=== PATIENT | female | born 1945 | race Caucasian/White ===

== ENCOUNTER → 2017-02-12 12:24 | Outpatient (CLI) | payer MEDICARE, SELFPAY ==
--- NOTE | 2017-02-12 12:49 | EKG12_ITS ---
Test Reason : AFIB Blood Pressure : / mmHG Vent. Rate : 062 BPM Atrial Rate : 107 BPM P-R Int : 000 ms QRS Dur : 088 ms QT Int : 392 ms P-R-T Axes : 000 082 046 degrees QTc Int : 397 ms Atrial fibrillation Abnormal ECG When compared with ECG of 29-JAN-2017 03:56, Vent. rate has decreased BY 76 BPM T wave inversion no longer evident in Anterolateral leads Confirmed by ELSA BAIRES, SARINA ([id number]), material expeditor TULIO DE LEON ([id number]) on 02/15/2017 2:37:32 PM Referred By: LILIBETH Confirmed By:SARINA HUNTER MD
[2017-02-12 14:00] LABS: Anion Gap 4 (5-15); BUN 13 mg/dL (7-18); BUN/Creat Ratio 12.1 RATIO (10-20); Calcium,Total 9.3 mg/dL (8.5-10.1); Chloride 107 mmol/L (98-107); Creatinine, Serum 1.07 mg/dL (0.55-1.02); EST Glomerular Filtration Rate 53 mL/min (>60); Est Glom Filt Rate - Afr Amer 65 mL/min (>60); Glucose 118 mg/dL (70-110); Potassium 4.4 mmol/L (3.5-5.1); Sodium Level 141 mmol/L (136-145)
== END ==
PROVIDERS: Family Provider Internal Medicine; PCP Internal Medicine; Visit Provider Internal Medicine Cardiovascular Disease
DX: I48.1 Persistent atrial fibrillation (principal); I47.1 Supraventricular tachycardia; Z79.01 Long term (current) use of 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s
CPT/HCPCS: 36415; 80048; 93005

== ENCOUNTER → 2017-08-08 14:48 | Outpatient (CLI) | payer MEDICARE, SELFPAY ==
--- NOTE | 2017-08-08 14:52 | ECHOD_ITS ---
Reason For Study: AFIB-FLUTTER Procedure This was a 2D Doppler, Color Flow transthoracic echocardiogram. Exam performed in department. Left Ventricle Normal size and thickness. The estimated ejection fraction is 60 %. Unable to assess diastolic dysfunction due to arrhythmia. No regional wall motion abnormalities noted. Right Ventricle Normal size and thickness. Normal systolic function. Atria The left atrium is severely enlarged. The right atrium is severely enlarged. Normal atrial septum. Mitral Valve Mild diffuse mitral valve thickening. Trivial mitral valve insufficiency. An annuloplasty ring is noted in the mitral position. Tricuspid Valve Normal tricuspid valve. Trivial tricuspid valve insufficiency. Right ventricular systolic pressure estimated to be 36 mmHg. Aortic Valve Normal aortic valve. Trisinus/trileaflet aortic valve. Pulmonic Valve The pulmonic valve is not well visualized. Great Vessels Normal aortic root. Normal arch. Normal inferior vena cava. Inferior vena cava collapse with sniff. Pericardium/Pleural No pericardial effusion. MMode/2D Measurements & Calculations LVIDd: 4.3 cm IVSd: 0.99 cm LVOT diam: 2.0 cm LVIDs: 2.7 cm LVPWd: 0.95 cm LVOT area: 3.2 cm2 RVDd: 3.1 cm FS: 36.8 % Ao root diam: 2.8 cm LAV(MOD-bp): 84.7 ml LVAd ap4: 26.6 cm2 LAV(MOD-bp) Indexed: 52.3 ml/m2 EDV(MOD-sp4): 82.8 ml LAV(MOD-sp2): 106.2 ml EDV(sp4-el): 83.8 ml LAV(MOD-sp4): 63.6 ml LVAs ap4: 16.0 cm2 ESV(MOD-sp4): 36.2 ml ESV(sp4-el): 37.3 ml EF(MOD-sp4): 56.2 % EF(sp4-el): 55.6 % SV(MOD-sp4): 46.5 ml SV(sp4-el): 46.6 ml LA A4 area: 21.1 cm2 RA A4 area: 22.0 cm2 Doppler Measurements & Calculations MV E max starr: 123.0 cm/sec MV P1/2t max starr: 131.6 cm/sec Ao V2 max: 119.7 cm/sec MV P1/2t: 84.9 msec Ao max P.7 mmHg MV dec slope: 454.0 cm/sec2 ABDI(V,D): 1.9 cm2 MVA(P1/2t): 2.6 cm2 LV V1 max: 71.4 cm/sec PA V2 max: 68.4 cm/sec TR max starr: 225.0 cm/sec LV V1 max P.0 mmHg TR max P.2 mmHg Interpretation Summary The estimated ejection fraction is 60 %. Unable to assess diastolic dysfunction due to arrhythmia. The left atrium is severely enlarged. The right atrium is severely enlarged. An annuloplasty ring is noted in the mitral position and appears to be functioning normally. Trivial mitral valve insufficiency. Right ventricular systolic pressure estimated to be 36 mmHg. Compared to echo report dated 11/29/2016, no appreciable changes noted. Pt appears to be in atrial fibrillation. Ordering Physician: Ronald Lauren Referring Physician: TORREY MAURO Performed By: Vanessa Ma RDCS
== END ==
PROVIDERS: Family Provider Internal Medicine; PCP Internal Medicine; Visit Provider Internal Medicine Cardiovascular Disease
DX: I47.1 Supraventricular tachycardia (principal)
CPT/HCPCS: 93306

== ENCOUNTER 2018-02-08 14:31 | Emergency (ER) | payer MEDICARE, SELFPAY ==
[2018-02-08 14:31] VITALS: BP 132/60; PULSE 74; RESP 16; TEMP 36.3; O2SAT 97; BMI 21.4
[2018-02-08 15:20] VITALS: O2SAT 96
[2018-02-08] MEDS: Ipratropium/Albuterol Sulfate 3 ML AMPUL.NEB INHALATION (15:40)
[2018-02-08 15:41] VITALS: PULSE 60; RESP 18
--- NOTE | 2018-02-08 15:50 | RAD_ITS ---
STUDY: X-RAY CHEST REASON FOR EXAM: Female, 72 years old. Cough TECHNIQUE: Frontal and lateral views of the chest were obtained. COMPARISON: March 12, 2017 FINDINGS: The lungs are hyperinflated. There are increased interstitial markings throughout the lungs. There are no focal airspace opacities. There is no demonstrated pleural abnormality. The cardiac silhouette is normal in size. The mediastinum and hilar regions are unremarkable. Normal visualized pulmonary arteries. Normal visualized aortic arch and descending thoracic aorta. There are diffuse degenerative changes of the visualized spine. There are degenerative changes in both shoulders. There are old rib fractures on the left. There is no demonstrated abnormality of the visualized upper abdomen. RAD/Chest PA and Lateral IMPRESSION: There is no evidence of focal consolidation or pleural effusion. 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 Electronically Signed: Heike Milian MD at 16:35 EST Tel Direct: [phone], Service support ,
--- NOTE | 2018-02-08 15:56 | ED.VISSUMM ---
- ER Visit Summary Date of Service: 02/08/18 Chief Complaint: [Shortness of breath cough] History of Present Illness: The patient is a 72 F [presents to the emergency department with complaint of a cough and shortness of breath started about a week ago. Patient states that at times she is coughing up some yellow sputum. She has had subjective fever at home. She complains of some mild discomfort with cough and her central chest area. Denies any hemoptysis. Seen in urgent care and was prescribed an antibiotic however she was advised to go to the emergency department to be evaluated because apparently they thought she had fluid on her lungs. Patient also complaining of some discomfort in her right ear and to the anterior aspect of her neck which she feels might be a little bit swollen.] Physical Examination: [HEENT-PERRLA, EOMI. Cranial nerves II through XII grossly intact. TMs clear. Mucous membranes moist. No adenopathy. Cardiovascular-regular rate and rhythm without murmur or ectopy Lungs-rhonchi bilaterally with expiratory wheezes. No accessory muscle use or retractions. Patient has some mild tenderness to palpation over the anterior chest wall. Abdomen-normoactive bowel sounds, soft, nontender, no rebound or rigidity, no peritoneal signs. Extremities-intact ?4, normal range of motion, normal pulses, atraumatic] Test Results: [Chest x-ray obtained showed some COPD changes with some mild fibrosis otherwise nothing acute.] Emergency Department Course and Treatment: [Patient was given a DuoNeb aerosol and she felt improved. 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 Patient to follow-up with her primary care physician within next 3-5 days.] Disposition: [Discharged home in stable condition. Patient advised to return if increasing shortness of breath or condition should worsen anyway.] Impression: [Asthmatic bronchitis] This note was generated with [employer] ([employer]) dictation software. It may contain incorrect words, spelling, and punctuation that were not noted in review of the chart prior to signing ED Disposition - Plan for ED Patient: Chief Complaint: Shortness of Breath Referrals: Reginald Rojo MD [Primary Care Provider] -
--- NOTE | 2018-02-08 15:59 | ED.DCSUM_ITS ---
- ER Visit Summary Date of Service: 02/08/18 Chief Complaint: [Shortness of breath cough] History of Present Illness: The patient is a 72 F [presents to the emergency department with complaint of a cough and shortness of breath started about a week ago. Patient states that at times she is coughing up some yellow sputum. She has had subjective fever at home. She complains of some mild discomfort with cough and her central chest area. Denies any hemoptysis. Seen in urgent care and was prescribed an antibiotic however she was advised to go to the emergency department to be evaluated because apparently they thought she had fluid on her lungs. Patient also complaining of some discomfort in her right ear and to the anterior aspect of her neck which she feels might be a little bit swollen.] Physical Examination: [HEENT-PERRLA, EOMI. Cranial nerves II through XII grossly intact. TMs clear. Mucous membranes moist. No adenopathy. Cardiovascular-regular rate and rhythm without murmur or ectopy Lungs-rhonchi bilaterally with expiratory wheezes. No accessory muscle use or retractions. Patient has some mild tenderness to palpation over the anterior chest wall. Abdomen-normoactive bowel sounds, soft, nontender, no rebound or rigidity, no peritoneal signs. Extremities-intact ?4, normal range of motion, normal pulses, atraumatic] Test Results: [Chest x-ray obtained showed some COPD changes with some mild fibrosis otherwise nothing acute.] Emergency Department Course and Treatment: [Patient was given a DuoNeb aerosol and she felt improved. 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 Patient to follow-up with her primary care physician within next 3-5 days.] Disposition: [Discharged home in stable condition. Patient advised to return if increasing shortness of breath or condition should worsen anyway.] Impression: [Asthmatic bronchitis] This note was generated with [employer] dictation software. It may contain incorrect words, spelling, and punctuation that were not noted in review of the chart prior to signing ED Disposition - Plan for ED Patient: Chief Complaint: Shortness of Breath Referrals: Reginald Rojo MD [Primary Care Provider] -
--- NOTE | 2018-02-08 17:03 | ED.DEP ---
ED Disposition - Plan for ED Patient: Chief Complaint: Shortness of Breath Instructions: ED Bronchitis Asthmatic Referrals: Reginald Rojo MD [Primary Care Provider] - 3-5 Days
--- OUTSIDE RECORDS SUMMARY | 2018-04-05 16:10 | XMS RPT_ITS ---
:1945 Author Organization OHIP Support Name Relationship Address Phone LENNIE LIRIANOE Unavailable [address] [facility] + [place] [address] DOROTHY, RAISSA Unavailable Unavailable + [place] [address] R Unavailable Unavailable Unavailable BUCHWALTER, ADELA Unavailable . + [place] [address] DOROTHY, RAISSA Unavailable . + [place] [address] R Unavailable Unavailable Unavailable BUCHWALTER, ADELA Unavailable Unavailable + DOROTHY, RAISSA Unavailable Unavailable + [place] [address] R Unavailable Unavailable Unavailable BUCHWALTER, ADELA Unavailable Unavailable + DOROTHY, RAISSA Unavailable Unavailable + [place] [address] R Unavailable Unavailable Unavailable BUCHWALTER, ADELA Unavailable NA + [place], [place] DOROTHY, RAISSA Unavailable NA + [place], [place] R Unavailable Unavailable Unavailable BUCHWALTER, ADELA Unavailable NA + [place], [place] DOROTHY, RAISSA Unavailable NA + [place], [place] R Unavailable Unavailable Unavailable BUCHWALTER, ADELA Unavailable NA + [place], [place] DOROTHY, RAISSA Unavailable NA + [place], [place] R Unavailable Unavailable Unavailable BUCHWALTER, ADELA Unavailable NA + [place], [place] DOROTHY, RAISSA Unavailable NA + [place], [place] R Unavailable Unavailable Unavailable BUCHWALTER, ADELA Unavailable NA + [place], [place] DOROTHY, RAISSA Unavailable NA + [place], [place] R Unavailable Unavailable Unavailable R Unavailable Unavailable Unavailable R Unavailable Unavailable Unavailable R Unavailable Unavailable Unavailable R Unavailable Unavailable Unavailable BUCHWALTERLENNIEE Unavailable NA + [place], [place] DOROTHY, RAISSA Unavailable NA + [place], [place] R Unavailable Unavailable Unavailable R Unavailable Unavailable Unavailable BUCHWALTER ADELA Unavailable NA + [place], [place] DOROTHY, RAISSA Unavailable NA + [place], [place] R Unavailable Unavailable Unavailable Care Team Providers Name Role Phone Darrel, Reginald Primary Care Unavailable Yan Vera Attending Unavailable Rojo, Reginald Primary Care Unavailable Yan Vera Attending Unavailable Rojo, Reginald Primary Care Unavailable Rober Schwartz Admitting Unavailable Lamberto De La Garza Attending Unavailable Reji Matta Consulting Unavailable AshelfLavern cisneros Attending Unavailable Reji Matta Attending Unavailable Lamberto De La Garza Attending Unavailable PaxtonReji delaney Attending Unavailable Lamberto De La Garza Attending Unavailable Mansi Boyle Attending Unavailable Rojo, Reginald Referring Unavailable Rojo, Reginald Primary Care Unavailable Reji Matta Attending Unavailable Rober Schwartz Referring Unavailable Naomie Baker Attending Unavailable Ronald Lauren Attending Unavailable Darrel, Reginald Referring Unavailable Rojo, Reginald Primary Care Unavailable Ronald Lauren Attending Unavailable Ronald Lauren Referring Unavailable Rojo, Reginald Primary Care Unavailable Ronald Lauren Attending Unavailable Mansi Boyle Attending Unavailable Rojo, Reginald Referring Unavailable Rojo, Reginald Primary Care Unavailable Cristopher Doherty Attending Unavailable DARREL, REGINALD Aguilar Attending Unavailable DARREL, VALARIE Referring Unavailable THORLEYDI DE LUNA (DAIRY EQUIPMENT REPAIRER) Attending Unavailable ROJO, VALARIE Referring Unavailable ROJO, VALARIE Referring Unavailable ROJO, REGINALD Aguilar Attending Unavailable DARREL, VALARIE Referring Unavailable THORPE, LEYDI (DAIRY EQUIPMENT REPAIRER) Attending Unavailable THORCALIXTO, LEYDI (DAIRY EQUIPMENT REPAIRER) Referring Unavailable ROJO, VALARIE Attending Unavailable ROJO, VALARIE Referring Unavailable SCHWEIKERT, SANDEE Gil Attending Unavailable REGINALD ROJO Referring Unavailable NIDARICHIE ([facility]) Attending Unavailable NIDA, RICHIE ([facility]) Referring Unavailable SCHWEIKERT, SANDEE A Admitting Unavailable SCHWEIKERT, SANDEE Gil Attending Unavailable NIDA, RICHIE ([facility]) Referring Unavailable SCHWEIKERT, SANDEE A Admitting Unavailable SCHWEIKERT, SANDEE Gil Attending Unavailable SCHWEIKERT, SANDEE A Referring Unavailable SCHWEIKERT, SANDEE A Referring Unavailable SCHWEIKERT, SANDEE A Referring Unavailable NIDA, RICHIE ([facility]) Attending Unavailable SCHWEIKERT, SANDEE Gil Attending Unavailable SCHWEIKERT, SANDEE A Referring Unavailable SCHWEIKERT, SANDEE Gil Attending Unavailable Darrel BAIRES, Reginald Primary Care Unavailable Darrel BAIRES, Reginald Referring Unavailable MICHELLE MONTALVO Attending Unavailable MICHELLE MONTALVO Referring Unavailable Darrel BAIRES, Reginald Primary Care Unavailable SCHWEIKERT, SANDEE Gil Admitting Unavailable SCHWEIKERT, SANDEE Gil Attending Unavailable Darrel BAIRES, Reginald Primary Care Unavailable MICHELLE MONTALVO Referring Unavailable Darrel BAIRES, Reginald Primary Care Unavailable SCHWEIKERT, SANDEE Gil Admitting Unavailable SCHWEIKERT, SANDEE Gil Attending Unavailable Darrel BAIRES, Reginald Primary Care Unavailable MICHELLE MONTALVO Attending Unavailable [facility] Referring Unavailable Darrel BAIRES, Reginald Primary Care Unavailable SCHWEIKERT, SNADEE Gil Referring Unavailable Darrel BAIRES, Reginald Primary Care Unavailable SCHWEIKERT, SANDEE Gil Referring Unavailable Darrel BAIRES, Reginald Primary Care Unavailable SCHWEIKERT, SANDEE Gil Referring Unavailable Darrel BAIRES, Reginald Primary Care Unavailable PROBLEMS PROBLEMS DATE TYPE CONDITION / CODE ATTENDING STATUS SOURCE 12/06/2017 Active Shortness of breath / NA Active [facility] R06.02(ICD-10) Clinic Other [place] Repository 10/02/2017 Active Other specified SCHWEIKERT, Active [facility] postprocedural states SANDEE A Clinic Other / Z98.890(ICD-10) [place] Repository 10/02/2017 Active Other mcc SCHWEIKERT, Active [facility] (current) drug SANDEE A Clinic Other therapy / [place] Z79.899(ICD-10) Repository 10/02/2017 Active Persistent atrial SCHWEIKERT, Active [facility] fibrillation / SANDEE A Clinic Other I48.1(ICD-10) [place] Repository 10/02/2017 Active halfway (current) SCHWEIKERT, Active [facility] use of 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s SANDEE A Clinic Other / Z79.01(ICD-10) [place] Repository 10/02/2017 Admitting Unknown / SCHWARLEN, Active [place] [facility] diagnosis UNK(Unknown) [facility] Repository 08/10/2017 Active Unknown / RICHIE ALVA Active [facility] UNK(Unknown) (DRILL SETUP OPERATOR) Clinic Other [place] Repository 08/08/2017 Unknown I47.1 - Cheng Laurenel Active [facility] tachycardia / Hospital I47.1(ICD-10) Repository 07/12/2016 Active Rheumatic heart SCHWEIKERT, Active [facility] disease, unspecified SANDEE A Clinic Other / I09.9(ICD-10) [place] Repository 12/21/2015 Active Rheumatic mitral SCHWEIKERT, Active [place] insufficiency / SANDEE A Clinic Other I05.1(ICD-10) [place] Repository 04/16/2017 Active Encounter for NA Active [facility] screening for Clinic Main osteoporosis / [place] Z13.820(ICD-10) Repository 07/06/2017 Unknown I48.0 - Paroxysmal Boyle, Active [place] atrial fibrillation / [facility] I48.0(ICD-10) Hospital Repository 07/06/2017 Unknown I48.91 - Unspecified Boyle, Active [place] atrial fibrillation / [facility] I48.91(ICD-10) Hospital Repository 07/25/2017 Unknown R00.2 - Palpitations Chuy, Bonifacioi Active [place] / R00.2(ICD-10) [facility] Repository PROCEDURES PROCEDURES No Procedure Records FoundRESULTS RESULTS EMERGENCY DEPARTMENT Observed: 02/08/2018 Status: F Source: [place] SUMMARY 9:14 PM [facility] REPOSITORY [facility] Medical Records Department [address] [place] [id number] Emergency Department Summary 02/08/18 1556 MR#: [id number] Acct: [id number] Name: BELLA GAN V Rep #: [id number] : 1945 72 From: Cristopher Doherty DO PCP: Reginald Rojo MD Status: DEP ER - ER Visit Summary Date of Service: 02/08/18 Chief Complaint: [Shortness of breath cough] History of Present Illness: The patient is a 72 F [presents to the emergency department with complaint of a cough and shortness of breath started about a week ago. Patient states that at times she is coughing up some yellow sputum. She has had subjective fever at home. She complains of some mild discomfort with cough and her central chest area. Denies any hemoptysis. Seen in urgent care and was prescribed an antibiotic however she was advised to go to the emergency department to be evaluated because apparently they thought she had fluid on her lungs. Patient also complaining of some discomfort in her right ear and to the anterior aspect of her neck which she feels might be a little bit swollen.] Physical Examination: [HEENT-PERRLA, EOMI. Cranial nerves II through XII grossly intact. TMs clear. Mucous membranes moist. No adenopathy. Cardiovascular-regular rate and rhythm without murmur or ectopy Lungs-rhonchi bilaterally with expiratory wheezes. No accessory muscle use or retractions. Patient has some mild tenderness to palpation over the anterior chest wall. Abdomen-normoactive bowel sounds, soft, nontender, no rebound or rigidity, no peritoneal signs. Extremities-intact 4, normal range of motion, normal pulses, atraumatic] Test Results: [Chest x-ray obtained showed some COPD changes with some mild fibrosis otherwise nothing acute.] Emergency Department Course and Treatment: [Patient was given a DuoNeb aerosol and she felt improved. Initially recommended prednisone as well however she states that she has some sort of an allergy to steroids and would prefer not to take them.] Treatment Plan: [Patient will be given an albuterol MDI and she is advised to merchandise pickup/receiving associate her antibiotic at the pharmacy that was prescribed to her by urgent care. Patient to follow-up with her primary care physician within next 3-5 days.] Disposition: [Discharged home in stable condition. Patient advised to return if increasing shortness of breath or condition should worsen anyway.] Impression: [Asthmatic bronchitis] This note was generated with [employer] dictation software. It may contain incorrect words, spelling, and punctuation that were not noted in review of the chart prior to signing ED Disposition - Plan for ED Patient: Chief Complaint: Shortness of Breath Referrals: Reginald Rojo MD [Primary Care Provider] - What to do if you have Problems For any increased pain, shortness of breath, bleeding, nausea or vomiting, chest pain, or any unexpected problems, contact your Primary Care Provider. Call [facility] ([phone]) or report to the closest Emergency Room. Call 911 if necessary. 02/08/182113 <Electronically signed by Cristopher Doherty DO> Date Althea Chas DO Cosigner Signature (If Indicated): Date CC: Reginald Rojo MD DISCHARGE INSTRUCTION Observed: 02/08/2018 Status: F Source: [place] 5:03 PM [facility] REPOSITORY [facility] Medical Records Department [address] [place] [address] Discharge Instruction 02/08/181702 MR#: [id number] Acct: [id number] Name: BELLA GAN V Rep #: [id number] : 1945 72 From: Cristopher Doherty DO PCP: Reginald Rojo MD Status: REG ER ED Disposition - Plan for ED Patient: Chief Complaint: Shortness of Breath Instructions: ED Bronchitis Asthmatic Referrals: Reginald Rojo MD [Primary Care Provider] - 3-5 Days What to do if you have Problems For any increased pain, shortness of breath, bleeding, nausea or vomiting, chest pain, or any unexpected problems, contact your Primary Care Provider. Call [facility] ([phone]) or report to the closest Emergency Room. Call 911 if necessary. 02/08/181702 <Electronically signed by Cristopher Doherty DO> Date Cristopher Doherty DO Cosigner Signature (If Indicated): Date CC: Reginald Rojo MD CHEST PA AND LATERAL Observed: 02/08/2018 Status: F Source: [place] 3:20 PM [facility] HOSPITAL REPOSITORY [facility] Imaging Services [address] [place] [address] Chest PA and Lateral MR#: [id number] Acct: [id number] Name: BELLA GAN V Rep #: [id number] : 1945 F 72 From: Heike Milian MD PCP: Reginald Rojo MD Status: REG ER Study: Chest PA and Lateral Date of Exam: 02/08/18 Exam# [id number] Ordering Dr: Cristopher Doherty DO STUDY: X-RAY CHEST REASON FOR EXAM: Female, 72 years old. Cough TECHNIQUE: Frontal and lateral views of the chest were obtained. COMPARISON: March 12, 2017 FINDINGS: The lungs are hyperinflated. There are increased interstitial markings throughout the lungs. There are no focal airspace opacities. There is no demonstrated pleural abnormality. The cardiac silhouette is normal in size. The mediastinum and hilar regions are unremarkable. Normal visualized pulmonary arteries. Normal visualized aortic arch and descending thoracic aorta. There are diffuse degenerative changes of the visualized spine. There are degenerative changes in both shoulders. There are old rib fractures on the left. There is no demonstrated abnormality of the visualized upper abdomen. RAD/Chest PA and Lateral IMPRESSION: There is no evidence of focal consolidation or pleural effusion. 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 Electronically Signed: Heike Milian MD at 16:35 EST Tel Direct: [phone], Service support , CC: Cristopher Doherty DO; Reginald Rojo MD Playroom Attendant: Signed CARDIOLOGY VISIT Observed: 01/07/2018 Status: F Source: [place] REPORT 4:28 PM [facility] HOSPITAL REPOSITORY [facility] [address] [place] [address] OFFICE VISIT Date of Service: 12/28/17 MR#: [id number] Acct: [id number] Name: BELLA GAN V Rep #: [id number] : 1945 Provider: Mansi Boyle Age/Sex: 72/F [facility]: [facility] Status: Signed HPI HPI Chief Complaint: Routine f/u Details: BELLA GAN, is a 72 F who presents to the office today for a cardiovascular follow-up. Patient does have a history of paroxysmal atrial fibrillation. In August of this year she did undergo an ablation and she did require a cardioversion after this ablation. Since that time she feels that she occasionally has paroxysmal atrial fibrillation. She does hold her Coreg when her heart rate is low. She tells me that her goal for the future is to stop her amiodarone this is per EP. She does have an upcoming appointment with him. I have not been able to review these medical records yet. She also states that during her EP workup she was noted to have a nodule on her CAT scan. She is planning on discussing this with her primary care doctor She does not have any worsening shortness of breath. She does not have any chest pain or heaviness. She feels her palpitations are significantly better. She does not have any lightheadedness, dizziness, syncopal episodes or lower extremity edema. Intake Vital Signs12/28/17 Height 5 ft 5 in 12/28/17 Weight: 135 lb 12/28/17 Body Mass Index (BMI) 22.4 12/28/17 Blood Pressure 128/64 H 12/28/17 Blood Pressure Location Lt brachial Intake Visit Reasons: 6 M FU Flattening Machine Operator Required: No Accompanied by: none Is patient in pain?: No Allergies codeine Allergy (Verified 12/28/17 14:15) Other cortisone Allergy (Verified 12/28/17 14:15) Rash guaifenesin Allergy (Verified 12/28/17 14:15) Unknown propoxyphene [From Darvon] Allergy (Verified 12/28/17 14:15) Rash propranolol Allergy (Verified 12/28/17 14:15) Unknown verapamil Allergy (Verified 12/28/17 14:15) Unknown digoxin Adverse Reaction (Verified 12/28/17 14:15) Unknown Medications ALPRAZolam [Xanax] 0.5 mg PO QHS 11/17/15 [History Confirmed 12/28/17] Levothyroxine Sodium [Levoxyl] 88 mcg PO DAILY 01/18/16 [History Confirmed 12/28/17] Acetaminophen [Tylenol] 325 mg PO Q4H PRN 02/17/17 [History Confirmed 12/28/17] amiodarone 200 mg tablet 200 mg PO QDAY #90 tab 04/20/17 [Rx Confirmed 12/28/17] rivaroxaban 20 mg tablet 20 mg PO QDAY #90 tab 05/02/17 [Rx Confirmed 12/28/17] potassium chloride ER 20 mEq tablet,extended release(part/cryst) 20 meq PO BID #14 tab 05/08/17 [Rx Confirmed 12/28/17] carvedilol 6.25 mg tablet 6.25 mg PO BID #180 tab 06/01/17 [Rx Confirmed 12/28/17] furosemide 20 mg tablet 20 mg PO DAILY #90 tab 12/28/17 [Rx Confirmed 12/28/17] PFSH Medical History Paroxysmal supraventricular tachycardia (Chronic) Rheumatic mitral insufficiency (Chronic) Rheumatic mitral valve prolapse (Chronic) Paroxysmal A-fib (Chronic) Anxiety (Chronic) Hypothyroidism (Chronic) Takotsubo cardiomyopathy (Chronic) Surgical History History of mitral valve repair (Chronic 09/18/01) History of cardioversion (Chronic 03/13/17) History of cataract surgery (Chronic) History of left heart catheterization (Chronic 01/19/16) History of total abdominal hysterectomy (Chronic) Social History Smoking Status: Never smoker Cardiology Exam Const Appearance: cooperative, healthy appearing and no acute distress Nutritional Appearance: well nourished Orientation: alert, oriented x3 and oriented to person Head Head: normal to inspection, atraumatic and normocephalic Nose: external nose normal Face and Sinus: face symmetric Mouth: oral mucosae normal Eyes General: appearance normal, both eyes and all related structures Eyelids: eyelids normal Conjunctivae: conjunctivae normal Pupils: PERRL and normal by confrontation EOM: EOM intact bilaterally Neck Neck: normal visual inspection and full ROM Carotids: normal carotid upstroke Chest Chest inspection: normal inspection of the chest Auscultation: Bilateral: Clear to Auscultation Cardio Palpation: normal PMI Rate: regular rate Rhythm: regular rhythm Heart sounds: S1 normal and S2 normal GI GI: normal to inspection, no hepatosplenomegaly and bowel sounds present Neuro General: alert, oriented x3, awake, CN's II-XI intact bilaterally and moves all extremities Skin Skin: no rashes or lesions noted Extremities Pulses: Normal: Right Femoral Pulse, Left Femoral Pulse, Right Dorsalis Pedis Pulse, Left Dorsalis Pedis Pulse, Right Posterior Tibial Pulse, Left Posterior Tibial Pulse, Right Radial Pulse, Left Radial Pulse Lower Extremity Edema: None: Bilateral Psych Psychological: normal affect Supplemental Info Echocardiogram in 2018 demonstrated: The estimated ejection fraction is 60 %. Unable to assess diastolic dysfunction due to arrhythmia. The left atrium is severely enlarged. The right atrium is severely enlarged. An annuloplasty ring is noted in the mitral position and appears to be functioning normally. Trivial mitral valve insufficiency. Right ventricular systolic pressure estimated to be 36 mmHg. Compared to echo report dated 11/29/2016, no appreciable changes noted. Pt appears to be in atrial fibrillation. Assessment AND Plan 1. Paroxysmal A-fib I48.0 Plan Will obtain medical records from EP. For now she will continue with her amiodarone, current dose of Coreg and Xarelto. 2. History of mitral valve repair Z98.890 Plan Recent echocardiogram has been reviewed. We will continue to monitor by history, exam and echocardiograms as deemed appropriate. Plan Detail Other Medications New: Additional Comments Thank you for allowing us to participate in patient's plan of care, if you have any questions please do not hesitate to call. This note was generated using a voice recognition system and there may be incorrect words, spelling or punctuation errors that were not noted when reviewing the office note prior to saving. Follow Up 6 Months (DJN) 12/28/17 (Please obtain MR from EP- would like EKG, CT, echo, ablation and OV) Coding Level of Care Code Off vis,est,level 3 Diagnoses Paroxysmal A-fib I48.0 History of mitral valve repair Z98.890 Coding Level of Care Code Off vis,est,level 3 Diagnoses Paroxysmal A-fib I48.0 History of mitral valve repair Z98.890 01/07/18 2421 <Electronically signed by Mansi CHRISTIAN> Date Mansi Ross Signature: Date (if applicable) CC: Reginald Rojo MD CNPN Observed: 12/11/2017 Status: COMPLETED Source: [place] 12:00 AM CLINIC OTHER CAMPUS REPOSITORY Telephone (AGCARDPHRA) BELLA GAN V ([id number]) 1945 F Date Time Provider Department 12/11/17 RICHIE ALVA (DRILL SETUP OPERATOR) AGCARDPHRA During your visit today, we recorded the following information about you: Michelle Alva, MSN, BUNGHOLE BORER.DRILL SETUP OPERATOR 12/11/2017 2:24 PM Signed Please inform Bella Gan that the CT scan of the chest shows 3 right and 2 left pulmonary veins there is approximately 50% 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 Since she is asymptomatic this is something we will keep an eye on. Through the 5 mm noncalcified pulmonary nodule in the right upper lobe it is recommended that she follow-up with her primary care physician she may need a percutaneous biopsy. Please send the copy of the CT scan report as well as call the office so the physician is aware. Echocardiogram shows ejection fraction 67%. No regional wall motion abnormalities. No evidence of intra-atrial shunting. Michelle Alva, MSN, BUNGHOLE BORER.DRILL SETUP OPERATOR Carroll Cline RN 12/11/2017 2:35 PM Signed Patient notified of test results and verbalized understanding. CELSO Alfonso MD 12/11/2017 4:55 PM Signed ASSESSMENT/PLAN: 1. Lung nodule < 6cm on CT - ICD9: 793.11, ICD10: R91.1 This result was forwarded to me. Per guidelines, I recommend rechecking CT in 12 months. Biopsy not indicated. Please inform the patient. Reginald Rojo MD Allergies As of Date: 12/11/2017 Noted Allergy Reaction CODEINE 12/21/2015 8 - GI Upset CORTISONE 12/21/2015 7 - Swelling 14 - Other: See Comments Comments: Caused A-fib DARVON (PROPOXYPHENE HCL) 12/21/2015 1 - Mental Status Change DIGOXIN 03/22/2017 5 - Intolerance GUAIFENESIN 12/21/2015 1 - Mental Status Change Comments: hallucinations HONEY 12/21/2015 2 - Rash 9 - Itching PROPRANOLOL 12/21/2015 14 - Other: See Comments Comments: Night terrors VERAPAMIL 12/21/2015 14 - Other: See Comments Comments: Palpitation, diaphoresis Date Reviewed: 12/06/2017 Reviewed by: Richie (Food Selector) Nida - Fully Assessed Reason for Visit: Results [95] Primary Visit Diagnosis:Lung nodule < 6cm on CT [R91.1] Prescriptions as of 12/11/2017 Sig: ALPRAZOLAM 0.5 MG TABLET Take 1 tablet by mouth twice * CARVEDILOL 6.25 MG TABLET Take 6.25 mg by mouth twice d* AMIODARONE 200 MG TABLET Take 1 tablet by mouth once d* FUROSEMIDE 20 MG TABLET Take 1 tablet by mouth once d* RIVAROXABAN 20 MG TABLET Take 1 tablet by mouth daily * LEVOTHYROXINE 88 MCG TABLET Take 1 tablet by mouth once d* POTASSIUM CHLORIDE ER 20 MEQ * Take 1 tablet by mouth twice * Problem List As Of Date 12/11/2017 Noted Resolved PSVT (paroxysmal supraventricular tachycardia) *INVALID FOR* 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 Anticoagulant-induced bleeding (HCC) [T45.7X1A,* 05/16/2017 More... Rheumatic heart disease [I09.9] Mitral valve regurgitation [I34.0] More... Persistent atrial fibrillation (HCC) [I48.1] Tachycardia [R00.0] 02/14/2017 More... Gastroesophageal reflux disease [K21.9] INVALID FOR* Osteopenia [M85.80] INVALID FOR* Paroxysmal atrial fibrillation (HCC) [I48.0] INVALID FOR* halfway current use of antiarrhythmic drug [Z* More... Status post catheter ablation of atrial fibrill*INVALID FOR* More... Lung nodule < 6cm on CT [R91.1] INVALID FOR* More... Encounter Status:Closed by CARROLL CLINE RN on 12/11/17 PROGRESS Observed: 12/06/2017 Status: COMPLETED Source: [place] 2:50 PM [facility] REPOSITORY HNO ID: [id number] Author: Sandee Flores Service: (none) Author Type: Physician Type: Progress Notes Filed: 12/06/2017 2:52 PM Note Text: Reviewed case in response to SMOOTH Alva's question as to whether Ms. Gan can discontinue amiodarone now that she is a few months from the AF catheter ablation procedure in 08/2017. My operative notes indicate the presence of substantial atrial cardiomyopathy so we know from this situation that sinus rhythm will likely be very challenging to maintain. Therefore, I recommend that she continue with the amiodarone for now and we can reassess at the 6 month post ablation evaluation. Sandee Flores MD December 06, 2017 2:52 PM PROGRESS Observed: 12/06/2017 Status: COMPLETED Source: [place] 11:46 AM [facility] REPOSITORY HNO ID: [id number] Author: Richie Alva Service: (none) Author Type: Nurse Practitioner Type: Progress Notes Filed: 12/06/2017 2:25 PM Note Text: HISTORY OF PRESENT ILLNESS: Ms. Gan?is a?72 year old female who presents today for a cardiovascular medicine follow-up visit. ? History copied from previous notes, edited as needed: Ms. aGn is a?71 year old female who presents today for evaluation of atrial fibrillation. ?She has a long history of recurrent atrial fibrillation that dates back to perhaps at least 2001. ?She recalls having a cardioversion at that time. ?She states that the atrial fibrillation recurred but would be self-limited and only occur every year or so. ?She does have history of rheumatic heart disease and underwent mitral valve repair at [facility] in September 2001. ?She states that over the years the atrial fibrillation recurred with increasing frequency, even every month or so, and with increasing duration lasting up to a few hours. ?At some point she was treated with amiodarone but she does not recall when this was started. ?She states the dosage of amiodarone was decreased in February 2015 when she was hospitalized with broken heart syndrome. She had lived for a few years in [place] but in November 2015 she moved back to [place]. ?She experienced more severe episode of atrial fibrillation around that time, and upon presentation to the hospital she was found to be in atrial fibrillation with rapid ventricular response rates. ?She was still on amiodarone at that time. ?She underwent cardiac testing including an echocardiogram late November 2015 that revealed normal left ventricular systolic function, severe left atrial enlargement, and mild to moderate mitral regurgitation. ?A cardiac stress test was performed that she states was not entirely normal, so she underwent cardiac catheterization in January 2016 that revealed no significant coronary artery disease. ?She underwent electrical DC cardioversion in February 2016 which restored sinus rhythm, but she states the atrial fibrillation recurred within a couple of hours. ?She states that more recently she has been feeling pretty good, and has occasional days when she feels palpitations or as she describes it a punching sensation on the left side of her chest. ?She does not experience any chest pain, shortness of breath, other numbness or syncope. ?She states that in a given month she might have a couple of days where she feels the palpitations but otherwise she feels pretty good. ?She has a history of having some problems with cardiac medications, including propranolol which caused severe night terrors, and verapamil that was also not well tolerated. ?She is presently being treated with carvedilol and as stated she is overall feeling reasonably good on most days. She denies chest pain, shortness of breath, orthopnea, PND, lightheadedness or syncope. ? Additional history this visit 05/23/2017: Ms. Gan presents for follow up evaluation. When I evaluated her in 07/2016 she was having minimally symptomatic AF with a ventricular rate control approach. 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 However, she developed severe symptoms that resulted in a couple visits to the local ER in [place], and with hospitalization(s) as well. The AF was challenging to control, and this included some episodes of severe bradycardia after treatment with AV madan blocking medications for ventricular rate control. She also developed digoxin toxicity in 02/2017 requiring this medication to be discontinued. Ultimately she was treated with amiodarone and underwent a couple of cardioversion procedures. The AF recurred despite these efforts. She presents now to discuss the treatment options. Bella Gan underwent an RF PVAI on August 23, 2017. The amiodarone was resumed after the procedure.? Today, Bella Gan presents for follow up symptomatic atrial fibrillation s/p RF PVAI on 08/23/17. She underwent a cardioversion at the end of the procedure, the Amiodarone was resumed. She reports that she has experienced bradycardia and discontinued the Coreg since she was last seen. She believes that she had a recurrence of atrial fibrillation one month ago that lasted for 15 minutes but she isn't sure. She doesn't have a home phone and was therefore unable to send a [employer] strip. She denies CP, SOB, dizziness, syncope. She reports feeling better in [place], she has joined the local gym. 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 12/21/2015 - Mitral valve prolapse 12/21/2015 - Mitral valve regurgitation s/p MV repair at [facility] 09/2001 - Palpitations - Paroxysmal atrial fibrillation (HCC) 12/21/2015 - Persistent atrial fibrillation (HCC) over time has developed excessively bothersome symptoms despite rate control treatment approach; recurrent AF despite antiarrhythmic drug therapy and cardioversions; s/p AF catheter ablation 08/23/2017 - PSVT (paroxysmal supraventricular tachycardia) (HCC) 12/21/2015 - Rheumatic heart disease - 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 Flores - CARDIAC CATH 01/19/2016 no significant CAD; LVEF 65% intact MV repair with no evidence for MR - CARDIOVERSION 08/23/2017 - CARDIOVERSION, ELECTIVE, ELECTRICAL 03/13/2017 successful christianity of sinus rhythm from atrial fibrillation; [facility] - CARDIOVERSION, ELECTIVE, ELECTRICAL 2001 - CARDIOVERSION, ELECTIVE, ELECTRICAL 10/02/2017 successful christianity of sinus rhythm from AF; [facility] Dr. Flores - CATARACT EXTRACTION HX - ECHOCARDIOGRAM 09/2001 - ECHOCARDIOGRAM 12/2001 - ECHOCARDIOGRAM 03/01/2015 - ECHOCARDIOGRAM 12/02/2015 LVEF 60%; severe LAE, LAV 70.9 ml; mild to moderate MR - ECHOCARDIOGRAM 11/2016 LVEF 65%; MV repair ok - ECHOCARDIOGRAM 08/08/2017 [facility]: normal LV size and systolic fxn; LVEF 60%; severe LAE, ALLAN; trivial MR with annuloplasty ring noted; trivial TR - HYSTERECTOMY HX 1980s JAMILA, BSO - MITRAL VALVE SURGERY HX 09/18/2001 robotically assisted minimally invasive mitral valve repair with annuloplasty ring; [facility] - RIGHT AND LEFT HEART CATH 04/11/2001 LVEF 60%; moderately severe MR; mild diastolic dysfxn; no significant CAD; [facility] - STRESS ECHO 12/08/2015 95% MPHR; LVEF 65%; severe LAE; wide-complex rhythm at peak exercise, aberrantly conducted AF vs. VT - STRESS TEST NUCLEAR 12/2001 - ALAN 2000 - THORACENTESIS - TUBAL LIGATION HX 1980s Social History Substance Use Topics - Smoking status: Former Smoker Packs/day: 0.50 Years: 12.00 Types: Cigarettes Start date: 1957 Quit date: 03/12/1969 - Smokeless tobacco: Never Used - Alcohol use No FAMILY HISTORY Problem Relation Age of Onset - Breast Cancer Sister - Cancer Mother pancreatic - Emphysema Father - Heart Father - Drug abuse Brother drug overdose in his 20s - Heart Brother - Heart Brother - Heart Sister heart valve problem - Stroke Sister - Heart Brother ALLERGIES Allergen Reactions - Codeine GI Upset - Cortisone Swelling, Other: See Comments Caused A-fib - Darvon [Propoxyphen* Mental Status Change - Digoxin Intolerance - Guaifenesin Mental Status Change hallucinations - Honey Rash, Itching - Propranolol Other: See Comments Night terrors - Verapamil Other: See Comments Palpitation, diaphoresis ALPRAZolam (XANAX) 0.5 mg tablet Take 1 tablet by mouth twice daily as needed for Anxiety for up to 90 days. #45 tablets/30 days. amiodarone (PACERONE) 200 mg tablet Take 1 tablet by mouth once daily. furosemide (LASIX) 20 mg tablet Take 1 tablet by mouth once daily. rivaroxaban (XARELTO) 20 mg tablet Take 1 tablet by mouth daily with dinner. levothyroxine (LEVOXYL) 88 mcg tablet Take 1 tablet by mouth once daily. Take on empty stomach. For Thyroid potassium chloride ER (K-DUR, KLOR-CON) 20 mEq tablet Take 1 tablet by mouth twice daily. iv contrast (will be provided with radiology test) CT Chest W -Inject, intravenously, once for 1 dose.No IV access, insert saline lock prior to the beginning of sedation, infusion, injection of imaging exam. Discontinue saline lock post exam. If Pt. has a central line or IVAD, may access for administration according to line specific nursing protocol. Once exam is complete flush line and de-access according to line specific nursing protocol in the CT contrast administration guidelines link. carvedilol (COREG) 6.25 mg tablet Take 6.25 mg by mouth twice daily with meals. Hold if heart rate less than 60/minute REVIEW OF SYSTEMS PAIN ASSESSMENT: Negative for pain, history of chronic pain, or current treatment for a chronic pain condition. GENERAL: No weight loss, malaise or fevers NECK: Negative for lumps, goiter, pain and significant neck swelling RESPIRATORY: Negative for cough, hemoptysis, wheezing, COPD, dyspnea or shortness of breath CARDIOVASCULAR: See HPI GI: No nausea, vomiting, or diarrhea MUSCULOSKELETAL: Negative for joint pain or swelling, back pain or muscle pain SKIN: Negative for lesions, rash, and itching PSYCH: Negative for sleep disturbance, mood disorder and recent psychosocial stressors HEMATOLOGY/LYMPHOLOGY: Negative for prolonged bleeding, bruising easily or swollen nodes ENDOCRINE: Negative for cold or heat intolerance, polyuria, polydipsia and goiter NEURO: No history of headaches, syncope, paralysis, seizures or tremors BP 130/76 Pulse 68 Ht 5' 5 (1.65m) Wt 133 lb (60.3kg) SpO2 99% BMI 22.13 kg/(m2). PHYSICAL EXAMINATION: General appearance: Well appearing, alert, in no acute distress, well-hydrated, well nourished. Neck: Negative findings: no jugular venous distention Lungs: Lungs clear to auscultation. No wheezing, rhonchi, rales Heart: RRR without murmur, gallop, or rubs. No ectopy Abdomen: Abdomen soft, non-tender. Bowel sounds normal. No masses, organomegaly Extremities: No deformities, edema, skin discoloration, clubbing or cyanosis. Good capillary refill. Neuro: Oriented X 3 CARDIOVASCULAR MEDICINE TESTING: Electrocardiogram: SR 61 bpm, WV .20 sec, QRS 92 msec, QTC 440 msec. Nonspecific T-wave abnormality unchanged from previous EKG. I have personally reviewed the Electrocardiogram. IMPRESSION: Ms. Gan is a 72 year old female patient of Dr. Flores with symptomatic atrial fibrillation status post cryo-primary vein antrum isolation ablation on August 23, 2017, status post direct current cardioversion at the and of the procedure. She is currently on amiodarone 200 mg daily. She had been on Coreg. The medication secondary to bradycardia. She takes Xarelto for chads vascular of 2. EKG in the office reveals sinus rhythm 61 bpm. Normal QT intervals for amiodarone administration. I will discuss with Dr. Flores if he feels the amiodarone can be discontinued at this point. If the amiodarone is discontinued she will need to resume the Coreg. The CT scan of the chest, echocardiogram are pending. She is currently wearing a 24- hour Holter monitor. She will follow-up with Dr. Flores in 6 months. PLAN AND RECOMMENDATIONS: (I48.1) Persistent atrial fibrillation (HCC) (primary encounter diagnosis) Comment: Stable, see above Plan: EKG WITH INTERPRETATION (Z98.890) History of mitral valve repair Comment: Stable, she follows with Dr. 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 Lauren. Michelle Alva, MSN, BUNGHOLE BORER.DRILL SETUP OPERATOR LANDONOV Observed: 12/06/2017 Status: COMPLETED Source: [place] 11:30 AM [facility] OTHER [place] REPOSITORY Office Visit (AGCARDPHRA) POLOBELLA SMITH V ([id number]) 1945 F Date Time Provider Department 12/06/17 11:30 AM RICHIE ALVA (DRILL SETUP OPERATOR) AGCARDPHRA During your visit today, we recorded the following information about you: Pulse Blood pressure Weight Height 68/minute 130/76 60.3 kg 1.651 m Erma House LPN 12/06/2017 11:35 AM Signed Ms. Gan is here for her three month follow up after having a fib ablations. She states a fib has been good the past months. ARPIT Huizar, MSN, BUNGHOLE BORER.DRILL SETUP OPERATOR 12/06/2017 2:25 PM Signed HISTORY OF PRESENT ILLNESS: Ms. Gan?is a?72 year old female who presents today for a cardiovascular medicine follow-up visit. ? History copied from previous notes, edited as needed: Ms. Gan is a?71 year old female who presents today for evaluation of atrial fibrillation. ?She has a long history of recurrent atrial fibrillation that dates back to perhaps at least 2001. ?She recalls having a cardioversion at that time. ?She states that the atrial fibrillation recurred but would be self-limited and only occur every year or so. ?She does have history of rheumatic heart disease and underwent mitral valve repair at [facility] in September 2001. ?She states that over the years the atrial fibrillation recurred with increasing frequency, even every month or so, and with increasing duration lasting up to a few hours. ?At some point she was treated with amiodarone but she does not recall when this was started. ?She states the dosage of amiodarone was decreased in February 2015 when she was hospitalized with broken heart syndrome. She had lived for a few years in [place] but in November 2015 she moved back to [place]. ?She experienced more severe episode of atrial fibrillation around that time, and upon presentation to the hospital she was found to be in atrial fibrillation with rapid ventricular response rates. ?She was still on amiodarone at that time. ?She underwent cardiac testing including an echocardiogram late November 2015 that revealed normal left ventricular systolic function, severe left atrial enlargement, and mild to moderate mitral regurgitation. ?A cardiac stress test was performed that she states was not entirely normal, so she underwent cardiac catheterization in January 2016 that revealed no significant coronary artery disease. ?She underwent electrical DC cardioversion in February 2016 which restored sinus rhythm, but she states the atrial fibrillation recurred within a couple of hours. ?She states that more recently she has been feeling pretty good, and has occasional days when she feels palpitations or as she describes it a punching sensation on the left side of her chest. ?She does not experience any chest pain, shortness of breath, other numbness or syncope. ?She states that in a given month she might have a couple of days where she feels the palpitations but otherwise she feels pretty good. ?She has a history of having some problems with cardiac medications, including propranolol which caused severe night terrors, and verapamil that was also not well tolerated. ?She is presently being treated with carvedilol and as stated she is overall feeling reasonably good on most days. She denies chest pain, shortness of breath, orthopnea, PND, lightheadedness or syncope. ? Additional history this visit 05/23/2017: Ms. Gan presents for follow up evaluation. When I evaluated her in 07/2016 she was having minimally symptomatic AF with a ventricular rate control approach. 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 However, she developed severe symptoms that resulted in a couple visits to the local ER in [place], and with hospitalization(s) as well. The AF was challenging to control, and this included some episodes of severe bradycardia after treatment with AV madan blocking medications for ventricular rate control. She also developed digoxin toxicity in 02/2017 requiring this medication to be discontinued. Ultimately she was treated with amiodarone and underwent a couple of cardioversion procedures. The AF recurred despite these efforts. She presents now to discuss the treatment options. Bella Gan underwent an RF PVAI on August 23, 2017. The amiodarone was resumed after the procedure.? Today, Bella Gan presents for follow up symptomatic atrial fibrillation s/p RF PVAI on 08/23/17. She underwent a cardioversion at the end of the procedure, the Amiodarone was resumed. She reports that she has experienced bradycardia and discontinued the Coreg since she was last seen. She believes that she had a recurrence of atrial fibrillation one month ago that lasted for 15 minutes but she isn't sure. She doesn't have a home phone and was therefore unable to send a [employer] strip. She denies CP, SOB, dizziness, syncope. She reports feeling better in [place], she has joined the local gym. PAST MEDICAL HISTORY Diagnosis Date - Anticoagulant-induced bleeding (HCC) Eliquis: hematuria and epistaxis - Cholelithiasis 02/13/2017 asymptomatic - Dyspnea - Generalized anxiety disorder 12/21/2015 - H/O cardiac radiofrequency ablation 08/23/2017 - Hearing loss 12/21/2015 - History of mitral valve repair MV repair at [facility] 09/2001 - History of rheumatic fever - Hypothyroidism 12/21/2015 - halfway current use of antiarrhythmic drug amiodarone; indication: symptomatic AF - halfway current use of 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 therapy 12/21/2015 - Mitral valve prolapse 12/21/2015 - Mitral valve regurgitation s/p MV repair at [facility] 09/2001 - Palpitations - Paroxysmal atrial fibrillation (HCC) 12/21/2015 - Persistent atrial fibrillation (HCC) over time has developed excessively bothersome symptoms despite rate control treatment approach; recurrent AF despite antiarrhythmic drug therapy and cardioversions; s/p AF catheter ablation 08/23/2017 - PSVT (paroxysmal supraventricular tachycardia) (HCC) 12/21/2015 - Rheumatic heart disease - 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 Flores - CARDIAC CATH 01/19/2016 no significant CAD; LVEF 65% intact MV repair with no evidence for MR - CARDIOVERSION 08/23/2017 - CARDIOVERSION, ELECTIVE, ELECTRICAL 03/13/2017 successful christianity of sinus rhythm from atrial fibrillation; [facility] - CARDIOVERSION, ELECTIVE, ELECTRICAL 2001 - CARDIOVERSION, ELECTIVE, ELECTRICAL 10/02/2017 successful christianity of sinus rhythm from AF; [facility] Dr. Flores - CATARACT EXTRACTION HX - ECHOCARDIOGRAM 09/2001 - ECHOCARDIOGRAM 12/2001 - ECHOCARDIOGRAM 03/01/2015 - ECHOCARDIOGRAM 12/02/2015 LVEF 60%; severe LAE, LAV 70.9 ml; mild to moderate MR - ECHOCARDIOGRAM 11/2016 LVEF 65%; MV repair ok - ECHOCARDIOGRAM 08/08/2017 [facility]: normal LV size and systolic fxn; LVEF 60%; severe LAE, ALLAN; trivial MR with annuloplasty ring noted; trivial TR - HYSTERECTOMY HX JAMILA, BSO - MITRAL VALVE SURGERY HX 09/18/2001 robotically assisted minimally invasive mitral valve repair with annuloplasty ring; [facility] - RIGHT AND LEFT HEART CATH 04/11/2001 LVEF 60%; moderately severe MR; mild diastolic dysfxn; no significant CAD; [facility] - STRESS ECHO 12/08/2015 95% MPHR; LVEF 65%; severe LAE; wide-complex rhythm at peak exercise, aberrantly conducted AF vs. VT - STRESS TEST NUCLEAR 12/2001 - ALAN 2000 - THORACENTESIS - TUBAL LIGATION HX 1980s Social History Substance Use Topics - Smoking status: Former Smoker Packs/day: 0.50 Years: 12.00 Types: Cigarettes Start date: 1957 Quit date: 03/12/1969 - Smokeless tobacco: Never Used - Alcohol use No FAMILY HISTORY Problem Relation Age of Onset - Breast Cancer Sister - Cancer Mother pancreatic - Emphysema Father - Heart Father - Drug abuse Brother drug overdose in his 20s - Heart Brother - Heart Brother - Heart Sister heart valve problem - Stroke Sister - Heart Brother ALLERGIES Allergen Reactions - Codeine GI Upset - Cortisone Swelling, Other: See Comments Caused A-fib - Darvon [Propoxyphen* Mental Status Change - Digoxin Intolerance - Guaifenesin Mental Status Change hallucinations - Honey Rash, Itching - Propranolol Other: See Comments Night terrors - Verapamil Other: See Comments Palpitation, diaphoresis ALPRAZolam (XANAX) 0.5 mg tablet Take 1 tablet by mouth twice daily as needed for Anxiety for up to 90 days. #45 tablets/30 days. amiodarone (PACERONE) 200 mg tablet Take 1 tablet by mouth once daily. furosemide (LASIX) 20 mg tablet Take 1 tablet by mouth once daily. rivaroxaban (XARELTO) 20 mg tablet Take 1 tablet by mouth daily with dinner. levothyroxine (LEVOXYL) 88 mcg tablet Take 1 tablet by mouth once daily. Take on empty stomach. For Thyroid potassium chloride ER (K-DUR, KLOR-CON) 20 mEq tablet Take 1 tablet by mouth twice daily. iv contrast (will be provided with radiology test) CT Chest W -Inject, intravenously, once for 1 dose.No IV access, insert saline lock prior to the beginning of sedation, infusion, injection of imaging exam. Discontinue saline lock post exam. If Pt. has a central line or IVAD, may access for administration according to line specific nursing protocol. Once exam is complete flush line and de-access according to line specific nursing protocol in the CT contrast administration guidelines link. carvedilol (COREG) 6.25 mg tablet Take 6.25 mg by mouth twice daily with meals. Hold if heart rate less than 60/minute REVIEW OF SYSTEMS PAIN ASSESSMENT: Negative for pain, history of chronic pain, or current treatment for a chronic pain condition. GENERAL: No weight loss, malaise or fevers NECK: Negative for lumps, goiter, pain and significant neck swelling RESPIRATORY: Negative for cough, hemoptysis, wheezing, COPD, dyspnea or shortness of breath CARDIOVASCULAR: See HPI GI: No nausea, vomiting, or diarrhea MUSCULOSKELETAL: Negative for joint pain or swelling, back pain or muscle pain SKIN: Negative for lesions, rash, and itching PSYCH: Negative for sleep disturbance, mood disorder and recent psychosocial stressors HEMATOLOGY/LYMPHOLOGY: Negative for prolonged bleeding, bruising easily or swollen nodes ENDOCRINE: Negative for cold or heat intolerance, polyuria, polydipsia and goiter NEURO: No history of headaches, syncope, paralysis, seizures or tremors BP 130/76 Pulse 68 Ht 5' 5 (1.65m) Wt 133 lb (60.3kg) SpO2 99% BMI 22.13 kg/(m2). PHYSICAL EXAMINATION: General appearance: Well appearing, alert, in no acute distress, well-hydrated, well nourished. Neck: Negative findings: no jugular venous distention Lungs: Lungs clear to auscultation. No wheezing, rhonchi, rales Heart: RRR without murmur, gallop, or rubs. No ectopy Abdomen: Abdomen soft, non-tender. Bowel sounds normal. No masses, organomegaly Extremities: No deformities, edema, skin discoloration, clubbing or cyanosis. Good capillary refill. Neuro: Oriented X 3 CARDIOVASCULAR MEDICINE TESTING: Electrocardiogram: SR 61 bpm, WV .20 sec, QRS 92 msec, QTC 440 msec. Nonspecific T-wave abnormality unchanged from previous EKG. I have personally reviewed the Electrocardiogram. IMPRESSION: Ms. Gan is a 72 year old female patient of Dr. Flores with symptomatic atrial fibrillation status post cryo-primary vein antrum isolation ablation on August 23, 2017, status post direct current cardioversion at the and of the procedure. She is currently on amiodarone 200 mg daily. She had been on Coreg. The medication secondary to bradycardia. She takes Xarelto for chads vascular of 2. EKG in the office reveals sinus rhythm 61 bpm. Normal QT intervals for amiodarone administration. I will discuss with Dr. Flores if he feels the amiodarone can be discontinued at this point. If the amiodarone is discontinued she will need to resume the Coreg. The CT scan of the chest, echocardiogram are pending. She is currently wearing a 24- hour Holter monitor. She will follow-up with Dr. Flores in 6 months. PLAN AND RECOMMENDATIONS: (I48.1) Persistent atrial fibrillation (HCC) (primary encounter diagnosis) Comment: Stable, see above Plan: EKG WITH INTERPRETATION (Z98.890) History of mitral valve repair Comment: Stable, she follows with Dr. 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 Lauren. Michelle Alva, MSN, BUNGHOLE BORER.DRILL SETUP OPERATOR Michelle Alva, MSN, BUNGHOLE BORER.BRAN 12/06/2017 11:58 AM Signed Atrial Fibrillation What is atrial fibrillation? Atrial fibrillation (also called A-fib) is a fast or irregular heartbeat that starts in the upper chambers of the heart. The abnormal heartbeat affects the ability of the heart to pump blood to the rest of the body. What is the cause? An electrical signal in your heart starts each heartbeat, causing the heart muscle to squeeze (contract). Normally, this signal starts in the upper right chamber of the heart (the right atrium) at a place called the sinus node. The signal then follows normal pathways to the upper left atrium and to the lower chambers of the heart (the ventricles). When you have atrial fibrillation, electrical signals don?t start in the normal place in the right atrium and don?t travel normally. This can cause the upper chambers of the heart (atria) to beat very fast and not in a normal pattern. Common causes of heart rhythm problems are conditions that damage the heart, like coronary artery disease, heart attack, or heart failure. Problems with the heart valves are another common cause. The heart has 4 valves that open and close with each heartbeat to help blood flow in the right direction through the heart. Other causes of atrial fibrillation include: -Health problems, such as a stroke, lung disease, diabetes, overactive thyroid gland, or high blood pressure -Abuse of alcohol or drugs, such as cocaine Sometimes no cause can be found. What are the symptoms? Some people don?t have any symptoms. When atrial fibrillation does cause symptoms, the most common ones are: -Feeling like your heart is beating too fast or too hard or skipping beats or fluttering -Feeling tired or weak all the time Symptoms that are more serious include: -Chest pain -Trouble breathing -Lightheadedness or dizziness -Confusion How is it diagnosed? Your healthcare provider will ask about your symptoms and medical history and examine you. Tests may include: -An ECG (also called an EKG), which measures and records your heartbeat. You may have an ECG while you are resting or while you exercise on a treadmill. You may also be asked to wear a small portable ECG monitor for a few days or sometimes a couple weeks. -Blood tests -An echocardiogram, which uses sound waves (ultrasound) to show the structures of the heart, like the valves How is it treated? The goal of treatment is to help the heart keep a normal rhythm. Your treatment depends on the cause of the atrial fibrillation, how often you have symptoms, and the severity of your symptoms. If you have no symptoms, or your symptoms are fairly mild, you may not need treatment. For some people atrial fibrillation lasts just a short time and the heart goes back to a normal rhythm on its own. If you keep having spells of atrial fibrillation, treatment may help keep you from having so many spells. If a health problem like a leaky heart valve is causing the atrial fibrillation, treating the health problem may also treat the fast or irregular heartbeat. Other possible treatments are: -Medicine: Your provider may prescribe medicine to slow or restore a normal heart rate and rhythm. You may also need medicine to prevent blood clots because when the heart beats irregularly, some of the blood can stay in the upper chambers too long. This makes it easier for blood clots to form, increasing your risk of having a stroke or heart attack. -Electrical cardioversion: First, you will be given medicine called anesthesia to keep you from feeling pain during the procedure. Then your chest will be given an electrical shock. The electrical shock should make your heart start beating normally again. You may need medicine to keep your heart rhythm normal after this procedure. -Ablation: Ablation is a procedure that uses a small tube called a catheter to deliver energy to the inside of the heart. The energy (usually radio waves) scars small areas of heart tissue. The scars block abnormal electrical pathways and help you have a normal heart rhythm. With some types of ablation treatment, you will also need a pacemaker. A pacemaker is an electronic device put under the skin of your chest to help control the heartbeat. How can I take care of myself? -Take your medicines as prescribed. -Keep your appointments for follow-up blood tests. -Make sure your healthcare provider knows about changes in your diet or medical condition. Your provider also needs to know about all prescription and nonprescription medicines, herbs, or supplements that you are taking. Some medicines may interact with your heart medicine or increase your risk for atrial fibrillation. -If you want to drink alcohol, ask your provider how much is safe for you to drink. -Follow your healthcare provider's instructions. Ask your provider: ?How and when you will hear your test results ?How long it will take to recover ?What activities you should avoid and when you can return to your normal activities ?How to take care of yourself at home ?What symptoms or problems you should watch for and what to do if you have them -Make sure you know when you should come back for a checkup. How can I help prevent atrial fibrillation? The best prevention is to have a heart-healthy lifestyle. -Keep a healthy weight. -Eat a healthy diet that is low in sodium and saturated and trans fat. -Stay fit with the right kind of exercise for you. -Decrease stress. -Don?t smoke. -Limit your use of alcohol. If you have heart disease or high blood pressure, follow your healthcare provider's instructions for treatment. Developed by [employer]. Published by [employer]. Copyright ?2014 [employer] and/or one of its subsidiaries. All rights reserved. Sandee Flores MD 12/06/2017 2:52 PM Signed Reviewed case in response to SMOOTH Alva's question as to whether Ms. Gan can discontinue amiodarone now that she is a few months from the AF catheter ablation procedure in 08/2017. My operative notes indicate the presence of substantial atrial cardiomyopathy so we know from this situation that sinus rhythm will likely be very challenging to maintain. Therefore, I recommend that she continue with the amiodarone for now and we can reassess at the 6 month post ablation evaluation. Sandee Flores MD December 06, 2017 2:52 PM Referring Provider: SELF [[id number]] Allergies As of Date: 12/06/2017 Noted Allergy Reaction CODEINE 12/21/2015 8 - GI Upset CORTISONE 12/21/2015 7 - Swelling 14 - Other: See Comments Comments: Caused A-fib DARVON (PROPOXYPHENE HCL) 12/21/2015 1 - Mental Status Change DIGOXIN 03/22/2017 5 - Intolerance GUAIFENESIN 12/21/2015 1 - Mental Status Change Comments: hallucinations HONEY 12/21/2015 2 - Rash 9 - Itching PROPRANOLOL 12/21/2015 14 - Other: See Comments Comments: Night terrors VERAPAMIL 12/21/2015 14 - Other: See Comments Comments: Palpitation, diaphoresis Date Reviewed: 12/06/2017 Reviewed by: Richie (Food Selector) Nida - Fully Assessed Reason for Visit: CARD Follow Up 3 Month [1230] Cmt: atrial fib ablation Primary Visit Diagnosis:Persistent atrial fibrillation (HCC) [I48.1] Other Visit Diagnoses:History of mitral valve repair [Z98.890] 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 [Z79.01] Status post catheter ablation of atrial fibrillation [Z98.890] Takotsubo syndrome [I51.81] Order(s):EKG WITH INTERPRETATION [[id number]] Order #: [id number]: 1 Prescriptions as of 12/06/2017 Sig: ALPRAZOLAM 0.5 MG TABLET Take 1 tablet by mouth twice * CARVEDILOL 6.25 MG TABLET Take 6.25 mg by mouth twice d* AMIODARONE 200 MG TABLET Take 1 tablet by mouth once d* FUROSEMIDE 20 MG TABLET Take 1 tablet by mouth once d* RIVAROXABAN 20 MG TABLET Take 1 tablet by mouth daily * LEVOTHYROXINE 88 MCG TABLET Take 1 tablet by mouth once d* POTASSIUM CHLORIDE ER 20 MEQ * Take 1 tablet by mouth twice * IV CONTRAST (RADIOLOGY PROCED* CT Chest W -Inject, intraveno* Patient not taking: Reported on 12/06/2017 Medication notes this encounter CARVEDILOL 6.25 MG TABLET >> Erma House LPN 12/06/2017 11:34 AM >> ERMA HOUSE Dec 06, 2017 11:34 AM States she stopped this on her own due to low heart rate. 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 Anticoagulant-induced bleeding (HCC) [T45.7X1A,* 05/16/2017 More... Rheumatic heart disease [I09.9] Mitral valve regurgitation [I34.0] More... Persistent atrial fibrillation (HCC) [I48.1] Tachycardia [R00.0] 02/14/2017 More... 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 Status post catheter ablation of atrial fibrill*INVALID FOR* More... Other instructions from your clinician: Atrial Fibrillation What is atrial fibrillation? Atrial fibrillation (also called A-fib) is a fast or irregular heartbeat that starts in the upper chambers of the heart. The abnormal heartbeat affects the ability of the heart to pump blood to the rest of the body. What is the cause? An electrical signal in your heart starts each heartbeat, causing the heart muscle to squeeze (contract). Normally, this signal starts in the upper right chamber of the heart (the right atrium) at a place called the sinus node. The signal then follows normal pathways to the upper left atrium and to the lower chambers of the heart (the ventricles). When you have atrial fibrillation, electrical signals don?t start in the normal place in the right atrium and don?t travel normally. This can cause the upper chambers of the heart (atria) to beat very fast and not in a normal pattern. Common causes of heart rhythm problems are conditions that damage the heart, like coronary artery disease, heart attack, or heart failure. Problems with the heart valves are another common cause. The heart has 4 valves that open and close with each heartbeat to help blood flow in the right direction through the heart. Other causes of atrial fibrillation include: -Health problems, such as a stroke, lung disease, diabetes, overactive thyroid gland, or high blood pressure -Abuse of alcohol or drugs, such as cocaine Sometimes no cause can be found. What are the symptoms? Some people don?t have any symptoms. When atrial fibrillation does cause symptoms, the most common ones are: -Feeling like your heart is beating too fast or too hard or skipping beats or fluttering -Feeling tired or weak all the time Symptoms that are more serious include: -Chest pain -Trouble breathing -Lightheadedness or dizziness -Confusion How is it diagnosed? Your healthcare provider will ask about your symptoms and medical history and examine you. Tests may include: -An ECG (also called an EKG), which measures and records your heartbeat. You may have an ECG while you are resting or while you exercise on a treadmill. You may also be asked to wear a small portable ECG monitor for a few days or sometimes a couple weeks. -Blood tests -An echocardiogram, which uses sound waves (ultrasound) to show the structures of the heart, like the valves How is it treated? The goal of treatment is to help the heart keep a normal rhythm. Your treatment depends on the cause of the atrial fibrillation, how often you have symptoms, and the severity of your symptoms. If you have no symptoms, or your symptoms are fairly mild, you may not need treatment. For some people atrial fibrillation lasts just a short time and the heart goes back to a normal rhythm on its own. If you keep having spells of atrial fibrillation, treatment may help keep you from having so many spells. If a health problem like a leaky heart valve is causing the atrial fibrillation, treating the health problem may also treat the fast or irregular heartbeat. Other possible treatments are: -Medicine: Your provider may prescribe medicine to slow or restore a normal heart rate and rhythm. You may also need medicine to prevent blood clots because when the heart beats irregularly, some of the blood can stay in the upper chambers too long. This makes it easier for blood clots to form, increasing your risk of having a stroke or heart attack. -Electrical cardioversion: First, you will be given medicine called anesthesia to keep you from feeling pain during the procedure. Then your chest will be given an electrical shock. The electrical shock should make your heart start beating normally again. You may need medicine to keep your heart rhythm normal after this procedure. -Ablation: Ablation is a procedure that uses a small tube called a catheter to deliver energy to the inside of the heart. The energy (usually radio waves) scars small areas of heart tissue. The scars block abnormal electrical pathways and help you have a normal heart rhythm. With some types of ablation treatment, you will also need a pacemaker. A pacemaker is an electronic device put under the skin of your chest to help control the heartbeat. How can I take care of myself? -Take your medicines as prescribed. -Keep your appointments for follow-up blood tests. -Make sure your healthcare provider knows about changes in your diet or medical condition. Your provider also needs to know about all prescription and nonprescription medicines, herbs, or supplements that you are taking. Some medicines may interact with your heart medicine or increase your risk for atrial fibrillation. -If you want to drink alcohol, ask your provider how much is safe for you to drink. -Follow your healthcare provider's instructions. Ask your provider: ?How and when you will hear your test results ?How long it will take to recover ?What activities you should avoid and when you can return to your normal activities ?How to take care of yourself at home ?What symptoms or problems you should watch for and what to do if you have them -Make sure you know when you should come back for a checkup. How can I help prevent atrial fibrillation? The best prevention is to have a heart-healthy lifestyle. -Keep a healthy weight. -Eat a healthy diet that is low in sodium and saturated and trans fat. -Stay fit with the right kind of exercise for you. -Decrease stress. -Don?t smoke. -Limit your use of alcohol. If you have heart disease or high blood pressure, follow your healthcare provider's instructions for treatment. Developed by [employer]. Published by [employer]. Copyright ?2014 [employer] and/or one of its subsidiaries. All rights reserved. Visit Notes: >> Erma Vasquez Dec 06, 2017 11:34 AM Status: Signed Ms. Gan is here for her three month follow up after having a fib ablations. She states a fib has been good the past months. Erma House LPN Disposition: Return in about 6 months (around 06/05/2018) for Dr. Flores. Follow-up and Disposition History Recorded Letter Text Encounter Status:Closed by NIDA, MSN, DRILL SETUP OPERATOR, MICHELLE Dewitt on 12/06/17 HOSP Observed: 12/06/2017 Status: COMPLETED Source: [facility] 10:00 AM CLINIC OTHER CAMPUS REPOSITORY HNO ID: Author: Service: (none) Author Type: Type: Filed: Note Text: CTA CHEST (NONGATED) Observed: 12/06/2017 Status: F Source: [facility] WO/W IV CON 8:59 AM HEALTH SYSTEM REPOSITORY Performed at [facility] APPROVED BY: Chepe Sinclair MD EXAM TITLE: CT ANGIOGRAPHY OF THE CHEST WITH ATTENTION TO THE PULMONARY VEINS AND CT OF THE CHEST WITH INTRAVENOUS CONTRAST DATE: 12/06/2017 08:50 COMPARISON: None. CLINICAL INDICATION/HISTORY: Patient has a history of atrial fibrillation. The patient is status post pulmonary vein ablation. TECHNIQUE: Helical scanning was obtained from the base of the lungs to above the level of the aortic arch while the patient received a rapid intravenous bolus of iodinated contrast. Transaxial images ar e reconstructed at 1.25 mm intervals. In addition, coronal and sagittal reconstructions of the pulmonary veins are presented. Subsequently, helical scanning was obtained from the lung apex through the l donnell bases. Transaxial images were reconstructed at 5 mm intervals. Images are viewed with mediastinal and lung windows. CT Radiation dose: Integrated Dose-length Product (DLP) for this visit = 325.49 mGy*cm. CT Dose Reduction Employed: Automated exposure control (AEC) Contrast: 100 cc Omnipaque 350 IV Number of images: 562 FINDINGS: There are three right and two left pulmonary veins. The right superior pulmonary vein measures 13.4 x 16.8 mm. The right inferior pulmonary vein measures 9.8 x 16.6 mm. There is a third right pulmonary vein draining the right middle lobe. This measure s 8.6 x 6.7 mm. There is no evidence of pulmonary vein stenosis on the right. There is some narrowing of the left superior pulmonary vein. The narrowest portion of the left superior pulmonary vein measures 8.1 x 8.9 mm. Slightly more proximally the left superior pulmonary vein measures 16.2 x 10.5 mm. This corresponds to an approximately 50% diameter stenosis. There is also narrowing of the left inferior pulmonary vein. The narrowest segment of the left inferior pulmonary vein measures 6.3 x 12.9 mm. Slightly more proximally the left inferior pulmonary vein measures 9.6 x 18.2 mm. This corresponds to an approximately 30-40% diameter narrowing. The pulmonary arteries are well opacified. No intraluminal filling defects or abrupt cutoffs consistent pulmonary emboli are identified. The thoracic aorta is without evidence of aneurysmal dilatation or dissection. The thoracic aorta measures 3.0 cm in diameter. The pulmonary artery measures 2.4 cm in diameter. No coronary artery calcifications are noted.. There is prominent cardiomegaly. There is no evidence of pericardial effusion or pericardial thickening. There is a 5 mm noncalcified pulmonary nodule in the right upper lobe on image 2/168. The exact etiology is undetermined. Neoplasm cannot be excluded. This below the size that is amenable to percutan eous biopsy. No other pulmonary nodules are identified. There appears to be some interstitial edema at both lung bases. There are linear densities in the right middle lobe and lingula most consistent with scar or atelectasis. The remainder of the pulmonary parenchyma shows no evidence of pulmonary nodules, masses, infiltrates or effusions. No significant mediastinal lymphadenopathy is identified. The visualized portions of the liver, spleen, pancreas, adrenal glands and kidneys are within normal limits. . IMPRESSION: 1. 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 N o other abnormalities of the pulmonary veins are noted. 2. Cardiomegaly. There appears to be some interstitial edema in both lung bases. 3. 5 mm noncalcified pulmonary nodule in the right upper lobe. The exact etiology is undetermined. Neoplasm cannot be excluded. This is below the size that is amenable to percutaneous biopsy. Recom mend follow-up in accordance with pulmonary nodule guidelines. * If the patient is in a low risk category then no further follow-up imaging is required. If the patient is in a high risk category then recommend follow-up imaging in 12 months. 4. Otherwise, negative CT angiography of the chest with attention to the pulmonary veins. *LUNG NODULE GUIDELINES Discussion of Fleischner Society and National [employer] Network pulmonary nodule recommendations. Recommendations for follow-up and management of nodules detected incidentally at non-screening CT. SOLID NODULES: Solitary nodule size:?<6 mm? ? low risk patients: no follow-up needed ? high risk patients: optional CT at 12 months Solitary nodule size: 6-8 mm ? low risk patients: follow-up at 6-12 months, then consider further follow-up at 18-24 months ? high risk patients: initial follow-up CT at 6-12 months and then at 18-24 months if no change Solitary nodule size:?>8 mm ? either low or high risk patients o consider follow-up CT at 3 months, and/or CT-PET, and/or biopsy Multiple nodules size: <6 mm ? low risk patients: no routine follow-up ? high risk patients: optional CT at 12 months Multiple nodules size: 6-8 mm ? low risk patients: follow-up at 3-6 months, then consider further follow-up at 18-24 months ? high risk patients: follow-up at 3-6 months, then at 18- 24 months if no change Multiple nodules size: >8 mm ? low risk patients: follow-up at 3-6 months, then consider further follow-up at 18-24 months ? high risk patients: follow-up at 3-6 months, then at 18- 24 months if no change Note:?newly detected indeterminate nodule in persons 35 years of age or older. ? low risk patients:?minimal or absent history of smoking and or other known risk factors ? high risk patients:?history of smoking or of other known risk factors (e.g. first degree relative with lung cancer, or exposure to?asbestos, radon, uranium) ? if a nodule up to 8 mm is partly solid or is ground glass further follow-up is required after 24 months to exclude possible slow growing adenocarcinoma (VERO)? SUB-SOLID NODULES: Solitary pure ground-glass nodule ? nodule size <6mm o no CT follow-up required ? nodule size ?6mm o follow up CT at 6-12 months, then every 2 years until 5 years Solitary part-solid nodule ? nodule size <6mm o no CT follow-up required ? nodule size ?6mm o follow-up CT at 3-6 months o if unchanged, and solid component remains <6mm, then annual follow-up for 5 years Multiple sub-solid nodules ? nodule size <6mm o follow-up CT at 3-6 months o consider further follow-up at 2 and 4 years if stable ? nodule size ?6mm o follow-up CT at 3-6 months o subsequent management based on the most suspicious nodule(s) For further assistance or to help answer any questions concerning the lung findings please call [phone]. PROGRESS Observed: 10/17/2017 Status: COMPLETED Source: [place] 2:37 PM [facility] REPOSITORY HNO ID: [id number] Author: Reginald Rojo Service: (none) Author Type: Physician Type: Progress Notes Filed: 10/17/2017 2:42 PM Note Text: This note was created using Together Mobileriter. Subjective Bella Gan is a 72 year old female. I mainly follow for anxiety. All other medications were from her specialists, including Synthroid. She underwent ablation of atrial fibrillation August 23. She needed DCC September 10 for recurrent atrial fibrillation. She has stayed in sinus rhythm. Her anxiety was stable. Health maintenance was reviewed. Preventive examinations were declined as before. Vaccinations were also declined at this time. ACTIVE PROBLEM LIST Psvt (Paroxysmal Supraventricular Tachycardia) (Hcc) Rheumatic Mitral Insufficiency Mitral Valve Prolapse History of Mitral Valve Repair Takotsubo Syndrome Key Ringer Current Use of Anticoagulant Therapy Generalized Anxiety Disorder Hypothyroidism Hearing Loss Routine Medical Exam Rheumatic Heart Disease Mitral Valve Regurgitation Persistent Atrial Fibrillation (Hcc) Gastroesophageal Reflux Disease Osteopenia Paroxysmal Atrial Fibrillation (Hcc) Key Ringer Current Use of Antiarrhythmic Drug Status Post Catheter Ablation of Atrial Fibrillation Current Outpatient Prescriptions: ALPRAZolam (XANAX) 0.5 mg tablet Take 1 tablet by mouth twice daily as needed for Anxiety for up to 90 days. #45 tablets/30 days. carvedilol (COREG) 6.25 mg tablet Take 6.25 mg by mouth twice daily with meals. Hold if heart rate less than 60/minute amiodarone (PACERONE) 200 mg tablet Take 1 tablet by mouth once daily. furosemide (LASIX) 20 mg tablet Take 1 tablet by mouth once daily. rivaroxaban (XARELTO) 20 mg tablet Take 1 tablet by mouth daily with dinner. levothyroxine (LEVOXYL) 88 mcg tablet Take 1 tablet by mouth once daily. Take on empty stomach. For Thyroid potassium chloride ER (K-DUR, KLOR-CON) 20 mEq tablet Take 1 tablet by mouth twice daily. No current facility-administered medications for this visit. Review of Systems Constitutional: Negative. Respiratory: Negative. Cardiovascular: Negative. Gastrointestinal: Negative. Psychiatric/Behavioral: Negative. Objective BP 124/66 (BP Site: Left Arm, BP Position: Sitting, BP Cuff Size: Regular Adult) Pulse (!) 56 Temp 36.1 ?C (96.9 ?F) (Left Tympanic) Resp 12 Wt 59 kg (130 lb) BMI 21.63 kg/m? Physical Exam Constitutional: No distress. Cardiovascular: Regular rhythm and normal heart sounds. Bradycardia present. Pulmonary/Chest: Breath sounds normal. Musculoskeletal: She exhibits no edema. Psychiatric: She has a normal mood and affect. Assessment and Plan 1. Generalized anxiety disorder - ICD9: 300.02, ICD10: F41.1 (primary diagnosis) Stable on as needed alprazolam. 2. PSVT (paroxysmal supraventricular tachycardia) (HCC) - ICD9: 427.0, ICD10: I47.1 s/p RFA and DCC. 3. Paroxysmal atrial fibrillation (HCC) - ICD9: 427.31, ICD10: I48.0 See above. Reginald Rojo MD CNOV Observed: 10/17/2017 Status: COMPLETED Source: [place] 2:00 PM [facility] REPOSITORY Office Visit (INTMWS) BELLA GAN V ([id number]) 1945 F Date Time Provider Department 10/17/17 2:00 PM REGINALD ROJO INTMWS During your visit today, we recorded the following information about you: Temperature Pulse Respiration Blood pressure 96.9 degrees 56/minute 12/minute 124/66 Weight 59 kg Reginald Rojo MD 10/17/2017 2:25 PM Signed These vaccines are over due. DTAP,TDAP,TD(1 - Tdap) due on 1962 ADULT PREVNAR-13 due on 2008 PNEUMOVAX AGE 65 AND OVER WITH 5YR LOOKBACK(1) due on 2008 Reginald Rojo MD 10/17/2017 2:42 PM Signed This note was created using Together Mobileriter. Subjective Bella Gan is a 72 year old female. I mainly follow for anxiety. All other medications were from her specialists, including Synthroid. She underwent ablation of atrial fibrillation August 23. She needed DCC September 10 for recurrent atrial fibrillation. She has stayed in sinus rhythm. Her anxiety was stable. Health maintenance was reviewed. Preventive examinations were declined as before. Vaccinations were also declined at this time. ACTIVE PROBLEM LIST Psvt (Paroxysmal Supraventricular Tachycardia) (Hcc) Rheumatic Mitral Insufficiency Mitral Valve Prolapse History of Mitral Valve Repair Takotsubo Syndrome Key Ringer Current Use of Anticoagulant Therapy Generalized Anxiety Disorder Hypothyroidism Hearing Loss Routine Medical Exam Rheumatic Heart Disease Mitral Valve Regurgitation Persistent Atrial Fibrillation (Hcc) Gastroesophageal Reflux Disease Osteopenia Paroxysmal Atrial Fibrillation (Hcc) Key Ringer Current Use of Antiarrhythmic Drug Status Post Catheter Ablation of Atrial Fibrillation Current Outpatient Prescriptions: ALPRAZolam (XANAX) 0.5 mg tablet Take 1 tablet by mouth twice daily as needed for Anxiety for up to 90 days. #45 tablets/30 days. carvedilol (COREG) 6.25 mg tablet Take 6.25 mg by mouth twice daily with meals. Hold if heart rate less than 60/minute amiodarone (PACERONE) 200 mg tablet Take 1 tablet by mouth once daily. furosemide (LASIX) 20 mg tablet Take 1 tablet by mouth once daily. rivaroxaban (XARELTO) 20 mg tablet Take 1 tablet by mouth daily with dinner. levothyroxine (LEVOXYL) 88 mcg tablet Take 1 tablet by mouth once daily. Take on empty stomach. For Thyroid potassium chloride ER (K-DUR, KLOR-CON) 20 mEq tablet Take 1 tablet by mouth twice daily. No current facility-administered medications for this visit. Review of Systems Constitutional: Negative. Respiratory: Negative. Cardiovascular: Negative. Gastrointestinal: Negative. Psychiatric/Behavioral: Negative. Objective BP 124/66 (BP Site: Left Arm, BP Position: Sitting, BP Cuff Size: Regular Adult) Pulse (!) 56 Temp 36.1 ?C (96.9 ?F) (Left Tympanic) Resp 12 Wt 59 kg (130 lb) BMI 21.63 kg/m? Physical Exam Constitutional: No distress. Cardiovascular: Regular rhythm and normal heart sounds. Bradycardia present. Pulmonary/Chest: Breath sounds normal. Musculoskeletal: She exhibits no edema. Psychiatric: She has a normal mood and affect. Assessment and Plan 1. Generalized anxiety disorder - ICD9: 300.02, ICD10: F41.1 (primary diagnosis) Stable on as needed alprazolam. 2. PSVT (paroxysmal supraventricular tachycardia) (HCC) - ICD9: 427.0, ICD10: I47.1 s/p RFA and DCC. 3. Paroxysmal atrial fibrillation (HCC) - ICD9: 427.31, ICD10: I48.0 See above. Reginald Rojo MD Referring Provider: REGINALD ROJO [[id number]] Allergies As of Date: 10/17/2017 Noted Allergy Reaction CODEINE 12/21/2015 8 - GI Upset CORTISONE 12/21/2015 7 - Swelling 14 - Other: See Comments Comments: Caused A-fib DARVON (PROPOXYPHENE HCL) 12/21/2015 1 - Mental Status Change DIGOXIN 03/22/2017 5 - Intolerance GUAIFENESIN 12/21/2015 1 - Mental Status Change Comments: hallucinations HONEY 12/21/2015 2 - Rash 9 - Itching PROPRANOLOL 12/21/2015 14 - Other: See Comments Comments: Night terrors VERAPAMIL 12/21/2015 14 - Other: See Comments Comments: Palpitation, diaphoresis Date Reviewed: 10/17/2017 Reviewed by: Fang Layne LPN - Fully Assessed Reason for Visit: 5 month follow-up [Other] Primary Visit Diagnosis:Generalized anxiety disorder [F41.1] Other Visit Diagnoses:PSVT (paroxysmal supraventricular tachycardia) (HCC) [I47.1] Paroxysmal atrial fibrillation (HCC) [I48.0] Prescriptions as of 10/17/2017 Sig: ALPRAZOLAM 0.5 MG TABLET Take 1 tablet by mouth twice * CARVEDILOL 6.25 MG TABLET Take 6.25 mg by mouth twice d* AMIODARONE 200 MG TABLET Take 1 tablet by mouth once d* FUROSEMIDE 20 MG TABLET Take 1 tablet by mouth once d* RIVAROXABAN 20 MG TABLET Take 1 tablet by mouth daily * LEVOTHYROXINE 88 MCG TABLET Take 1 tablet by mouth once d* POTASSIUM CHLORIDE ER 20 MEQ * Take 1 tablet by mouth twice * Problem List As Of Date 10/17/2017 Noted Resolved PSVT (paroxysmal supraventricular tachycardia) *INVALID FOR* Rheumatic mitral insufficiency [I05.1] INVALID FOR* Mitral valve prolapse [I34.1] INVALID FOR* Paroxysmal atrial fibrillation (HCC) [I48.0] INVALID FOR*02/14/2017 History of mitral valve repair [Z98.890] INVALID FOR* Takotsubo syndrome [I51.81] INVALID FOR* halfway current use of 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 therapy *INVALID FOR* Generalized anxiety disorder [F41.1] INVALID FOR* Hypothyroidism [E03.9] INVALID FOR* Hearing loss [H91.90] INVALID FOR* Routine medical exam [Z00.00] INVALID FOR* More... Anticoagulant-induced bleeding (HCC) [T45.7X1A,* 05/16/2017 More... Rheumatic heart disease [I09.9] Mitral valve regurgitation [I34.0] More... Persistent atrial fibrillation (HCC) [I48.1] Tachycardia [R00.0] 02/14/2017 More... 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 Status post catheter ablation of atrial fibrill*INVALID FOR* More... Other instructions from your clinician: These vaccines are over due. DTAP,TDAP,TD(1 - Tdap) due on 1962 ADULT PREVNAR-13 due on 2008 PNEUMOVAX AGE 65 AND OVER WITH 5YR LOOKBACK(1) due on 2008 Medications Discontinued During This Encounter mometasone (ELOCON) 0.1 % cream 30 g 0 03/22/2016 10/17/2017 Route: TOPICAL Sig: Apply 1 application to affected area once daily as needed (leg eczema). Patient not taking: Reported on 10/17/2017 Disc: Reason for discontinue is not on file. famotidine (PEPCID) 20 mg tablet 02/13/2017 10/17/2017 Class: OTC Route: ORAL Sig: Take 1 tablet by mouth twice daily as needed (acid reflux). Patient not taking: Reported on 08/10/2017 Disc: Reason for discontinue is not on file. Disposition: Return in about 6 months (around 04/19/2018). Follow-up and Disposition History Recorded Encounter Status:Closed by REGINALD ROJO MD on 10/17/17 ANES POST Observed: 10/02/2017 Status: COMPLETED Source: [place] 9:55 AM [facility] REPOSITORY HNO ID: [id number] Author: Karsten Luna Service: Anesthesiology Author Type: Physician Type: Anesthesia PostOp Filed: 10/02/2017 11:47 AM Note Text: POST ANESTHESIA EVALUATION NOTE SERVICE DATE: 10/02/2017 SERVICE TIME: 11:47 AM : 1945 Vitals: 10/02/17 0723 Temp: (!) 35.8 ?C (96.4 ?F) 10/02/17 0850 10/02/17 0900 10/02/17 0915 10/02/17 0930 BP: 107/50 (!) 95/48 (!) 99/41 (!) 89/44 10/02/17 0850 10/02/17 0900 10/02/17 0915 10/02/17 0930 Pulse: (!) 56 (!) 55 (!) 55 (!) 56 10/02/17 0850 10/02/17 0900 10/02/17 0915 10/02/17 0930 Resp: 12 11 18 15 10/02/17 0850 10/02/17 0900 10/02/17 0915 10/02/17 0930 SpO2: 99% 99% 99% 100% Validated Vital Signs: Yes POST ANES STATUS: No apparent anesthetic complications. The patient is appropriately hydrated with stable respiratory and cardiovascular status. Patient has safe and adequate airway control. The patient has appropriate pain relief and no significant post operative nausea or vomiting. The patient has achieved baseline mental status. Further assessment by Anesthesia Service: None Other Remarks: SIGNATURE: Karsten Luna MD PATIENT NAME: Bella Gan DATE: October 02, 2017 TIME: 11:47 AM PAGER/CONTACT #: [phone] NURSING PROG Observed: 10/02/2017 Status: COMPLETED Source: [place] 8:58 AM [facility] REPOSITORY HNO ID: [id number] Author: Cathy Valentin RN Service: Nursing Author Type: Registered Nurse Type: Nursing Progress Note Filed: 10/02/2017 8:59 AM Note Text: Nursing Progress Note Patient Name: Bella Gan [facility] Pt returned to room via bed. Post cardioversion teaching done. This note was completed by: Cathy Vaelntin RN OPERATIVE NO Observed: 10/02/2017 Status: COMPLETED Source: [place] 8:35 AM [facility] REPOSITORY HNO ID: [id number] Author: Sandee Flores Service: Electrophysiology Author Type: Physician Type: Operative Report Filed: 10/02/2017 8:36 AM Note Text: [address] Electrophysiology (EP) [facility] Electrical DC Cardioversion Procedure Report Patient Name: Bella Gan Medical Record: [id number] Date of : 1945 Date: 10/02/2017 Procedure Performed: External electrical DC cardioversion Indication: persistent atrial fibrillation Building Performance Consultant: Sandee Flores MD Anesthesia: MAC per Anesthesiology service Description of Procedure: The patient presented to the EP Lab in the fasting state. She had been taking rivaroxaban as prescribed. Informed consent was obtained. Intravenous access was secured. Self-adhesive defibrillation electrode pads were applied in the anterior/posterior configuration. Deep sedation was achieved, managed by the Anesthesiology service. Atrial fibrillation was terminated with a 200-J synchronized biphasic external shock. The resulting rhythm was sinus at about 55 BPM. The patient tolerated the procedure well and there were no immediate complications. She was observed in the EP lab area until fully recovered, and then discharged home under the care of a relative Xarelto (rivaroxaban) and amiodarone will be continued. Sandee Flores MD October 02, 2017 8:35 AM BRIEF OP NOT Observed: 10/02/2017 Status: COMPLETED Source: [place] 8:33 AM [facility] REPOSITORY HNO ID: [id number] Author: Sandee Flores Service: Electrophysiology Author Type: Physician Type: Brief Op Note Filed: 10/02/2017 8:35 AM Note Text: BRIEF OPERATIVE / PROCEDURE NOTE LOG ID: [id number] SURGERY/PROCEDURE DATE: 10/02/2017 SURGEON(S)/PROCEDURALIST(S) AND ATTACHER(S): Surgeon(s) and Role: * Sandee Flores - Primary No Additional Staff SURGERY/PROCEDURE(S): electrical cardioversion ANESTHESIA: Monitored Anesthesia Care FINDINGS: successful christianity of sinus rhythm from AF ESTIMATED BLOOD LOSS: n/a SPECIMENS: None COMPLICATIONS: None PRE-OP/PRE-PROCEDURE DIAGNOSIS: persistent atrial fibrillation POST-OP/POST-PROCEDURE DIAGNOSIS: persistent atrial fibrillation (sinus after cardioversion) SIGNATURE: Sandee Flores MD PATIENT NAME: Bella Gan DATE: October 02, 2017 TIME: 8:34 AM PAGER/CONTACT #: [phone] CNDS Observed: 10/02/2017 Status: COMPLETED Source: [place] 8:32 AM [facility] REPOSITORY HNO ID: [id number] Author: Sandee Flores Service: Electrophysiology Author Type: Physician Type: Discharge Summaries Filed: 10/02/2017 8:33 AM Note Text: DISCHARGE NOTE (Patient Admitted Less than 48 Hours) SERVICE DATE: 10/02/2017 SERVICE TIME: 8:32 AM ADMISSION DATE: 10/02/2017 DISCHARGE DATE: 10/02/2017 DISCHARGE DISPOSITION: Home/Self Care PROCEDURE: electrical cardioversion DIET: Low salt, low cholesterol, Cardiac ACTIVITY AFTER DISCHARGE: No walking restrictions No driving for one days FOLLOW UP CARE REQUIRED: follow up with Richie Alva as scheduled in November 2017 DISCHARGE MEDICATIONS (ONLY ACTIVATE WHEN READY TO DISCHARGE): Current Discharge Medication List CONTINUE these medications which have NOT CHANGED ALPRAZolam (XANAX) 0.5 mg Take 0.5 mg by mouth twice daily as needed for Anxiety. #45 tablets/30 days. Qty: 45 tablet Refills: 2 Associated Diagnoses:Generalized anxiety disorder carvedilol (COREG) 6.25 mg Take 6.25 mg by mouth twice daily with meals. amiodarone (PACERONE) 1 tablet Take 1 tablet by mouth once daily. Associated Diagnoses:Persistent atrial fibrillation (HCC) furosemide (LASIX) 20 mg Take 20 mg by mouth once daily. Refills: 0 rivaroxaban (XARELTO) 20 mg Take 20 mg by mouth daily with dinner. Refills: 0 levothyroxine (SYNTHROID) 88 mcg Take 88 mcg by mouth once daily. Take on empty stomach. For Thyroid Refills: 0 potassium chloride ER (K-DUR, KLOR-CON) 20 mEq Take 20 mEq by mouth twice daily. Refills: 0 famotidine (PEPCID) 20 mg Take 20 mg by mouth twice daily as needed (acid reflux). Associated Diagnoses:Gastroesophageal reflux disease, esophagitis presence not specified mometasone (ELOCON) 1 application Apply 1 application to affected area once daily as needed (leg eczema). Qty: 30 g Refills: 0 Associated Diagnoses:Eczema, unspecified type FINAL DIAGNOSIS: persistent atrial fibrillation (sinus after cardioversion) SIGNATURE: Sandee Flores MD PATIENT NAME: Bella Gan DATE: October 02, 2017 TIME: 8:32 AM PAGER: [phone] ANES PREOP Observed: 10/02/2017 Status: COMPLETED Source: [place] 8:27 AM [facility] REPOSITORY O ID: [id number] Author: Karsten Luna Service: Anesthesiology Author Type: Physician Type: Anesthesia PreOp Filed: 10/02/2017 8:28 AM Note Text: ANESTHESIOLOGY DAY OF SURGERY NOTE SERVICE DATE: 10/02/2017 SERVICE TIME: 7:30 : 1945 Procedure(s) (LRB): CARDIOVERSION EXTERNAL ELECTIVE (N/A) Surgeon(s): Sandee Flores Estimated body mass index is 21.67 kg/m? as calculated from the following: Height as of this encounter: 165.1 cm (5' 5). Weight as of this encounter: 59.1 kg (130 lb 3.2 oz). Most recent hematocrit and potassium results: Hematocrit 39.6 10/02/2017 Potassium 4.0 10/02/2017 ANES DOS/PREOP NOTE: Vitals: 10/02/17 0723 BP: 121/66 Pulse: 84 Resp: 16 Temp: (!) 35.8 ?C (96.4 ?F) TempSrc: Temporal Artery SpO2: 100% Weight: 59.1 kg (130 lb 3.2 oz) Height: 165.1 cm (5' 5) ACTIVE PROBLEM LIST Psvt (Paroxysmal Supraventricular Tachycardia) (Hcc) Rheumatic Mitral Insufficiency Mitral Valve Prolapse History of Mitral Valve Repair Takotsubo Syndrome [facility] Current Use of Anticoagulant Therapy Generalized Anxiety Disorder Hypothyroidism Hearing Loss Routine Medical Exam Rheumatic Heart Disease Mitral Valve Regurgitation Persistent Atrial Fibrillation (Hcc) Gastroesophageal Reflux Disease Osteopenia Paroxysmal Atrial Fibrillation (Hcc) Key Ringer Current Use of Antiarrhythmic Drug Status Post Catheter Ablation of Atrial Fibrillation 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; indication: symptomatic AF - 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 12/21/2015 - Mitral valve prolapse 12/21/2015 - Mitral valve regurgitation s/p MV repair at [facility] 09/2001 - Palpitations - Paroxysmal atrial fibrillation (HCC) 12/21/2015 - Persistent atrial fibrillation (HCC) over time has developed excessively bothersome symptoms despite rate control treatment approach; recurrent AF despite antiarrhythmic drug therapy and cardioversions; s/p AF catheter ablation 08/23/2017 - PSVT (paroxysmal supraventricular tachycardia) (HCC) 12/21/2015 - Rheumatic heart disease - 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 Flores - CARDIAC CATH 01/19/2016 no significant CAD; LVEF 65% intact MV repair with no evidence for MR - CARDIOVERSION 08/23/2017 - CARDIOVERSION, ELECTIVE, ELECTRICAL 03/13/2017 successful christianity of sinus rhythm from atrial fibrillation; [facility] - CARDIOVERSION, ELECTIVE, ELECTRICAL 2001 - CARDIOVERSION, ELECTIVE, ELECTRICAL 10/02/2017 successful christianity of sinus rhythm from AF; [facility] Dr. Flores - CATARACT EXTRACTION HX - ECHOCARDIOGRAM 09/2001 - ECHOCARDIOGRAM 12/2001 - ECHOCARDIOGRAM 03/01/2015 - ECHOCARDIOGRAM 12/02/2015 LVEF 60%; severe LAE, LAV 70.9 ml; mild to moderate MR - ECHOCARDIOGRAM 11/2016 LVEF 65%; MV repair ok - ECHOCARDIOGRAM 08/08/2017 [facility]: normal LV size and systolic fxn; LVEF 60%; severe LAE, ALLAN; trivial MR with annuloplasty ring noted; trivial TR - HYSTERECTOMY HX JAMILA, B[facility] - MITRAL VALVE SURGERY HX 09/18/2001 robotically assisted minimally invasive mitral valve repair with annuloplasty ring; [facility] - RIGHT AND LEFT HEART CATH 04/11/2001 LVEF 60%; moderately severe MR; mild diastolic dysfxn; no significant CAD; [facility] - STRESS ECHO 12/08/2015 95% MPHR; LVEF 65%; severe LAE; wide-complex rhythm at peak exercise, aberrantly conducted AF vs. VT - STRESS TEST NUCLEAR 12/2001 - ALAN 2000 - THORACENTESIS - TUBAL LIGATION HX 1980s FAMILY HISTORY Problem Relation Age of Onset - Breast Cancer Sister - Cancer Mother pancreatic - Emphysema Father - Heart Father - Drug abuse Brother drug overdose in his 20s - Heart Brother - Heart Brother - Heart Sister heart valve problem - Stroke Sister - Heart Brother Social History: Social History Substance Use Topics - Smoking status: Former Smoker Packs/day: 0.50 Years: 12.00 Types: Cigarettes Start date: 1957 Quit date: 03/12/1969 - Smokeless tobacco: Never Used - Alcohol use No No current facility-administered medications on file prior to encounter. Current Outpatient Prescriptions on File Prior to Encounter: ALPRAZolam (XANAX) 0.5 mg tablet Take 1 tablet by mouth twice daily as needed for Anxiety for up to 90 days. #45 tablets/30 days. carvedilol (COREG) 6.25 mg tablet Take 6.25 mg by mouth twice daily with meals. amiodarone (PACERONE) 200 mg tablet Take 1 tablet by mouth once daily. furosemide (LASIX) 20 mg tablet Take 1 tablet by mouth once daily. rivaroxaban (XARELTO) 20 mg tablet Take 1 tablet by mouth daily with dinner. levothyroxine (LEVOXYL) 88 mcg tablet Take 1 tablet by mouth once daily. Take on empty stomach. For Thyroid potassium chloride ER (K-DUR, KLOR-CON) 20 mEq tablet Take 1 tablet by mouth twice daily. famotidine (PEPCID) 20 mg tablet Take 1 tablet by mouth twice daily as needed (acid reflux). (Patient not taking: Reported on 08/10/2017 ) mometasone (ELOCON) 0.1 % cream Apply 1 application to affected area once daily as needed (leg eczema). (Patient not taking: Reported on 08/10/2017 ) Current Facility-Administered Medications: 0.9% NaCl 2-10 mL 2-10 mL INTRAVENOUS q 12 H Sandee Flores Allergies: ALLERGIES Allergen Reactions - Codeine GI Upset - Cortisone Swelling, Other: See Comments Caused A-fib - Darvon [Propoxyphen* Mental Status Change - Digoxin Intolerance - Guaifenesin Mental Status Change hallucinations - Honey Rash, Itching - Propranolol Other: See Comments Night terrors - Verapamil Other: See Comments Palpitation, diaphoresis DOS EXAM: Adequate NPO status: Yes Anesthetic risks, benefits, alternatives, personnel and consent discussed: Yes Patient agrees to proceed: Yes Previous Anesthesia: No history of adverse event. Airway Assessment: MP 1; Neck ROM: Full ROM without neurologic symptoms; Airway Evaluation: No significant abnormalities Symptoms of Sleep Apnea: Hypertension and Age over 50 (72 year old) Dentition: Teeth intact Additional Physical Exam: Lungs: Patient health status unchanged since recent history and physical. See history and physical for exam findings. Cardiac: Patient health status unchanged since recent history and physical. See history and physical for exam findings. Additional Pertinent Findings: N/A Blood Products: Not anticipated for this procedure. Anesthetic Plan: General, Standard ASA Monitors Pain Management Plan: Parenteral or Oral and per Surgical Service ASA Class: 3 Other Medical Problems: None Chronic Beta Marivel medication administered within 24 hours: Yes I have interviewed and examined the patient. I have reviewed the medical record and/or the pre-anesthesia evaluation, pertinent labs, and test results. Significant changes in the patient's condition since the History and Physical, not otherwise documented in primary service progress notes: No This contains updated information obtained within 48 hours of Surgery/Procedure. SIGNATURE: Karsten Luna MD PATIENT NAME: Bella Gan DATE: October 02, 2017 TIME: 8:27 AM CSN: [id number] HISTORY PHYSICAL Observed: 10/02/2017 Status: COMPLETED Source: [place] 8:11 AM CLINIC OTHER CAMPUS REPOSITORY HNO ID: [id number] Author: Sandee Flores Service: Electrophysiology Author Type: Physician Type: HANDP Filed: 10/02/2017 8:24 AM Note Text: HANDP: [facility] (EP) - [facility] ([facility]) SERVICE DATE: 10/02/2017 SERVICE TIME: 8:11 AM CONSULTING PHYSICIAN: Sandee Flores MD PCP: Reginald Rojo MD ATTENDING: Sandee Flores REASON FOR CONSULT: Arrhythmias Subjective CHIEF COMPLAINT: Persistent atrial fibrillation (HCC) [I48.1] halfway current use of 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 therapy [Z79.01] Status post catheter ablation of atrial fibrillation [Z98.890] halfway current use of antiarrhythmic drug [Z79.899] HISTORY OF PRESENT ILLNESS: Ms. Gan is a 72 year old female who presents for electrical DC cardioversion. History copied from previous notes, edited as needed: Ms. Gan has a long history of recurrent atrial fibrillation that dates back to perhaps at least 2001. She recalls having a cardioversion at that time. She states that the atrial fibrillation recurred but would be self-limited and only occur every year or so. She does have history of rheumatic heart disease and underwent mitral valve repair at [facility] in September 2001. She states that over the years the atrial fibrillation recurred with increasing frequency, even every month or so, and with increasing duration lasting up to a few hours. At some point she was treated with amiodarone but she does not recall when this was started. She states the dosage of amiodarone was decreased in February 2015 when she was hospitalized with broken heart syndrome. She had lived for a few years in [place] but in November 2015 she moved back to [place]. She experienced more severe episode of atrial fibrillation around that time, and upon presentation to the hospital she was found to be in atrial fibrillation with rapid ventricular response rates. She was still on amiodarone at that time. She underwent cardiac testing including an echocardiogram late November 2015 that revealed normal left ventricular systolic function, severe left atrial enlargement, and mild to moderate mitral regurgitation. A cardiac stress test was performed that she states was not entirely normal, so she underwent cardiac catheterization in January 2016 that revealed no significant coronary artery disease. She underwent electrical DC cardioversion in February 2016 which restored sinus rhythm, but she states the atrial fibrillation recurred within a couple of hours. She states that more recently she has been feeling pretty good, and has occasional days when she feels palpitations or as she describes it a punching sensation on the left side of her chest. She does not experience any chest pain, shortness of breath, other numbness or syncope. She states that in a given month she might have a couple of days where she feels the palpitations but otherwise she feels pretty good. She has a history of having some problems with cardiac medications, including propranolol which caused severe night terrors, and verapamil that was also not well tolerated. She is presently being treated with carvedilol and as stated she is overall feeling reasonably good on most days. She denies chest pain, shortness of breath, orthopnea, PND, lightheadedness or syncope. Additional history 05/23/2017: Ms. Gan presents for follow up evaluation. When I evaluated her in 07/2016 she was having minimally symptomatic AF with a ventricular rate control approach. 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 However, she developed severe symptoms that resulted in a couple visits to the local ER in [place], and with hospitalization(s) as well. The AF was challenging to control, and this included some episodes of severe bradycardia after treatment with AV madan blocking medications for ventricular rate control. She also developed digoxin toxicity in 02/2017 requiring this medication to be discontinued. Ultimately she was treated with amiodarone and underwent a couple of cardioversion procedures. The AF recurred despite these efforts. She presents now to discuss the treatment options. She denies chest pain, orthopnea, PND, lightheadedness or syncope. She underwent AF catheter ablation on 08/23/2017. The AF recurred about 4 days after the ablation procedure. Additional history today 10/02/2017: Ms. Gan presents for cardioversion. She states not much changes since last seen. She states she notices she is in AF but she almost does not notice it. She denies CP, shortness of breath, palpitation, lightheadedness, near syncope or syncope. 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; indication: symptomatic AF - halfway current use of 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 therapy 12/21/2015 - Mitral valve prolapse 12/21/2015 - Mitral valve regurgitation s/p MV repair at [facility] 09/2001 - Palpitations - Paroxysmal atrial fibrillation (HCC) 12/21/2015 - Persistent atrial fibrillation (HCC) over time has developed excessively bothersome symptoms despite rate control treatment approach; recurrent AF despite antiarrhythmic drug therapy and cardioversions; s/p AF catheter ablation 08/23/2017 - PSVT (paroxysmal supraventricular tachycardia) (HCC) 12/21/2015 - Rheumatic heart disease - 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 Flores - CARDIAC CATH 01/19/2016 no significant CAD; LVEF 65% intact MV repair with no evidence for MR - CARDIOVERSION 08/23/2017 - CARDIOVERSION, ELECTIVE, ELECTRICAL 03/13/2017 successful christianity of sinus rhythm from atrial fibrillation; [facility] - CARDIOVERSION, ELECTIVE, ELECTRICAL 2001 - CATARACT EXTRACTION HX - ECHOCARDIOGRAM 09/2001 - ECHOCARDIOGRAM 12/2001 - ECHOCARDIOGRAM 03/01/2015 - ECHOCARDIOGRAM 12/02/2015 LVEF 60%; severe LAE, LAV 70.9 ml; mild to moderate MR - ECHOCARDIOGRAM 11/2016 LVEF 65%; MV repair ok - ECHOCARDIOGRAM 08/08/2017 [facility]: normal LV size and systolic fxn; LVEF 60%; severe LAE, ALLAN; trivial MR with annuloplasty ring noted; trivial TR - HYSTERECTOMY HX 1980s JAMILA, BSO - MITRAL VALVE SURGERY HX 09/18/2001 robotically assisted minimally invasive mitral valve repair with annuloplasty ring; [facility] - RIGHT AND LEFT HEART CATH 04/11/2001 LVEF 60%; moderately severe MR; mild diastolic dysfxn; no significant CAD; [facility] - STRESS ECHO 12/08/2015 95% MPHR; LVEF 65%; severe LAE; wide-complex rhythm at peak exercise, aberrantly conducted AF vs. VT - STRESS TEST NUCLEAR 12/2001 - ALAN 2000 - THORACENTESIS - TUBAL LIGATION HX 1980s FAMILY HISTORY Problem Relation Age of Onset - Breast Cancer Sister - Cancer Mother pancreatic - Emphysema Father - Heart Father - Drug abuse Brother drug overdose in his 20s - Heart Brother - Heart Brother - Heart Sister heart valve problem - Stroke Sister - Heart Brother Social History Substance Use Topics - Smoking status: Former Smoker Packs/day: 0.50 Years: 12.00 Types: Cigarettes Start date: 1957 Quit date: 03/12/1969 - Smokeless tobacco: Never Used - Alcohol use No Prior to Admission Medications Prescriptions Last Dose Informant Patient Reported? Taking? ALPRAZolam (XANAX) 0.5 mg tablet 10/01/2017 at Unknown time No Yes Sig: Take 1 tablet by mouth twice daily as needed for Anxiety for up to 90 days. #45 tablets/30 days. amiodarone (PACERONE) 200 mg tablet 10/01/2017 at Unknown time Yes Yes Sig: Take 1 tablet by mouth once daily. carvedilol (COREG) 6.25 mg tablet 10/01/2017 at Unknown time Yes Yes Sig: Take 6.25 mg by mouth twice daily with meals. famotidine (PEPCID) 20 mg tablet No No Sig: Take 1 tablet by mouth twice daily as needed (acid reflux). Patient not taking: Reported on 08/10/2017 furosemide (LASIX) 20 mg tablet 10/01/2017 at Unknown time Yes Yes Sig: Take 1 tablet by mouth once daily. levothyroxine (LEVOXYL) 88 mcg tablet 10/02/2017 at Unknown time Yes Yes Sig: Take 1 tablet by mouth once daily. Take on empty stomach. For Thyroid mometasone (ELOCON) 0.1 % cream No No Sig: Apply 1 application to affected area once daily as needed (leg eczema). Patient not taking: Reported on 08/10/2017 potassium chloride ER (K-DUR, KLOR-CON) 20 mEq tablet 10/01/2017 at Unknown time Yes Yes Sig: Take 1 tablet by mouth twice daily. rivaroxaban (XARELTO) 20 mg tablet 10/01/2017 at Unknown time Yes Yes Sig: Take 1 tablet by mouth daily with dinner. Facility-Administered Medications: None Current hospital medications: 0.9% NaCl 2-10 mL 2-10 mL INTRAVENOUS q 12 H ALLERGIES Allergen Reactions - Codeine GI Upset - Cortisone Swelling, Other: See Comments Caused A-fib - Darvon [Propoxyphen* Mental Status Change - Digoxin Intolerance - Guaifenesin Mental Status Change hallucinations - Honey Rash, Itching - Propranolol Other: See Comments Night terrors - Verapamil Other: See Comments Palpitation, diaphoresis REVIEW OF SYSTEMS: The following systems were reviewed with the patient, and are unremarkable other than as described below. SYSTEMIC: No fever, chills, or change in weight or appetite PAIN ASSESSMENT: Negative for pain, history of chronic pain, or current treatment for a chronic pain condition. HEENT: No recent change in vision or hearing. NECK: Negative for lumps, goiter, pain and significant neck swelling RESPIRATORY: Negative for cough, hemoptysis, wheezing, COPD, dyspnea or shortness of breath CARDIOVASCULAR: See HPI GI: No recent nausea, vomiting or diarrhea. : No recent hematuria or dysuria. SKIN: No recent itching or eruption. PSYCH: No recent active anxiety or depression. HEMATOLOGY/ONCOLOGY: No recent diagnosis of bleeding or cancer. ENDOCRINE: No recent polyuria or heat intolerance. NEURO: No recent TIA, stroke or seizures. RHEUMATOLOGY: No recent active connective tissue disease. Objective PHYSICAL EXAM: Pleasant, comfortable, not in acute distress. Awake, alert, oriented times 3. Moves all extremities. SKIN: No rash or lumps. HEENT: Normocephalic, face symmetrical. NECK: Supple, no JVD, no carotid bruit, no thyromegaly. LUNGS: Clear to auscultation bilaterally. CARDIAC: irregularly irregular; S1 and S2, no additional heart sounds or murmurs. ABDOMEN: Soft, nontender, bowel sounds present. EXTREMITIES: No edema. NEURO: Grossly normal cognition, motor function, and cranial nerves III-XII PULSES: Peripheral pulses present. Body mass index is 21.67 kg/m?. O2 Therapy: Room Air No Data Recorded Patient Vitals for the past 48 hrs: BP Temp Temp src Pulse Resp SpO2 Height Weight 10/02/17 0723 121/66 (!) 35.8 ?C (96.4 ?F) Temporal Art 84 16 100 % 165.1 cm (5' 5) 59.1 kg (130 lb 3.2 oz) DATA: Past 72 Hour Labs: Recent Labs 10/02/17 0730 GLUC 98 BUN 19* CREAT 1.05* NA 137 K 4.0 CHLOR 104 CO2 35* CA 8.8 Last Lab Drawn: TSH 4.770 03/20/2016 Triglyceride 84 11/24/2015 HDL Cholesterol 58 11/24/2015 LDL Cholesterol 107 11/24/2015 Cholesterol 182 11/24/2015 Impression/Recommendations Active Hospital Problems Diagnosis Date Noted - Status post catheter ablation of atrial fibrillation 08/23/2017 Overview Note: RF catheter ablation of AF 08/23/2017 - 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 Gan presents for electrical cardioversion. INFORMED CONSENT The risks, benefits and anticipated outcomes of the procedure, the risks and benefits of the alternatives to the procedure and the roles and tasks of the personnel to be involved were discussed with the patient. Consent for the procedure and agreement to proceed has been obtained. I verify that I personally obtained the consent. SIGNATURE: Sandee Flores MD PATIENT NAME: Bella Gan DATE: October 02, 2017 TIME: 8:11 AM PAGER/CONTACT #: [phone] BASIC PANEL Collected: 10/02/2017 Status: F Source: [facility] 7:30 AM HEALTH SYSTEM REPOSITORY TYPE CODE TESTS RESULT OUT OF REFERENCE UNITS RANGE LAB NA(LOINC) 136-145 mEq/L Sodium Blood 137 LAB K(LOINC) 3.5-5.1 mEq/L Potassium Blood 4.0 LAB CL(LOINC) 98-107 mEq/L Chloride Blood 104 LAB CO2(LOINC) 21-32 mEq/L CO2 High Blood 35 LAB GLU(LOINC) 70-99 mg/dL Glucose Blood 98 LAB BUN(LOINC) 7-18 mg/dL BUN High Blood 19 LAB CREA(LOINC 0.51-0.95 mg/dL ) High Creatinine Blood 1.05 LAB CA(LOINC) 8.5-10.1 mg/dL Calcium Blood 8.8 LAB ANGAP(LOIN 8-16 C) Low Anion Gap 2 Performed By: #### P8 #### [facility] [address] [id number] MDRD GFR Collected: 10/02/2017 Status: F Source: [facility] 7:30 AM HEALTH SYSTEM REPOSITORY TYPE CODE TESTS RESULT OUT OF RANGE REFERENCE UNITS LAB GFRFN(LOINC >60mL/min/1.73m ) 2 eGFR 51.17 Result Comment: If the patient is , multiply the result by 1.210. Performed By: #### GFR #### [facility] [address] [id number] HEMOGRAM Collected: 10/02/2017 Status: F Source: [facility] 7:30 AM HEALTH SYSTEM REPOSITORY TYPE CODE TESTS RESULT OUT OF REFERENCE UNITS RANGE LAB WBC(LOINC) 3.98-10.04 thou/cmm WBC 7.53 LAB RBC(LOINC) 3.93-5.22 mil/cmm RBC 4.40 LAB HGB(LOINC) 11.2-15.7 g/dL Hgb 13.1 LAB HCT(LOINC) 34.1-44.9 % Hct 39.6 LAB MCV(LOINC) 79.4-94.8 fl MCV 90.0 LAB MCH(LOINC) 25.6-32.2 pg MCH 29.8 LAB MCHC(LOINC) 31.6-34.8 % MCHC 33.1 LAB RDW(LOINC) 11.7-14.4 % RDW 12.8 LAB RDWSD(LOINC 36.4-46.3 fl ) RDW SD 42.3 LAB PLT(LOINC) 182-369 thou/cmm Platelet 216 LAB MPV(LOINC) 9.4-12.3 fl MPV 10.9 Performed By: #### CBC1 #### [facility] [address] [id number] CNPN Observed: 09/24/2017 Status: COMPLETED Source: [place] 12:00 AM [facility] OTHER CAMPUS REPOSITORY Telephone (AGCARDPOB) BELLA GAN V ([id number]) 1945 F Date Time Provider Department 09/24/17 SANDEE FLORES During your visit today, we recorded the following information about you: Marcio Errol 09/24/2017 3:59 PM Signed Procedure: CARDIOVERSION EXTERNAL ELECTIVE Patient is scheduled with Dr. Flores on 10/02/17. Elyse Fajardo 09/25/2017 8:33 AM Signed Printed AND will auth. Carroll Cline RN 09/25/2017 9:36 AM Signed Added to procedure board. Carroll Cline RN Allergies As of Date: 09/24/2017 Noted Allergy Reaction CODEINE 12/21/2015 8 - GI Upset CORTISONE 12/21/2015 7 - Swelling 14 - Other: See Comments Comments: Caused A-fib DARVON (PROPOXYPHENE HCL) 12/21/2015 1 - Mental Status Change DIGOXIN 03/22/2017 5 - Intolerance GUAIFENESIN 12/21/2015 1 - Mental Status Change Comments: hallucinations HONEY 12/21/2015 2 - Rash 9 - Itching PROPRANOLOL 12/21/2015 14 - Other: See Comments Comments: Night terrors VERAPAMIL 12/21/2015 14 - Other: See Comments Comments: Palpitation, diaphoresis Date Reviewed: 09/03/2017 Reviewed by: Sandee Flores - Fully Assessed Reason for Visit: Procedure [88] Prescriptions as of 09/24/2017 Sig: ALPRAZOLAM 0.5 MG TABLET Take 1 tablet by mouth twice * CARVEDILOL 6.25 MG TABLET Take 6.25 mg by mouth twice d* AMIODARONE 200 MG TABLET Take 1 tablet by mouth once d* FAMOTIDINE 20 MG TABLET Take 1 tablet by mouth twice * Patient not taking: Reported on 08/10/2017 MOMETASONE 0.1 % TOPICAL CREAM Apply 1 application to affect* Patient not taking: Reported on 08/10/2017 FUROSEMIDE 20 MG TABLET Take 1 tablet by mouth once d* RIVAROXABAN 20 MG TABLET Take 1 tablet by mouth daily * LEVOTHYROXINE 88 MCG TABLET Take 1 tablet by mouth once d* POTASSIUM CHLORIDE ER 20 MEQ * Take 1 tablet by mouth twice * Problem List As Of Date 09/24/2017 Noted Resolved PSVT (paroxysmal supraventricular tachycardia) *INVALID FOR* Rheumatic mitral insufficiency [I05.1] INVALID FOR* Mitral valve prolapse [I34.1] INVALID FOR* Paroxysmal atrial fibrillation (HCC) [I48.0] INVALID FOR*02/14/2017 History of mitral valve repair [Z98.890] INVALID FOR* Takotsubo syndrome [I51.81] INVALID FOR* halfway current use of 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 therapy *INVALID FOR* Generalized anxiety disorder [F41.1] INVALID FOR* Hypothyroidism [E03.9] INVALID FOR* Hearing loss [H91.90] INVALID FOR* Routine medical exam [Z00.00] INVALID FOR* More... Anticoagulant-induced bleeding (HCC) [T45.7X1A,* 05/16/2017 More... Rheumatic heart disease [I09.9] Mitral valve regurgitation [I34.0] More... Persistent atrial fibrillation (HCC) [I48.1] Tachycardia [R00.0] 02/14/2017 More... 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 Status post catheter ablation of atrial fibrill*INVALID FOR* More... Encounter Status:Closed by MARCIO NORTON on 09/24/17 HOSP Observed: 08/31/2017 Status: COMPLETED Source: [place] 12:00 AM CLINIC OTHER CAMPUS REPOSITORY Patient:Bella Gan V MRN: <[id number]> Height:5' 5(1.651 m) Weight:No patient weight recorded within the last 30 days. Outpatient Medications as of 10/02/17: ALPRAZolam (XANAX) 0.5 mg tablet carvedilol (COREG) 6.25 mg tablet amiodarone (PACERONE) 200 mg tablet famotidine (PEPCID) 20 mg tablet mometasone (ELOCON) 0.1 % cream furosemide (LASIX) 20 mg tablet rivaroxaban (XARELTO) 20 mg tablet levothyroxine (LEVOXYL) 88 mcg tablet potassium chloride ER (K-DUR, KLOR-CON) 20 mEq tablet Admission/Clinic Administered Medications as of 10/02/17: 0.9% NaCl 2-10 mL Problem List: PSVT (paroxysmal supraventricular tachycardia) (HCC) [I47.1] Rheumatic mitral insufficiency [I05.1] Mitral valve prolapse [I34.1] History of mitral valve repair [Z98.890] Takotsubo syndrome [I51.81] 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 [Z79.01] Generalized anxiety disorder [F41.1] Hypothyroidism [E03.9] Hearing loss [H91.90] Routine medical exam [Z00.00] Rheumatic heart disease [I09.9] Mitral valve regurgitation [I34.0] Persistent atrial fibrillation (HCC) [I48.1] Gastroesophageal reflux disease [K21.9] Osteopenia [M85.80] Paroxysmal atrial fibrillation (HCC) [I48.0] 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 Flores on 10/02/17. Elyse Fajardo 09/25/2017 8:33 AM Signed Printed AND will auth. Carroll Cline RN 09/25/2017 9:36 AM Signed Added to procedure board. Carroll Cline RN Progress Notes (CARD AG [place] POB): Marcio Norton 09/03/2017 12:31 PM Signed Procedure: CARDIOVERSION EXTERNAL ELECTIVE Procedure is scheduled with Dr. Flores on 09/10/17. Carroll Cline RN 09/03/2017 12:59 PM Signed Added to procedure board. Carroll Cline RN CNOV Observed: 08/29/2017 Status: COMPLETED Source: [place] 2:30 PM CLINIC OTHER CAMPUS REPOSITORY Office Visit (AGCARDPOB) BELLA GAN V ([id number]) 1945 F Date Time Provider Department 08/29/17 2:30 PM NURSE CARD SHORTY ENAMORADO AGCARDPOB During your visit today, we recorded the following information about you: Pulse Respiration Weight Height 75/minute 16/minute 56.2 kg 1.651 m Referring Provider: RICHIE ALVA ([facility]) [[id number]] Allergies As of Date: 08/29/2017 Noted Allergy Reaction CODEINE 12/21/2015 8 - GI Upset CORTISONE 12/21/2015 7 - Swelling 14 - Other: See Comments Comments: Caused A-fib DARVON (PROPOXYPHENE HCL) 12/21/2015 1 - Mental Status Change DIGOXIN 03/22/2017 5 - Intolerance GUAIFENESIN 12/21/2015 1 - Mental Status Change Comments: hallucinations HONEY 12/21/2015 2 - Rash 9 - Itching PROPRANOLOL 12/21/2015 14 - Other: See Comments Comments: Night terrors VERAPAMIL 12/21/2015 14 - Other: See Comments Comments: Palpitation, diaphoresis Date Reviewed: 08/23/2017 Reviewed by: Sandee Flores - Fully Assessed Reason for Visit: Nurse Visit [792] EKG [793] Primary Visit Diagnosis:Persistent atrial fibrillation (HCC) [I48.1] Order(s):EKG WITH INTERPRETATION [[id number]] Order #: [id number]: 1 Prescriptions as of 08/29/2017 Sig: ALPRAZOLAM 0.5 MG TABLET Take 1 tablet by mouth twice * CARVEDILOL 6.25 MG TABLET Take 6.25 mg by mouth twice d* AMIODARONE 200 MG TABLET Take 1 tablet by mouth once d* FAMOTIDINE 20 MG TABLET Take 1 tablet by mouth twice * Patient not taking: Reported on 08/10/2017 MOMETASONE 0.1 % TOPICAL CREAM Apply 1 application to affect* Patient not taking: Reported on 08/10/2017 FUROSEMIDE 20 MG TABLET Take 1 tablet by mouth once d* RIVAROXABAN 20 MG TABLET Take 1 tablet by mouth daily * LEVOTHYROXINE 88 MCG TABLET Take 1 tablet by mouth once d* POTASSIUM CHLORIDE ER 20 MEQ * Take 1 tablet by mouth twice * Problem List As Of Date 08/29/2017 Noted Resolved PSVT (paroxysmal supraventricular tachycardia) *INVALID FOR* 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 Anticoagulant-induced bleeding (HCC) [T45.7X1A,* 05/16/2017 More... Rheumatic heart disease [I09.9] Mitral valve regurgitation [I34.0] More... Persistent atrial fibrillation (HCC) [I48.1] Tachycardia [R00.0] 02/14/2017 More... Gastroesophageal reflux disease [K21.9] INVALID FOR* Osteopenia [M85.80] INVALID FOR* Paroxysmal atrial fibrillation (HCC) [I48.0] INVALID FOR* halfway current use of antiarrhythmic drug [Z* More... Status post catheter ablation of atrial fibrill*INVALID FOR* More... Follow-up and Disposition History Recorded Encounter Status:Closed by SANDEE FLORES MD on 08/29/17 CNPN Observed: 08/27/2017 Status: COMPLETED Source: [place] 12:00 AM [facility] OTHER [place] REPOSITORY Telephone (AKPRAD) BELLA GAN V ([id number]) 1945 F Date Time Provider Department 6/18/18 CHELSEA, GILBERTO MARIXAKSANDROVICHAKPRAD During your visit today, we recorded the following information about you: Gilberto Ramírez MD 08/27/2017 11:02 AM Signed S/p recent PVI, developed AF last night, feels tired, but no CP/SOB/dizziness. Will be calling the office this am. Gilberto Ramírez MD. Michelle Alva, MSN, BUNGHOLE BORER.DRILL SETUP OPERATOR 08/28/2017 3:48 PM Signed Bella Gan is s/p PVAI last week, she reports an episode of atrial fibrillation on Sunday lasting 5 hours. She feels better now. She remains on the Amiodarone 200mg QD and Coreg 6.25mg BID. She doesn't have a landline and doesn't have a TTM box. She was offered an appointment to come in at 2 pm for an EKG. Elyse please schedule the EKG at 2pm, she is aware of the appointment so you don't have to call her. Michelle Alva, MSN, BUNGHOLE BORER.DRILL SETUP OPERATOR Elyse Scotty 08/28/2017 3:55 PM Signed Richie what day was she offered the EKG appointment? Thanks! Elyse Fajardo Michelle Alva, MSN, BUNGHOLE BORER.DRILL SETUP OPERATOR 08/31/2017 2:39 PM Signed Carroll, please call Bella Gan and inform her that she is back in atrial fibrillation. She should continue the current medications and Dr. Flores will have her scheduled to undergo a cardioversion soon. Dr. Flores can you please complete the set up sheet? Marcio perhaps we can set aside a date for DCC, thanks. Michelle Alva, MSN, BUNGHOLE BORER.DRILL SETUP OPERATOR Carroll Cline RN 08/31/2017 3:38 PM Signed Patient notified and verbalized understanding. CELSO Alfonso MD 08/31/2017 5:26 PM Signed Reviewed case. Agree with management. Cardioversion request submitted. Sandee Flores MD August 31, 2017 5:22 PM Marcio Norton 09/03/2017 12:40 PM Signed Patient verbalized understanding that she is scheduled for her DCC on 09/10/[address] Flores. Allergies As of Date: 08/27/2017 Noted Allergy Reaction CODEINE 12/21/2015 8 - GI Upset CORTISONE 12/21/2015 7 - Swelling 14 - Other: See Comments Comments: Caused A-fib DARVON (PROPOXYPHENE HCL) 12/21/2015 1 - Mental Status Change DIGOXIN 03/22/2017 5 - Intolerance GUAIFENESIN 12/21/2015 1 - Mental Status Change Comments: hallucinations HONEY 12/21/2015 2 - Rash 9 - Itching PROPRANOLOL 12/21/2015 14 - Other: See Comments Comments: Night terrors VERAPAMIL 12/21/2015 14 - Other: See Comments Comments: Palpitation, diaphoresis Date Reviewed: 08/23/2017 Reviewed by: Sandee Flores - Fully Assessed Reason for Visit: A-fib [167] Treatment Planning [881] Reason For Visit History Recorded Primary Visit Diagnosis:Persistent atrial fibrillation (HCC) [I48.1] Other Visit Diagnoses:Status post catheter ablation of atrial fibrillation [Z98.890] halfway current use of antiarrhythmic drug [Z79.899] halfway current use of 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 therapy [Z79.01] Order(s):SURGICAL REQUEST - ELECTIVE [[id number]] Order #: [id number]: 1 Prescriptions as of 08/27/2017 Sig: ALPRAZOLAM 0.5 MG TABLET Take 1 tablet by mouth twice * CARVEDILOL 6.25 MG TABLET Take 6.25 mg by mouth twice d* AMIODARONE 200 MG TABLET Take 1 tablet by mouth once d* FAMOTIDINE 20 MG TABLET Take 1 tablet by mouth twice * Patient not taking: Reported on 08/10/2017 MOMETASONE 0.1 % TOPICAL CREAM Apply 1 application to affect* Patient not taking: Reported on 08/10/2017 FUROSEMIDE 20 MG TABLET Take 1 tablet by mouth once d* RIVAROXABAN 20 MG TABLET Take 1 tablet by mouth daily * LEVOTHYROXINE 88 MCG TABLET Take 1 tablet by mouth once d* POTASSIUM CHLORIDE ER 20 MEQ * Take 1 tablet by mouth twice * Problem List As Of Date 08/27/2017 Noted Resolved PSVT (paroxysmal supraventricular tachycardia) *INVALID FOR* 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 Anticoagulant-induced bleeding (HCC) [T45.7X1A,* 05/16/2017 More... Rheumatic heart disease [I09.9] Mitral valve regurgitation [I34.0] More... Persistent atrial fibrillation (HCC) [I48.1] Tachycardia [R00.0] 02/14/2017 More... 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 Status post catheter ablation of atrial fibrill*INVALID FOR* More... Encounter Status:Closed by SANDEE FLORES MD on 08/31/17 CNDS Observed: 08/24/2017 Status: COMPLETED Source: [place] 11:07 AM [facility] REPOSITORY O ID: [id number] Author: Lynette Cherry Service: Cardiovascular Medicine Author Type: Nurse Practitioner Type: Discharge Summaries Filed: 08/24/2017 11:29 AM Note Text: DISCHARGE SUMMARY PATIENT NAME: Bella Gan Admission Information Admission Information ADMIT DATE: 08/23/2017 DISCHARGE DATE: 08/24/2017 MY DOCTORS AND MEDICAL TEAM: My Main Hospital Doctor: Sandee Flores Primary Care Provider: Reginald Rojo MD My Medical Team Members: Treatment Team: Attending Provider: Sandee Flores MY CONDITION AT DISCHARGE: Stable REASON I WAS IN THE HOSPITAL: Persistent atrial fibrillation SUMMARY OF WHAT HAPPENED WHILE I WAS IN THE HOSPITAL: Underwent a radiofrequency catheter ablation of atrial fibrillation. Successfully converted to normal sinus rhythm. She will continue taking Xarelto, Coreg, and Amio. In 3 months, patient will have a CT scan of the chest, an echocardiogram, and a holter monitor. Post procedure, there were no complications. She remains in NSR. Heart rate is 60-68. She is continued on her Coreg and Amio per Dr. Flores. OTHER PROBLEMS/DIAGNOSIS: Principal Problem: Persistent atrial fibrillation (HCC) Active Problems: History of mitral valve repair halfway current use of 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 therapy Rheumatic heart disease Mitral valve regurgitation Status post catheter ablation of atrial fibrillation OPERATIONS PERFORMED WHILE IN THE HOSPITAL: Radiofrequency catheter ablation of atrial fibrillation by Dr. Flores on 08/23/17. Discharge Disposition Activity When You Leave the Hospital Do not sit for long periods of time with your arms or legs bent May drive No lifting greater than 5-10 pounds for 5-7 days No strenuous activity, exercise, or sports for 5-7 days, casual walking is fine No walking restrictions Take showers, not baths, until your wound is completely healed Diet Instructions Resume your pre-hospital diet For Pain When You Leave the Hospital Use acetaminophen (Tylenol) as recommended on the bottle Wound/Surgical Site Care Any bruising and bumps should disappear within 3-4 days Avoid lotions or powders Check your wound every day If the bruising expands or the bump enlarges please call your doctor Some bruising, soreness or a small bump under the skin at the inserion site is normal Wash your wound area with mild soap and water daily and gently pat dry with a towel Follow Up Appointments Follow-Up Appointment The office will send you an itinerary in the mail with your appointments. When: In: Comment - 3 months Richie ([facility]) [place] [phone] [address] [facility] [address] PCP Requested Referral FOLLOW-UP APPOINTMENTS ALREADY SCHEDULED WITH A [facility] PROVIDER: Future Appointments Date Time Provider Department Center 10/17/2017 2:00 PM Reginald Rojo [facility] DISCHARGE MEDICATION: Current Discharge Medication List CONTINUE these medications which have NOT CHANGED ALPRAZolam (XANAX) 0.5 mg Take 0.5 mg by mouth twice daily as needed for Anxiety. #45 tablets/30 days. Qty: 45 tablet Refills: 2 Associated Diagnoses:Generalized anxiety disorder carvedilol (COREG) 6.25 mg Take 6.25 mg by mouth twice daily with meals. furosemide (LASIX) 20 mg Take 20 mg by mouth once daily. Refills: 0 rivaroxaban (XARELTO) 20 mg Take 20 mg by mouth daily with dinner. Refills: 0 levothyroxine (SYNTHROID) 88 mcg Take 88 mcg by mouth once daily. Take on empty stomach. For Thyroid Refills: 0 potassium chloride ER (K-DUR, KLOR-CON) 20 mEq Take 20 mEq by mouth twice daily. Refills: 0 amiodarone (PACERONE) 1 tablet Take 1 tablet by mouth once daily. Associated Diagnoses:Persistent atrial fibrillation (HCC) famotidine (PEPCID) 20 mg Take 20 mg by mouth twice daily as needed (acid reflux). Associated Diagnoses:Gastroesophageal reflux disease, esophagitis presence not specified mometasone (ELOCON) 1 application Apply 1 application to affected area once daily as needed (leg eczema). Qty: 30 g Refills: 0 Associated Diagnoses:Eczema, unspecified type STOP taking these medications MAGNESIUM, ALUMINUM HYDROXIDE (MYLANTA ORAL) 1 Dose Comments: Reason for Stopping: Discharge Physical Exam: VITAL SIGNS: BP (!) 116/45 Pulse 64 Temp 36.5 ?C (97.7 ?F) Resp 19 Ht 165.1 cm (5' 5) Wt 59.4 kg (131 lb) SpO2 96% BMI 21.80 kg/m? GENERAL: Alert, no distress, cooperative SKIN: Skin color, texture, turgor normal. No rashes or lesions. LUNGS: Lungs clear to auscultation, Good diaphragmatic excursion CARDIAC: Normal S1 and S2; no rubs, murmurs, or gallops ABDOMEN: Abdomen soft, non-tender, BS normal, No masses or organomegaly EXTREMITIES: Extremities normal, no deformities, edema, clubbing or skin discoloration. Good capillary refill. Bilateral groins dressings D/I, no hematoma, no bruit auscultated. TIME OF CARE: Discharge Management: I personally spent greater than 30 minutes involved in the discharge management of this patient. SIGNATURE: Lynette Cherry APRN.CNP PAGER/CONTACT #: [phone] DATE: August 24, 2017 TIME: 11:07 AM EKG (AK,AV,EU,FV,HL,BERTRAND,MM,SP) Observed: Status: F Source: [place] 08/24/2017 7:09 AM CLINIC OTHER CAMPUS REPOSITORY NAME : BELLA GAN PID : [id number] : 1945 Gender : Female Race : ORD : [id number] Procedure Date : Aug 24 2017 07:09 Edit Date : Aug 24 2017 15:13 Diagnosis:NORMAL SINUS RHYTHM NONSPECIFIC T WAVE ABNORMALITY ABNORMAL ECG WHEN COMPARED WITH ECG OF 29-MAR-1994 19:30, NONSPECIFIC T WAVE ABNORMALITY NOW EVIDENT IN ANTEROLATERAL LEADS QT HAS SHORTENED Confirmed by Lamberto VENCES M.D. ([id number]) on 08/24/2017 3:13:42 PM Ventricular Rate : 61 BPM Atrial Rate : 61 BPM P-R Interval : 194 ms QRS Duration : 98 ms Q-T Interval : 362 ms QTC Calculation(Bezet) : 364 ms P Corona : 88 degrees R Corona : 60 degrees T Corona : 67 degrees Test Reason : Arrhythmia Location : 6 : [facility] 3239 Overread By : Lamberto VENCES M.D. Editted By : Lamberto VENCES M.D. Referred By : SANDEE FLORES Acquired by : Ju Mg POST Observed: 08/23/2017 Status: COMPLETED Source: [place] 3:57 PM [facility] OTHER CAMPUS REPOSITORY O ID: [id number] Author: Karsten Luna Service: Anesthesiology Author Type: Physician Type: Anesthesia PostOp Filed: 08/23/2017 3:58 PM Note Text: POST ANESTHESIA EVALUATION NOTE SERVICE DATE: 08/23/2017 SERVICE TIME: 3:58 PM : 1945 Vitals: 08/23/17 0643 Temp: (!) 35.3 ?C (95.5 ?F) 08/23/17 0643 BP: 127/58 08/23/17 0643 Pulse: 80 08/23/17 0643 Resp: 16 08/23/17 0643 SpO2: 100% Validated Vital Signs: Yes POST ANES STATUS: No apparent anesthetic complications. The patient is appropriately hydrated with stable respiratory and cardiovascular status. Patient has safe and adequate airway control. The patient has appropriate pain relief and no significant post operative nausea or vomiting. The patient has achieved baseline mental status. Further assessment by Anesthesia Service: None Other Remarks: SIGNATURE: Karsten Luna MD PATIENT NAME: Bella Gan DATE: August 23, 2017 TIME: 3:57 PM PAGER/CONTACT #: [phone] OPERATIVE NO Observed: 08/23/2017 Status: COMPLETED Source: [place] 3:12 PM [facility] OTHER CAMPUS REPOSITORY HNO ID: [id number] Author: Sandee Flores Service: Electrophysiology Author Type: Physician Type: Operative Report Filed: 08/23/2017 3:12 PM Note Text: See paper report filed in paper chart today. Sandee Flores MD August 23, 2017 3:12 PM BRIEF OP NOT Observed: 08/23/2017 Status: COMPLETED Source: [place] 3:08 PM [facility] OTHER CAMPUS REPOSITORY HNO ID: [id number] Author: Sandee Flores Service: Electrophysiology Author Type: Physician Type: Brief Op Note Filed: 08/23/2017 3:12 PM Note Text: BRIEF OPERATIVE / PROCEDURE NOTE LOG ID: [id number] SURGERY/PROCEDURE DATE: 08/23/2017 SURGEON(S)/PROCEDURALIST(S) AND ATTACHER(S): Surgeon(s) and Role: * Sandee Flores - Primary No Additional Staff SURGERY/PROCEDURE(S): radiofrequency catheter ablation of atrial fibrillation ANESTHESIA: General FINDINGS: This procedure was guided by circular mapping, Carto 3D mapping, Stereotaxis remote navigation procedure. 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 A few regions at each of the pulmonary veins required ablation. The left atrial appendage was ablated at its base to electrically isolate this structure. The AF was cardioverted to sinus rhythm at the end of the procedure with 200 Joules biphasic shock. Maintenance of sinus rhythm is expected to be challenging in light of the extensive atrial cardiomyopathy demonstrated. ESTIMATED BLOOD LOSS: minimal SPECIMENS: None COMPLICATIONS: None PRE-OP/PRE-PROCEDURE DIAGNOSIS: Persistent atrial fibrillation POST-OP/POST-PROCEDURE DIAGNOSIS: Persistent atrial fibrillation SIGNATURE: Sandee Flores MD PATIENT NAME: Bella Gan DATE: August 23, 2017 TIME: 3:08 PM PAGER/CONTACT #: [phone] ACT Collected: 08/23/2017 Status: F Source: [facility] 3:00 PM HEALTH SYSTEM REPOSITORY TYPE CODE TESTS RESULT OUT OF RANGE REFERENCE UNITS LAB ACT(LOINC) 89-169 sec High ACT 185 Performed By: #### ACT #### [place] [address] ANES PREOP Observed: 08/23/2017 Status: COMPLETED Source: [place] 8:46 AM [facility] OTHER CAMPUS REPOSITORY O ID: [id number] Author: Karsten Luna Service: Anesthesiology Author Type: Physician Type: Anesthesia PreOp Filed: 08/23/2017 8:47 AM Note Text: ANESTHESIOLOGY DAY OF SURGERY NOTE SERVICE DATE: 08/23/2017 SERVICE TIME: 8:46 AM : 1945 Procedure(s) (LRB): COMPLETE EPS W/PVI ABLATION (Left) Surgeon(s): Sandee Flores Estimated body mass index is 21.8 kg/m? as calculated from the following: Height as of this encounter: 165.1 cm (5' 5). Weight as of this encounter: 59.4 kg (131 lb). Most recent hematocrit and potassium results: Hematocrit 42.9 08/23/2017 Potassium 3.7 08/23/2017 ANES DOS/PREOP NOTE: Vitals: 08/22/17 1500 08/23/17 0643 BP: 127/58 Pulse: 80 Resp: 16 Temp: (!) 35.3 ?C (95.5 ?F) TempSrc: Temporal Artery SpO2: 100% Weight: 58.1 kg (128 lb) 59.4 kg (131 lb) Height: 165.1 cm (5' 5) 165.1 cm (5' 5) ACTIVE PROBLEM LIST Psvt (Paroxysmal Supraventricular Tachycardia) (Hcc) Rheumatic Mitral Insufficiency Mitral Valve Prolapse History of Mitral Valve Repair Takotsubo Syndrome [facility] Current Use of Anticoagulant Therapy Generalized Anxiety Disorder Hypothyroidism Hearing Loss Routine Medical Exam Rheumatic Heart Disease Mitral Valve Regurgitation Persistent Atrial Fibrillation (Hcc) Gastroesophageal Reflux Disease Osteopenia Paroxysmal Atrial Fibrillation (Hcc) [facility] Current Use of Antiarrhythmic Drug 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/2015 - Mitral valve prolapse 12/21/2015 - Mitral valve regurgitation s/p MV repair at [facility] 09/2001 - Palpitations - Paroxysmal atrial fibrillation (HCC) 12/21/2015 - Persistent atrial fibrillation (HCC) over time has developed excessively bothersome symptoms despite rate control treatment approach; recurrent AF despite antiarrhythmic drug therapy and cardioversions - PSVT (paroxysmal supraventricular tachycardia) (HCC) 12/21/2015 - Rheumatic heart disease - 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 - Tachycardia rapid ventricular response rates to ongoing AF - Takotsubo syndrome 12/21/2015 PAST SURGICAL HISTORY Procedure Laterality Date - CARDIAC CATH 01/19/2016 no significant CAD; LVEF 65% intact MV repair with no evidence for MR - CARDIOVERSION, ELECTIVE, ELECTRICAL 03/13/2017 successful christianity of sinus rhythm from atrial fibrillation; [facility] - CARDIOVERSION, ELECTIVE, ELECTRICAL 2001 - CATARACT EXTRACTION HX - ECHOCARDIOGRAM 09/2001 - ECHOCARDIOGRAM 12/2001 - ECHOCARDIOGRAM 03/01/2015 - ECHOCARDIOGRAM 12/02/2015 LVEF 60%; severe LAE, LAV 70.9 ml; mild to moderate MR - ECHOCARDIOGRAM 11/2016 LVEF 65%; MV repair ok - ECHOCARDIOGRAM 08/08/2017 [facility]: normal LV size and systolic fxn; LVEF 60%; severe LAE, ALLAN; trivial MR with annuloplasty ring noted; trivial TR - HYSTERECTOMY HX JAMILA, [facility] - MITRAL VALVE SURGERY HX 09/18/2001 robotically assisted minimally invasive mitral valve repair with annuloplasty ring; [facility] - RIGHT AND LEFT HEART CATH 04/11/2001 LVEF 60%; moderately severe MR; mild diastolic dysfxn; no significant CAD; [facility] - STRESS ECHO 12/08/2015 95% MPHR; LVEF 65%; severe LAE; wide-complex rhythm at peak exercise, aberrantly conducted AF vs. VT - STRESS TEST NUCLEAR 12/2001 - ALAN 2000 - THORACENTESIS - TUBAL LIGATION HX FAMILY HISTORY Problem Relation Age of Onset - Breast Cancer Sister - Cancer Mother pancreatic - Emphysema Father - Heart Father - Drug abuse Brother drug overdose in his 20s - Heart Brother - Heart Brother - Heart Sister heart valve problem - Stroke Sister - Heart Brother Social History: Social History Substance Use Topics - Smoking status: Former Smoker Packs/day: 0.50 Years: 12.00 Types: Cigarettes Start date: 1957 Quit date: 03/12/1969 - Smokeless tobacco: Never Used - Alcohol use No No current facility-administered medications on file prior to encounter. Current Outpatient Prescriptions on File Prior to Encounter: carvedilol (COREG) 6.25 mg tablet Take 6.25 mg by mouth twice daily with meals. furosemide (LASIX) 20 mg tablet Take 1 tablet by mouth once daily. rivaroxaban (XARELTO) 20 mg tablet Take 1 tablet by mouth daily with dinner. levothyroxine (LEVOXYL) 88 mcg tablet Take 1 tablet by mouth once daily. Take on empty stomach. For Thyroid potassium chloride ER (K-DUR, KLOR-CON) 20 mEq tablet Take 1 tablet by mouth twice daily. MAGNESIUM, ALUMINUM HYDROXIDE (MYLANTA ORAL) Take 1 Dose by mouth as needed (heartburn). amiodarone (PACERONE) 200 mg tablet Take 1 tablet by mouth once daily. famotidine (PEPCID) 20 mg tablet Take 1 tablet by mouth twice daily as needed (acid reflux). (Patient not taking: Reported on 08/10/2017 ) mometasone (ELOCON) 0.1 % cream Apply 1 application to affected area once daily as needed (leg eczema). (Patient not taking: Reported on 08/10/2017 ) Current Facility-Administered Medications: heparin 1,000 Units in NaCl 0.9% 1,000 mL 1,000 Units INTRAVENOUS ONE TIME Sandee A Schweikermelisa heparin 3,000 Units in NaCl 0.9% 500 mL irrigation 3,000 Units IRRIGATION ONE TIME Sandee A Schweikert heparin (porcine) in 0.9% NaCl 1,000 unit/500 mL 1,000 Units 1,000 Units INTRAVENOUS ONE TIME Sandee A Schweikert 0.9% NaCl 2-10 mL 2-10 mL INTRAVENOUS q 12 H Sandee A Schweikert heparin 1,000 Units in NaCl 0.9% 1,000 mL 1,000 Units INTRAVENOUS ONE TIME Sandee A Schweikert heparin 3,000 Units in NaCl 0.9% 500 mL irrigation 3,000 Units IRRIGATION ONE TIME Sandee A Schweikert heparin (porcine) in 0.9% NaCl 1,000 unit/500 mL 1,000 Units 1,000 Units INTRAVENOUS ONE TIME Sandee Flores Allergies: ALLERGIES Allergen Reactions - Codeine GI Upset - Cortisone Swelling, Other: See Comments Caused A-fib - Darvon [Propoxyphen* Mental Status Change - Digoxin Intolerance - Guaifenesin Mental Status Change hallucinations - Honey Rash, Itching - Propranolol Other: See Comments Night terrors - Verapamil Other: See Comments Palpitation, diaphoresis DOS EXAM: Adequate NPO status: Yes Anesthetic risks, benefits, alternatives, personnel and consent discussed: Yes Patient agrees to proceed: Yes Previous Anesthesia: No history of adverse event. Airway Assessment: MP 1; Neck ROM: Full ROM without neurologic symptoms; Airway Evaluation: No significant abnormalities Symptoms of Sleep Apnea: Hypertension and Age over 50 (72 year old) Dentition: Dentures: both Additional Physical Exam: Lungs: Patient health status unchanged since recent history and physical. See history and physical for exam findings. Cardiac: Patient health status unchanged since recent history and physical. See history and physical for exam findings. Additional Pertinent Findings: N/A Blood Products: Not anticipated for this procedure. Anesthetic Plan: General, Standard ASA Monitors Pain Management Plan: per Surgical Service ASA Class: 3 Other Medical Problems: None Chronic Beta Marivel medication administered within 24 hours: Yes I have interviewed and examined the patient. I have reviewed the medical record and/or the pre-anesthesia evaluation, pertinent labs, and test results. Significant changes in the patient's condition since the History and Physical, not otherwise documented in primary service progress notes: No This contains updated information obtained within 48 hours of Surgery/Procedure. SIGNATURE: Karsten Luna MD PATIENT NAME: Bella Gan DATE: August 23, 2017 TIME: 8:46 AM CSN: [id number] HISTORY PHYSICAL Observed: 08/23/2017 Status: COMPLETED Source: [place] 8:10 AM CLINIC OTHER CAMPUS REPOSITORY HNO ID: [id number] Author: Sandee Flores Service: Electrophysiology Author Type: Physician Type: HANDP Filed: 08/23/2017 8:10 AM Note Text: HANDP from copied forward: Office Visit 08/10/2017 [facility] Mckinley Hernandez (Bran) [facility] Card[facility] Persistent atrial fibrillation (HCC) +3 more Dx Cardiology Follow Up ?; Referred by Richie Alva Reason for Visit Progress Notes Expand All Collapse All PRIMARY CARE PHYSICIAN: Reginald Rojo MD [address] [place] [address] ? Patient Care Team: Reginald Rojo as PCP - General (Internal Medicine) Ronald Lauren as Specialty Brewmaster (Cardiology) Sandee Flores as Specialty Brewmaster (Cardiology) Leydi (Roller Skater) Addie as Specialty Brewmaster (Gastroenterology) ? ? HISTORY OF PRESENT ILLNESS: Ms. Gan?is a?72 year old female who presents today for a cardiovascular medicine follow-up visit. ? History copied from previous notes, edited as needed: Ms. Gan is a?71 year old female who presents today for evaluation of atrial fibrillation. ?She has a long history of recurrent atrial fibrillation that dates back to perhaps at least 2001. ?She recalls having a cardioversion at that time. ?She states that the atrial fibrillation recurred but would be self-limited and only occur every year or so. ?She does have history of rheumatic heart disease and underwent mitral valve repair at [facility] in September 2001. ?She states that over the years the atrial fibrillation recurred with increasing frequency, even every month or so, and with increasing duration lasting up to a few hours. ?At some point she was treated with amiodarone but she does not recall when this was started. ?She states the dosage of amiodarone was decreased in February 2015 when she was hospitalized with broken heart syndrome. She had lived for a few years in [place] but in November 2015 she moved back to [place]. ?She experienced more severe episode of atrial fibrillation around that time, and upon presentation to the hospital she was found to be in atrial fibrillation with rapid ventricular response rates. ?She was still on amiodarone at that time. ?She underwent cardiac testing including an echocardiogram late November 2015 that revealed normal left ventricular systolic function, severe left atrial enlargement, and mild to moderate mitral regurgitation. ?A cardiac stress test was performed that she states was not entirely normal, so she underwent cardiac catheterization in January 2016 that revealed no significant coronary artery disease. ?She underwent electrical DC cardioversion in February 2016 which restored sinus rhythm, but she states the atrial fibrillation recurred within a couple of hours. ?She states that more recently she has been feeling pretty good, and has occasional days when she feels palpitations or as she describes it a punching sensation on the left side of her chest. ?She does not experience any chest pain, shortness of breath, other numbness or syncope. ?She states that in a given month she might have a couple of days where she feels the palpitations but otherwise she feels pretty good. ?She has a history of having some problems with cardiac medications, including propranolol which caused severe night terrors, and verapamil that was also not well tolerated. ?She is presently being treated with carvedilol and as stated she is overall feeling reasonably good on most days. She denies chest pain, shortness of breath, orthopnea, PND, lightheadedness or syncope. ? Additional history this visit 05/23/2017: Ms. Gan presents for follow up evaluation. When I evaluated her in 07/2016 she was having minimally symptomatic AF with a ventricular rate control approach. 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 However, she developed severe symptoms that resulted in a couple visits to the local ER in [place], and with hospitalization(s) as well. The AF was challenging to control, and this included some episodes of severe bradycardia after treatment with AV madan blocking medications for ventricular rate control. She also developed digoxin toxicity in 02/2017 requiring this medication to be discontinued. Ultimately she was treated with amiodarone and underwent a couple of cardioversion procedures. The AF recurred despite these efforts. She presents now to discuss the treatment options. She denies chest pain, orthopnea, PND, lightheadedness or syncope. ? Bella Gan was last seen by Dr. Flores on 05/23/17 to discuss RF PVAI. She presents today to update her HANDP. She took the last dose of Amiodarone today. She reports that she is always in atrial fibrillation. She has palpitations. She denies CP, SOB, dizziness, syncope. She denies fever chills or infection. She has upper and lower dentures. She denies difficulty with anesthesia. ? ? PAST?MEDICAL?HISTORY PAST MEDICAL HISTORY Diagnosis Date - Anticoagulant-induced bleeding (HCC) ? ? Eliquis: hematuria and epistaxis - Cholelithiasis 02/13/2017 ? asymptomatic - Dyspnea ? - Generalized anxiety disorder 12/21/2015 - Hearing loss 12/21/2015 - History of mitral valve repair ? ? MV repair at [facility] 09/2001 - History of rheumatic fever ? - Hypothyroidism 12/21/2015 - halfway current use of antiarrhythmic drug ? ? 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 ? s/p MV repair at [facility] 09/2001 - Palpitations ? - Paroxysmal atrial fibrillation (HCC) 12/21/2015 - Persistent atrial fibrillation (HCC) ? ? over time has developed excessively bothersome symptoms despite rate control treatment approach; recurrent AF despite antiarrhythmic drug therapy and cardioversions - PSVT (paroxysmal supraventricular tachycardia) (HCC) 12/21/2015 - Rheumatic heart disease ? - 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 - Tachycardia ? ? rapid ventricular response rates to ongoing AF - Takotsubo syndrome 12/21/2015 ? ? PAST?SURGICAL?HISTORY PAST SURGICAL HISTORY Procedure Laterality Date - CARDIAC CATH ? 01/19/2016 ? no significant CAD; LVEF 65% intact MV repair with no evidence for MR - CARDIOVERSION, ELECTIVE, ELECTRICAL ? 03/13/2017 ? successful christianity of sinus rhythm from atrial fibrillation; [facility] - CARDIOVERSION, ELECTIVE, ELECTRICAL ? 2001 - CATARACT EXTRACTION HX ? ? - ECHOCARDIOGRAM ? 09/2001 - ECHOCARDIOGRAM ? 12/2001 - ECHOCARDIOGRAM ? 03/01/2015 - ECHOCARDIOGRAM ? 12/02/2015 ? LVEF 60%; severe LAE, LAV 70.9 ml; mild to moderate MR - ECHOCARDIOGRAM ? 11/2016 ? LVEF 65%; MV repair ok - HYSTERECTOMY HX ? ? JAMILA, BSO - MITRAL VALVE SURGERY HX ? 09/18/2001 ? robotically assisted minimally invasive mitral valve repair with annuloplasty ring; [facility] - RIGHT AND LEFT HEART CATH ? 04/11/2001 ? LVEF 60%; moderately severe MR; mild diastolic dysfxn; no significant CAD; [facility] - STRESS ECHO ? 12/08/2015 ? 95% MPHR; LVEF 65%; severe LAE; wide-complex rhythm at peak exercise, aberrantly conducted AF vs. VT - STRESS TEST NUCLEAR ? 12/2001 - [facility] ? 2000 - THORACENTESIS ? ? - TUBAL LIGATION HX ? ? ? SOCIAL?HISTORY Social History Substance Use Topics - Smoking status: Former Smoker ? ? Packs/day: 0.50 ? ? Years: 12.00 ? ? Types: Cigarettes ? ? Start date: 1957 ? ? Quit date: 03/12/1969 - Smokeless tobacco: Never Used - Alcohol use No ? ? FAMILY?HISTORY FAMILY HISTORY Problem Relation Age of Onset - Breast Cancer Sister ? - Cancer Mother ? ? ? pancreatic - Emphysema Father ? - Heart Father ? - Drug abuse Brother ? ? ? drug overdose in his 20s - Heart Brother ? - Heart Brother ? - Heart Sister ? ? ? heart valve problem - Stroke Sister ? - Heart Brother ? ? ? ALLERGIES ALLERGIES Allergen Reactions - Codeine GI Upset - Cortisone Swelling, Other: See Comments ? ? Caused A-fib - Darvon [Propoxyphen* Mental Status Change - Digoxin Intolerance - Guaifenesin Mental Status Change ? ? hallucinations - Honey Rash, Itching - Propranolol Other: See Comments ? ? Night terrors - Verapamil Other: See Comments ? ? Palpitation, diaphoresis ? ? CURRENT?MEDICATIONS ? carvedilol (COREG) 6.25 mg tablet Take 6.25 mg by mouth twice daily with meals. ALPRAZolam (XANAX) 0.5 mg tablet Take 1 tablet by mouth twice daily as needed for Anxiety for up to 90 days. #45 tablets/30 days. furosemide (LASIX) 20 mg tablet Take 1 tablet by mouth once daily. rivaroxaban (XARELTO) 20 mg tablet Take 1 tablet by mouth daily with dinner. levothyroxine (LEVOXYL) 88 mcg tablet Take 1 tablet by mouth once daily. Take on empty stomach. For Thyroid potassium chloride ER (K-DUR, KLOR-CON) 20 mEq tablet Take 1 tablet by mouth twice daily. MAGNESIUM, ALUMINUM HYDROXIDE (MYLANTA ORAL) Take 1 Dose by mouth as needed (heartburn). amiodarone (PACERONE) 200 mg tablet Take 1 tablet by mouth once daily. famotidine (PEPCID) 20 mg tablet Take 1 tablet by mouth twice daily as needed (acid reflux). mometasone (ELOCON) 0.1 % cream Apply 1 application to affected area once daily as needed (leg eczema). ? ? REVIEW OF SYSTEMS PAIN ASSESSMENT: Negative for pain, history of chronic pain, or current treatment for a chronic pain condition. GENERAL: Fatigue NECK: Negative for lumps, goiter, pain and significant neck swelling RESPIRATORY: Negative for cough, hemoptysis, wheezing, COPD, dyspnea or shortness of breath CARDIOVASCULAR: See HPI GI: No nausea, vomiting, or diarrhea and h/o hemorrhoids bleeding in the past. MUSCULOSKELETAL: Negative for joint pain or swelling, back pain or muscle pain SKIN: Negative for lesions, rash, and itching PSYCH: Negative for sleep disturbance, mood disorder and recent psychosocial stressors HEMATOLOGY/LYMPHOLOGY: Negative for prolonged bleeding, bruising easily or swollen nodes ENDOCRINE: Negative for cold or heat intolerance, polyuria, polydipsia and goiter NEURO: No history of headaches, syncope, paralysis, seizures or tremors ? BP 100/66 Pulse 78 Resp 16 Ht 5' 5 (1.65m) Wt 128 lb (58.1kg) SpO2 99% BMI 21.30 kg/(m2). ? PHYSICAL EXAMINATION: ? General appearance: Well appearing, alert, in no acute distress, well-hydrated, well nourished. Neck: Negative findings: no jugular venous distention Lungs: Lungs clear to auscultation. No wheezing, rhonchi, rales Heart: irregular, irregular, I/ systolic murmur LSB. no gallop or rub. Abdomen: Abdomen soft, non-tender. Bowel sounds normal. No masses, organomegaly Extremities: No deformities, edema, skin discoloration, clubbing or cyanosis. Good capillary refill. Neuro: Oriented X 3 ? CARDIOVASCULAR MEDICINE TESTING: No Cardiovascular testing perfomed today. ? There were no tests performed for review. ? IMPRESSION: Ms. Gan is a 72 year old female patient of Dr. Flores with persistent atrial fibrillation. She is scheduled to undergo a radiofrequency pulmonary vein antrum isolation ablation on August. She was given R/B/A by Dr. Flores in May and I've reiterated those for her today and she would like to proceed. She is now off of the Amiodarone. I've reminded her not to stop the Xarelto. She will have nothing to eat or drink after midnight the morning of her procedure. She will have f/u with cardiac testing and an office visit three months after the procedure. ? I have discussed with the patient the risks, benefits, and alternatives of the procedure(s); the administration of moderate and/or deep sedation; and the personnel anticipated to be present during the procedure. The patient and/or family verbalizes understanding, has been given literature if appropriate, and agrees to proceed. Patient is advised to contact this office with any further questions. ? PLAN AND RECOMMENDATIONS: (I48.1) Persistent atrial fibrillation (HCC) (primary encounter diagnosis) Comment: see above for the plan ? ? (Z98.890) History of mitral valve repair Comment: s/p MV repair in 2001, she follows with Dr. Lauren. ? ? (I09.9) Rheumatic heart disease Comment: stable ? ? (I05.1) Rheumatic mitral insufficiency Comment: stable, s/p MVR in 2001 ? ? ? Michelle Alva, MSN, BUNGHOLE BORER.DRILL SETUP OPERATOR ? Note Details Other Notes Nursing Note from Jeremy ([facility]) Cheo Instructions Patient Instructions After Visit Summary (Printed 08/10/2017) Additional Documentation Vitals: ? BP 100/66 (BP Site: Left Arm, BP Position: Sitting, BP Cuff Size: Regular Adult) Pulse 78 Resp 16 Ht 165.1 cm (5' 5) Wt 58.1 kg (128 lb) SpO2 99% BMI 21.30 kg/m? BSA 1.63 m? Flowsheets: ? AMB ROOMING INTAKE MINI, Custom Formula Data Encounter Info: ? Billing Info, History, Allergies, Detailed Report Communications Letter sent to Reginald Rojo MD and Ronald Lauren MD [facility] COMMMGR - HTML Sent 08/14/2017 NURSING PROG Observed: 08/23/2017 Status: COMPLETED Source: [place] 7:11 AM [facility] OTHER CAMPUS REPOSITORY O ID: [id number] Author: Cathy (Celso) CELSO Valentin Service: Nursing Author Type: Registered Nurse Type: Nursing Progress Note Filed: 08/23/2017 7:12 AM Note Text: Nursing Progress Note Patient Name: Bella Gan Patient Location: [facility] [address] Patient instructed she needs baird catheter. Patient requested to have catheter inserted after sedation given. This note was completed by: Cathy Valentin RN HEMOGRAM Collected: 08/23/2017 Status: F Source: [facility] 7:00 AM HEALTH SYSTEM REPOSITORY TYPE CODE TESTS RESULT OUT OF REFERENCE UNITS RANGE LAB WBC(LOINC) 3.98-10.04 thou/cmm WBC 9.05 LAB RBC(LOINC) 3.93-5.22 mil/cmm RBC 4.76 LAB HGB(LOINC) 11.2-15.7 g/dL Hgb 14.1 LAB HCT(LOINC) 34.1-44.9 % Hct 42.9 LAB MCV(LOINC) 79.4-94.8 fl MCV 90.1 LAB MCH(LOINC) 25.6-32.2 pg MCH 29.6 LAB MCHC(LOINC) 31.6-34.8 % MCHC 32.9 LAB RDW(LOINC) 11.7-14.4 % RDW 12.7 LAB RDWSD(LOINC 36.4-46.3 fl ) RDW SD 41.8 LAB PLT(LOINC) 182-369 thou/cmm Platelet 198 LAB MPV(LOINC) 9.4-12.3 fl MPV 11.3 Performed By: #### CBC1 #### [place] [id number] BASIC PANEL Collected: 08/23/2017 Status: F Source: [facility] 7:00 AM HEALTH SYSTEM REPOSITORY TYPE CODE TESTS RESULT OUT OF REFERENCE UNITS RANGE LAB NA(LOINC) 136-145 mEq/L Sodium Blood 140 LAB K(LOINC) 3.5-5.1 mEq/L Potassium Blood 3.7 LAB CL(LOINC) 98-107 mEq/L Chloride Blood 104 LAB CO2(LOINC) 21-32 mEq/L CO2 Blood 32 LAB GLU(LOINC) 70-99 mg/dL Glucose Blood 95 LAB BUN(LOINC) 7-18 mg/dL BUN Blood 18 LAB CREA(LOINC 0.51-0.95 mg/dL ) Creatinine Blood 0.90 LAB CA(LOINC) 8.5-10.1 mg/dL Calcium Blood 9.2 LAB ANGAP(LOIN 8-16 C) Anion Gap 8 Performed By: #### P8 #### [place] [address] MDRD GFR Collected: 08/23/2017 Status: F Source: [facility] 7:00 AM HEALTH SYSTEM REPOSITORY TYPE CODE TESTS RESULT OUT OF RANGE REFERENCE UNITS LAB GFRFN(LOINC >60mL/min/1.73m ) 2 eGFR >60 Result Comment: If the patient is , multiply the result by 1.210. Performed By: #### GFR #### [facility] [address] [place], [place] [address] TYPE AND SCREEN Collected: 08/23/2017 Status: F Source: [facility] 7:00 AM HEALTH SYSTEM REPOSITORY TYPE CODE TESTS RESULT OUT OF REFERENCE UNITS RANGE LAB ABO(LOINC) O ABO Group LAB DEVELOPMENT MECHANIC(LOINC ) RH Type Positive LAB ABSCR(LOIN C) Antibody NEGATIVE Screen LAB BBCMT(LOIN C) Comment See Below Result Comment: Screen &/or Xmatch expires in 3 days at 12 midnight. Redraw patient at that time. Performed By: #### T&S #### [address] [address] PROGRESS Observed: 08/10/2017 Status: COMPLETED Source: [place] 1:04 PM CLINIC OTHER CAMPUS REPOSITORY HNO ID: [id number] Author: Richie (Bran) Nida Service: (none) Author Type: Nurse Practitioner Type: Progress Notes Filed: 08/14/2017 4:29 PM Note Text: PRIMARY CARE PHYSICIAN: Reginald Rojo MD [address] [place] [address] ? Patient Care Team: Reginald Rojo as PCP - General (Internal Medicine) Ronald Lauren as Specialty Brewmaster (Cardiology) Sandee Flores as Specialty Brewmaster (Cardiology) Leydi (Sravan Real as Specialty Brewmaster (Gastroenterology) ? HISTORY OF PRESENT ILLNESS: Ms. Gan is a 72 year old female who presents today for a cardiovascular medicine follow-up visit. ? History copied from previous notes, edited as needed: Ms. Gan is a 71 year old female who presents today for evaluation of atrial fibrillation. She has a long history of recurrent atrial fibrillation that dates back to perhaps at least 2001. She recalls having a cardioversion at that time. She states that the atrial fibrillation recurred but would be self-limited and only occur every year or so. She does have history of rheumatic heart disease and underwent mitral valve repair at [facility] in September 2001. She states that over the years the atrial fibrillation recurred with increasing frequency, even every month or so, and with increasing duration lasting up to a few hours. At some point she was treated with amiodarone but she does not recall when this was started. She states the dosage of amiodarone was decreased in February 2015 when she was hospitalized with broken heart syndrome. She had lived for a few years in [place] but in November 2015 she moved back to [place]. She experienced more severe episode of atrial fibrillation around that time, and upon presentation to the hospital she was found to be in atrial fibrillation with rapid ventricular response rates. She was still on amiodarone at that time. She underwent cardiac testing including an echocardiogram late November 2015 that revealed normal left ventricular systolic function, severe left atrial enlargement, and mild to moderate mitral regurgitation. A cardiac stress test was performed that she states was not entirely normal, so she underwent cardiac catheterization in January 2016 that revealed no significant coronary artery disease. She underwent electrical DC cardioversion in February 2016 which restored sinus rhythm, but she states the atrial fibrillation recurred within a couple of hours. She states that more recently she has been feeling pretty good, and has occasional days when she feels palpitations or as she describes it a punching sensation on the left side of her chest. She does not experience any chest pain, shortness of breath, other numbness or syncope. She states that in a given month she might have a couple of days where she feels the palpitations but otherwise she feels pretty good. She has a history of having some problems with cardiac medications, including propranolol which caused severe night terrors, and verapamil that was also not well tolerated. She is presently being treated with carvedilol and as stated she is overall feeling reasonably good on most days. She denies chest pain, shortness of breath, orthopnea, PND, lightheadedness or syncope. ? Additional history this visit 05/23/2017: Ms. Gan presents for follow up evaluation. When I evaluated her in 07/2016 she was having minimally symptomatic AF with a ventricular rate control approach. 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 However, she developed severe symptoms that resulted in a couple visits to the local ER in [place], and with hospitalization(s) as well. The AF was challenging to control, and this included some episodes of severe bradycardia after treatment with AV madan blocking medications for ventricular rate control. She also developed digoxin toxicity in 02/2017 requiring this medication to be discontinued. Ultimately she was treated with amiodarone and underwent a couple of cardioversion procedures. The AF recurred despite these efforts. She presents now to discuss the treatment options. She denies chest pain, orthopnea, PND, lightheadedness or syncope. ? Bella aGn was last seen by Dr. Flores on 05/23/17 to discuss RF PVAI. She presents today to update her HANDP. She took the last dose of Amiodarone today. She reports that she is always in atrial fibrillation. She has palpitations. She denies CP, SOB, dizziness, syncope. She denies fever chills or infection. She has upper and lower dentures. She denies difficulty with anesthesia. 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 12/21/2015 - halfway current use of antiarrhythmic drug amiodarone; indication: symptomatic AF - halfway current use of 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 therapy 12/21/2015 - Mitral valve prolapse 12/21/2015 - Mitral valve regurgitation s/p MV repair at [facility] 09/2001 - Palpitations - Paroxysmal atrial fibrillation (HCC) 12/21/2015 - Persistent atrial fibrillation (HCC) over time has developed excessively bothersome symptoms despite rate control treatment approach; recurrent AF despite antiarrhythmic drug therapy and cardioversions - PSVT (paroxysmal supraventricular tachycardia) (HCC) 12/21/2015 - Rheumatic heart disease - 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 - Tachycardia rapid ventricular response rates to ongoing AF - Takotsubo syndrome 12/21/2015 PAST SURGICAL HISTORY Procedure Laterality Date - CARDIAC CATH 01/19/2016 no significant CAD; LVEF 65% intact MV repair with no evidence for MR - CARDIOVERSION, ELECTIVE, ELECTRICAL 03/13/2017 successful christianity of sinus rhythm from atrial fibrillation; [facility] - CARDIOVERSION, ELECTIVE, ELECTRICAL 2001 - CATARACT EXTRACTION HX - ECHOCARDIOGRAM 09/2001 - ECHOCARDIOGRAM 12/2001 - ECHOCARDIOGRAM 03/01/2015 - ECHOCARDIOGRAM 12/02/2015 LVEF 60%; severe LAE, LAV 70.9 ml; mild to moderate MR - ECHOCARDIOGRAM 11/2016 LVEF 65%; MV repair ok - HYSTERECTOMY HX JAMILA, BSO - MITRAL VALVE SURGERY HX 09/18/2001 robotically assisted minimally invasive mitral valve repair with annuloplasty ring; [facility] - RIGHT AND LEFT HEART CATH 04/11/2001 LVEF 60%; moderately severe MR; mild diastolic dysfxn; no significant CAD; [facility] - STRESS ECHO 12/08/2015 95% MPHR; LVEF 65%; severe LAE; wide-complex rhythm at peak exercise, aberrantly conducted AF vs. VT - STRESS TEST NUCLEAR 12/2001 - [facility] 2000 - THORACENTESIS - TUBAL LIGATION HX Social History Substance Use Topics - Smoking status: Former Smoker Packs/day: 0.50 Years: 12.00 Types: Cigarettes Start date: 1957 Quit date: 03/12/1969 - Smokeless tobacco: Never Used - Alcohol use No FAMILY HISTORY Problem Relation Age of Onset - Breast Cancer Sister - Cancer Mother pancreatic - Emphysema Father - Heart Father - Drug abuse Brother drug overdose in his 20s - Heart Brother - Heart Brother - Heart Sister heart valve problem - Stroke Sister - Heart Brother ALLERGIES Allergen Reactions - Codeine GI Upset - Cortisone Swelling, Other: See Comments Caused A-fib - Darvon [Propoxyphen* Mental Status Change - Digoxin Intolerance - Guaifenesin Mental Status Change hallucinations - Honey Rash, Itching - Propranolol Other: See Comments Night terrors - Verapamil Other: See Comments Palpitation, diaphoresis carvedilol (COREG) 6.25 mg tablet Take 6.25 mg by mouth twice daily with meals. ALPRAZolam (XANAX) 0.5 mg tablet Take 1 tablet by mouth twice daily as needed for Anxiety for up to 90 days. #45 tablets/30 days. furosemide (LASIX) 20 mg tablet Take 1 tablet by mouth once daily. rivaroxaban (XARELTO) 20 mg tablet Take 1 tablet by mouth daily with dinner. levothyroxine (LEVOXYL) 88 mcg tablet Take 1 tablet by mouth once daily. Take on empty stomach. For Thyroid potassium chloride ER (K-DUR, KLOR-CON) 20 mEq tablet Take 1 tablet by mouth twice daily. MAGNESIUM, ALUMINUM HYDROXIDE (MYLANTA ORAL) Take 1 Dose by mouth as needed (heartburn). amiodarone (PACERONE) 200 mg tablet Take 1 tablet by mouth once daily. famotidine (PEPCID) 20 mg tablet Take 1 tablet by mouth twice daily as needed (acid reflux). mometasone (ELOCON) 0.1 % cream Apply 1 application to affected area once daily as needed (leg eczema). REVIEW OF SYSTEMS PAIN ASSESSMENT: Negative for pain, history of chronic pain, or current treatment for a chronic pain condition. GENERAL: Fatigue NECK: Negative for lumps, goiter, pain and significant neck swelling RESPIRATORY: Negative for cough, hemoptysis, wheezing, COPD, dyspnea or shortness of breath CARDIOVASCULAR: See HPI GI: No nausea, vomiting, or diarrhea and h/o hemorrhoids bleeding in the past. MUSCULOSKELETAL: Negative for joint pain or swelling, back pain or muscle pain SKIN: Negative for lesions, rash, and itching PSYCH: Negative for sleep disturbance, mood disorder and recent psychosocial stressors HEMATOLOGY/LYMPHOLOGY: Negative for prolonged bleeding, bruising easily or swollen nodes ENDOCRINE: Negative for cold or heat intolerance, polyuria, polydipsia and goiter NEURO: No history of headaches, syncope, paralysis, seizures or tremors BP 100/66 Pulse 78 Resp 16 Ht 5' 5 (1.65m) Wt 128 lb (58.1kg) SpO2 99% BMI 21.30 kg/(m2). PHYSICAL EXAMINATION: General appearance: Well appearing, alert, in no acute distress, well-hydrated, well nourished. Neck: Negative findings: no jugular venous distention Lungs: Lungs clear to auscultation. No wheezing, rhonchi, rales Heart: irregular, irregular, I/ systolic murmur LSB. no gallop or rub. Abdomen: Abdomen soft, non-tender. Bowel sounds normal. No masses, organomegaly Extremities: No deformities, edema, skin discoloration, clubbing or cyanosis. Good capillary refill. Neuro: Oriented X 3 CARDIOVASCULAR MEDICINE TESTING: No Cardiovascular testing perfomed today. There were no tests performed for review. IMPRESSION: Ms. Gan is a 72 year old female patient of Dr. Flores with persistent atrial fibrillation. She is scheduled to undergo a radiofrequency pulmonary vein antrum isolation ablation on August. She was given R/B/A by Dr. Flores in May and I've reiterated those for her today and she would like to proceed. She is now off of the Amiodarone. I've reminded her not to stop the Xarelto. She will have nothing to eat or drink after midnight the morning of her procedure. She will have f/u with cardiac testing and an office visit three months after the procedure. I have discussed with the patient the risks, benefits, and alternatives of the procedure(s); the administration of moderate and/or deep sedation; and the personnel anticipated to be present during the procedure. The patient and/or family verbalizes understanding, has been given literature if appropriate, and agrees to proceed. Patient is advised to contact this office with any further questions. PLAN AND RECOMMENDATIONS: (I48.1) Persistent atrial fibrillation (HCC) (primary encounter diagnosis) Comment: see above for the plan (Z98.890) History of mitral valve repair Comment: s/p MV repair in 2001, she follows with Dr. Lauren. (I09.9) Rheumatic heart disease Comment: stable (I05.1) Rheumatic mitral insufficiency Comment: negra, s/p MVR in 2001 Michelle Alva, MSN, BUNGHOLE BORER.DRILL SETUP OPERATOR CNOV Observed: 08/10/2017 Status: COMPLETED Source: [place] 1:00 PM [facility] OTHER CAMPUS REPOSITORY Office Visit (AGCARDPHRA) BELLA GAN V ([id number]) 1945 F Date Time Provider Department 08/10/17 1:00 PM RICHIE ALVA (DRILL SETUP OPERATOR) PRTIESH During your visit today, we recorded the following information about you: Pulse Respiration Blood pressure Weight 78/minute 16/minute 100/66 58.1 kg Height 1.651 m Jeremy Grider CMA 08/10/2017 12:58 PM Signed Patient denies any cardiac complaints today. KARLA Schroeder, MSN, BUNGHOLE BORER.DRILL SETUP OPERATOR 08/14/2017 4:29 PM Signed PRIMARY CARE PHYSICIAN: Reginald Rojo MD [address] [place] [address] ? Patient Care Team: Reginald Rojo as PCP - General (Internal Medicine) Ronald Lauren as Specialty Brewmaster (Cardiology) Sandee Flores as Specialty Brewmaster (Cardiology) Leydi (Roller Skater) Addie as Specialty Brewmaster (Gastroenterology) ? HISTORY OF PRESENT ILLNESS: Ms. Gan is a 72 year old female who presents today for a cardiovascular medicine follow-up visit. ? History copied from previous notes, edited as needed: Ms. Gan is a 71 year old female who presents today for evaluation of atrial fibrillation. She has a long history of recurrent atrial fibrillation that dates back to perhaps at least 2001. She recalls having a cardioversion at that time. She states that the atrial fibrillation recurred but would be self-limited and only occur every year or so. She does have history of rheumatic heart disease and underwent mitral valve repair at [facility] in September 2001. She states that over the years the atrial fibrillation recurred with increasing frequency, even every month or so, and with increasing duration lasting up to a few hours. At some point she was treated with amiodarone but she does not recall when this was started. She states the dosage of amiodarone was decreased in February 2015 when she was hospitalized with broken heart syndrome. She had lived for a few years in [place] but in November 2015 she moved back to [place]. She experienced more severe episode of atrial fibrillation around that time, and upon presentation to the hospital she was found to be in atrial fibrillation with rapid ventricular response rates. She was still on amiodarone at that time. She underwent cardiac testing including an echocardiogram late November 2015 that revealed normal left ventricular systolic function, severe left atrial enlargement, and mild to moderate mitral regurgitation. A cardiac stress test was performed that she states was not entirely normal, so she underwent cardiac catheterization in January 2016 that revealed no significant coronary artery disease. She underwent electrical DC cardioversion in February 2016 which restored sinus rhythm, but she states the atrial fibrillation recurred within a couple of hours. She states that more recently she has been feeling pretty good, and has occasional days when she feels palpitations or as she describes it a punching sensation on the left side of her chest. She does not experience any chest pain, shortness of breath, other numbness or syncope. She states that in a given month she might have a couple of days where she feels the palpitations but otherwise she feels pretty good. She has a history of having some problems with cardiac medications, including propranolol which caused severe night terrors, and verapamil that was also not well tolerated. She is presently being treated with carvedilol and as stated she is overall feeling reasonably good on most days. She denies chest pain, shortness of breath, orthopnea, PND, lightheadedness or syncope. ? Additional history this visit 05/23/2017: Ms. Gan presents for follow up evaluation. When I evaluated her in 07/2016 she was having minimally symptomatic AF with a ventricular rate control approach. 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 However, she developed severe symptoms that resulted in a couple visits to the local ER in [place], and with hospitalization(s) as well. The AF was challenging to control, and this included some episodes of severe bradycardia after treatment with AV madan blocking medications for ventricular rate control. She also developed digoxin toxicity in 02/2017 requiring this medication to be discontinued. Ultimately she was treated with amiodarone and underwent a couple of cardioversion procedures. The AF recurred despite these efforts. She presents now to discuss the treatment options. She denies chest pain, orthopnea, PND, lightheadedness or syncope. ? Bella Gan was last seen by Dr. Flores on 05/23/17 to discuss RF PVAI. She presents today to update her HANDP. She took the last dose of Amiodarone today. She reports that she is always in atrial fibrillation. She has palpitations. She denies CP, SOB, dizziness, syncope. She denies fever chills or infection. She has upper and lower dentures. She denies difficulty with anesthesia. 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/2015 - Mitral valve prolapse 12/21/2015 - Mitral valve regurgitation s/p MV repair at [facility] 09/2001 - Palpitations - Paroxysmal atrial fibrillation (HCC) 12/21/2015 - Persistent atrial fibrillation (HCC) over time has developed excessively bothersome symptoms despite rate control treatment approach; recurrent AF despite antiarrhythmic drug therapy and cardioversions - PSVT (paroxysmal supraventricular tachycardia) (HCC) 12/21/2015 - Rheumatic heart disease - 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 - Tachycardia rapid ventricular response rates to ongoing AF - Takotsubo syndrome 12/21/2015 PAST SURGICAL HISTORY Procedure Laterality Date - CARDIAC CATH 01/19/2016 no significant CAD; LVEF 65% intact MV repair with no evidence for MR - CARDIOVERSION, ELECTIVE, ELECTRICAL 03/13/2017 successful christianity of sinus rhythm from atrial fibrillation; [facility] - CARDIOVERSION, ELECTIVE, ELECTRICAL 2001 - CATARACT EXTRACTION HX - ECHOCARDIOGRAM 09/2001 - ECHOCARDIOGRAM 12/2001 - ECHOCARDIOGRAM 03/01/2015 - ECHOCARDIOGRAM 12/02/2015 LVEF 60%; severe LAE, LAV 70.9 ml; mild to moderate MR - ECHOCARDIOGRAM 11/2016 LVEF 65%; MV repair ok - HYSTERECTOMY HX JAMILA, BSO - MITRAL VALVE SURGERY HX 09/18/2001 robotically assisted minimally invasive mitral valve repair with annuloplasty ring; [facility] - RIGHT AND LEFT HEART CATH 04/11/2001 LVEF 60%; moderately severe MR; mild diastolic dysfxn; no significant CAD; [facility] - STRESS ECHO 12/08/2015 95% MPHR; LVEF 65%; severe LAE; wide-complex rhythm at peak exercise, aberrantly conducted AF vs. VT - STRESS TEST NUCLEAR 12/2001 - ALAN 2000 - THORACENTESIS - TUBAL LIGATION HX Social History Substance Use Topics - Smoking status: Former Smoker Packs/day: 0.50 Years: 12.00 Types: Cigarettes Start date: 1957 Quit date: 03/12/1969 - Smokeless tobacco: Never Used - Alcohol use No FAMILY HISTORY Problem Relation Age of Onset - Breast Cancer Sister - Cancer Mother pancreatic - Emphysema Father - Heart Father - Drug abuse Brother drug overdose in his 20s - Heart Brother - Heart Brother - Heart Sister heart valve problem - Stroke Sister - Heart Brother ALLERGIES Allergen Reactions - Codeine GI Upset - Cortisone Swelling, Other: See Comments Caused A-fib - Darvon [Propoxyphen* Mental Status Change - Digoxin Intolerance - Guaifenesin Mental Status Change hallucinations - Honey Rash, Itching - Propranolol Other: See Comments Night terrors - Verapamil Other: See Comments Palpitation, diaphoresis carvedilol (COREG) 6.25 mg tablet Take 6.25 mg by mouth twice daily with meals. ALPRAZolam (XANAX) 0.5 mg tablet Take 1 tablet by mouth twice daily as needed for Anxiety for up to 90 days. #45 tablets/30 days. furosemide (LASIX) 20 mg tablet Take 1 tablet by mouth once daily. rivaroxaban (XARELTO) 20 mg tablet Take 1 tablet by mouth daily with dinner. levothyroxine (LEVOXYL) 88 mcg tablet Take 1 tablet by mouth once daily. Take on empty stomach. For Thyroid potassium chloride ER (K-DUR, KLOR-CON) 20 mEq tablet Take 1 tablet by mouth twice daily. MAGNESIUM, ALUMINUM HYDROXIDE (MYLANTA ORAL) Take 1 Dose by mouth as needed (heartburn). amiodarone (PACERONE) 200 mg tablet Take 1 tablet by mouth once daily. famotidine (PEPCID) 20 mg tablet Take 1 tablet by mouth twice daily as needed (acid reflux). mometasone (ELOCON) 0.1 % cream Apply 1 application to affected area once daily as needed (leg eczema). REVIEW OF SYSTEMS PAIN ASSESSMENT: Negative for pain, history of chronic pain, or current treatment for a chronic pain condition. GENERAL: Fatigue NECK: Negative for lumps, goiter, pain and significant neck swelling RESPIRATORY: Negative for cough, hemoptysis, wheezing, COPD, dyspnea or shortness of breath CARDIOVASCULAR: See HPI GI: No nausea, vomiting, or diarrhea and h/o hemorrhoids bleeding in the past. MUSCULOSKELETAL: Negative for joint pain or swelling, back pain or muscle pain SKIN: Negative for lesions, rash, and itching PSYCH: Negative for sleep disturbance, mood disorder and recent psychosocial stressors HEMATOLOGY/LYMPHOLOGY: Negative for prolonged bleeding, bruising easily or swollen nodes ENDOCRINE: Negative for cold or heat intolerance, polyuria, polydipsia and goiter NEURO: No history of headaches, syncope, paralysis, seizures or tremors BP 100/66 Pulse 78 Resp 16 Ht 5' 5 (1.65m) Wt 128 lb (58.1kg) SpO2 99% BMI 21.30 kg/(m2). PHYSICAL EXAMINATION: General appearance: Well appearing, alert, in no acute distress, well-hydrated, well nourished. Neck: Negative findings: no jugular venous distention Lungs: Lungs clear to auscultation. No wheezing, rhonchi, rales Heart: irregular, irregular, I/ systolic murmur LSB. no gallop or rub. Abdomen: Abdomen soft, non-tender. Bowel sounds normal. No masses, organomegaly Extremities: No deformities, edema, skin discoloration, clubbing or cyanosis. Good capillary refill. Neuro: Oriented X 3 CARDIOVASCULAR MEDICINE TESTING: No Cardiovascular testing perfomed today. There were no tests performed for review. IMPRESSION: Ms. Gan is a 72 year old female patient of Dr. Flores with persistent atrial fibrillation. She is scheduled to undergo a radiofrequency pulmonary vein antrum isolation ablation on , August 23, 2017. She was given R/B/A by Dr. Flores in May and I've reiterated those for her today and she would like to proceed. She is now off of the Amiodarone. I've reminded her not to stop the Xarelto. She will have nothing to eat or drink after midnight the morning of her procedure. She will have f/u with cardiac testing and an office visit three months after the procedure. I have discussed with the patient the risks, benefits, and alternatives of the procedure(s); the administration of moderate and/or deep sedation; and the personnel anticipated to be present during the procedure. The patient and/or family verbalizes understanding, has been given literature if appropriate, and agrees to proceed. Patient is advised to contact this office with any further questions. PLAN AND RECOMMENDATIONS: (I48.1) Persistent atrial fibrillation (HCC) (primary encounter diagnosis) Comment: see above for the plan (Z98.890) History of mitral valve repair Comment: s/p MV repair in 2001, she follows with Dr. Lauren. (I09.9) Rheumatic heart disease Comment: stable (I05.1) Rheumatic mitral insufficiency Comment: stable, s/p MVR in 2001 Michelle Alva, MSN, BUNGHOLE BORER.BRAN Alva, MSN, BUNGHOLE BORER.BRAN 08/10/2017 1:29 PM Signed Nothing to eat or drink after midnight the day of you procedure. Please take medications with a sip of water. Atrial Fibrillation What is atrial fibrillation? Atrial fibrillation (also called A-fib) is a fast or irregular heartbeat that starts in the upper chambers of the heart. The abnormal heartbeat affects the ability of the heart to pump blood to the rest of the body. What is the cause? An electrical signal in your heart starts each heartbeat, causing the heart muscle to squeeze (contract). Normally, this signal starts in the upper right chamber of the heart (the right atrium) at a place called the sinus node. The signal then follows normal pathways to the upper left atrium and to the lower chambers of the heart (the ventricles). When you have atrial fibrillation, electrical signals don?t start in the normal place in the right atrium and don?t travel normally. This can cause the upper chambers of the heart (atria) to beat very fast and not in a normal pattern. Common causes of heart rhythm problems are conditions that damage the heart, like coronary artery disease, heart attack, or heart failure. Problems with the heart valves are another common cause. The heart has 4 valves that open and close with each heartbeat to help blood flow in the right direction through the heart. Other causes of atrial fibrillation include: -Health problems, such as a stroke, lung disease, diabetes, overactive thyroid gland, or high blood pressure -Abuse of alcohol or drugs, such as cocaine Sometimes no cause can be found. What are the symptoms? Some people don?t have any symptoms. When atrial fibrillation does cause symptoms, the most common ones are: -Feeling like your heart is beating too fast or too hard or skipping beats or fluttering -Feeling tired or weak all the time Symptoms that are more serious include: -Chest pain -Trouble breathing -Lightheadedness or dizziness -Confusion How is it diagnosed? Your healthcare provider will ask about your symptoms and medical history and examine you. Tests may include: -An ECG (also called an EKG), which measures and records your heartbeat. You may have an ECG while you are resting or while you exercise on a treadmill. You may also be asked to wear a small portable ECG monitor for a few days or sometimes a couple weeks. -Blood tests -An echocardiogram, which uses sound waves (ultrasound) to show the structures of the heart, like the valves How is it treated? The goal of treatment is to help the heart keep a normal rhythm. Your treatment depends on the cause of the atrial fibrillation, how often you have symptoms, and the severity of your symptoms. If you have no symptoms, or your symptoms are fairly mild, you may not need treatment. For some people atrial fibrillation lasts just a short time and the heart goes back to a normal rhythm on its own. If you keep having spells of atrial fibrillation, treatment may help keep you from having so many spells. If a health problem like a leaky heart valve is causing the atrial fibrillation, treating the health problem may also treat the fast or irregular heartbeat. Other possible treatments are: -Medicine: Your provider may prescribe medicine to slow or restore a normal heart rate and rhythm. You may also need medicine to prevent blood clots because when the heart beats irregularly, some of the blood can stay in the upper chambers too long. This makes it easier for blood clots to form, increasing your risk of having a stroke or heart attack. -Electrical cardioversion: First, you will be given medicine called anesthesia to keep you from feeling pain during the procedure. Then your chest will be given an electrical shock. The electrical shock should make your heart start beating normally again. You may need medicine to keep your heart rhythm normal after this procedure. -Ablation: Ablation is a procedure that uses a small tube called a catheter to deliver energy to the inside of the heart. The energy (usually radio waves) scars small areas of heart tissue. The scars block abnormal electrical pathways and help you have a normal heart rhythm. With some types of ablation treatment, you will also need a pacemaker. A pacemaker is an electronic device put under the skin of your chest to help control the heartbeat. How can I take care of myself? -Take your medicines as prescribed. -Keep your appointments for follow-up blood tests. -Make sure your healthcare provider knows about changes in your diet or medical condition. Your provider also needs to know about all prescription and nonprescription medicines, herbs, or supplements that you are taking. Some medicines may interact with your heart medicine or increase your risk for atrial fibrillation. -If you want to drink alcohol, ask your provider how much is safe for you to drink. -Follow your healthcare provider's instructions. Ask your provider: ?How and when you will hear your test results ?How long it will take to recover ?What activities you should avoid and when you can return to your normal activities ?How to take care of yourself at home ?What symptoms or problems you should watch for and what to do if you have them -Make sure you know when you should come back for a checkup. How can I help prevent atrial fibrillation? The best prevention is to have a heart-healthy lifestyle. -Keep a healthy weight. -Eat a healthy diet that is low in sodium and saturated and trans fat. -Stay fit with the right kind of exercise for you. -Decrease stress. -Don?t smoke. -Limit your use of alcohol. If you have heart disease or high blood pressure, follow your healthcare provider's instructions for treatment. Developed by [employer]. Published by [employer]. Copyright ?2014 [employer] and/or one of its subsidiaries. All rights reserved. Referring Provider: RICHIE ALVA ([facility]) [[id number]] Allergies As of Date: 08/10/2017 Noted Allergy Reaction CODEINE 12/21/2015 8 - GI Upset CORTISONE 12/21/2015 7 - Swelling 14 - Other: See Comments Comments: Caused A-fib DARVON (PROPOXYPHENE HCL) 12/21/2015 1 - Mental Status Change DIGOXIN 03/22/2017 5 - Intolerance GUAIFENESIN 12/21/2015 1 - Mental Status Change Comments: hallucinations HONEY 12/21/2015 2 - Rash 9 - Itching PROPRANOLOL 12/21/2015 14 - Other: See Comments Comments: Night terrors VERAPAMIL 12/21/2015 14 - Other: See Comments Comments: Palpitation, diaphoresis Date Reviewed: 08/10/2017 Reviewed by: Richie ([facility]) Nida - Fully Assessed Reason for Visit: Cardiology Follow Up [2772] Cmt: Patient is here today for an updated HANDP for upcoming PVI. Primary Visit Diagnosis:Persistent atrial fibrillation (HCC) [I48.1] Other Visit Diagnoses:History of mitral valve repair [Z98.890] Rheumatic heart disease [I09.9] Rheumatic mitral insufficiency [I05.1] Prescriptions as of 08/10/2017 Sig: CARVEDILOL 6.25 MG TABLET Take 6.25 mg by mouth twice d* ALPRAZOLAM 0.5 MG TABLET Take 1 tablet by mouth twice * FUROSEMIDE 20 MG TABLET Take 1 tablet by mouth once d* RIVAROXABAN 20 MG TABLET Take 1 tablet by mouth daily * LEVOTHYROXINE 88 MCG TABLET Take 1 tablet by mouth once d* POTASSIUM CHLORIDE ER 20 MEQ * Take 1 tablet by mouth twice * MYLANTA ORAL Take 1 Dose by mouth as neede* AMIODARONE 200 MG TABLET Take 1 tablet by mouth once d* FAMOTIDINE 20 MG TABLET Take 1 tablet by mouth twice * Patient not taking: Reported on 08/10/2017 MOMETASONE 0.1 % TOPICAL CREAM Apply 1 application to affect* Patient not taking: Reported on 08/10/2017 Problem List As Of Date 08/10/2017 Noted Resolved PSVT (paroxysmal supraventricular tachycardia) *INVALID FOR* 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 Anticoagulant-induced bleeding (HCC) [T45.7X1A,* 05/16/2017 More... Rheumatic heart disease [I09.9] Mitral valve regurgitation [I34.0] More... Persistent atrial fibrillation (HCC) [I48.1] Tachycardia [R00.0] 02/14/2017 More... 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 Other instructions from your clinician: Nothing to eat or drink after midnight the day of you procedure. Please take medications with a sip of water. Atrial Fibrillation What is atrial fibrillation? Atrial fibrillation (also called A-fib) is a fast or irregular heartbeat that starts in the upper chambers of the heart. The abnormal heartbeat affects the ability of the heart to pump blood to the rest of the body. What is the cause? An electrical signal in your heart starts each heartbeat, causing the heart muscle to squeeze (contract). Normally, this signal starts in the upper right chamber of the heart (the right atrium) at a place called the sinus node. The signal then follows normal pathways to the upper left atrium and to the lower chambers of the heart (the ventricles). When you have atrial fibrillation, electrical signals don?t start in the normal place in the right atrium and don?t travel normally. This can cause the upper chambers of the heart (atria) to beat very fast and not in a normal pattern. Common causes of heart rhythm problems are conditions that damage the heart, like coronary artery disease, heart attack, or heart failure. Problems with the heart valves are another common cause. The heart has 4 valves that open and close with each heartbeat to help blood flow in the right direction through the heart. Other causes of atrial fibrillation include: -Health problems, such as a stroke, lung disease, diabetes, overactive thyroid gland, or high blood pressure -Abuse of alcohol or drugs, such as cocaine Sometimes no cause can be found. What are the symptoms? Some people don?t have any symptoms. When atrial fibrillation does cause symptoms, the most common ones are: -Feeling like your heart is beating too fast or too hard or skipping beats or fluttering -Feeling tired or weak all the time Symptoms that are more serious include: -Chest pain -Trouble breathing -Lightheadedness or dizziness -Confusion How is it diagnosed? Your healthcare provider will ask about your symptoms and medical history and examine you. Tests may include: -An ECG (also called an EKG), which measures and records your heartbeat. You may have an ECG while you are resting or while you exercise on a treadmill. You may also be asked to wear a small portable ECG monitor for a few days or sometimes a couple weeks. -Blood tests -An echocardiogram, which uses sound waves (ultrasound) to show the structures of the heart, like the valves How is it treated? The goal of treatment is to help the heart keep a normal rhythm. Your treatment depends on the cause of the atrial fibrillation, how often you have symptoms, and the severity of your symptoms. If you have no symptoms, or your symptoms are fairly mild, you may not need treatment. For some people atrial fibrillation lasts just a short time and the heart goes back to a normal rhythm on its own. If you keep having spells of atrial fibrillation, treatment may help keep you from having so many spells. If a health problem like a leaky heart valve is causing the atrial fibrillation, treating the health problem may also treat the fast or irregular heartbeat. Other possible treatments are: -Medicine: Your provider may prescribe medicine to slow or restore a normal heart rate and rhythm. You may also need medicine to prevent blood clots because when the heart beats irregularly, some of the blood can stay in the upper chambers too long. This makes it easier for blood clots to form, increasing your risk of having a stroke or heart attack. -Electrical cardioversion: First, you will be given medicine called anesthesia to keep you from feeling pain during the procedure. Then your chest will be given an electrical shock. The electrical shock should make your heart start beating normally again. You may need medicine to keep your heart rhythm normal after this procedure. -Ablation: Ablation is a procedure that uses a small tube called a catheter to deliver energy to the inside of the heart. The energy (usually radio waves) scars small areas of heart tissue. The scars block abnormal electrical pathways and help you have a normal heart rhythm. With some types of ablation treatment, you will also need a pacemaker. A pacemaker is an electronic device put under the skin of your chest to help control the heartbeat. How can I take care of myself? -Take your medicines as prescribed. -Keep your appointments for follow-up blood tests. -Make sure your healthcare provider knows about changes in your diet or medical condition. Your provider also needs to know about all prescription and nonprescription medicines, herbs, or supplements that you are taking. Some medicines may interact with your heart medicine or increase your risk for atrial fibrillation. -If you want to drink alcohol, ask your provider how much is safe for you to drink. -Follow your healthcare provider's instructions. Ask your provider: ?How and when you will hear your test results ?How long it will take to recover ?What activities you should avoid and when you can return to your normal activities ?How to take care of yourself at home ?What symptoms or problems you should watch for and what to do if you have them -Make sure you know when you should come back for a checkup. How can I help prevent atrial fibrillation? The best prevention is to have a heart-healthy lifestyle. -Keep a healthy weight. -Eat a healthy diet that is low in sodium and saturated and trans fat. -Stay fit with the right kind of exercise for you. -Decrease stress. -Don?t smoke. -Limit your use of alcohol. If you have heart disease or high blood pressure, follow your healthcare provider's instructions for treatment. Developed by [employer]. Published by [employer]. Copyright ?2013 [employer] and/or one of its subsidiaries. All rights reserved. Visit Notes: >> Jeremy (Karla) Cheo SunAug 10, 2017 12:55 PM Status: Signed Patient denies any cardiac complaints today. Jeremy Grider CMA Letter Text Encounter Status:Closed by NIDA, TAMARA, DRILL SETUP OPERATOR, MICHELLE Dewitt on 08/14/17 ECHOCARDIOGRAM COMPLETE Observed: 08/08/2017 Status: F Source: [place] 4:36 PM [facility] [place] RE[facility]IT[facility] Cardiovascular Services [address] [place] [id number] Echo Complete 08/08/17 1512 MR#: [id number] Acct: [id number] Name: BELLA GAN V Rep #: [id number] : 1945 72 From: Ronald Lauren MD Attending Dr: Ronald Lauren MD Status: REG I Ordering Dr: Ronald Lauren MD Date: 08/08/17 Location: [facility] Sex: F C Admitted: Reason For Study: AFIB-FLUTTER Procedure This was a 2D Doppler, Color Flow transthoracic echocardiogram. Exam performed in department. Left Ventricle Normal size and thickness. The estimated ejection fraction is 60 %. Unable to assess diastolic dysfunction due to arrhythmia. No regional wall motion abnormalities noted. Right Ventricle Normal size and thickness. Normal systolic function. Atria The left atrium is severely enlarged. The right atrium is severely enlarged. Normal atrial septum. Mitral Valve Mild diffuse mitral valve thickening. Trivial mitral valve insufficiency. An annuloplasty ring is noted in the mitral position. Tricuspid Valve Normal tricuspid valve. Trivial tricuspid valve insufficiency. Right ventricular systolic pressure estimated to be 36 mmHg. Aortic Valve Normal aortic valve. Trisinus/trileaflet aortic valve. Pulmonic Valve The pulmonic valve is not well visualized. Great Vessels Normal aortic root. Normal arch. Normal inferior vena cava. Inferior vena cava collapse with sniff. Pericardium/Pleural No pericardial effusion. MMode/2D Measurements AND Calculations LVIDd: 4.3 cm IVSd: 0.99 cm LVOT diam: 2.0 cm LVIDs: 2.7 cm LVPWd: 0.95 cm LVOT area: 3.2 cm2 RVDd: 3.1 cm FS: 36.8 % Ao root diam: 2.8 cm LAV(MOD-bp): 84.7 ml LVAd ap4: 26.6 cm2 LAV(MOD-bp) Indexed: 52.3 ml/m2 EDV(MOD-sp4): 82.8 ml LAV(MOD-sp2): 106.2 ml EDV(sp4-el): 83.8 ml LAV(MOD-sp4): 63.6 ml LVAs ap4: 16.0 cm2 ESV(MOD-sp4): 36.2 ml ESV(sp4-el): 37.3 ml EF(MOD-sp4): 56.2 % EF(sp4-el): 55.6 % SV(MOD-sp4): 46.5 ml SV(sp4-el): 46.6 ml LA A4 area: 21.1 cm2 RA A4 area: 22.0 cm2 Doppler Measurements AND Calculations MV E max starr: 123.0 cm/sec MV P1/2t max starr: 131.6 cm/sec Ao V2 max: 119.7 cm/sec MV P1/2t: 84.9 msec Ao max P.7 mmHg MV dec slope: 454.0 cm/sec2 ABDI(V,D): 1.9 cm2 MVA(P1/2t): 2.6 cm2 LV V1 max: 71.4 cm/sec PA V2 max: 68.4 cm/sec TR max starr: 225.0 cm/sec LV V1 max P.0 mmHg TR max P.2 mmHg Interpretation Summary The estimated ejection fraction is 60 %. Unable to assess diastolic dysfunction due to arrhythmia. The left atrium is severely enlarged. The right atrium is severely enlarged. An annuloplasty ring is noted in the mitral position and appears to be functioning normally. Trivial mitral valve insufficiency. Right ventricular systolic pressure estimated to be 36 mmHg. Compared to echo report dated 11/29/2016, no appreciable changes noted. Pt appears to be in atrial fibrillation. Ordering Physician: Ronald Lauren Referring Physician: REGINALD ROJO Performed By: Vanessa Ma RDCS 08/08/17 1636 Date Ronald Lauren MD CC: Ronald Lauren MD; Reginald Rojo MD Date Dictated: 08/08/17 1512 Date Transcribed: 08/08/17 1636 Playroom Attendant: Signed CARDIOLOGY VISIT Observed: 07/27/2017 Status: F Source: [place] REPORT 1:56 PM [facility] [place] RE[facility] [address] [place] [address] OFFICE VISIT Date of Service: 07/27/17 MR#: [id number] Acct: [id number] Name: BELLA GAN V Rep #: [id number] : 1945 Provider: Ronald Lauren MD Age/Sex: 72/F Location: [facility] [place] Status: Signed HPI HPI Chief Complaint: Routine f/u Details: Mrs. Gan is a very pleasant 72-year-old nonsmoking, nondrinking, nondiabetic female, former patient of Dr. Salazar is last seen in 2003. At that time she was found to have paroxysmal atrial fibrillation. She underwent elective mitral valve repair at [facility] on 09/18/01. She had no bypass surgery at that time. Her atrial fibrillation normalized, to the point where she could come off of her anticoagulation. Subsequent to that she moved to [place] where she has been for 12 years or so. She recently moved back to [place] and during the move developed palpitations and shortness of breath. She presented to [facility] ER on 11/17/15 where she was found to be in atrial fibrillation with rapid ventricular response. I was notified over the phone we placed her on xeralto as she had previous epistasis and hematuria with eliquis. It appears that her amiodarone was reduced since February 2015 where she was admitted to a hospital in [place] with what appears to be Takostubo's cardiomyopathy and her amiodarone was reduced. At that time Coreg was added to her medication regimen, And recently increased by myself to 6.25 mg by mouth twice a day. Patient is now here in follow-up. On further history the patient drinks no caffeine, and is aware of her atrial fibrillation. She states that she's had atrial fibrillation on and off over the last several years however this appears to resolve on its own. She denies any associated chest pain, angina, shortness of breath or dyspnea on exertion. Patient underwent stress testing on 12/08/15 which was felt to be abnormal. she underwent coronary angiography on 01/19/16 which showed normal coronary arteries. She then underwent successful DC cardioversion on 02/11/16 which was initially successful but then reverted back to atrial fibrillation. She had previously seen Dr. Flores [facility] who recommended A. fib ablation but she has not yet had this. Patient now returns for follow-up. She denies any chest pain, angina, shortness of breath, or significant palpitations. She reports that she has no symptoms 99% of the time, and when she does have palpitations they are self-limiting. Patient's most recent catheterization took place in January 2016 which showed normal coronary arteries. Her most recent echo on 11/29/16 showed an EF of 65% with normal functioning mitral valve repair. She is compliant with her anticoagulation. She has seen Dr. Flores, who recommended A. fib ablation, and she has finally made up her mind to go forward with this in middle August 2017. Although she still in atrial fibrillation, she feels better since her cardioversion in March. In our office today her blood pressure is 112/70 and pulse is 74 and irregular. Her physical exam demonstrates irregular irregular rhythm, normal S1/S2, no systolic murmurs are noted. She has no edema. Lipids as of 11/24/15 showed HDL of 58 and LDL of 107. Intake Vital Signs07/27/17 Height 5 ft 5 in 07/27/17 Weight: 127 lb 07/27/17 Body Mass Index (BMI) 21.1 07/27/17 Blood Pressure 112/70 07/27/17 Respiratory Rate 16 07/27/17 Pulse Rate 74 Intake Visit Reasons: 6 M FU Allergies codeine Allergy (Verified 07/27/17 13:30) Other cortisone Allergy (Verified 07/27/17 13:30) Rash guaifenesin Allergy (Verified 07/27/17 13:30) Unknown propoxyphene [From Darvon] Allergy (Verified 07/27/17 13:30) Rash propranolol Allergy (Verified 07/27/17 13:30) Unknown verapamil Allergy (Verified 07/27/17 13:30) Unknown digoxin Adverse Reaction (Verified 07/27/17 13:30) Unknown Medications ALPRAZolam [Xanax] 0.5 mg PO QHS 11/17/15 [History Confirmed 07/27/17] Furosemide [Lasix] 20 mg PO DAILY 11/17/15 [History Confirmed 07/27/17] Levothyroxine Sodium [Levoxyl] 88 mcg PO DAILY 01/18/16 [History Confirmed 07/27/17] Acetaminophen [Tylenol] 325 mg PO Q4H PRN 02/17/17 [History Confirmed 07/27/17] amiodarone 200 mg tablet 200 mg PO QDAY #90 tab 04/20/17 [Rx Confirmed 07/27/17] rivaroxaban 20 mg tablet 20 mg PO QDAY #90 tab 05/02/17 [Rx Confirmed 07/27/17] potassium chloride ER 20 mEq tablet,extended release(part/cryst) 20 meq PO BID #14 tab 05/08/17 [Rx Confirmed 07/27/17] carvedilol 6.25 mg tablet 6.25 mg PO BID #180 tab 06/01/17 [Rx Confirmed 07/27/17] [facility] Medical History Paroxysmal supraventricular tachycardia (Chronic) Rheumatic mitral insufficiency (Chronic) Rheumatic mitral valve prolapse (Chronic) Paroxysmal A-fib (Chronic) Anxiety (Chronic) Hypothyroidism (Chronic) Takotsubo cardiomyopathy (Chronic) Surgical History History of mitral valve repair (Chronic 09/18/01) History of cardioversion (Chronic 03/13/17) History of cataract surgery (Chronic) History of left heart catheterization (Chronic 01/19/16) History of total abdominal hysterectomy (Chronic) Social History Smoking Status: Never smoker ROS Const Const: Negative for fatigue, weakness, difficulty sleeping, frequent falls, headache(s) or excessive sweating Eyes Eyes: Negative for loss of peripheral vision, transient loss of vision, blurry vision or double vision ENT ENT: Negative for headache(s), dizziness, Nosebleed/epistaxis or balance problems Cardio Chest Pain: No Edema: None Muscle aches with walking: None Resp Respiratory: Negative for SOB with activity, SOB at rest, SOB orthopnea\SOB lying down or paroxysmal nocturnal dyspnea GI GI: Negative nausea or heartburn : Negative for hematuria Musc Musc: Negative for muscle aches/ myalgia, muscle weakness, joint pain or balance problems Skin Skin: Negative non-healing lesions, unusual bruising or rash Neuro Neuro: Negative for weakness, frequent falls, blurry vision, headache(s), dizziness, lightheadedness, orthostatic symptoms or double vision Otis Hematologic/Lymphatic: Negative for easy bruising Endo Endo: Negative for fatigue, excessive sweating or increased thirst/drinking Psych Psych: Negative for anxiety or depression Allergy Allergy/Immunology: Negative for hives, Negative for rash Cardiology Exam Const Appearance: cooperative, healthy appearing and no acute distress Nutritional Appearance: well nourished Orientation: alert, oriented x3 and oriented to person Head Head: normal to inspection, atraumatic and normocephalic Nose: external nose normal Face and Sinus: face symmetric Mouth: oral mucosae normal Eyes General: appearance normal, both eyes and all related structures Eyelids: eyelids normal Conjunctivae: conjunctivae normal Pupils: PERRL and normal by confrontation EOM: EOM intact bilaterally Neck Neck: normal visual inspection and full ROM Carotids: normal carotid upstroke Chest Chest inspection: normal inspection of the chest Auscultation: Bilateral: Clear to Auscultation Cardio Palpation: normal PMI Rate: regular rate Rhythm: irregular rhythm Heart sounds: S1 normal and S2 normal GI GI: normal to inspection, no hepatosplenomegaly and bowel sounds present Neuro General: alert, oriented x3, awake, CN's II-XI intact bilaterally and moves all extremities Skin Skin: no rashes or lesions noted Extremities Pulses: Normal: Right Femoral Pulse, Left Femoral Pulse, Right Dorsalis Pedis Pulse, Left Dorsalis Pedis Pulse, Right Posterior Tibial Pulse, Left Posterior Tibial Pulse, Right Radial Pulse, Left Radial Pulse Lower Extremity Edema: None: Bilateral Psych Psychological: normal affect Assessment AND Plan 1. Atrial fibrillation with RVR I48.91 Plan 1. Atrial fibrillation: Patient has decided to go forward with atrial fibrillation ablation with Dr. Flores [facility] in middle of August 2017. Per his request we will repeat her echocardiogram prior to her procedure. I recommended that she continue her current dose of carvedilol and Xarelto. She will stop her amiodarone per Dr. Flores's request prior to her atrial fibrillation ablation. Do not believe she requires stress testing at this time. 2. Return office in 6 months. This note was generated using a voice recognition system and there may be incorrect words, spelling or punctuation that were not noted when reviewing the office note prior to saving. Plan Detail Other Orders Orders: Follow Up +6M (Leonidas) Coding Level of Care Code Off vis,est,level 3 Diagnoses Atrial fibrillation with RVR I48.91 Coding Level of Care Code Off vis,est,level 3 Diagnoses Atrial fibrillation with RVR I48.91 07/27/17 3696 <Electronically signed by Ronald Lauren MD> Date Ronald Lauren MD Cosigner Signature: Date (if applicable) CC: Reginald Rojo MD PROGRESS Observed: 06/11/2017 Status: COMPLETED Source: [place] 2:10 PM [facility] REPOSITORY HNO ID: [id number] Author: Leydi Real Service: (none) Author Type: Nurse Practitioner Type: Progress Notes Filed: 06/11/2017 4:56 PM Note Text: Bella Gan a 72 year old female who is returning for follow up regarding altered bowel habits (diarrhea). I saw the patient in consultation on 04/03/17. That note has been reviewed. We discussed postponing any procedure until after she saw her slot floor supervisor in May. That appointment was done. The patient decided to pursue an ablation 08/23/17. Noting that if this was unsuccessful, the next stop would be a pacemaker. Presenting complaint: The patient presents today reporting that she would have loose stools the day after taking any Benefiber, so she stopped. She has been eating Activia. Normal diet. Having milk on her cereal without any issues. less frequent loose stools. She tells me that the days of any loose stools don't seem to be related to anything specific. She has Imodium as a back up for any diarrhea. She recalls having a little bright red blood with the initial diarrhea. She attributed that to internal hemorrhoids. The patient reports the last week or so my bowel seems to have straightened itself out. Last 10 Encounter Wt Readings: Date: Wt: 06/11/2017 58.1 kg (128 lb) 05/23/2017 58.5 kg (129 lb) 05/16/2017 59.6 kg (131 lb 6.4 oz) 04/03/2017 59.4 kg (131 lb) 03/22/2017 59.9 kg (132 lb) 02/13/2017 62.1 kg (137 lb) 09/19/2016 66.9 kg (147 lb 6.4 oz) 07/12/2016 67.6 kg (149 lb) 03/22/2016 66.2 kg (146 lb) 12/21/2015 64.9 kg (143 lb) REVIEW OF SYSTEMS: GENERAL: Attempting to maintain weight. GI: The patient states that her appetite has been adequate. She does get hungry. There has been no nausea, no vomiting. She denies dysphagia and denies odynophagia. There has not been indigestion or heartburn. There has not been regurgitation. Bowel habits have been regular. There has been less diarrhea. There has not been constipation. The patient denies rectal bleeding. There has not been melena. No new or worsening abdominal pain. All other reviewed and negative other than HPI. 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; indication: symptomatic AF - 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 12/21/2015 - Mitral valve prolapse 12/21/2015 - Mitral valve regurgitation s/p MV repair at [facility] 09/2001 - Palpitations - Paroxysmal atrial fibrillation (HCC) 12/21/2015 - Persistent atrial fibrillation (HCC) over time has developed excessively bothersome symptoms despite rate control treatment approach; recurrent AF despite antiarrhythmic drug therapy and cardioversions - PSVT (paroxysmal supraventricular tachycardia) (HCC) 12/21/2015 - Rheumatic heart disease - 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 - Tachycardia rapid ventricular response rates to ongoing AF - Takotsubo syndrome 12/21/2015 PAST SURGICAL HISTORY Procedure Laterality Date - CARDIAC CATH 01/19/2016 no significant CAD; LVEF 65% intact MV repair with no evidence for MR - CARDIOVERSION, ELECTIVE, ELECTRICAL 03/13/2017 successful christianity of sinus rhythm from atrial fibrillation; [facility] [place] - CARDIOVERSION, ELECTIVE, ELECTRICAL 2001 - CATARACT EXTRACTION HX - ECHOCARDIOGRAM 09/2001 - ECHOCARDIOGRAM 12/2001 - ECHOCARDIOGRAM 03/01/2015 - ECHOCARDIOGRAM 12/02/2015 LVEF 60%; severe LAE, LAV 70.9 ml; mild to moderate MR - ECHOCARDIOGRAM 11/2016 LVEF 65%; MV repair ok - HYSTERECTOMY HX JAMILA, [facility]SO - MITRAL VALVE SURGERY HX 09/18/2001 robotically assisted minimally invasive mitral valve repair with annuloplasty ring; [facility] - RIGHT AND LEFT HEART CATH 04/11/2001 LVEF 60%; moderately severe MR; mild diastolic dysfxn; no significant CAD; [facility] - STRESS ECHO 12/08/2015 95% MPHR; LVEF 65%; severe LAE; wide-complex rhythm at peak exercise, aberrantly conducted AF vs. VT - STRESS TEST NUCLEAR 12/2001 - ALAN 2000 - THORACENTESIS - TUBAL LIGATION HX FAMILY HISTORY Problem Relation Age of Onset - Breast Cancer Sister - Cancer Mother pancreatic - Emphysema Father - Heart Father - Drug abuse Brother drug overdose in his 20s - Heart Brother - Heart Brother - Heart Sister heart valve problem - Stroke Sister - Heart Brother Current Outpatient Prescriptions: carvedilol (COREG) 6.25 mg tablet Take 6.25 mg by mouth twice daily with meals. Disp: Rfl: ALPRAZolam (XANAX) 0.5 mg tablet Take 1 tablet by mouth twice daily as needed for Anxiety for up to 90 days. #45 tablets/30 days. Disp: 45 tablet Rfl: 2 MAGNESIUM, ALUMINUM HYDROXIDE (MYLANTA ORAL) Take 1 Dose by mouth as needed (heartburn). Disp: Rfl: amiodarone (PACERONE) 200 mg tablet Take 1 tablet by mouth once daily. Disp: Rfl: famotidine (PEPCID) 20 mg tablet Take 1 tablet by mouth twice daily as needed (acid reflux). Disp: Rfl: mometasone (ELOCON) 0.1 % cream Apply 1 application to affected area once daily as needed (leg eczema). Disp: 30 g Rfl: 0 furosemide (LASIX) 20 mg tablet Take 1 tablet by mouth once daily. Disp: Rfl: 0 rivaroxaban (XARELTO) 20 mg tablet Take 1 tablet by mouth daily with dinner. Disp: Rfl: 0 levothyroxine (LEVOXYL) 88 mcg tablet Take 1 tablet by mouth once daily. Take on empty stomach. For Thyroid Disp: Rfl: 0 potassium chloride ER (K-DUR, KLOR-CON) 20 mEq tablet Take 1 tablet by mouth twice daily. Disp: Rfl: 0 No current facility-administered medications for this visit. SOCIAL HISTORY: Reviewed PHYSICAL EXAMINATION: Blood pressure 110/68, pulse 82, height 165.1 cm (5' 5), weight 58.1 kg (128 lb). General Appearance: Well appearing, alert, in no acute distress, well-hydrated, well nourished. Skin: Skin color, texture, turgor normal, no suspicious rashes or lesions. Eyes: Anicteric sclera. Lungs: Lungs clear to auscultation. No wheezing, rhonchi, rales. Heart: RRR without murmur. Abdomen: Abdomen soft, non-tender. Bowel sounds normal. No masses, organomegaly. Extremities: No deformities, edema. Peripheral Pulses: Normal. Impression: Altered bowel habits - improved. Need for colorectal cancer screening - interested in pursuing colonoscopy after her ablation. Plan: The patent will touch base in late August or early September regarding colorectal cancer screening. I have personally interviewed and examined this patient. I have reviewed the information that the MA entered for this encounter. Greater than 20 minutes total time used this visit to review old chart, review new information, update current history and evaluate patient. A majority of the time was spent in discussion and counseling to formulate the plan. Leydi Real RN APRN.DRILL SETUP OPERATOR CNOV Observed: 06/11/2017 Status: COMPLETED Source: [place] 2:00 PM [facility] REPOSITORY [facility] BELLA GAN ([id number]) 1945 F Date Time Provider Department 06/11/17 2:00 PM LEYDI REAL (YANIRA) [facility] During your visit today, we recorded the following information about you: Pulse Blood pressure Weight Height 82/minute 110/68 58.1 kg 1.651 m Leydi Real RN BUNGHOLE BORER.DRILL SETUP OPERATOR 06/11/2017 4:56 PM Signed Bella Gan a 72 year old female who is returning for follow up regarding altered bowel habits (diarrhea). I saw the patient in consultation on 04/03/17. That note has been reviewed. We discussed postponing any procedure until after she saw her slot floor supervisor in May. That appointment was done. The patient decided to pursue an ablation 08/23/17. Noting that if this was unsuccessful, the next stop would be a pacemaker. Presenting complaint: The patient presents today reporting that she would have loose stools the day after taking any Benefiber, so she stopped. She has been eating Activia. Normal diet. Having milk on her cereal without any issues. less frequent loose stools. She tells me that the days of any loose stools don't seem to be related to anything specific. She has Imodium as a back up for any diarrhea. She recalls having a little bright red blood with the initial diarrhea. She attributed that to internal hemorrhoids. The patient reports ANDquot;the last week or so my bowel seems to have straightened itself outANDquot;. Last 10 Encounter Wt Readings: Date: Wt: 06/11/2017 58.1 kg (128 lb) 05/23/2017 58.5 kg (129 lb) 05/16/2017 59.6 kg (131 lb 6.4 oz) 04/03/2017 59.4 kg (131 lb) 03/22/2017 59.9 kg (132 lb) 02/13/2017 62.1 kg (137 lb) 09/19/2016 66.9 kg (147 lb 6.4 oz) 07/12/2016 67.6 kg (149 lb) 03/22/2016 66.2 kg (146 lb) 12/21/2015 64.9 kg (143 lb) REVIEW OF SYSTEMS: GENERAL: Attempting to maintain weight. GI: The patient states that her appetite has been adequate. She does get hungry. There has been no nausea, no vomiting. She denies dysphagia and denies odynophagia. There has not been indigestion or heartburn. There has not been regurgitation. Bowel habits have been regular. There has been less diarrhea. There has not been constipation. The patient denies rectal bleeding. There has not been melena. No new or worsening abdominal pain. All other reviewed and negative other than HPI. 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/2015 - Mitral valve prolapse 12/21/2015 - Mitral valve regurgitation s/p MV repair at [facility] 09/2001 - Palpitations - Paroxysmal atrial fibrillation (HCC) 12/21/2015 - Persistent atrial fibrillation (HCC) over time has developed excessively bothersome symptoms despite rate control treatment approach; recurrent AF despite antiarrhythmic drug therapy and cardioversions - PSVT (paroxysmal supraventricular tachycardia) (HCC) 12/21/2015 - Rheumatic heart disease - 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 - Tachycardia rapid ventricular response rates to ongoing AF - Takotsubo syndrome 12/21/2015 PAST SURGICAL HISTORY Procedure Laterality Date - CARDIAC CATH 01/19/2016 no significant CAD; LVEF 65% intact MV repair with no evidence for MR - CARDIOVERSION, ELECTIVE, ELECTRICAL 03/13/2017 successful christianity of sinus rhythm from atrial fibrillation; [facility] - CARDIOVERSION, ELECTIVE, ELECTRICAL 2001 - CATARACT EXTRACTION HX - ECHOCARDIOGRAM 09/2001 - ECHOCARDIOGRAM 12/2001 - ECHOCARDIOGRAM 03/01/2015 - ECHOCARDIOGRAM 12/02/2015 LVEF 60%; severe LAE, LAV 70.9 ml; mild to moderate MR - ECHOCARDIOGRAM 11/2016 LVEF 65%; MV repair ok - HYSTERECTOMY HX 1980s JAMILA, [facility] - MITRAL VALVE SURGERY HX 09/18/2001 robotically assisted minimally invasive mitral valve repair with annuloplasty ring; [facility] - RIGHT ANDamp; LEFT HEART CATH 04/11/2001 LVEF 60%; moderately severe MR; mild diastolic dysfxn; no significant CAD; [facility] - STRESS ECHO 12/08/2015 95% MPHR; LVEF 65%; severe LAE; wide-complex rhythm at peak exercise, aberrantly conducted AF vs. VT - STRESS TEST NUCLEAR 12/2001 - ALAN 2000 - THORACENTESIS - TUBAL LIGATION HX 1980s FAMILY HISTORY Problem Relation Age of Onset - Breast Cancer Sister - Cancer Mother pancreatic - Emphysema Father - Heart Father - Drug abuse Brother drug overdose in his 20s - Heart Brother - Heart Brother - Heart Sister heart valve problem - Stroke Sister - Heart Brother Current Outpatient Prescriptions: carvedilol (COREG) 6.25 mg tablet Take 6.25 mg by mouth twice daily with meals. Disp: Rfl: ALPRAZolam (XANAX) 0.5 mg tablet Take 1 tablet by mouth twice daily as needed for Anxiety for up to 90 days. #45 tablets/30 days. Disp: 45 tablet Rfl: 2 MAGNESIUM, ALUMINUM HYDROXIDE (MYLANTA ORAL) Take 1 Dose by mouth as needed (heartburn). Disp: Rfl: amiodarone (PACERONE) 200 mg tablet Take 1 tablet by mouth once daily. Disp: Rfl: famotidine (PEPCID) 20 mg tablet Take 1 tablet by mouth twice daily as needed (acid reflux). Disp: Rfl: mometasone (ELOCON) 0.1 % cream Apply 1 application to affected area once daily as needed (leg eczema). Disp: 30 g Rfl: 0 furosemide (LASIX) 20 mg tablet Take 1 tablet by mouth once daily. Disp: Rfl: 0 rivaroxaban (XARELTO) 20 mg tablet Take 1 tablet by mouth daily with dinner. Disp: Rfl: 0 levothyroxine (LEVOXYL) 88 mcg tablet Take 1 tablet by mouth once daily. Take on empty stomach. For Thyroid Disp: Rfl: 0 potassium chloride ER (K-DUR, KLOR-CON) 20 mEq tablet Take 1 tablet by mouth twice daily. Disp: Rfl: 0 No current facility-administered medications for this visit. SOCIAL HISTORY: Reviewed PHYSICAL EXAMINATION: Blood pressure 110/68, pulse 82, height 165.1 cm (5' 5ANDquot;), weight 58.1 kg (128 lb). General Appearance: Well appearing, alert, in no acute distress, well-hydrated, well nourished. Skin: Skin color, texture, turgor normal, no suspicious rashes or lesions. Eyes: Anicteric sclera. Lungs: Lungs clear to auscultation. No wheezing, rhonchi, rales. Heart: RRR without murmur. Abdomen: Abdomen soft, non-tender. Bowel sounds normal. No masses, organomegaly. Extremities: No deformities, edema. Peripheral Pulses: Normal. Impression: Altered bowel habits - improved. Need for colorectal cancer screening - interested in pursuing colonoscopy after her ablation. Plan: The patent will touch base in late August or early September regarding colorectal cancer screening. I have personally interviewed and examined this patient. I have reviewed the information that the MA entered for this encounter. Greater than 20 minutes total time used this visit to review old chart, review new information, update current history and evaluate patient. A majority of the time was spent in discussion and counseling to formulate the plan. Leydi Real RN BUNGHOLE [email or web address].BRAN Real RN BUNGHOLE BORER.BRAN 06/11/2017 2:25 PM Signed Follow up here late summer. We can discuss screening colonoscopy. Referring Provider: LEYDI REAL (DAIRY EQUIPMENT REPAIRER) [[id number]] Allergies As of Date: 06/11/2017 Noted Allergy Reaction CODEINE 12/21/2015 8 - GI Upset CORTISONE 12/21/2015 7 - Swelling 14 - Other: See Comments Comments: Caused A-fib DARVON (PROPOXYPHENE HCL) 12/21/2015 1 - Mental Status Change DIGOXIN 03/22/2017 5 - Intolerance GUAIFENESIN 12/21/2015 1 - Mental Status Change Comments: hallucinations HONEY 12/21/2015 2 - Rash 9 - Itching PROPRANOLOL 12/21/2015 14 - Other: See Comments Comments: Night terrors VERAPAMIL 12/21/2015 14 - Other: See Comments Comments: Palpitation, diaphoresis Date Reviewed: 06/11/2017 Reviewed by: Karlie Rasheed MA - Fully Assessed Reason for Visit: Recheck [92] Primary Visit Diagnosis:Altered bowel habits [R19.4] Prescriptions as of 06/11/2017 Sig: CARVEDILOL 6.25 MG TABLET Take 6.25 mg by mouth twice d* ALPRAZOLAM 0.5 MG TABLET Take 1 tablet by mouth twice * MYLANTA ORAL Take 1 Dose by mouth as neede* AMIODARONE 200 MG TABLET Take 1 tablet by mouth once d* FAMOTIDINE 20 MG TABLET Take 1 tablet by mouth twice * MOMETASONE 0.1 % TOPICAL CREAM Apply 1 application to affect* FUROSEMIDE 20 MG TABLET Take 1 tablet by mouth once d* RIVAROXABAN 20 MG TABLET Take 1 tablet by mouth daily * LEVOTHYROXINE 88 MCG TABLET Take 1 tablet by mouth once d* POTASSIUM CHLORIDE ER 20 MEQ * Take 1 tablet by mouth twice * Problem List As Of Date 06/11/2017 Noted Resolved PSVT (paroxysmal supraventricular tachycardia) *INVALID FOR* Rheumatic mitral insufficiency [I05.1] INVALID FOR* Mitral valve prolapse [I34.1] INVALID FOR* Paroxysmal atrial fibrillation (HCC) [I48.0] INVALID FOR*02/14/2017 History of mitral valve repair [Z98.890] INVALID FOR* Takotsubo syndrome [I51.81] INVALID FOR* halfway current use of 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 therapy *INVALID FOR* Generalized anxiety disorder [F41.1] INVALID FOR* Hypothyroidism [E03.9] INVALID FOR* Hearing loss [H91.90] INVALID FOR* Routine medical exam [Z00.00] INVALID FOR* More... Anticoagulant-induced bleeding (HCC) [T45.7X1A,* 05/16/2017 More... Rheumatic heart disease [I09.9] Mitral valve regurgitation [I34.0] More... Persistent atrial fibrillation (HCC) [I48.1] Tachycardia [R00.0] 02/14/2017 More... 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 Other instructions from your clinician: Follow up here late summer. We can discuss screening colonoscopy. Encounter Status:Closed by LEYDI REAL CNP on 06/11/17 TAMARA Observed: 05/30/2017 Status: COMPLETED Source: [facility] 12:00 AM CLINIC OTHER CAMPUS REPOSITORY Telephone (AGCARDPOB) BELLA GAN ([id number]) 1945 F Date Time Provider Department 05/30/17 SANDEE FLORES During your visit today, we recorded the following information about you: Marcio Errol 05/30/2017 1:09 PM Signed Procedure: COMPLETE EPS W/PVI ABLATION Procedure is scheduled with Dr. Flores on 08/23/17. Kokigregg Dean 05/30/2017 2:02 PM Signed Printed, Will auth Carroll Cline RN 05/30/2017 2:13 PM Signed Added to procedure board. Carroll Cline RN Allergies As of Date: 05/30/2017 Noted Allergy Reaction CODEINE 12/21/2015 8 - GI Upset CORTISONE 12/21/2015 7 - Swelling 14 - Other: See Comments Comments: Caused A-fib DARVON (PROPOXYPHENE HCL) 12/21/2015 1 - Mental Status Change DIGOXIN 03/22/2017 5 - Intolerance GUAIFENESIN 12/21/2015 1 - Mental Status Change Comments: hallucinations HONEY 12/21/2015 2 - Rash 9 - Itching PROPRANOLOL 12/21/2015 14 - Other: See Comments Comments: Night terrors VERAPAMIL 12/21/2015 14 - Other: See Comments Comments: Palpitation, diaphoresis Date Reviewed: 05/23/2017 Reviewed by: Sandee Flores - Fully Assessed Reason for Visit: Procedure [88] Prescriptions as of 05/30/2017 Sig: CARVEDILOL 6.25 MG TABLET Take 6.25 mg by mouth twice d* ALPRAZOLAM 0.5 MG TABLET Take 1 tablet by mouth twice * MYLANTA ORAL Take 1 Dose by mouth as neede* AMIODARONE 200 MG TABLET Take 1 tablet by mouth once d* FAMOTIDINE 20 MG TABLET Take 1 tablet by mouth twice * MOMETASONE 0.1 % TOPICAL CREAM Apply 1 application to affect* FUROSEMIDE 20 MG TABLET Take 1 tablet by mouth once d* RIVAROXABAN 20 MG TABLET Take 1 tablet by mouth daily * LEVOTHYROXINE 88 MCG TABLET Take 1 tablet by mouth once d* POTASSIUM CHLORIDE ER 20 MEQ * Take 1 tablet by mouth twice * Problem List As Of Date 05/30/2017 Noted Resolved PSVT (paroxysmal supraventricular tachycardia) *INVALID FOR* Rheumatic mitral insufficiency [I05.1] INVALID FOR* Mitral valve prolapse [I34.1] INVALID FOR* Paroxysmal atrial fibrillation (HCC) [I48.0] INVALID FOR*02/14/2017 History of mitral valve repair [Z98.890] INVALID FOR* Takotsubo syndrome [I51.81] INVALID FOR* halfway current use of 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 therapy *INVALID FOR* Generalized anxiety disorder [F41.1] INVALID FOR* Hypothyroidism [E03.9] INVALID FOR* Hearing loss [H91.90] INVALID FOR* Routine medical exam [Z00.00] INVALID FOR* More... Anticoagulant-induced bleeding (HCC) [T45.7X1A,* 05/16/2017 More... Rheumatic heart disease [I09.9] Mitral valve regurgitation [I34.0] More... Persistent atrial fibrillation (HCC) [I48.1] Tachycardia [R00.0] 02/14/2017 More... 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 Encounter Status:Closed by DEVEN MEZA MA on 05/30/17 HISTORY PHYSICAL Observed: 05/23/2017 Status: COMPLETED Source: [facility] 10:17 PM CLINIC OTHER CAMPUS REPOSITORY HNO ID: [id number] Author: Sandee Flores Service: (none) Author Type: Physician Type: HANDP Filed: 05/23/2017 10:17 PM Note Text: PRIMARY CARE PHYSICIAN: Reginald Rojo MD [id number] [place] [address] Patient Care Team: Reginald Rojo as PCP - General (Internal Medicine) Ronald Lauren as Specialty Brewmaster (Cardiology) Sandee Flores as Specialty Brewmaster (Cardiology) Leydi Real as Specialty Brewmaster (Gastroenterology) CHIEF COMPLAINT: Follow up for arrhythmia HISTORY OF PRESENT ILLNESS: Ms. Gan is a 72 year old female who presents today for a cardiovascular medicine follow-up visit. History copied from previous notes, edited as needed: Ms. Gan is a 71 year old female who presents today for evaluation of atrial fibrillation. She has a long history of recurrent atrial fibrillation that dates back to perhaps at least 2001. She recalls having a cardioversion at that time. She states that the atrial fibrillation recurred but would be self-limited and only occur every year or so. She does have history of rheumatic heart disease and underwent mitral valve repair at [facility] in September 2001. She states that over the years the atrial fibrillation recurred with increasing frequency, even every month or so, and with increasing duration lasting up to a few hours. At some point she was treated with amiodarone but she does not recall when this was started. She states the dosage of amiodarone was decreased in February 2015 when she was hospitalized with broken heart syndrome. She had lived for a few years in [place] but in November 2015 she moved back to [place]. She experienced more severe episode of atrial fibrillation around that time, and upon presentation to the hospital she was found to be in atrial fibrillation with rapid ventricular response rates. She was still on amiodarone at that time. She underwent cardiac testing including an echocardiogram late November 2015 that revealed normal left ventricular systolic function, severe left atrial enlargement, and mild to moderate mitral regurgitation. A cardiac stress test was performed that she states was not entirely normal, so she underwent cardiac catheterization in January 2016 that revealed no significant coronary artery disease. She underwent electrical DC cardioversion in February 2016 which restored sinus rhythm, but she states the atrial fibrillation recurred within a couple of hours. She states that more recently she has been feeling pretty good, and has occasional days when she feels palpitations or as she describes it a punching sensation on the left side of her chest. She does not experience any chest pain, shortness of breath, other numbness or syncope. She states that in a given month she might have a couple of days where she feels the palpitations but otherwise she feels pretty good. She has a history of having some problems with cardiac medications, including propranolol which caused severe night terrors, and verapamil that was also not well tolerated. She is presently being treated with carvedilol and as stated she is overall feeling reasonably good on most days. She denies chest pain, shortness of breath, orthopnea, PND, lightheadedness or syncope. Additional history this visit 05/23/2017: Ms. Gan presents for follow up evaluation. When I evaluated her in 07/2016 she was having minimally symptomatic AF with a ventricular rate control approach. 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 However, she developed severe symptoms that resulted in a couple visits to the local ER in [place], and with hospitalization(s) as well. The AF was challenging to control, and this included some episodes of severe bradycardia after treatment with AV madan blocking medications for ventricular rate control. She also developed digoxin toxicity in 02/2017 requiring this medication to be discontinued. Ultimately she was treated with amiodarone and underwent a couple of cardioversion procedures. The AF recurred despite these efforts. She presents now to discuss the treatment options. She denies chest pain, orthopnea, PND, lightheadedness or syncope. 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 12/21/2015 - halfway current use of 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 therapy 12/21/2015 - Mitral valve prolapse 12/21/2015 - Mitral valve regurgitation s/p MV repair at [facility] 09/2001 - Palpitations - Paroxysmal atrial fibrillation (HCC) 12/21/2015 - Persistent atrial fibrillation (HCC) over time has developed excessively bothersome symptoms despite rate control treatment approach; recurrent AF despite antiarrhythmic drug therapy and cardioversions - PSVT (paroxysmal supraventricular tachycardia) (HCC) 12/21/2015 - Rheumatic heart disease - 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 - Tachycardia rapid ventricular response rates to ongoing AF - Takotsubo syndrome 12/21/2015 PAST SURGICAL HISTORY Procedure Laterality Date - CARDIAC CATH 01/19/2016 no significant CAD; LVEF 65% intact MV repair with no evidence for MR - CARDIOVERSION, ELECTIVE, ELECTRICAL 03/13/2017 successful christianity of sinus rhythm from atrial fibrillation; [facility] - CARDIOVERSION, ELECTIVE, ELECTRICAL 2001 - CATARACT EXTRACTION HX - ECHOCARDIOGRAM 09/2001 - ECHOCARDIOGRAM 12/2001 - ECHOCARDIOGRAM 03/01/2015 - ECHOCARDIOGRAM 12/02/2015 LVEF 60%; severe LAE, LAV 70.9 ml; mild to moderate MR - ECHOCARDIOGRAM 11/2016 LVEF 65%; MV repair ok - HYSTERECTOMY HX JAMILA, [facility] - MITRAL VALVE SURGERY HX 09/18/2001 robotically assisted minimally invasive mitral valve repair with annuloplasty ring; [facility] - RIGHT AND LEFT HEART CATH 04/11/2001 LVEF 60%; moderately severe MR; mild diastolic dysfxn; no significant CAD; [facility] - STRESS ECHO 12/08/2015 95% MPHR; LVEF 65%; severe LAE; wide-complex rhythm at peak exercise, aberrantly conducted AF vs. VT - STRESS TEST NUCLEAR 12/2001 - ALAN 2000 - THORACENTESIS - TUBAL LIGATION HX SOCIAL HISTORY Social History Substance Use Topics - Smoking status: Former Smoker Packs/day: 0.50 Years: 12.00 Types: Cigarettes Start date: 1957 Quit date: 03/12/1969 - Smokeless tobacco: Never Used - Alcohol use No FAMILY HISTORY Problem Relation Age of Onset - Breast Cancer Sister - Cancer Mother pancreatic - Emphysema Father - Heart Father - Drug abuse Brother drug overdose in his 20s - Heart Brother - Heart Brother - Heart Sister heart valve problem - Stroke Sister - Heart Brother ALLERGIES: ALLERGIES Allergen Reactions - Codeine GI Upset - Cortisone Swelling, Other: See Comments Caused A-fib - Darvon [Propoxyphen* Mental Status Change - Digoxin Intolerance - Guaifenesin Mental Status Change hallucinations - Honey Rash, Itching - Propranolol Other: See Comments Night terrors - Verapamil Other: See Comments Palpitation, diaphoresis MEDICATIONS: carvedilol (COREG) 6.25 mg tablet Take 6.25 mg by mouth twice daily with meals. ALPRAZolam (XANAX) 0.5 mg tablet Take 1 tablet by mouth twice daily as needed for Anxiety for up to 90 days. #45 tablets/30 days. MAGNESIUM, ALUMINUM HYDROXIDE (MYLANTA ORAL) Take 1 Dose by mouth as needed (heartburn). amiodarone (PACERONE) 200 mg tablet Take 1 tablet by mouth once daily. famotidine (PEPCID) 20 mg tablet Take 1 tablet by mouth twice daily as needed (acid reflux). mometasone (ELOCON) 0.1 % cream Apply 1 application to affected area once daily as needed (leg eczema). furosemide (LASIX) 20 mg tablet Take 1 tablet by mouth once daily. rivaroxaban (XARELTO) 20 mg tablet Take 1 tablet by mouth daily with dinner. levothyroxine (LEVOXYL) 88 mcg tablet Take 1 tablet by mouth once daily. Take on empty stomach. For Thyroid potassium chloride ER (K-DUR, KLOR-CON) 20 mEq tablet Take 1 tablet by mouth twice daily. PHYSICAL EXAMINATION: BP 124/82 Pulse 89 Resp 16 Ht 5' 5 (1.65m) Wt 129 lb (58.5kg) SpO2 99% BMI 21.47 kg/(m2). General: Well appearing, in no acute distress, speaking in complete sentences. Skin: No clubbing, no cyanosis. Eyes: Extra ocular movements intact, Non-icteric sclerae Neck: no jugular venous distention, Lungs: Clear to auscultation bilaterally, no wheezing or rhonchi. Heart: Irregular rhythm; Gr I/ systolic murmur LSB Abdomen: Soft, nontender Extremities: No peripheral edema . Grade 2/4 distal pulses bilaterally. Neuro: Oriented to person, place and time, alert, cooperative CARDIOVASCULAR MEDICINE TESTING: Electrocardiogram: AF with ventricular response rate 83 bpm; prolonged QT but appropriate on amiodarone I have personally reviewed the Electrocardiogram. I spent 45 minutes in the visit, with more than 50% of the total [id number] time of the visit in counseling / coordination of care. ASSESSMENT/PLAN: 1. Persistent atrial fibrillation (HCC) - ICD9: 427.31, ICD10: I48.1 (primary diagnosis) 2. Rheumatic mitral insufficiency - ICD9: 394.1, ICD10: I05.1 3. History of mitral valve repair - ICD9: V15.1, ICD10: Z98.890 4. Rheumatic heart disease - ICD9: 398.90, ICD10: I09.9 5. 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 halfway current use of antiarrhythmic drug - ICD9: V58.69, ICD10: Z79.899 IMPRESSION: Ms. Ladrach has recurrent symptomatic persistent AF despite antiarrhythmic drug therapy and electrical cardioversion(s). The symptoms have been excessively bothersome and she also failed a ventricular response rate control treatment approach previously. She desires relief from her symptoms to achieve better quality of life. When I evaluated her in 07/2016, she was doing reasonably well with a rate control approach so I did not push for more aggressive treatment measures. However, the situation has changed and an atrial rhythm control treatment approach seems to be appropriate and indicated. The other approach would be AV node catheter ablation with pacemaker implantation. I had discussed both of these options with Ms. Gan in detail at the 07/2016 office consultation visit. I had been somewhat hesitant to recommend AF catheter ablation due to the severe left atrial enlargement noted by echocardiogram, which can indicate the presence of atrial cardiomyopathy that could make maintenance of sinus rhythm challenging. Nevertheless, we could still make an attempt as I do not feel that this would be futile. The procedure might provide sufficient effectiveness to allow for better response to the amiodarone, for example. So in discussing these two treatment options with Ms. Gan and her family member, she expressed that she would like to try the AF ablation approach even though there is a fairly reasonable chance that the treatment will not be sufficiently effective. She would like to pursue this approach before having an AV node ablation with pacemaker implant. I had a detailed discussion with Ms. Gan and her family regarding my evaluation and recommendations. After our discussion, Ms. Gan expressed her understanding and I answered all her questions to her apparent satisfaction. She would like to proceed. She expressed understanding the procedure will be performed with the use of general anesthesia. She also expressed understanding that the procedure will be performed without interruption of the oral anticoagulation with Xarelto. INFORMED CONSENT The risks, benefits and anticipated outcomes of the procedure, the risks and benefits of the alternatives to the procedure and the roles and tasks of the personnel to be involved were discussed with the patient. Consent for the procedure and agreement to proceed has been obtained. I verify that I personally obtained the consent. I have signed the form and will have Ms. Gan sign it on the day of the procedure. PLAN AND RECOMMENDATIONS: Proceed with scheduling of AF catheter ablation. She prefers to have this done sometime in the summer months, such as August or September. Return in about 3 months (around 08/23/2017) for AF catheter ablation; office will call to schedule. Sandee Flores MD 05/23/2017 PROGRESS Observed: 05/23/2017 Status: COMPLETED Source: [facility] 9:33 AM CLINIC OTHER CAMPUS REPOSITORY O ID: [id number] Author: Sandee Flores Service: (none) Author Type: Physician Type: Progress Notes Filed: 05/23/2017 10:17 PM Note Text: PRIMARY CARE PHYSICIAN: Reginald Rojo MD [address] [place] [address] Patient Care Team: Reginald Rojo as PCP - General (Internal Medicine) Ronald Lauren as Specialty Brewmaster (Cardiology) Sandee Flores as Specialty Brewmaster (Cardiology) Leydi (Roller Skater) Addie as Specialty Brewmaster (Gastroenterology) CHIEF COMPLAINT: Follow up for arrhythmia HISTORY OF PRESENT ILLNESS: Ms. Gan is a 72 year old female who presents today for a cardiovascular medicine follow-up visit. History copied from previous notes, edited as needed: Ms. Gan is a 71 year old female who presents today for evaluation of atrial fibrillation. She has a long history of recurrent atrial fibrillation that dates back to perhaps at least 2001. She recalls having a cardioversion at that time. She states that the atrial fibrillation recurred but would be self-limited and only occur every year or so. She does have history of rheumatic heart disease and underwent mitral valve repair at [facility] in September 2001. She states that over the years the atrial fibrillation recurred with increasing frequency, even every month or so, and with increasing duration lasting up to a few hours. At some point she was treated with amiodarone but she does not recall when this was started. She states the dosage of amiodarone was decreased in February 2015 when she was hospitalized with broken heart syndrome. She had lived for a few years in [place] but in November 2015 she moved back to [place]. She experienced more severe episode of atrial fibrillation around that time, and upon presentation to the hospital she was found to be in atrial fibrillation with rapid ventricular response rates. She was still on amiodarone at that time. She underwent cardiac testing including an echocardiogram late November 2015 that revealed normal left ventricular systolic function, severe left atrial enlargement, and mild to moderate mitral regurgitation. A cardiac stress test was performed that she states was not entirely normal, so she underwent cardiac catheterization in January 2016 that revealed no significant coronary artery disease. She underwent electrical DC cardioversion in February 2016 which restored sinus rhythm, but she states the atrial fibrillation recurred within a couple of hours. She states that more recently she has been feeling pretty good, and has occasional days when she feels palpitations or as she describes it a punching sensation on the left side of her chest. She does not experience any chest pain, shortness of breath, other numbness or syncope. She states that in a given month she might have a couple of days where she feels the palpitations but otherwise she feels pretty good. She has a history of having some problems with cardiac medications, including propranolol which caused severe night terrors, and verapamil that was also not well tolerated. She is presently being treated with carvedilol and as stated she is overall feeling reasonably good on most days. She denies chest pain, shortness of breath, orthopnea, PND, lightheadedness or syncope. Additional history this visit 05/23/2017: Ms. Gan presents for follow up evaluation. When I evaluated her in 07/2016 she was having minimally symptomatic AF with a ventricular rate control approach. 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 However, she developed severe symptoms that resulted in a couple visits to the local ER in [place], and with hospitalization(s) as well. The AF was challenging to control, and this included some episodes of severe bradycardia after treatment with AV madan blocking medications for ventricular rate control. She also developed digoxin toxicity in 02/2017 requiring this medication to be discontinued. Ultimately she was treated with amiodarone and underwent a couple of cardioversion procedures. The AF recurred despite these efforts. She presents now to discuss the treatment options. She denies chest pain, orthopnea, PND, lightheadedness or syncope. 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 12/21/2015 - halfway current use of 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 therapy 12/21/2015 - Mitral valve prolapse 12/21/2015 - Mitral valve regurgitation s/p MV repair at [facility] 09/2001 - Palpitations - Paroxysmal atrial fibrillation (HCC) 12/21/2015 - Persistent atrial fibrillation (HCC) over time has developed excessively bothersome symptoms despite rate control treatment approach; recurrent AF despite antiarrhythmic drug therapy and cardioversions - PSVT (paroxysmal supraventricular tachycardia) (HCC) 12/21/2015 - Rheumatic heart disease - 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 - Tachycardia rapid ventricular response rates to ongoing AF - Takotsubo syndrome 12/21/2015 PAST SURGICAL HISTORY Procedure Laterality Date - CARDIAC CATH 01/19/2016 no significant CAD; LVEF 65% intact MV repair with no evidence for MR - CARDIOVERSION, ELECTIVE, ELECTRICAL 03/13/2017 successful christianity of sinus rhythm from atrial fibrillation; [facility] - CARDIOVERSION, ELECTIVE, ELECTRICAL 2001 - CATARACT EXTRACTION HX - ECHOCARDIOGRAM 09/2001 - ECHOCARDIOGRAM 12/2001 - ECHOCARDIOGRAM 03/01/2015 - ECHOCARDIOGRAM 12/02/2015 LVEF 60%; severe LAE, LAV 70.9 ml; mild to moderate MR - ECHOCARDIOGRAM 11/2016 LVEF 65%; MV repair ok - HYSTERECTOMY HX JAMILA, [facility] - MITRAL VALVE SURGERY HX 09/18/2001 robotically assisted minimally invasive mitral valve repair with annuloplasty ring; [facility] - RIGHT AND LEFT HEART CATH 04/11/2001 LVEF 60%; moderately severe MR; mild diastolic dysfxn; no significant CAD; [facility] - STRESS ECHO 12/08/2015 95% MPHR; LVEF 65%; severe LAE; wide-complex rhythm at peak exercise, aberrantly conducted AF vs. VT - STRESS TEST NUCLEAR 12/2001 - ALAN 2000 - THORACENTESIS - TUBAL LIGATION HX SOCIAL HISTORY Social History Substance Use Topics - Smoking status: Former Smoker Packs/day: 0.50 Years: 12.00 Types: Cigarettes Start date: 1957 Quit date: 03/12/1969 - Smokeless tobacco: Never Used - Alcohol use No FAMILY HISTORY Problem Relation Age of Onset - Breast Cancer Sister - Cancer Mother pancreatic - Emphysema Father - Heart Father - Drug abuse Brother drug overdose in his 20s - Heart Brother - Heart Brother - Heart Sister heart valve problem - Stroke Sister - Heart Brother ALLERGIES: ALLERGIES Allergen Reactions - Codeine GI Upset - Cortisone Swelling, Other: See Comments Caused A-fib - Darvon [Propoxyphen* Mental Status Change - Digoxin Intolerance - Guaifenesin Mental Status Change hallucinations - Honey Rash, Itching - Propranolol Other: See Comments Night terrors - Verapamil Other: See Comments Palpitation, diaphoresis MEDICATIONS: carvedilol (COREG) 6.25 mg tablet Take 6.25 mg by mouth twice daily with meals. ALPRAZolam (XANAX) 0.5 mg tablet Take 1 tablet by mouth twice daily as needed for Anxiety for up to 90 days. #45 tablets/30 days. MAGNESIUM, ALUMINUM HYDROXIDE (MYLANTA ORAL) Take 1 Dose by mouth as needed (heartburn). amiodarone (PACERONE) 200 mg tablet Take 1 tablet by mouth once daily. famotidine (PEPCID) 20 mg tablet Take 1 tablet by mouth twice daily as needed (acid reflux). mometasone (ELOCON) 0.1 % cream Apply 1 application to affected area once daily as needed (leg eczema). furosemide (LASIX) 20 mg tablet Take 1 tablet by mouth once daily. rivaroxaban (XARELTO) 20 mg tablet Take 1 tablet by mouth daily with dinner. levothyroxine (LEVOXYL) 88 mcg tablet Take 1 tablet by mouth once daily. Take on empty stomach. For Thyroid potassium chloride ER (K-DUR, KLOR-CON) 20 mEq tablet Take 1 tablet by mouth twice daily. PHYSICAL EXAMINATION: BP 124/82 Pulse 89 Resp 16 Ht 5' 5 (1.65m) Wt 129 lb (58.5kg) SpO2 99% BMI 21.47 kg/(m2). General: Well appearing, in no acute distress, speaking in complete sentences. Skin: No clubbing, no cyanosis. Eyes: Extra ocular movements intact, Non-icteric sclerae Neck: no jugular venous distention, Lungs: Clear to auscultation bilaterally, no wheezing or rhonchi. Heart: Irregular rhythm; Gr I/ systolic murmur LSB Abdomen: Soft, nontender Extremities: No peripheral edema . Grade 2/4 distal pulses bilaterally. Neuro: Oriented to person, place and time, alert, cooperative CARDIOVASCULAR MEDICINE TESTING: Electrocardiogram: AF with ventricular response rate 83 bpm; prolonged QT but appropriate on amiodarone I have personally reviewed the Electrocardiogram. I spent 45 minutes in the visit, with more than 50% of the total hnvt-wn-buat time of the visit in counseling / coordination of care. ASSESSMENT/PLAN: 1. Persistent atrial fibrillation (HCC) - ICD9: 427.31, ICD10: I48.1 (primary diagnosis) 2. Rheumatic mitral insufficiency - ICD9: 394.1, ICD10: I05.1 3. History of mitral valve repair - ICD9: V15.1, ICD10: Z98.890 4. Rheumatic heart disease - ICD9: 398.90, ICD10: I09.9 5. halfway current use of 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 therapy - ICD9: V58.61, ICD10: Z79.01 6. 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 Gan has recurrent symptomatic persistent AF despite antiarrhythmic drug therapy and electrical cardioversion(s). The symptoms have been excessively bothersome and she also failed a ventricular response rate control treatment approach previously. She desires relief from her symptoms to achieve better quality of life. When I evaluated her in 07/2016, she was doing reasonably well with a rate control approach so I did not push for more aggressive treatment measures. However, the situation has changed and an atrial rhythm control treatment approach seems to be appropriate and indicated. The other approach would be AV node catheter ablation with pacemaker implantation. I had discussed both of these options with Ms. Gan in detail at the 07/2016 office consultation visit. I had been somewhat hesitant to recommend AF catheter ablation due to the severe left atrial enlargement noted by echocardiogram, which can indicate the presence of atrial cardiomyopathy that could make maintenance of sinus rhythm challenging. Nevertheless, we could still make an attempt as I do not feel that this would be futile. The procedure might provide sufficient effectiveness to allow for better response to the amiodarone, for example. So in discussing these two treatment options with Ms. Gan and her family member, she expressed that she would like to try the AF ablation approach even though there is a fairly reasonable chance that the treatment will not be sufficiently effective. She would like to pursue this approach before having an AV node ablation with pacemaker implant. I had a detailed discussion with Ms. Gan and her family regarding my evaluation and recommendations. After our discussion, Ms. Gan expressed her understanding and I answered all her questions to her apparent satisfaction. She would like to proceed. She expressed understanding the procedure will be performed with the use of general anesthesia. She also expressed understanding that the procedure will be performed without interruption of the oral anticoagulation with Xarelto. INFORMED CONSENT The risks, benefits and anticipated outcomes of the procedure, the risks and benefits of the alternatives to the procedure and the roles and tasks of the personnel to be involved were discussed with the patient. Consent for the procedure and agreement to proceed has been obtained. I verify that I personally obtained the consent. I have signed the form and will have Ms. Gan sign it on the day of the procedure. PLAN AND RECOMMENDATIONS: Proceed with scheduling of AF catheter ablation. She prefers to have this done sometime in the summer months, such as August or September. Return in about 3 months (around 08/23/2017) for AF catheter ablation; office will call to schedule. Sandee Flores MD 05/23/2017 CNOV Observed: 05/23/2017 Status: COMPLETED Source: [facility] 9:00 AM CLINIC OTHER CAMPUS REPOSITORY Office Visit (AGCARDPHRA) ADDISBELLA NIXON ([id number]) 1945 F Date Time Provider Department 05/23/17 9:00 AM SANDEE FLORES During your visit today, we recorded the following information about you: Pulse Respiration Blood pressure Weight 89/minute 16/minute 124/82 58.5 kg Height 1.651 m Jeremy Grider CMA 05/23/2017 9:16 AM Signed Patient denies any cardiac complaints today. KARLA Schroeder MD 05/23/2017 10:17 PM Signed PRIMARY CARE PHYSICIAN: Reginald Rojo MD [address] [place] [address] Patient Care Team: Reginald Rojo as PCP - General (Internal Medicine) Ronald Lauren as Specialty Brewmaster (Cardiology) Sandee Flores as Specialty Brewmaster (Cardiology) Leydi (Roller Skater) Addie as Specialty Brewmaster (Gastroenterology) CHIEF COMPLAINT: Follow up for arrhythmia HISTORY OF PRESENT ILLNESS: Ms. Gan is a 72 year old female who presents today for a cardiovascular medicine follow-up visit. History copied from previous notes, edited as needed: Ms. Gan is a 71 year old female who presents today for evaluation of atrial fibrillation. She has a long history of recurrent atrial fibrillation that dates back to perhaps at least 2001. She recalls having a cardioversion at that time. She states that the atrial fibrillation recurred but would be self-limited and only occur every year or so. She does have history of rheumatic heart disease and underwent mitral valve repair at [facility] in September 2001. She states that over the years the atrial fibrillation recurred with increasing frequency, even every month or so, and with increasing duration lasting up to a few hours. At some point she was treated with amiodarone but she does not recall when this was started. She states the dosage of amiodarone was decreased in February 2015 when she was hospitalized with ANDquot;broken heart syndrome.ANDquot; She had lived for a few years in [place] but in November 2015 she moved back to [place]. She experienced more severe episode of atrial fibrillation around that time, and upon presentation to the hospital she was found to be in atrial fibrillation with rapid ventricular response rates. She was still on amiodarone at that time. She underwent cardiac testing including an echocardiogram late November 2015 that revealed normal left ventricular systolic function, severe left atrial enlargement, and mild to moderate mitral regurgitation. A cardiac stress test was performed that she states was not entirely normal, so she underwent cardiac catheterization in January 2016 that revealed no significant coronary artery disease. She underwent electrical DC cardioversion in February 2016 which restored sinus rhythm, but she states the atrial fibrillation recurred within a couple of hours. She states that more recently she has been feeling pretty good, and has occasional days when she feels palpitations or as she describes it a ANDquot;punchingANDquot; sensation on the left side of her chest. She does not experience any chest pain, shortness of breath, other numbness or syncope. She states that in a given month she might have a couple of days where she feels the palpitations but otherwise she feels pretty good. She has a history of having some problems with cardiac medications, including propranolol which caused severe night terrors, and verapamil that was also not well tolerated. She is presently being treated with carvedilol and as stated she is overall feeling reasonably good on most days. She denies chest pain, shortness of breath, orthopnea, PND, lightheadedness or syncope. Additional history this visit 05/23/2017: Ms. Gan presents for follow up evaluation. When I evaluated her in 07/2016 she was having minimally symptomatic AF with a ventricular rate control approach. 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 However, she developed severe symptoms that resulted in a couple visits to the local ER in [place], and with hospitalization(s) as well. The AF was challenging to control, and this included some episodes of severe bradycardia after treatment with AV madan blocking medications for ventricular rate control. She also developed digoxin toxicity in 02/2017 requiring this medication to be discontinued. Ultimately she was treated with amiodarone and underwent a couple of cardioversion procedures. The AF recurred despite these efforts. She presents now to discuss the treatment options. She denies chest pain, orthopnea, PND, lightheadedness or syncope. 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 12/21/2015 - halfway current use of 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 therapy 12/21/2015 - Mitral valve prolapse 12/21/2015 - Mitral valve regurgitation s/p MV repair at [facility] 09/2001 - Palpitations - Paroxysmal atrial fibrillation (HCC) 12/21/2015 - Persistent atrial fibrillation (HCC) over time has developed excessively bothersome symptoms despite rate control treatment approach; recurrent AF despite antiarrhythmic drug therapy and cardioversions - PSVT (paroxysmal supraventricular tachycardia) (HCC) 12/21/2015 - Rheumatic heart disease - 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 - Tachycardia rapid ventricular response rates to ongoing AF - Takotsubo syndrome 12/21/2015 PAST SURGICAL HISTORY Procedure Laterality Date - CARDIAC CATH 01/19/2016 no significant CAD; LVEF 65% intact MV repair with no evidence for MR - CARDIOVERSION, ELECTIVE, ELECTRICAL 03/13/2017 successful christianity of sinus rhythm from atrial fibrillation; [facility] - CARDIOVERSION, ELECTIVE, ELECTRICAL 2001 - CATARACT EXTRACTION HX - ECHOCARDIOGRAM 09/2001 - ECHOCARDIOGRAM 12/2001 - ECHOCARDIOGRAM 03/01/2015 - ECHOCARDIOGRAM 12/02/2015 LVEF 60%; severe LAE, LAV 70.9 ml; mild to moderate MR - ECHOCARDIOGRAM 11/2016 LVEF 65%; MV repair ok - HYSTERECTOMY HX 1980s JAMILA, [facility] - MITRAL VALVE SURGERY HX 09/18/2001 robotically assisted minimally invasive mitral valve repair with annuloplasty ring; [facility] - RIGHT ANDamp; LEFT HEART CATH 04/11/2001 LVEF 60%; moderately severe MR; mild diastolic dysfxn; no significant CAD; [facility] - STRESS ECHO 12/08/2015 95% MPHR; LVEF 65%; severe LAE; wide-complex rhythm at peak exercise, aberrantly conducted AF vs. VT - STRESS TEST NUCLEAR 12/2001 - ALAN 2000 - THORACENTESIS - TUBAL LIGATION HX SOCIAL HISTORY Social History Substance Use Topics - Smoking status: Former Smoker Packs/day: 0.50 Years: 12.00 Types: Cigarettes Start date: 1957 Quit date: 03/12/1969 - Smokeless tobacco: Never Used - Alcohol use No FAMILY HISTORY Problem Relation Age of Onset - Breast Cancer Sister - Cancer Mother pancreatic - Emphysema Father - Heart Father - Drug abuse Brother drug overdose in his 20s - Heart Brother - Heart Brother - Heart Sister heart valve problem - Stroke Sister - Heart Brother ALLERGIES: ALLERGIES Allergen Reactions - Codeine GI Upset - Cortisone Swelling, Other: See Comments Caused A-fib - Darvon [Propoxyphen* Mental Status Change - Digoxin Intolerance - Guaifenesin Mental Status Change hallucinations - Honey Rash, Itching - Propranolol Other: See Comments Night terrors - Verapamil Other: See Comments Palpitation, diaphoresis MEDICATIONS: carvedilol (COREG) 6.25 mg tablet Take 6.25 mg by mouth twice daily with meals. ALPRAZolam (XANAX) 0.5 mg tablet Take 1 tablet by mouth twice daily as needed for Anxiety for up to 90 days. #45 tablets/30 days. MAGNESIUM, ALUMINUM HYDROXIDE (MYLANTA ORAL) Take 1 Dose by mouth as needed (heartburn). amiodarone (PACERONE) 200 mg tablet Take 1 tablet by mouth once daily. famotidine (PEPCID) 20 mg tablet Take 1 tablet by mouth twice daily as needed (acid reflux). mometasone (ELOCON) 0.1 % cream Apply 1 application to affected area once daily as needed (leg eczema). furosemide (LASIX) 20 mg tablet Take 1 tablet by mouth once daily. rivaroxaban (XARELTO) 20 mg tablet Take 1 tablet by mouth daily with dinner. levothyroxine (LEVOXYL) 88 mcg tablet Take 1 tablet by mouth once daily. Take on empty stomach. For Thyroid potassium chloride ER (K-DUR, KLOR-CON) 20 mEq tablet Take 1 tablet by mouth twice daily. PHYSICAL EXAMINATION: BP 124/82 Pulse 89 Resp 16 Ht 5' 5ANDquot; (1.65m) Wt 129 lb (58.5kg) SpO2 99% BMI 21.47 kg/(m2). General: Well appearing, in no acute distress, speaking in complete sentences. Skin: No clubbing, no cyanosis. Eyes: Extra ocular movements intact, Non-icteric sclerae Neck: no jugular venous distention, Lungs: Clear to auscultation bilaterally, no wheezing or rhonchi. Heart: Irregular rhythm; Gr I/ systolic murmur LSB Abdomen: Soft, nontender Extremities: No peripheral edema . Grade 2/4 distal pulses bilaterally. Neuro: Oriented to person, place and time, alert, cooperative CARDIOVASCULAR MEDICINE TESTING: Electrocardiogram: AF with ventricular response rate 83 bpm; prolonged QT but appropriate on amiodarone I have personally reviewed the Electrocardiogram. I spent 45 minutes in the visit, with more than 50% of the total xaxi-at-mcoc time of the visit in counseling / coordination of care. ASSESSMENT/PLAN: 1. Persistent atrial fibrillation (HCC) - ICD9: 427.31, ICD10: I48.1 (primary diagnosis) 2. Rheumatic mitral insufficiency - ICD9: 394.1, ICD10: I05.1 3. History of mitral valve repair - ICD9: V15.1, ICD10: Z98.890 4. Rheumatic heart disease - ICD9: 398.90, ICD10: I09.9 5. 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 halfway current use of antiarrhythmic drug - ICD9: V58.69, ICD10: Z79.899 IMPRESSION: Ms. Gan has recurrent symptomatic persistent AF despite antiarrhythmic drug therapy and electrical cardioversion(s). The symptoms have been excessively bothersome and she also failed a ventricular response rate control treatment approach previously. She desires relief from her symptoms to achieve better quality of life. When I evaluated her in 07/2016, she was doing reasonably well with a rate control approach so I did not push for more aggressive treatment measures. However, the situation has changed and an atrial rhythm control treatment approach seems to be appropriate and indicated. The other approach would be AV node catheter ablation with pacemaker implantation. I had discussed both of these options with Ms. Gan in detail at the 07/2016 office consultation visit. I had been somewhat hesitant to recommend AF catheter ablation due to the severe left atrial enlargement noted by echocardiogram, which can indicate the presence of atrial cardiomyopathy that could make maintenance of sinus rhythm challenging. Nevertheless, we could still make an attempt as I do not feel that this would be futile. The procedure might provide sufficient effectiveness to allow for better response to the amiodarone, for example. So in discussing these two treatment options with Ms. Gan and her family member, she expressed that she would like to try the AF ablation approach even though there is a fairly reasonable chance that the treatment will not be sufficiently effective. She would like to pursue this approach before having an AV node ablation with pacemaker implant. I had a detailed discussion with Ms. Gan and her family regarding my evaluation and recommendations. After our discussion, Ms. Gan expressed her understanding and I answered all her questions to her apparent satisfaction. She would like to proceed. She expressed understanding the procedure will be performed with the use of general anesthesia. She also expressed understanding that the procedure will be performed without interruption of the oral anticoagulation with Xarelto. INFORMED CONSENT The risks, benefits and anticipated outcomes of the procedure, the risks and benefits of the alternatives to the procedure and the roles and tasks of the personnel to be involved were discussed with the patient. Consent for the procedure and agreement to proceed has been obtained. I verify that I personally obtained the consent. I have signed the form and will have Ms. Gan sign it on the day of the procedure. PLAN AND RECOMMENDATIONS: Proceed with scheduling of AF catheter ablation. She prefers to have this done sometime in the summer months, such as August or September. Return in about 3 months (around 08/23/2017) for AF catheter ablation; office will call to schedule. Sandee Flores MD 05/23/2017 Sandee Flores MD 05/23/2017 10:13 AM Signed Atrial Fibrillation What is atrial fibrillation? Atrial fibrillation (also called A-fib) is a fast or irregular heartbeat that starts in the upper chambers of the heart. The abnormal heartbeat affects the ability of the heart to pump blood to the rest of the body. What is the cause? An electrical signal in your heart starts each heartbeat, causing the heart muscle to squeeze (contract). Normally, this signal starts in the upper right chamber of the heart (the right atrium) at a place called the sinus node. The signal then follows normal pathways to the upper left atrium and to the lower chambers of the heart (the ventricles). When you have atrial fibrillation, electrical signals don?t start in the normal place in the right atrium and don?t travel normally. This can cause the upper chambers of the heart (atria) to beat very fast and not in a normal pattern. Common causes of heart rhythm problems are conditions that damage the heart, like coronary artery disease, heart attack, or heart failure. Problems with the heart valves are another common cause. The heart has 4 valves that open and close with each heartbeat to help blood flow in the right direction through the heart. Other causes of atrial fibrillation include: -Health problems, such as a stroke, lung disease, diabetes, overactive thyroid gland, or high blood pressure -Abuse of alcohol or drugs, such as cocaine Sometimes no cause can be found. What are the symptoms? Some people don?t have any symptoms. When atrial fibrillation does cause symptoms, the most common ones are: -Feeling like your heart is beating too fast or too hard or skipping beats or fluttering -Feeling tired or weak all the time Symptoms that are more serious include: -Chest pain -Trouble breathing -Lightheadedness or dizziness -Confusion How is it diagnosed? Your healthcare provider will ask about your symptoms and medical history and examine you. Tests may include: -An ECG (also called an EKG), which measures and records your heartbeat. You may have an ECG while you are resting or while you exercise on a treadmill. You may also be asked to wear a small portable ECG monitor for a few days or sometimes a couple weeks. -Blood tests -An echocardiogram, which uses sound waves (ultrasound) to show the structures of the heart, like the valves How is it treated? The goal of treatment is to help the heart keep a normal rhythm. Your treatment depends on the cause of the atrial fibrillation, how often you have symptoms, and the severity of your symptoms. If you have no symptoms, or your symptoms are fairly mild, you may not need treatment. For some people atrial fibrillation lasts just a short time and the heart goes back to a normal rhythm on its own. If you keep having spells of atrial fibrillation, treatment may help keep you from having so many spells. If a health problem like a leaky heart valve is causing the atrial fibrillation, treating the health problem may also treat the fast or irregular heartbeat. Other possible treatments are: -Medicine: Your provider may prescribe medicine to slow or restore a normal heart rate and rhythm. You may also need medicine to prevent blood clots because when the heart beats irregularly, some of the blood can stay in the upper chambers too long. This makes it easier for blood clots to form, increasing your risk of having a stroke or heart attack. -Electrical cardioversion: First, you will be given medicine called anesthesia to keep you from feeling pain during the procedure. Then your chest will be given an electrical shock. The electrical shock should make your heart start beating normally again. You may need medicine to keep your heart rhythm normal after this procedure. -Ablation: Ablation is a procedure that uses a small tube called a catheter to deliver energy to the inside of the heart. The energy (usually radio waves) scars small areas of heart tissue. The scars block abnormal electrical pathways and help you have a normal heart rhythm. With some types of ablation treatment, you will also need a pacemaker. A pacemaker is an electronic device put under the skin of your chest to help control the heartbeat. How can I take care of myself? -Take your medicines as prescribed. -Keep your appointments for follow-up blood tests. -Make sure your healthcare provider knows about changes in your diet or medical condition. Your provider also needs to know about all prescription and nonprescription medicines, herbs, or supplements that you are taking. Some medicines may interact with your heart medicine or increase your risk for atrial fibrillation. -If you want to drink alcohol, ask your provider how much is safe for you to drink. -Follow your healthcare provider's instructions. Ask your provider: ?How and when you will hear your test results ?How long it will take to recover ?What activities you should avoid and when you can return to your normal activities ?How to take care of yourself at home ?What symptoms or problems you should watch for and what to do if you have them -Make sure you know when you should come back for a checkup. How can I help prevent atrial fibrillation? The best prevention is to have a heart-healthy lifestyle. -Keep a healthy weight. -Eat a healthy diet that is low in sodium and saturated and trans fat. -Stay fit with the right kind of exercise for you. -Decrease stress. -Don?t smoke. -Limit your use of alcohol. If you have heart disease or high blood pressure, follow your healthcare provider's instructions for treatment. Developed by [employer]. Published by [employer]. Copyright ?2014 [employer] and/or one of its subsidiaries. All rights reserved. Sandee Flores MD 05/23/2017 10:17 PM Signed PRIMARY CARE PHYSICIAN: Reginald Rojo MD [address] [place] [address] Patient Care Team: Reginald Rojo as PCP - General (Internal Medicine) Ronald Lauren as Specialty Brewmaster (Cardiology) Sandee Flores as Specialty Brewmaster (Cardiology) Leydi (Yanira) Addie as Specialty Brewmaster (Gastroenterology) CHIEF COMPLAINT: Follow up for arrhythmia HISTORY OF PRESENT ILLNESS: Ms. Gan is a 72 year old female who presents today for a cardiovascular medicine follow-up visit. History copied from previous notes, edited as needed: Ms. Gan is a 71 year old female who presents today for evaluation of atrial fibrillation. She has a long history of recurrent atrial fibrillation that dates back to perhaps at least 2001. She recalls having a cardioversion at that time. She states that the atrial fibrillation recurred but would be self-limited and only occur every year or so. She does have history of rheumatic heart disease and underwent mitral valve repair at [facility] in September 2001. She states that over the years the atrial fibrillation recurred with increasing frequency, even every month or so, and with increasing duration lasting up to a few hours. At some point she was treated with amiodarone but she does not recall when this was started. She states the dosage of amiodarone was decreased in February 2015 when she was hospitalized with ANDquot;broken heart syndrome.ANDquot; She had lived for a few years in [place] but in November 2015 she moved back to [place]. She experienced more severe episode of atrial fibrillation around that time, and upon presentation to the hospital she was found to be in atrial fibrillation with rapid ventricular response rates. She was still on amiodarone at that time. She underwent cardiac testing including an echocardiogram late November 2015 that revealed normal left ventricular systolic function, severe left atrial enlargement, and mild to moderate mitral regurgitation. A cardiac stress test was performed that she states was not entirely normal, so she underwent cardiac catheterization in January 2016 that revealed no significant coronary artery disease. She underwent electrical DC cardioversion in February 2016 which restored sinus rhythm, but she states the atrial fibrillation recurred within a couple of hours. She states that more recently she has been feeling pretty good, and has occasional days when she feels palpitations or as she describes it a ANDquot;punchingANDquot; sensation on the left side of her chest. She does not experience any chest pain, shortness of breath, other numbness or syncope. She states that in a given month she might have a couple of days where she feels the palpitations but otherwise she feels pretty good. She has a history of having some problems with cardiac medications, including propranolol which caused severe night terrors, and verapamil that was also not well tolerated. She is presently being treated with carvedilol and as stated she is overall feeling reasonably good on most days. She denies chest pain, shortness of breath, orthopnea, PND, lightheadedness or syncope. Additional history this visit 05/23/2017: Ms. Gan presents for follow up evaluation. When I evaluated her in 07/2016 she was having minimally symptomatic AF with a ventricular rate control approach. 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 However, she developed severe symptoms that resulted in a couple visits to the local ER in [place], and with hospitalization(s) as well. The AF was challenging to control, and this included some episodes of severe bradycardia after treatment with AV madan blocking medications for ventricular rate control. She also developed digoxin toxicity in 02/2017 requiring this medication to be discontinued. Ultimately she was treated with amiodarone and underwent a couple of cardioversion procedures. The AF recurred despite these efforts. She presents now to discuss the treatment options. She denies chest pain, orthopnea, PND, lightheadedness or syncope. 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 12/21/2015 - halfway current use of 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 therapy 12/21/2015 - Mitral valve prolapse 12/21/2015 - Mitral valve regurgitation s/p MV repair at [facility] 09/2001 - Palpitations - Paroxysmal atrial fibrillation (HCC) 12/21/2015 - Persistent atrial fibrillation (HCC) over time has developed excessively bothersome symptoms despite rate control treatment approach; recurrent AF despite antiarrhythmic drug therapy and cardioversions - PSVT (paroxysmal supraventricular tachycardia) (HCC) 12/21/2015 - Rheumatic heart disease - 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 - Tachycardia rapid ventricular response rates to ongoing AF - Takotsubo syndrome 12/21/2015 PAST SURGICAL HISTORY Procedure Laterality Date - CARDIAC CATH 01/19/2016 no significant CAD; LVEF 65% intact MV repair with no evidence for MR - CARDIOVERSION, ELECTIVE, ELECTRICAL 03/13/2017 successful christianity of sinus rhythm from atrial fibrillation; [facility] - CARDIOVERSION, ELECTIVE, ELECTRICAL 2001 - CATARACT EXTRACTION HX - ECHOCARDIOGRAM 09/2001 - ECHOCARDIOGRAM 12/2001 - ECHOCARDIOGRAM 03/01/2015 - ECHOCARDIOGRAM 12/02/2015 LVEF 60%; severe LAE, LAV 70.9 ml; mild to moderate MR - ECHOCARDIOGRAM 11/2016 LVEF 65%; MV repair ok - HYSTERECTOMY HX 1980s JAMILA, [facility] - MITRAL VALVE SURGERY HX 09/18/2001 robotically assisted minimally invasive mitral valve repair with annuloplasty ring; [facility] - RIGHT ANDamp; LEFT HEART CATH 04/11/2001 LVEF 60%; moderately severe MR; mild diastolic dysfxn; no significant CAD; [facility] - STRESS ECHO 12/08/2015 95% MPHR; LVEF 65%; severe LAE; wide-complex rhythm at peak exercise, aberrantly conducted AF vs. VT - STRESS TEST NUCLEAR 12/2001 - ALAN 2000 - THORACENTESIS - TUBAL LIGATION HX SOCIAL HISTORY Social History Substance Use Topics - Smoking status: Former Smoker Packs/day: 0.50 Years: 12.00 Types: Cigarettes Start date: 1957 Quit date: 03/12/1969 - Smokeless tobacco: Never Used - Alcohol use No FAMILY HISTORY Problem Relation Age of Onset - Breast Cancer Sister - Cancer Mother pancreatic - Emphysema Father - Heart Father - Drug abuse Brother drug overdose in his 20s - Heart Brother - Heart Brother - Heart Sister heart valve problem - Stroke Sister - Heart Brother ALLERGIES: ALLERGIES Allergen Reactions - Codeine GI Upset - Cortisone Swelling, Other: See Comments Caused A-fib - Darvon [Propoxyphen* Mental Status Change - Digoxin Intolerance - Guaifenesin Mental Status Change hallucinations - Honey Rash, Itching - Propranolol Other: See Comments Night terrors - Verapamil Other: See Comments Palpitation, diaphoresis MEDICATIONS: carvedilol (COREG) 6.25 mg tablet Take 6.25 mg by mouth twice daily with meals. ALPRAZolam (XANAX) 0.5 mg tablet Take 1 tablet by mouth twice daily as needed for Anxiety for up to 90 days. #45 tablets/30 days. MAGNESIUM, ALUMINUM HYDROXIDE (MYLANTA ORAL) Take 1 Dose by mouth as needed (heartburn). amiodarone (PACERONE) 200 mg tablet Take 1 tablet by mouth once daily. famotidine (PEPCID) 20 mg tablet Take 1 tablet by mouth twice daily as needed (acid reflux). mometasone (ELOCON) 0.1 % cream Apply 1 application to affected area once daily as needed (leg eczema). furosemide (LASIX) 20 mg tablet Take 1 tablet by mouth once daily. rivaroxaban (XARELTO) 20 mg tablet Take 1 tablet by mouth daily with dinner. levothyroxine (LEVOXYL) 88 mcg tablet Take 1 tablet by mouth once daily. Take on empty stomach. For Thyroid potassium chloride ER (K-DUR, KLOR-CON) 20 mEq tablet Take 1 tablet by mouth twice daily. PHYSICAL EXAMINATION: BP 124/82 Pulse 89 Resp 16 Ht 5' 5ANDquot; (1.65m) Wt 129 lb (58.5kg) SpO2 99% BMI 21.47 kg/(m2). General: Well appearing, in no acute distress, speaking in complete sentences. Skin: No clubbing, no cyanosis. Eyes: Extra ocular movements intact, Non-icteric sclerae Neck: no jugular venous distention, Lungs: Clear to auscultation bilaterally, no wheezing or rhonchi. Heart: Irregular rhythm; Gr I/ systolic murmur LSB Abdomen: Soft, nontender Extremities: No peripheral edema . Grade 2/4 distal pulses bilaterally. Neuro: Oriented to person, place and time, alert, cooperative CARDIOVASCULAR MEDICINE TESTING: Electrocardiogram: AF with ventricular response rate 83 bpm; prolonged QT but appropriate on amiodarone I have personally reviewed the Electrocardiogram. I spent 45 minutes in the visit, with more than 50% of the total [id number] time of the visit in counseling / coordination of care. ASSESSMENT/PLAN: 1. Persistent atrial fibrillation (HCC) - ICD9: 427.31, ICD10: I48.1 (primary diagnosis) 2. Rheumatic mitral insufficiency - ICD9: 394.1, ICD10: I05.1 3. History of mitral valve repair - ICD9: V15.1, ICD10: Z98.890 4. Rheumatic heart disease - ICD9: 398.90, ICD10: I09.9 5. halfway current use of 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 therapy - ICD9: V58.61, ICD10: Z79.01 6. halfway current use of antiarrhythmic drug - ICD9: V58.69, ICD10: Z79.899 IMPRESSION: Ms. Gan has recurrent symptomatic persistent AF despite antiarrhythmic drug therapy and electrical cardioversion(s). The symptoms have been excessively bothersome and she also failed a ventricular response rate control treatment approach previously. She desires relief from her symptoms to achieve better quality of life. When I evaluated her in 07/2016, she was doing reasonably well with a rate control approach so I did not push for more aggressive treatment measures. However, the situation has changed and an atrial rhythm control treatment approach seems to be appropriate and indicated. The other approach would be AV node catheter ablation with pacemaker implantation. I had discussed both of these options with Ms. Gan in detail at the 07/2016 office consultation visit. I had been somewhat hesitant to recommend AF catheter ablation due to the severe left atrial enlargement noted by echocardiogram, which can indicate the presence of atrial cardiomyopathy that could make maintenance of sinus rhythm challenging. Nevertheless, we could still make an attempt as I do not feel that this would be futile. The procedure might provide sufficient effectiveness to allow for better response to the amiodarone, for example. So in discussing these two treatment options with Ms. Gan and her family member, she expressed that she would like to try the AF ablation approach even though there is a fairly reasonable chance that the treatment will not be sufficiently effective. She would like to pursue this approach before having an AV node ablation with pacemaker implant. I had a detailed discussion with Ms. Gan and her family regarding my evaluation and recommendations. After our discussion, Ms. Gan expressed her understanding and I answered all her questions to her apparent satisfaction. She would like to proceed. She expressed understanding the procedure will be performed with the use of general anesthesia. She also expressed understanding that the procedure will be performed without interruption of the oral anticoagulation with Xarelto. INFORMED CONSENT The risks, benefits and anticipated outcomes of the procedure, the risks and benefits of the alternatives to the procedure and the roles and tasks of the personnel to be involved were discussed with the patient. Consent for the procedure and agreement to proceed has been obtained. I verify that I personally obtained the consent. I have signed the form and will have Ms. Gan sign it on the day of the procedure. PLAN AND RECOMMENDATIONS: Proceed with scheduling of AF catheter ablation. She prefers to have this done sometime in the summer months, such as August or September. Return in about 3 months (around 08/23/2017) for AF catheter ablation; office will call to schedule. Sandee Flores MD 05/23/2017 Referring Provider: REGINALD ROJO [[id number]] Allergies As of Date: 05/23/2017 Noted Allergy Reaction CODEINE 12/21/2015 8 - GI Upset CORTISONE 12/21/2015 7 - Swelling 14 - Other: See Comments Comments: Caused A-fib DARVON (PROPOXYPHENE HCL) 12/21/2015 1 - Mental Status Change DIGOXIN 03/22/2017 5 - Intolerance GUAIFENESIN 12/21/2015 1 - Mental Status Change Comments: hallucinations HONEY 12/21/2015 2 - Rash 9 - Itching PROPRANOLOL 12/21/2015 14 - Other: See Comments Comments: Night terrors VERAPAMIL 12/21/2015 14 - Other: See Comments Comments: Palpitation, diaphoresis Date Reviewed: 05/23/2017 Reviewed by: Sandee Flores - Fully Assessed Reason for Visit: Cardiology Follow Up [1732] Cmt: Here to discuss possible ablation. 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 [Z79.899] Order(s):EKG WITH INTERPRETATION [[id number]] Order #: [id number]: 1 SURGICAL REQUEST - ELECTIVE [[id number]] Order #: [id number]: 1 Prescriptions as of 05/23/2017 Sig: CARVEDILOL 6.25 MG TABLET Take 6.25 mg by mouth twice d* ALPRAZOLAM 0.5 MG TABLET Take 1 tablet by mouth twice * MYLANTA ORAL Take 1 Dose by mouth as neede* AMIODARONE 200 MG TABLET Take 1 tablet by mouth once d* FAMOTIDINE 20 MG TABLET Take 1 tablet by mouth twice * MOMETASONE 0.1 % TOPICAL CREAM Apply 1 application to affect* FUROSEMIDE 20 MG TABLET Take 1 tablet by mouth once d* RIVAROXABAN 20 MG TABLET Take 1 tablet by mouth daily * LEVOTHYROXINE 88 MCG TABLET Take 1 tablet by mouth once d* POTASSIUM CHLORIDE ER 20 MEQ * Take 1 tablet by mouth twice * Medication notes this encounter DIGITEK 250 MCG TABLET >> Jeremy Grider CMA 05/23/2017 9:13 AM >> JEREMY GRIDER CMA May 23, 2017 9:13 AM No longer taking. OMEPRAZOLE 20 MG CAPSULE,DELAYED RELEASE >> Jeremy Grider CMA 05/23/2017 9:14 AM >> JEREMY GRIDER CMA May 23, 2017 9:14 AM Not taking. ONDANSETRON 4 MG DISINTEGRATING TABLET >> Jeremy Grider CMA 05/23/2017 9:14 AM >> JEREMY GRIDER CMA SunMay 23, 2017 9:14 AM Not taking. Problem List As Of Date 05/23/2017 Noted Resolved PSVT (paroxysmal supraventricular tachycardia) *INVALID FOR* Rheumatic mitral insufficiency [I05.1] INVALID FOR* Mitral valve prolapse [I34.1] INVALID FOR* Paroxysmal atrial fibrillation (HCC) [I48.0] INVALID FOR*02/14/2017 History of mitral valve repair [Z98.890] INVALID FOR* Takotsubo syndrome [I51.81] INVALID FOR* halfway current use of 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 therapy *INVALID FOR* Generalized anxiety disorder [F41.1] INVALID FOR* Hypothyroidism [E03.9] INVALID FOR* Hearing loss [H91.90] INVALID FOR* Routine medical exam [Z00.00] INVALID FOR* More... Anticoagulant-induced bleeding (HCC) [T45.7X1A,* 05/16/2017 More... Rheumatic heart disease [I09.9] Mitral valve regurgitation [I34.0] More... Persistent atrial fibrillation (HCC) [I48.1] Tachycardia [R00.0] 02/14/2017 More... Gastroesophageal reflux disease [K21.9] INVALID FOR* Osteopenia [M85.80] INVALID FOR* Paroxysmal atrial fibrillation (HCC) [I48.0] INVALID FOR* halfway current use of antiarrhythmic drug [Z* More... Other instructions from your clinician: Atrial Fibrillation What is atrial fibrillation? Atrial fibrillation (also called A-fib) is a fast or irregular heartbeat that starts in the upper chambers of the heart. The abnormal heartbeat affects the ability of the heart to pump blood to the rest of the body. What is the cause? An electrical signal in your heart starts each heartbeat, causing the heart muscle to squeeze (contract). Normally, this signal starts in the upper right chamber of the heart (the right atrium) at a place called the sinus node. The signal then follows normal pathways to the upper left atrium and to the lower chambers of the heart (the ventricles). When you have atrial fibrillation, electrical signals don?t start in the normal place in the right atrium and don?t travel normally. This can cause the upper chambers of the heart (atria) to beat very fast and not in a normal pattern. Common causes of heart rhythm problems are conditions that damage the heart, like coronary artery disease, heart attack, or heart failure. Problems with the heart valves are another common cause. The heart has 4 valves that open and close with each heartbeat to help blood flow in the right direction through the heart. Other causes of atrial fibrillation include: -Health problems, such as a stroke, lung disease, diabetes, overactive thyroid gland, or high blood pressure -Abuse of alcohol or drugs, such as cocaine Sometimes no cause can be found. What are the symptoms? Some people don?t have any symptoms. When atrial fibrillation does cause symptoms, the most common ones are: -Feeling like your heart is beating too fast or too hard or skipping beats or fluttering -Feeling tired or weak all the time Symptoms that are more serious include: -Chest pain -Trouble breathing -Lightheadedness or dizziness -Confusion How is it diagnosed? Your healthcare provider will ask about your symptoms and medical history and examine you. Tests may include: -An ECG (also called an EKG), which measures and records your heartbeat. You may have an ECG while you are resting or while you exercise on a treadmill. You may also be asked to wear a small portable ECG monitor for a few days or sometimes a couple weeks. -Blood tests -An echocardiogram, which uses sound waves (ultrasound) to show the structures of the heart, like the valves How is it treated? The goal of treatment is to help the heart keep a normal rhythm. Your treatment depends on the cause of the atrial fibrillation, how often you have symptoms, and the severity of your symptoms. If you have no symptoms, or your symptoms are fairly mild, you may not need treatment. For some people atrial fibrillation lasts just a short time and the heart goes back to a normal rhythm on its own. If you keep having spells of atrial fibrillation, treatment may help keep you from having so many spells. If a health problem like a leaky heart valve is causing the atrial fibrillation, treating the health problem may also treat the fast or irregular heartbeat. Other possible treatments are: -Medicine: Your provider may prescribe medicine to slow or restore a normal heart rate and rhythm. You may also need medicine to prevent blood clots because when the heart beats irregularly, some of the blood can stay in the upper chambers too long. This makes it easier for blood clots to form, increasing your risk of having a stroke or heart attack. -Electrical cardioversion: First, you will be given medicine called anesthesia to keep you from feeling pain during the procedure. Then your chest will be given an electrical shock. The electrical shock should make your heart start beating normally again. You may need medicine to keep your heart rhythm normal after this procedure. -Ablation: Ablation is a procedure that uses a small tube called a catheter to deliver energy to the inside of the heart. The energy (usually radio waves) scars small areas of heart tissue. The scars block abnormal electrical pathways and help you have a normal heart rhythm. With some types of ablation treatment, you will also need a pacemaker. A pacemaker is an electronic device put under the skin of your chest to help control the heartbeat. How can I take care of myself? -Take your medicines as prescribed. -Keep your appointments for follow-up blood tests. -Make sure your healthcare provider knows about changes in your diet or medical condition. Your provider also needs to know about all prescription and nonprescription medicines, herbs, or supplements that you are taking. Some medicines may interact with your heart medicine or increase your risk for atrial fibrillation. -If you want to drink alcohol, ask your provider how much is safe for you to drink. -Follow your healthcare provider's instructions. Ask your provider: ?How and when you will hear your test results ?How long it will take to recover ?What activities you should avoid and when you can return to your normal activities ?How to take care of yourself at home ?What symptoms or problems you should watch for and what to do if you have them -Make sure you know when you should come back for a checkup. How can I help prevent atrial fibrillation? The best prevention is to have a heart-healthy lifestyle. -Keep a healthy weight. -Eat a healthy diet that is low in sodium and saturated and trans fat. -Stay fit with the right kind of exercise for you. -Decrease stress. -Don?t smoke. -Limit your use of alcohol. If you have heart disease or high blood pressure, follow your healthcare provider's instructions for treatment. Developed by [employer]. Published by [employer]. Copyright ?2014 [employer] and/or one of its subsidiaries. All rights reserved. Visit Notes: >> Jeremy ArayaKarlaCeline Grider SunMay 23, 2017 9:15 AM Status: Signed Patient denies any cardiac complaints today. Jeremy Grider CMA Medications Discontinued During This Encounter carvedilol (COREG) 12.5 mg tablet 09/19/2016 05/23/2017 Class: Historical Med Route: ORAL Sig: Take 6.25 mg by mouth twice daily. Per Dr. Lauren Disc: Dosage adjustment DIGITEK 250 mcg tablet 02/05/2017 05/23/2017 Class: Historical Med Sig: Disc: Erroneous entry omeprazole (PRILOSEC) 20 mg capsule 02/11/2017 05/23/2017 Class: Historical Med Sig: Disc: Erroneous entry ondansetron orally disintegrating (Z* 02/12/2017 05/23/2017 Class: Historical Med Sig: Disc: Erroneous entry Disposition: Return in about 3 months (around 08/23/2017) for AF catheter ablation; office will call to schedule. Follow-up and Disposition History Recorded Letter Text Encounter Status:Closed by SANDEE FLORES MD on 05/23/17 HOSP Observed: 05/23/2017 Status: COMPLETED Source: [facility] 12:00 AM CLINIC OTHER CAMPUS REPOSITORY Patient:Bella Gan V MRN: <[id number]> Height:5' 5(1.651 m) Weight:128 lb (58.06 kg) Outpatient Medications as of 08/23/17: ALPRAZolam (XANAX) 0.5 mg tablet carvedilol (COREG) 6.25 mg tablet MAGNESIUM, ALUMINUM HYDROXIDE (MYLANTA ORAL) amiodarone (PACERONE) 200 mg tablet famotidine (PEPCID) 20 mg tablet mometasone (ELOCON) 0.1 % cream furosemide (LASIX) 20 mg tablet rivaroxaban (XARELTO) 20 mg tablet levothyroxine (LEVOXYL) 88 mcg tablet potassium chloride ER (K-DUR, KLOR-CON) 20 mEq tablet Admission/Clinic Administered Medications as of 08/23/17: heparin 1,000 Units in NaCl 0.9% 1,000 mL heparin 3,000 Units in NaCl 0.9% 500 mL irrigation heparin (porcine) in 0.9% NaCl 1,000 unit/500 mL 1,000 Units 0.9% NaCl 2-10 mL heparin 1,000 Units in NaCl 0.9% 1,000 mL heparin 3,000 Units in NaCl 0.9% 500 mL irrigation heparin (porcine) in 0.9% NaCl 1,000 unit/500 mL 1,000 Units Problem List: PSVT (paroxysmal supraventricular tachycardia) (HCC) [I47.1] Rheumatic mitral insufficiency [I05.1] Mitral valve prolapse [I34.1] History of mitral valve repair [Z98.890] Takotsubo syndrome [I51.81] 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 [Z79.01] Generalized anxiety disorder [F41.1] Hypothyroidism [E03.9] Hearing loss [H91.90] Routine medical exam [Z00.00] Rheumatic heart disease [I09.9] Mitral valve regurgitation [I34.0] Persistent atrial fibrillation (HCC) [I48.1] Gastroesophageal reflux disease [K21.9] Osteopenia [M85.80] Paroxysmal atrial fibrillation (HCC) [I48.0] halfway current use of antiarrhythmic drug [Z79.899] Allergies: Codeine Cortisone Darvon [Propoxyphene Hcl] Digoxin Guaifenesin Honey Propranolol Verapamil Date Verified: 08/23/17 Lab Values Lab Value Units Date High Low POTA* 3.7 mEq/L 08/23/2017 5.1 3.5 OTIS* 42.9 % 08/23/2017 44.9 34.1 Progress Notes ([facility]): Roxanne Morales 08/16/2017 11:08 AM Signed Patient has been identified by name and date of : Yes Pending Prescriptions Disp Refills ALPRAZOLAM 0.5 MG TABLET 45 tablet 2 Sig: Take 1 tablet by mouth twice daily as needed for Anxiety for up to 90 days. #45 tablets/30 days. SIXTO Class: C-IV PABLITO: No RX INSTRUCTIONS: Prescription must be called to the pharmacy (non-escript). Roxanne Garcesr Nissa Choi RN 08/16/2017 12:09 PM Signed Patient has been identified by name and date of : Yes Patient phones for refill(s): Pending Prescriptions Disp Refills ALPRAZOLAM 0.5 MG TABLET 45 tablet 2 Sig: Take 1 tablet by mouth twice daily as needed for Anxiety for up to 90 days. #45 tablets/30 days. SIXTO Class: C-IV PABLITO: No Date of last office visit in primary care: 05/16/17, future appt. 10/17/17, last Rx filled on 06/27/17 #45 Last 2 Encounter Wt Readings: Date: Wt: 08/10/2017 58.1 kg (128 lb) 06/11/2017 58.1 kg (128 lb) Previous labs/tests for medication: Blood Pressure: No results found for: BUN, NA Last 1 Encounter BP Readings: Date: BP: 08/10/2017 100/66 Liver Function: No results found for: ALT, AST Please advise. Thank you. Nissa Rojo MD 08/16/2017 7:59 PM Signed Patient's request for medication is as follows: Signed Prescriptions Disp Refills ALPRAZolam (XANAX) 0.5 mg tablet 45 tablet 2 Sig: Take 1 tablet by mouth twice daily as needed for Anxiety for up to 90 days. #45 tablets/30 days. SIXTO Class: C-IV PABLITO: No Authorizing Provider: REGINALD ROJO Prescription(s) printed as above. Please process accordingly. Richie Barney LPN 08/17/2017 11:50 AM Signed The following prescriptions have been approved and faxed to [facility]: Signed Prescriptions Disp Refills ALPRAZolam (XANAX) 0.5 mg tablet 45 tablet 2 Sig: Take 1 tablet by mouth twice daily as needed for Anxiety for up to 90 days. #45 tablets/30 days. SIXTO Class: C-IV PABLITO: No Authorizing Provider: REGINALD ROJO LPN Progress Notes ([facility]): Jeremy Grider CMA 08/10/2017 12:58 PM Signed Patient denies any cardiac complaints today. KARLA Schroeder, MSN, BUNGHOLE BORER.DRILL SETUP OPERATOR 08/14/2017 4:29 PM Signed PRIMARY CARE PHYSICIAN: Reginald Rojo MD [address] [place] [address] ? Patient Care Team: Reginald Rojo as PCP - General (Internal Medicine) Ronald Lauren as Specialty Brewmaster (Cardiology) Sandee Flores as Specialty Brewmaster (Cardiology) Leydi (Yanira) Addie as Specialty Brewmaster (Gastroenterology) ? HISTORY OF PRESENT ILLNESS: Ms. Gan is a 72 year old female who presents today for a cardiovascular medicine follow-up visit. ? History copied from previous notes, edited as needed: Ms. Gan is a 71 year old female who presents today for evaluation of atrial fibrillation. She has a long history of recurrent atrial fibrillation that dates back to perhaps at least 2001. She recalls having a cardioversion at that time. She states that the atrial fibrillation recurred but would be self-limited and only occur every year or so. She does have history of rheumatic heart disease and underwent mitral valve repair at [facility] in September 2001. She states that over the years the atrial fibrillation recurred with increasing frequency, even every month or so, and with increasing duration lasting up to a few hours. At some point she was treated with amiodarone but she does not recall when this was started. She states the dosage of amiodarone was decreased in February 2015 when she was hospitalized with broken heart syndrome. She had lived for a few years in [place] but in November 2015 she moved back to [place]. She experienced more severe episode of atrial fibrillation around that time, and upon presentation to the hospital she was found to be in atrial fibrillation with rapid ventricular response rates. She was still on amiodarone at that time. She underwent cardiac testing including an echocardiogram late November 2015 that revealed normal left ventricular systolic function, severe left atrial enlargement, and mild to moderate mitral regurgitation. A cardiac stress test was performed that she states was not entirely normal, so she underwent cardiac catheterization in January 2016 that revealed no significant coronary artery disease. She underwent electrical DC cardioversion in February 2016 which restored sinus rhythm, but she states the atrial fibrillation recurred within a couple of hours. She states that more recently she has been feeling pretty good, and has occasional days when she feels palpitations or as she describes it a punching sensation on the left side of her chest. She does not experience any chest pain, shortness of breath, other numbness or syncope. She states that in a given month she might have a couple of days where she feels the palpitations but otherwise she feels pretty good. She has a history of having some problems with cardiac medications, including propranolol which caused severe night terrors, and verapamil that was also not well tolerated. She is presently being treated with carvedilol and as stated she is overall feeling reasonably good on most days. She denies chest pain, shortness of breath, orthopnea, PND, lightheadedness or syncope. ? Additional history this visit 05/23/2017: Ms. Gan presents for follow up evaluation. When I evaluated her in 07/2016 she was having minimally symptomatic AF with a ventricular rate control approach. 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 However, she developed severe symptoms that resulted in a couple visits to the local ER in [place], and with hospitalization(s) as well. The AF was challenging to control, and this included some episodes of severe bradycardia after treatment with AV madan blocking medications for ventricular rate control. She also developed digoxin toxicity in 02/2017 requiring this medication to be discontinued. Ultimately she was treated with amiodarone and underwent a couple of cardioversion procedures. The AF recurred despite these efforts. She presents now to discuss the treatmentoptions. She denies chest pain, orthopnea, PND, lightheadedness or syncope. ? Bella Gan was last seen by Dr. Flores on 05/23/17 to discuss RF PVAI. She presents today to update her HANDP. She took the last dose of Amiodarone today. She reports that she is always in atrial fibrillation. She has palpitations. She denies CP, SOB, dizziness, syncope. She denies fever chills or infection. She has upper and lower dentures. She denies difficulty with anesthesia. 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/2015 - Mitral valve prolapse 12/21/2015 - Mitral valve regurgitation s/p MV repair at [facility] 09/2001 - Palpitations - Paroxysmal atrial fibrillation (HCC) 12/21/2015 - Persistent atrial fibrillation (HCC) over time has developed excessively bothersome symptoms despite rate control treatment approach; recurrent AF despite antiarrhythmic drug therapy and cardioversions - PSVT (paroxysmal supraventricular tachycardia) (HCC) 12/21/2015 - Rheumatic heart disease - 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 - Tachycardia rapid ventricular response rates to ongoing AF - Takotsubo syndrome 12/21/2015 PAST SURGICAL HISTORY Procedure Laterality Date - CARDIAC CATH 01/19/2016 no significant CAD; LVEF 65% intact MV repair with no evidence for MR - CARDIOVERSION, ELECTIVE, ELECTRICAL 03/13/2017 successful christianity of sinus rhythm from atrial fibrillation; [facility] - CARDIOVERSION, ELECTIVE, ELECTRICAL 2001 - CATARACT EXTRACTION HX - ECHOCARDIOGRAM 09/2001 - ECHOCARDIOGRAM 12/2001 - ECHOCARDIOGRAM 03/01/2015 - ECHOCARDIOGRAM 12/02/2015 LVEF 60%; severe LAE, LAV 70.9 ml; mild to moderate MR - ECHOCARDIOGRAM 11/2016 LVEF 65%; MV repair ok - HYSTERECTOMY HX JAMILA, BSO - MITRAL VALVE SURGERY HX 09/18/2001 robotically assisted minimally invasive mitral valve repair with annuloplasty ring; [facility] - RIGHT AND LEFT HEART CATH 04/11/2001 LVEF 60%; moderately severe MR; mild diastolic dysfxn; no significant CAD; [facility] - STRESS ECHO 12/08/2015 95% MPHR; LVEF 65%; severe LAE; wide-complex rhythm at peak exercise, aberrantly conducted AF vs. VT - STRESS TEST NUCLEAR 12/2001 - ALAN 2000 - THORACENTESIS - TUBAL LIGATION HX Social History Substance Use Topics - Smoking status: Former Smoker Packs/day: 0.50 Years: 12.00 Types: Cigarettes Start date: 1957 Quit date: 03/12/1969 - Smokeless tobacco: Never Used - Alcohol use No FAMILY HISTORY Problem Relation Age of Onset - Breast Cancer Sister - Cancer Mother pancreatic - Emphysema Father - Heart Father - Drug abuse Brother drug overdose in his 20s - Heart Brother - Heart Brother - Heart Sister heart valve problem - Stroke Sister - Heart Brother ALLERGIES Allergen Reactions - Codeine GI Upset - Cortisone Swelling, Other: See Comments Caused A-fib - Darvon [Propoxyphen* Mental Status Change - Digoxin Intolerance - Guaifenesin Mental Status Change hallucinations - Honey Rash, Itching - Propranolol Other: See Comments Night terrors - Verapamil Other: See Comments Palpitation, diaphoresis carvedilol (COREG) 6.25 mg tablet Take 6.25 mg by mouth twice daily with meals. ALPRAZolam (XANAX) 0.5 mg tablet Take 1 tablet by mouth twice daily as needed for Anxiety for up to 90 days. #45 tablets/30 days. furosemide (LASIX) 20 mg tablet Take 1 tablet by mouth once daily. rivaroxaban (XARELTO) 20 mg tablet Take 1 tablet by mouth daily with dinner. levothyroxine (LEVOXYL) 88 mcg tablet Take 1 tablet by mouth once daily. Take on empty stomach. For Thyroid potassium chloride ER (K-DUR, KLOR-CON) 20 mEq tablet Take 1 tablet by mouth twice daily. MAGNESIUM, ALUMINUM HYDROXIDE (MYLANTA ORAL) Take 1 Dose by mouth as needed (heartburn). amiodarone (PACERONE) 200 mg tablet Take 1 tablet by mouth once daily. famotidine (PEPCID) 20 mg tablet Take 1 tablet by mouth twice daily as needed (acid reflux). mometasone (ELOCON) 0.1 % cream Apply 1 application to affected area once daily as needed (leg eczema). REVIEW OF SYSTEMS PAIN ASSESSMENT: Negative for pain, history of chronic pain, or current treatment for a chronic pain condition. GENERAL: Fatigue NECK: Negative for lumps, goiter, pain and significant neck swelling RESPIRATORY: Negative for cough, hemoptysis, wheezing, COPD, dyspnea or shortness of breath CARDIOVASCULAR: See HPI GI: No nausea, vomiting, or diarrhea and h/o hemorrhoids bleeding in the past. MUSCULOSKELETAL: Negative for joint pain or swelling, back pain or muscle pain SKIN: Negative for lesions, rash, and itching PSYCH: Negative for sleep disturbance, mood disorder and recent psychosocial stressors HEMATOLOGY/LYMPHOLOGY: Negative for prolonged bleeding, bruising easily or swollen nodes ENDOCRINE: Negative for cold or heat intolerance, polyuria, polydipsia and goiter NEURO: No history of headaches, syncope, paralysis, seizures or tremors BP 100/66 Pulse 78 Resp 16 Ht 5' 5 (1.65m) Wt 128 lb (58.1kg) SpO2 99% BMI 21.30 kg/(m2). PHYSICAL EXAMINATION: General appearance: Well appearing, alert, in no acute distress, well-hydrated, well nourished. Neck: Negative findings: no jugular venous distention Lungs: Lungs clear to auscultation. No wheezing, rhonchi, rales Heart: irregular, irregular, I/ systolic murmur LSB. no gallop or rub. Abdomen: Abdomen soft, non-tender. Bowel sounds normal. No masses, organomegaly Extremities: No deformities, edema, skin discoloration, clubbing or cyanosis. Good capillary refill. Neuro: Oriented X 3 CARDIOVASCULAR MEDICINE TESTING: No Cardiovascular testing perfomed today. There were no tests performed for review. IMPRESSION: Ms. Gan is a 72 year old female patient of Dr. Flores with persistent atrial fibrillation. She is scheduled to undergo a radiofrequency pulmonary vein antrum isolation ablation on August. She was given R/B/A by Dr. Flores in May and I've reiterated those for her today and she would like to proceed. She is now off of the Amiodarone. I've reminded her not to stop the Xarelto. She will have nothing to eat or drink after midnight the morning of her procedure. She will have f/u with cardiac testing and an office visit three months after the procedure. I have discussed with the patient the risks, benefits, and alternatives of the procedure(s); the administration of moderate and/or deep sedation; and the personnel anticipated to be present during the procedure. The patient and/or family verbalizes understanding, has been given literature if appropriate, and agrees to proceed. Patient is advised to contact this office with any further questions. PLAN AND RECOMMENDATIONS: (I48.1) Persistent atrial fibrillation (HCC) (primary encounter diagnosis) Comment: see above for the plan (Z98.890) History of mitral valve repair Comment: s/p MV repair in 2001, she follows with Dr. Lauren. (I09.9) Rheumatic heart disease Comment: stable (I05.1) Rheumatic mitral insufficiency Comment: stable, s/p MVR in 2001 Michelle Alva, MSN, BUNGHOLE BORER.DRILL SETUP OPERATOR Michelle Alva, MSN, BUNGHOLE BORER.DRILL SETUP OPERATOR 08/10/2017 1:29 PM Signed Nothing to eat or drink after midnight the day of you procedure. Please take medications with a sip of water. Atrial Fibrillation What is atrial fibrillation? Atrial fibrillation (also called A-fib) is a fast or irregular heartbeat that starts in the upper chambers of the heart. The abnormal heartbeat affects the ability of the heart to pump blood to the rest of the body. What is the cause? An electrical signal in your heart starts each heartbeat, causing the heart muscle to squeeze (contract). Normally, this signal starts in the upper right chamber of the heart (the right atrium) at a place called the sinus node. The signal then follows normal pathways to the upper left atrium and to the lower chambers of the heart (the ventricles). When you have atrial fibrillation, electrical signals don?t start in the normal place in the right atrium and don?t travel normally. This can cause the upper chambers of the heart (atria) to beat very fast and not in a normal pattern. Common causes of heart rhythm problems are conditions that damage the heart, like coronary artery disease, heart attack, or heart failure. Problems with the heart valves are another common cause. The heart has 4 valves that open and close with each heartbeat to help blood flow in the right direction through the heart. Other causes of atrial fibrillation include: -Health problems, such as a stroke, lung disease, diabetes, overactive thyroid gland, or high blood pressure -Abuse of alcohol or drugs, such as cocaine Sometimes no cause can be found. What are the symptoms? Some people don?t have any symptoms. When atrial fibrillation does cause symptoms, the most common ones are: -Feeling like your heart is beating too fast or too hard or skipping beats or fluttering -Feeling tired or weak all the time Symptoms that are more serious include: -Chest pain -Trouble breathing -Lightheadedness or dizziness -Confusion How is it diagnosed? Your healthcare provider will ask about your symptoms and medical history and examine you. Tests may include: -An ECG (also called an EKG), which measures and records your heartbeat. You may have an ECG while you are resting or while you exercise on a treadmill. You may also be asked to wear a small portable ECG monitor for a few days or sometimes a couple weeks. -Blood tests -An echocardiogram, which uses sound waves (ultrasound) to show the structures of the heart, like the valves How is it treated? The goal of treatment is to help the heart keep a normal rhythm. Your treatment depends on the cause of the atrial fibrillation, how often you have symptoms, and the severity of your symptoms. If you have no symptoms, or your symptoms are fairly mild, you may not need treatment. For some people atrial fibrillation lasts just a short time and the heart goes back to a normal rhythm on its own. If you keep having spells of atrial fibrillation, treatment may help keep you from having so many spells. If a health problem like a leaky heart valve is causing the atrial fibrillation, treating the health problem may also treat the fast or irregular heartbeat. Other possible treatments are: -Medicine: Your provider may prescribe medicine to slow or restore a normal heart rate and rhythm. You may also need medicine to prevent blood clots because when the heart beats irregularly, some of the blood can stay in the upper chambers too long. This makes it easier for blood clots to form, increasing your risk of having a stroke or heart attack. -Electrical cardioversion: First, you will be given medicine called anesthesia to keep you from feeling pain during the procedure. Then your chest will be given an electrical shock. The electrical shock should make your heart start beating normally again. You may need medicine to keep your heart rhythm normal after this procedure. -Ablation: Ablation is a procedure that uses a small tube called a catheter to deliver energy to the inside of the heart. The energy (usually radio waves) scars small areas of heart tissue. The scars block abnormal electrical pathways and help you have a normal heart rhythm. With some types of ablation treatment, you will also need a pacemaker. A pacemaker is an electronic device put under the skin of your chest to help control the heartbeat. How can I take care of myself? -Take your medicines as prescribed. -Keep your appointments for follow-up blood tests. -Make sure your healthcare provider knows about changes in your diet or medical condition. Your provider also needs to know about all prescription and nonprescription medicines, herbs, or supplements that you are taking. Some medicines may interact with your heart medicine or increase your risk for atrial fibrillation. -If you want to drink alcohol, ask your provider how much is safe for you to drink. -Follow your healthcare provider's instructions. Ask your provider: ?How and when you will hear your test results ?How long it will take to recover ?What activities you should avoid and when you can return to your normal activities ?How to take care of yourself at home ?What symptoms or problems you should watch for and what to do if you have them -Make sure you know when you should come back for a checkup. How can I help prevent atrial fibrillation? The best prevention is to have a heart-healthy lifestyle. -Keep a healthy weight. -Eat a healthy diet that is low in sodium and saturated and trans fat. -Stay fit with the right kind of exercise for you. -Decrease stress. -Don?t smoke. -Limit your use of alcohol. If you have heart disease or high blood pressure, follow your healthcare provider's instructions for treatment. Developed by [employer]. Published by [employer]. Copyright ?2014 [employer] and/or one of its subsidiaries. All rights reserved. PROGRESS Observed: 05/16/2017 Status: COMPLETED Source: [place] 3:36 PM [facility] REPOSITORY O ID: [id number] Author: Reginald Rojo Service: (none) Author Type: Physician Type: Progress Notes Filed: 05/16/2017 3:42 PM Note Text: This note was created using Software [employer]. Subjective Bella Gan is a 72 year old female here for follow up. Her anxiety was stable. Her alprazolam refills were current. She indicated that since her atrial fibrillation was controlled, her need for alprazolam was less. I had increased her quantity of tablets the last visit. She requested a note indicating her pet dog was her emotional systems test technician. Her dog helped calm her down and motivated her to stay active. Her diarrhea resolved. Her cardiac issues were being further evaluated for consideration of EP study, ablation, and other interventions. Review of Systems Constitutional: Negative. Respiratory: Negative. Cardiovascular: Negative. Psychiatric/Behavioral: Negative. Objective BP 98/64 Pulse 77 Temp 36.3 ?C (97.4 ?F) (Tympanic) Resp 16 Wt 59.6 kg (131 lb 6.4 oz) BMI 21.87 kg/m2 Physical Exam Constitutional: No distress. Psychiatric: She has a normal mood and affect. Her behavior is normal. ASSESSMENT/PLAN: 1. Diarrhea, unspecified type - ICD9: 787.91, ICD10: R19.7 (primary diagnosis) Resolved. 2. Gastroesophageal reflux disease, esophagitis presence not specified - ICD9: 530.81, ICD10: K21.9 Controlled. 3. Generalized anxiety disorder - ICD9: 300.02, ICD10: F41.1 Controlled. Letter for systems test technician dog made. 4. Osteopenia, unspecified location - ICD9: 733.90, ICD10: M85.80 - BMD reviewed. - Reviewed the need for Calcium and Vitamin D supplements and weight bearing exercise as tolerated 15 minutes was spent, all for discussion and care coordination. Reginald Rojo MD CNOV Observed: 05/16/2017 Status: COMPLETED Source: [place] 2:20 PM [facility] REPOSITORY Office Visit ([facility]) BELLA GAN ([id number]) 1945 F Date Time Provider Department 05/16/17 2:20 PM REGINALD ROJO IN[facility] During your visit today, we recorded the following information about you: Temperature Pulse Respiration Blood pressure 97.4 degrees 77/minute 16/minute 98/64 Weight 59.6 kg Reginald Rojo MD 05/16/2017 3:42 PM Signed This note was created using [employer]. Subjective Bella Gan is a 72 year old female here for follow up. Her anxiety was stable. Her alprazolam refills were current. She indicated that since her atrial fibrillation was controlled, her need for alprazolam was less. I had increased her quantity of tablets the last visit. She requested a note indicating her pet dog was her emotional systems test technician. Her dog helped calm her down and motivated her to stay active. Her diarrhea resolved. Her cardiac issues were being further evaluated for consideration of EP study, ablation, and other interventions. Review of Systems Constitutional: Negative. Respiratory: Negative. Cardiovascular: Negative. Psychiatric/Behavioral: Negative. Objective BP 98/64 Pulse 77 Temp 36.3 ?C (97.4 ?F) (Tympanic) Resp 16 Wt 59.6 kg (131 lb 6.4 oz) BMI 21.87 kg/m2 Physical Exam Constitutional: No distress. Psychiatric: She has a normal mood and affect. Her behavior is normal. ASSESSMENT/PLAN: 1. Diarrhea, unspecified type - ICD9: 787.91, ICD10: R19.7 (primary diagnosis) Resolved. 2. Gastroesophageal reflux disease, esophagitis presence not specified - ICD9: 530.81, ICD10: K21.9 Controlled. 3. Generalized anxiety disorder - ICD9: 300.02, ICD10: F41.1 Controlled. Letter for systems test technician dog made. 4. Osteopenia, unspecified location - ICD9: 733.90, ICD10: M85.80 - BMD reviewed. - Reviewed the need for Calcium and Vitamin D supplements and weight bearing exercise as tolerated 15 minutes was spent, all for discussion and care coordination. Reginald Rojo MD Referring Provider: REGINALD ROJO [[id number]] Allergies As of Date: 05/16/2017 Noted Allergy Reaction CODEINE 12/21/2015 8 - GI Upset CORTISONE 12/21/2015 7 - Swelling 14 - Other: See Comments Comments: Caused A-fib DARVON (PROPOXYPHENE HCL) 12/21/2015 1 - Mental Status Change DIGOXIN 03/22/2017 5 - Intolerance GUAIFENESIN 12/21/2015 1 - Mental Status Change Comments: hallucinations HONEY 12/21/2015 2 - Rash 9 - Itching PROPRANOLOL 12/21/2015 14 - Other: See Comments Comments: Night terrors VERAPAMIL 12/21/2015 14 - Other: See Comments Comments: Palpitation, diaphoresis Date Reviewed: 05/16/2017 Reviewed by: Lili Tarango Remote Encoding Center Manager - Fully Assessed Reason for Visit: Recheck [92] Cmt: 3 month F/U Primary Visit Diagnosis:Diarrhea, unspecified type [R19.7] Other Visit Diagnoses:Gastroesophageal reflux disease, esophagitis presence not specified [K21.9] Generalized anxiety disorder [F41.1] Osteopenia, unspecified location [M85.80] Prescriptions as of 05/16/2017 Sig: ALPRAZOLAM 0.5 MG TABLET Take 1 tablet by mouth twice * MYLANTA ORAL Take by mouth as needed. 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 Anticoagulant-induced bleeding (HCC) [T45.7X1A,* 05/16/2017 More... Rheumatic heart disease [I09.9] Mitral valve regurgitation [I34.0] More... Persistent atrial fibrillation (HCC) [I48.1] Tachycardia [R00.0] 02/14/2017 More... Gastroesophageal reflux disease [K21.9] INVALID FOR* Osteopenia [M85.80] INVALID FOR* Medications Discontinued During This Encounter ondansetron orally disintegrating (Z* 02/12/2017 05/16/2017 Class: Historical Med Route: ORAL Sig: Take 4 mg by mouth every 8 hours as needed for Nausea/Vomiting - First Line. Disc: Reason for discontinue is not on file. Disposition: Return in about 5 months (around 10/16/2017). Follow-up and Disposition History Recorded Letter Text [facility] [address], [place] [address] May 16, 2017 [facility] Attention: Winder Operator. Dear Madam Bella Gan is my patient. Her pet dog of 14 years is her systems test technician and emotional support. Her emotional condition is stable. Your assistance for her in this regard will be much appreciated. Sincerely, Reginald Rojo MD Encounter Status:Closed by REGINALD ROJO MD on 05/16/17 CNPTOUTRDESTINY Observed: 05/01/2017 Status: COMPLETED Source: [place] 12:00 AM [facility] REPOSITORY Patient Outreach (FAMPST) NGOZIBELLA Cazares ([id number]) 1945 F Date Time Provider Department 05/01/17 REGINALD ROJO During your visit today, we recorded the following information about you: Allergies As of Date: 05/01/2017 Noted Allergy Reaction CODEINE 12/21/2015 8 - GI Upset CORTISONE 12/21/2015 7 - Swelling 14 - Other: See Comments Comments: Caused A-fib DARVON (PROPOXYPHENE HCL) 12/21/2015 1 - Mental Status Change DIGOXIN 03/22/2017 5 - Intolerance GUAIFENESIN 12/21/2015 1 - Mental Status Change Comments: hallucinations HONEY 12/21/2015 2 - Rash 9 - Itching PROPRANOLOL 12/21/2015 14 - Other: See Comments Comments: Night terrors VERAPAMIL 12/21/2015 14 - Other: See Comments Comments: Palpitation, diaphoresis Date Reviewed: 04/03/2017 Reviewed by: Karlie Rasheed MA - Fully Assessed Visit Diagnosis:Medication management [Z79.899] Order(s):TSH BLD [SQTSH] Order #: [id number] FUTURE Prescriptions as of 05/01/2017 Sig: X ALPRAZOLAM 0.5 MG TABLET Take 1 tablet by mouth twice * AMIODARONE 200 MG TABLET Take 1 tablet by mouth once d* X MYLANTA ORAL Take 1 Dose by mouth as neede* X ONDANSETRON 4 MG DISINTEGRATI* Take 4 mg by mouth every 8 ho* X FAMOTIDINE 20 MG TABLET Take 1 tablet by mouth twice * Patient not taking: Reported on 08/10/2017 X CARVEDILOL 12.5 MG TABLET Take 6.25 mg by mouth twice d* X MOMETASONE 0.1 % TOPICAL CREAM Apply 1 application to affect* Patient not taking: Reported on 10/17/2017 FUROSEMIDE 20 MG TABLET Take 1 tablet by mouth once d* RIVAROXABAN 20 MG TABLET Take 1 tablet by mouth daily * LEVOTHYROXINE 88 MCG TABLET Take 1 tablet by mouth once d* POTASSIUM CHLORIDE ER 20 MEQ * Take 1 tablet by mouth twice * Problem List As Of Date 05/01/2017 Noted Resolved PSVT (paroxysmal supraventricular tachycardia) *INVALID FOR* 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 Anticoagulant-induced bleeding (HCC) [T45.7X1A,* More... Rheumatic heart disease [I09.9] Mitral valve regurgitation [I34.0] More... Persistent atrial fibrillation (HCC) [I48.1] Tachycardia [R00.0] 02/14/2017 More... Gastroesophageal reflux disease [K21.9] INVALID FOR* Encounter Status:Closed by TAWANDA COBURN on 12/21/17 BD DXA - AXIAL Observed: 04/16/2017 Status: F Source: [place] 2:10 PM [facility] [place] REPOSITORY * * *Final Report* * * DATE OF EXAM: Apr 16 2017 2:10PM [facility] [id number] - BD DXA - AXIAL SKELETON B / PROCEDURE REASON: Encounter for screening for osteoporosis * * * * Physician Interpretation * * * * PROCEDURE: BD DXA - AXIAL SKELETON INDICATION: Encounter for screening for osteoporosis TECHNIQUE: Low dose AP spine and hip images COMPARISON: LUMBAR SPINE: The bone mineral density from L1 through L4 is 0.809 grams per square centimeter which yields a T-score of -2.2. . LEFT HIP: The bone mineral density of the total region of the hip is 0.831 grams per square centimeter which yields a T-score of -0.9. . LEFT FEMORAL NECK: The bone mineral density of the femoral neck is 0.655 grams per square centimeter which yields a T-score of -1.7. . RIGHT HIP: The bone mineral density of the total region of the hip is 0.806 grams per square centimeter which yields a T-score of -1.1. . RIGHT FEMORAL NECK: The bone mineral density of the femoral neck is 0.648 grams per square centimeter which yields a T-score of -1.8. . 10-year Fracture Risk (FRAX): Major osteoporotic fracture risk 11% Hip fracture risk 2.4% IMPRESSION: Osteopenia in the lumbar spine and both hips. [facility] ORG. CLASSIFICATION OF BONE MASS CLASSIFICATION T-SCORE Normal Greater than -1 Low Bone Mass Between -1 and -2.5 (Osteopenia) Osteoporosis Less than or equal to -2.5 Playroom Attendant: ELIDA Transcribe Date/Time: Apr 16 2017 8:55P Dictated by : AGUSTIN DEY MD This examination was interpreted and the report reviewed and electronically signed by: AGUSTIN DEY MD on Apr 16 2017 8:55PM EST [id number] PROGRESS Observed: 04/16/2017 Status: COMPLETED Source: [place] 1:56 PM [facility] REPOSITORY HNO ID: [id number] Author: Angi De Service: (none) Author Type: (none) Type: Progress Notes Filed: 04/16/2017 2:10 PM Note Text: Bella Gan April 16, 2017 [id number] Double identification: Patient identified by name and Bone Density Completed. Angi Clifton Rt patient told of radiation jk 2:00pm not HISTORY PHYSICAL Observed: 04/03/2017 Status: COMPLETED Source: [place] 1:30 PM [facility] REPOSITORY HNO ID: [id number] Author: Leydi Real Service: (none) Author Type: Nurse Practitioner Type: HANDP Filed: 04/03/2017 2:55 PM Note Text: Bella Gan a 71 year old female who is a consultation requested by Dr. Rojo for an opinion regarding GERD symptoms and altered bowel habits. My final recommendations will be communicated back to the requesting physician by way of shared Medical record. The patient has not been seen previously. The patient denies a family history of colon cancer. The patient was seen by Darrel on 02/13/17, leading to this consultation. That note has been reviewed and part as follows: She started having abdominal bloating and liquid non bloody diarrhea a few weeks ago. She went to the ER 3 times. On , labs were normal, CT of abdomen and pelvis showed no acute disease, and stool for enteric pathogens were negative. On Feb.10 she went back to the ER with diarrhea and acid reflux symptoms. US of her gallbladder showed no acute cholecystitis. Prilosec was prescribed which made her more nauseated so she stopped. On Feb.12 she was reevaluated. Ova and parasites were negative. She was referred to Dr. Almanza. She called today and was advised to get a referral from here. She had no contact with any one ill, no hospital stay, no ECF visit, no unusual travel. She felt she got ill after eating fried chicken but symptoms have persisted after 2 weeks. She had no recent antibiotic use. Component Latest Ref Rng AND Units 02/14/2017 C. difficile PCR Negative for C. difficile toxin by PCR The patient had a follow up with Dr. Rojo on 03/22/17: here for follow up. Diarrhea was now intermittent. GI evaluation was postponed due to hospitalization. She was admitted Feb.17- for presumed digoxin toxicity with nausea and vomiting. She was in the ER for rapid atrial fibrillation treated with IV Cardizem. She had cardioversion on Mar.13. Presenting complaint: The patient presents today reporting diarrhea now and then. Nothing as bad as it was. Stools are not urgent. Some stools are all diarrhea - for which she will take Imodium. She tells me my stools were like water back after and in February. She initially thought it was due to something she ate. No blood. She reports having hemorrhoids. No nocturnal stooling. The patient tells me I take Imodium. If I take it I won't have a bowel movement for a few days. Then, I have to take Colace to get things moving again. She tells me that she had taken Benefiber in the past. Not sure why she stopped taking it, but is willing to resume it. The patient initially denies abdominal pain or cramping. She tells me that she has gallstones and sometimes has a pain up under her ribs that seems to be related to eating. The patient has never had a colonoscopy. The patient uses milk on her cereal. She loves ice cream. No bloating or altered bowel after consuming it. The patient has Pepcid, to take as needed. She tells me that she takes it once or twice a week, at the most. Last 10 Encounter Wt Readings: Date: Wt: 04/03/2017 59.4 kg (131 lb) 03/22/2017 59.9 kg (132 lb) 02/13/2017 62.1 kg (137 lb) 09/19/2016 66.9 kg (147 lb 6.4 oz) 07/12/2016 67.6 kg (149 lb) 03/22/2016 66.2 kg (146 lb) 12/21/2015 64.9 kg (143 lb) REVIEW OF SYSTEMS: GENERAL: Weight loss RESPIRATORY: Negative for cough, hemoptysis, wheezing, COPD, dyspnea or shortness of breath CARDIOVASCULAR: Positive for mitral valve repair and A fib. She has had an oblation. She sees Dr. Lauren at [facility]. She will be seeing Dr. Flores at [facility] on May 23. GI: The patient states that her appetite has been adequate. She does get hungry. There has been no nausea, no vomiting. She denies dysphagia and denies odynophagia. There has occasionally been indigestion or heartburn. There has not been regurgitation. Bowel habits have been irregular. There has been diarrhea. There has not been constipation. The patient denies rectal bleeding. There has not been melena. No abdominal pain. HEMATOLOGY/LYMPHOLOGY Taking Xarelto due to A fib. ENDOCRINE: Hypothyroid - taking levothyroxin. NEURO: No history of headaches, syncope, paralysis, seizures or tremors All other reviewed and negative other than HPI. 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 12/21/2015 - halfway current use of 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 therapy 12/21/2015 - Mitral valve prolapse 12/21/2015 - Mitral valve regurgitation s/p MV repair at [facility] 09/2001 - Palpitations - Paroxysmal atrial fibrillation (HCC) 12/21/2015 - Persistent atrial fibrillation (HCC) - PSVT (paroxysmal supraventricular tachycardia) (HCC) 12/21/2015 - Rheumatic heart disease - 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 - Tachycardia rapid ventricular response rates to ongoing AF - Takotsubo syndrome 12/21/2015 PAST SURGICAL HISTORY Procedure Laterality Date - CARDIAC CATH 01/19/2016 no significant CAD; LVEF 65% intact MV repair with no evidence for MR - CARDIOVERSION, ELECTIVE, ELECTRICAL 03/13/2017 successful christianity of sinus rhythm from atrial fibrillation; [facility] - CARDIOVERSION, ELECTIVE, ELECTRICAL 2001 - CATARACT EXTRACTION HX - ECHOCARDIOGRAM 09/2001 - ECHOCARDIOGRAM 12/2001 - ECHOCARDIOGRAM 03/01/2015 - ECHOCARDIOGRAM 12/02/2015 LVEF 60%; severe LAE, LAV 70.9 ml; mild to moderate MR - HYSTERECTOMY HX JAMILA, [facility] - MITRAL VALVE SURGERY HX 09/18/2001 robotically assisted minimally invasive mitral valve repair with annuloplasty ring; [facility] - RIGHT AND LEFT HEART CATH 04/11/2001 LVEF 60%; moderately severe MR; mild diastolic dysfxn; no significant CAD; [facility] - STRESS ECHO 12/08/2015 95% MPHR; LVEF 65%; severe LAE; wide-complex rhythm at peak exercise, aberrantly conducted AF vs. VT - STRESS TEST NUCLEAR 12/2001 - ALAN 2000 - THORACENTESIS - TUBAL LIGATION HX FAMILY HISTORY Problem Relation Age of Onset - Breast Cancer Sister - Cancer Mother pancreatic - Emphysema Father - Heart Father - Heart Brother - Heart Brother - Heart Brother - Heart Sister heart valve problem - Stroke Sister Current Outpatient Prescriptions: MAGNESIUM, ALUMINUM HYDROXIDE (MYLANTA ORAL) Take by mouth as needed. Disp: Rfl: amiodarone (PACERONE) 200 mg tablet Take 1 tablet by mouth twice daily. Disp: Rfl: ALPRAZolam (XANAX) 0.5 mg tablet Take 1 tablet by mouth at bedtime as needed for Anxiety for up to 30 days. Disp: 30 tablet Rfl: 0 ondansetron orally disintegrating (ZOFRAN ODT) 4 mg disintegrating tablet Take 4 mg by mouth every 8 hours as needed for Nausea/Vomiting - First Line. Disp: Rfl: famotidine (PEPCID) 20 mg tablet Take 1 tablet by mouth twice daily as needed (acid reflux). Disp: Rfl: carvedilol (COREG) 12.5 mg tablet Take 6.25 mg by mouth twice daily. Per Dr. Lauren Disp: Rfl: mometasone (ELOCON) 0.1 % cream Apply 1 application to affected area once daily as needed (leg eczema). Disp: 30 g Rfl: 0 furosemide (LASIX) 20 mg tablet Take 1 tablet by mouth once daily. Disp: Rfl: 0 rivaroxaban (XARELTO) 20 mg tablet Take 1 tablet by mouth daily with dinner. Disp: Rfl: 0 levothyroxine (LEVOXYL) 88 mcg tablet Take 1 tablet by mouth once daily. Take on empty stomach. For Thyroid Disp: Rfl: 0 potassium chloride ER (K-DUR, KLOR-CON) 20 mEq tablet Take 1 tablet by mouth twice daily. Disp: Rfl: 0 No current facility-administered medications for this visit. SOCIAL HISTORY: Patient is . She quit smoking in 1969 and reports her alcohol use as never. PHYSICAL EXAMINATION: Blood pressure 119/73, pulse 86, height 165.1 cm (5' 5), weight 59.4 kg (131 lb). General Appearance: Well appearing, alert, in no acute distress. Skin: Skin color, texture, turgor normal, no suspicious rashes or lesions. Eyes: Anicteric sclera. Pupils are equally round and reactive to light. Extraocular movements are intact. Oropharynx: Lips, mucosa, and tongue normal,oropharynx normal. Neck: Supple, no adenopathy. Lungs: Lungs clear to auscultation. No wheezing, rhonchi, rales. Heart: RRR without murmur. Abdomen: Bowel sounds normal. Abdomen soft. point tenderness (2 fingers) at right lower rib border. Non-tender otherwise. No masses, organomegaly. Extremities: No deformities, edema, skin discoloration. Peripheral Pulses: Normal. Neurologic: Gait normal. Reflexes normal and symmetric. Sensation grossly intact. Impression: altered bowel habits 2)point tenderness RUQ The patient had a CT 02/06 showing a normal liver and gallstones without evidence of acute cholecystitis. She had a RUQ US on 02/10/17 That showed the cholelithiasis without evidence of cholecystitis. Plan: The patient declines any procedure until after she sees the slot floor supervisor in May. She is agreeable to resuming Benefiber. She may continue the probiotics or Activia. She may use Imodium, if needed. She agrees brenda follow up with me on 05/15, but will contact us with any concerns in the mean time. I have personally interviewed and examined this patient. I have reviewed the information that the MA entered for this encounter. Greater than 30 minutes total time used this visit to review old chart, review new information, update current history and evaluate patient. A majority of the time was spent in discussion and counseling to formulate the plan. Leydi Real RN DRILL SETUP OPERATOR CNOV Observed: 04/03/2017 Status: COMPLETED Source: [place] 1:20 PM [facility] REPOSITORY [facility] BELLA GAN ([id number]) 1945 F Date Time Provider Department 04/03/17 1:20 PM LEYDI REAL (DAIRY EQUIPMENT REPAIRER) [facility] During your visit today, we recorded the following information about you: Pulse Blood pressure Weight Height 86/minute 119/73 59.4 kg 1.651 m Leydi Real RN CNP 04/03/2017 2:55 PM Signed Bella Gan a 71 year old female who is a consultation requested by Dr. Rojo for an opinion regarding GERD symptoms and altered bowel habits. My final recommendations will be communicated back to the requesting physician by way of shared Medical record. The patient has not been seen previously. The patient denies a family history of colon cancer. The patient was seen by Darrel on 02/13/17, leading to this consultation. That note has been reviewed and part as follows: She started having abdominal bloating and liquid non bloody diarrhea a few weeks ago. She went to the ER 3 times. On , labs were normal, CT of abdomen and pelvis showed no acute disease, and stool for enteric pathogens were negative. On Feb.10 she went back to the ER with diarrhea and acid reflux symptoms. US of her gallbladder showed no acute cholecystitis. Prilosec was prescribed which made her more nauseated so she stopped. On Feb.12 she was reevaluated. Ova and parasites were negative. She was referred to Dr. Almanza. She called today and was advised to get a referral from here. She had no contact with any one ill, no hospital stay, no ECF visit, no unusual travel. She felt she got ill after eating fried chicken but symptoms have persisted after 2 weeks. She had no recent antibiotic use. Component Latest Ref Rng ANDamp; Units 02/14/2017 C. difficile PCR Negative for C. difficile toxin by PCR The patient had a follow up with Dr. Rojo on 03/22/17: here for follow up. Diarrhea was now intermittent. GI evaluation was postponed due to hospitalization. She was admitted Feb.17- for presumed digoxin toxicity with nausea and vomiting. She was in the ER for rapid atrial fibrillation treated with IV Cardizem. She had cardioversion on Mar.13. Presenting complaint: The patient presents today reporting diarrhea ANDquot;now and then. Nothing as bad as it wasANDquot;. Stools are not urgent. Some stools are all diarrhea - for which she will take Imodium. She tells me ANDquot;my stools were like water back after and in FebruaryANDquot;. She initially thought it was due to something she ate. No blood. She reports having hemorrhoids. No nocturnal stooling. The patient tells me ANDquot;I take Imodium. If I take it I won't have a bowel movement for a few days. Then, I have to take Colace to get things moving again. She tells me that she had taken Benefiber in the past. Not sure why she stopped taking it, but is willing to resume it. The patient initially denies abdominal pain or cramping. She tells me that she has gallstones and sometimes has a pain up under her ribs that seems to be related to eating. The patient has never had a colonoscopy. The patient uses milk on her cereal. She loves ice cream. No bloating or altered bowel after consuming it. The patient has Pepcid, to take as needed. She tells me that she takes it once or twice a week, at the most. Last 10 Encounter Wt Readings: Date: Wt: 04/03/2017 59.4 kg (131 lb) 03/22/2017 59.9 kg (132 lb) 02/13/2017 62.1 kg (137 lb) 09/19/2016 66.9 kg (147 lb 6.4 oz) 07/12/2016 67.6 kg (149 lb) 03/22/2016 66.2 kg (146 lb) 12/21/2015 64.9 kg (143 lb) REVIEW OF SYSTEMS: GENERAL: Weight loss RESPIRATORY: Negative for cough, hemoptysis, wheezing, COPD, dyspnea or shortness of breath CARDIOVASCULAR: Positive for mitral valve repair and A fib. She has had an oblation. She sees Dr. Lauren at [facility]. She will be seeing Dr. Flores at [facility] on May 23. GI: The patient states that her appetite has been adequate. She does get hungry. There has been no nausea, no vomiting. She denies dysphagia and denies odynophagia. There has occasionally been indigestion or heartburn. There has not been regurgitation. Bowel habits have been irregular. There has been diarrhea. There has not been constipation. The patient denies rectal bleeding. There has not been melena. No abdominal pain. HEMATOLOGY/LYMPHOLOGY Taking Xarelto due to A fib. ENDOCRINE: Hypothyroid - taking levothyroxin. NEURO: No history of headaches, syncope, paralysis, seizures or tremors All other reviewed and negative other than HPI. 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 12/21/2015 - halfway current use of 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 therapy 12/21/2015 - Mitral valve prolapse 12/21/2015 - Mitral valve regurgitation s/p MV repair at [facility] 09/2001 - Palpitations - Paroxysmal atrial fibrillation (HCC) 12/21/2015 - Persistent atrial fibrillation (HCC) - PSVT (paroxysmal supraventricular tachycardia) ([facility]) 12/21/2015 - Rheumatic heart disease - 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 - Tachycardia rapid ventricular response rates to ongoing AF - Takotsubo syndrome 12/21/2015 PAST SURGICAL HISTORY Procedure Laterality Date - CARDIAC CATH 01/19/2016 no significant CAD; LVEF 65% intact MV repair with no evidence for MR - CARDIOVERSION, ELECTIVE, ELECTRICAL 03/13/2017 successful christianity of sinus rhythm from atrial fibrillation; [facility] - CARDIOVERSION, ELECTIVE, ELECTRICAL 2001 - CATARACT EXTRACTION HX - ECHOCARDIOGRAM 09/2001 - ECHOCARDIOGRAM 12/2001 - ECHOCARDIOGRAM 03/01/2015 - ECHOCARDIOGRAM 12/02/2015 LVEF 60%; severe LAE, LAV 70.9 ml; mild to moderate MR - HYSTERECTOMY HX JAMILA, BSO - MITRAL VALVE SURGERY HX 09/18/2001 robotically assisted minimally invasive mitral valve repair with annuloplasty ring; [facility] - RIGHT ANDamp; LEFT HEART CATH 04/11/2001 LVEF 60%; moderately severe MR; mild diastolic dysfxn; no significant CAD; [facility] - STRESS ECHO 12/08/2015 95% MPHR; LVEF 65%; severe LAE; wide-complex rhythm at peak exercise, aberrantly conducted AF vs. VT - STRESS TEST NUCLEAR 12/2001 - ALAN 2000 - THORACENTESIS - TUBAL LIGATION HX FAMILY HISTORY Problem Relation Age of Onset - Breast Cancer Sister - Cancer Mother pancreatic - Emphysema Father - Heart Father - Heart Brother - Heart Brother - Heart Brother - Heart Sister heart valve problem - Stroke Sister Current Outpatient Prescriptions: MAGNESIUM, ALUMINUM HYDROXIDE (MYLANTA ORAL) Take by mouth as needed. Disp: Rfl: amiodarone (PACERONE) 200 mg tablet Take 1 tablet by mouth twice daily. Disp: Rfl: ALPRAZolam (XANAX) 0.5 mg tablet Take 1 tablet by mouth at bedtime as needed for Anxiety for up to 30 days. Disp: 30 tablet Rfl: 0 ondansetron orally disintegrating (ZOFRAN ODT) 4 mg disintegrating tablet Take 4 mg by mouth every 8 hours as needed for Nausea/Vomiting - First Line. Disp: Rfl: famotidine (PEPCID) 20 mg tablet Take 1 tablet by mouth twice daily as needed (acid reflux). Disp: Rfl: carvedilol (COREG) 12.5 mg tablet Take 6.25 mg by mouth twice daily. Per Dr. Lauren Disp: Rfl: mometasone (ELOCON) 0.1 % cream Apply 1 application to affected area once daily as needed (leg eczema). Disp: 30 g Rfl: 0 furosemide (LASIX) 20 mg tablet Take 1 tablet by mouth once daily. Disp: Rfl: 0 rivaroxaban (XARELTO) 20 mg tablet Take 1 tablet by mouth daily with dinner. Disp: Rfl: 0 levothyroxine (LEVOXYL) 88 mcg tablet Take 1 tablet by mouth once daily. Take on empty stomach. For Thyroid Disp: Rfl: 0 potassium chloride ER (K-DUR, KLOR-CON) 20 mEq tablet Take 1 tablet by mouth twice daily. Disp: Rfl: 0 No current facility-administered medications for this visit. SOCIAL HISTORY: Patient is . She quit smoking in 1969 and reports her alcohol use as never. PHYSICAL EXAMINATION: Blood pressure 119/73, pulse 86, height 165.1 cm (5' 5ANDquot;), weight 59.4 kg (131 lb). General Appearance: Well appearing, alert, in no acute distress. Skin: Skin color, texture, turgor normal, no suspicious rashes or lesions. Eyes: Anicteric sclera. Pupils are equally round and reactive to light. Extraocular movements are intact. Oropharynx: Lips, mucosa, and tongue normal,oropharynx normal. Neck: Supple, no adenopathy. Lungs: Lungs clear to auscultation. No wheezing, rhonchi, rales. Heart: RRR without murmur. Abdomen: Bowel sounds normal. Abdomen soft. point tenderness (2 fingers) at right lower rib border. Non-tender otherwise. No masses, organomegaly. Extremities: No deformities, edema, skin discoloration. Peripheral Pulses: Normal. Neurologic: Gait normal. Reflexes normal and symmetric. Sensation grossly intact. Impression: altered bowel habits 2)point tenderness RUQ The patient had a CT 02/06 showing a normal liver and gallstones without evidence of acute cholecystitis. She had a RUQ US on 02/10/17 That showed the cholelithiasis without evidence of cholecystitis. Plan: The patient declines any procedure until after she sees the slot floor supervisor in May. She is agreeable to resuming Benefiber. She may continue the probiotics or Activia. She may use Imodium, if needed. She agrees brenda follow up with me on 3/6, but will contact us with any concerns in the mean time. I have personally interviewed and examined this patient. I have reviewed the information that the MA entered for this encounter. Greater than 30 minutes total time used this visit to review old chart, review new information, update current history and evaluate patient. A majority of the time was spent in discussion and counseling to formulate the plan. Leydi Real RN DRILL SETUP OPERATOR Leydi Real RN DRILL SETUP OPERATOR 04/03/2017 2:07 PM Signed Probiotics would be ok to take. Resume Benefiber, starting with a teaspoon daily. Gradually increase by the teaspoon monthly up to a couple tablespoons a day. Follow up me in 4-6 weeks. Sooner, if any problems. We can see if we can stave off the procedure until you see the slot floor supervisor in May. Procedures could be done at [facility]. Referring Provider: REGINALD ROJO [[id number]] Allergies As of Date: 04/03/2017 Noted Allergy Reaction CODEINE 12/21/2015 8 - GI Upset CORTISONE 12/21/2015 7 - Swelling 14 - Other: See Comments Comments: Caused A-fib DARVON (PROPOXYPHENE HCL) 12/21/2015 1 - Mental Status Change DIGOXIN 03/22/2017 5 - Intolerance GUAIFENESIN 12/21/2015 1 - Mental Status Change Comments: hallucinations HONEY 12/21/2015 2 - Rash 9 - Itching PROPRANOLOL 12/21/2015 14 - Other: See Comments Comments: Night terrors VERAPAMIL 12/21/2015 14 - Other: See Comments Comments: Palpitation, diaphoresis Date Reviewed: 04/03/2017 Reviewed by: Karlie Rasheed MA - Fully Assessed Reason for Visit: GERD/diarrhea [Other] Primary Visit Diagnosis:Altered bowel habits [R19.4] Other Visit Diagnosis:RUQ pain [R10.11] Prescriptions as of 04/03/2017 Sig: MYLANTA ORAL Take by mouth as needed. AMIODARONE 200 MG TABLET Take 1 tablet by mouth twice * ALPRAZOLAM 0.5 MG TABLET Take 1 tablet by mouth at bed* ONDANSETRON 4 MG DISINTEGRATI* Take 4 mg by mouth every 8 ho* FAMOTIDINE 20 MG TABLET Take 1 tablet by mouth twice * CARVEDILOL 12.5 MG TABLET Take 6.25 mg by mouth twice d* MOMETASONE 0.1 % TOPICAL CREAM Apply 1 application to affect* FUROSEMIDE 20 MG TABLET Take 1 tablet by mouth once d* RIVAROXABAN 20 MG TABLET Take 1 tablet by mouth daily * LEVOTHYROXINE 88 MCG TABLET Take 1 tablet by mouth once d* POTASSIUM CHLORIDE ER 20 MEQ * Take 1 tablet by mouth twice * Medication notes this encounter ONDANSETRON 4 MG DISINTEGRATING TABLET >> Karlie Rasheed MA 04/03/2017 1:21 PM >> KARLIE RASHEED MA Apr 03, 2017 1:21 PM Not taking Problem List As Of Date 04/03/2017 Noted Resolved PSVT (paroxysmal supraventricular tachycardia) *INVALID FOR* Rheumatic mitral insufficiency [I05.1] INVALID FOR* Mitral valve prolapse [I34.1] INVALID FOR* Paroxysmal atrial fibrillation (HCC) [I48.0] INVALID FOR*02/14/2017 History of mitral valve repair [Z98.890] INVALID FOR* Takotsubo syndrome [I51.81] INVALID FOR* halfway current use of 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 therapy *INVALID FOR* Generalized anxiety disorder [F41.1] INVALID FOR* Hypothyroidism [E03.9] INVALID FOR* Hearing loss [H91.90] INVALID FOR* Routine medical exam [Z00.00] INVALID FOR* More... Anticoagulant-induced bleeding (HCC) [T45.7X1A,* More... Rheumatic heart disease [I09.9] Mitral valve regurgitation [I34.0] More... Persistent atrial fibrillation (HCC) [I48.1] Tachycardia [R00.0] 02/14/2017 More... Gastroesophageal reflux disease [K21.9] INVALID FOR* Other instructions from your clinician: Probiotics would be ok to take. Resume Benefiber, starting with a teaspoon daily. Gradually increase by the teaspoon monthly up to a couple tablespoons a day. Follow up me in 4-6 weeks. Sooner, if any problems. We can see if we can stave off the procedure until you see the slot floor supervisor in May. Procedures could be done at [facility]. Disposition: Return in 6 weeks (on 05/15/2017) for 12:40 arrival . Follow-up and Disposition History Recorded Encounter Status:Closed by LEYDI REAL CNP on 04/03/17 OFFICE VISIT REPORT Observed: 04/01/2017 Status: F Source: [place] 12:53 PM [facility] [address] [place] [address] OFFICE VISIT Date of Service: 03/30/17 MR#: [id number] Acct: [id number] Patient: BELLA GAN V Rep #: [id number] : 1945 Provider: Mansi Boyle Age/Sex: 71/F Location: [facility] [place] Status: Signed Intake Intake Visit Reasons: s/p hospital DCCV Allergies codeine Allergy (Verified 03/12/17 02:40) Other cortisone Allergy (Verified 03/12/17 02:40) Rash guaifenesin Allergy (Verified 03/12/17 02:40) Unknown propoxyphene [From Darvon] Allergy (Verified 03/12/17 02:40) Rash propranolol Allergy (Verified 03/12/17 02:40) Unknown verapamil Allergy (Verified 03/12/17 02:40) Unknown digoxin Adverse Reaction (Verified 03/12/17 02:40) Unknown Medications ALPRAZolam [Xanax] 0.5 mg PO QHS 11/17/15 [History Confirmed 03/12/17] Furosemide [Lasix] 20 mg PO DAILY 11/17/15 [History Confirmed 03/12/17] Levothyroxine Sodium [Levoxyl] 88 mcg PO DAILY 01/18/16 [History Confirmed 03/12/17] Acetaminophen [Tylenol] 325 mg PO Q4H PRN 02/17/17 [History Confirmed 03/12/17] Xarelto 20 mg PO DAILY 02/17/17 [History Confirmed 03/12/17] potassium chloride ER 20 mEq tablet,extended release(part/cryst) 20 meq PO BID #180 tab 03/02/17 [Rx Confirmed 03/12/17] carvedilol 6.25 mg tablet 6.25 mg PO BID #180 tab 03/20/17 [Rx] amiodarone 200 mg tablet 200 mg PO QDAY #60 tab 03/30/17 [Rx Confirmed 03/30/17] Assessment AND Plan Orders Orders: Medications Changed: Nursing Note Patient in for EKG check s/p hospitalization and DCCV. EKG shows atrial fib, patient admits to feeling better now that she is taking amiodoarone. States her atrial fib doesn't make her feel as jittery and anxious. Presently taking coreg 6.25mg twice daily and amiodarone 200mg daily. Scheduled to see EP at [facility] in May. Per Mansi Boyle, continue current meds. Patient will update us with symptoms. She did tell the patient she could call Dr Flores's office to get on their waitlist for an earlier appointment. Patient agrees. 04/01/17 1253 <Electronically signed by Mansi CHRISTIAN> Date Mansi CHRISTIAN Cosigner Signature: Date (if applicable) CC: Naomie Baker 12 LEAD EKG PERFORMED Observed: 03/30/2017 Status: F Source: [facility] 2:32 PM [facility] [place] REPOSITORY [facility] [address] [place] [address] 12 Lead EKG performed by [facility] 03/30/17 1431 MR#: [id number] Acct: [id number] Name: BELLA GAN V Rep #: [id number] : 1945 71 From: Mansi CHRISTIAN Attending Dr: Mansi Boyle Status: DEP AMB Ordering Dr: Mansi Boyle Date: 03/30/17 Location: [facility] [place] Sex: F C Admitted: BMS/12 Lead EKG performed by [facility] ECG Report Interpretation Atrial fibrillation Negative precordial T-waves ABNORMAL RHYTHMElectronically signed on 04/02/2017 at 15:30 by Philip Camacho 04/02/17 1531 Date Mansi CHRISTIAN CC: Reginald Rojo MD Date Dictated: 03/30/171430 Date Transcribed: 03/30/171430 Playroom Attendant: ROSHNI Signed PROGRESS Observed: 03/22/2017 Status: COMPLETED Source: [place] 10:23 AM [facility] [place] REPOSITORY [facility] ID: [id number] Author: Reginald Rojo Service: (none) Author Type: Physician Type: Progress Notes Filed: 03/22/2017 10:40 AM Note Text: This note was created using Together Mobileriter. Subjective Bella Gan is a 71 year old female was here for follow up. Diarrhea was now intermittent. GI evaluation was postponed due to hospitalization. She was admitted Feb.17- for presumed digoxin toxicity with nausea and vomiting. She was in the ER for rapid atrial fibrillation treated with IV Cardizem. She had cardioversion on Mar.13. She had panic attacks with atrial fibrillation and extra Xanax helped. She was hesitant to start maintenance medications for anxiety. ACTIVE PROBLEM LIST Psvt (Paroxysmal Supraventricular Tachycardia) (Hcc) Rheumatic Mitral Insufficiency Mitral Valve Prolapse History of Mitral Valve Repair Takotsubo Syndrome [place] Current Use of Anticoagulant Therapy Generalized Anxiety Disorder Hypothyroidism Hearing Loss Routine Medical Exam Anticoagulant-Induced Bleeding (Hcc) Rheumatic Heart Disease Mitral Valve Regurgitation Persistent Atrial Fibrillation (Hcc) Gastroesophageal Reflux Disease Current Outpatient Prescriptions: MAGNESIUM, ALUMINUM HYDROXIDE (MYLANTA ORAL) Take by mouth as needed. amiodarone (PACERONE) 200 mg tablet Take 1 tablet by mouth twice daily. ALPRAZolam (XANAX) 0.5 mg tablet Take 1 tablet by mouth at bedtime as needed for Anxiety for up to 30 days. ondansetron orally disintegrating (ZOFRAN ODT) 4 mg disintegrating tablet Take 4 mg by mouth every 8 hours as needed for Nausea/Vomiting - First Line. famotidine (PEPCID) 20 mg tablet Take 1 tablet by mouth twice daily as needed (acid reflux). carvedilol (COREG) 12.5 mg tablet Take 6.25 mg by mouth twice daily. Per Dr. Lauren mometasone (ELOCON) 0.1 % cream Apply 1 application to affected area once daily as needed (leg eczema). furosemide (LASIX) 20 mg tablet Take 1 tablet by mouth once daily. rivaroxaban (XARELTO) 20 mg tablet Take 1 tablet by mouth daily with dinner. levothyroxine (LEVOXYL) 88 mcg tablet Take 1 tablet by mouth once daily. Take on empty stomach. For Thyroid potassium chloride ER (K-DUR, KLOR-CON) 20 mEq tablet Take 1 tablet by mouth twice daily. No current facility-administered medications for this visit. Review of Systems Constitutional: Positive for unexpected weight change. Negative for fever. Respiratory: Negative. Cardiovascular: Negative. Gastrointestinal: Positive for diarrhea and nausea. Negative for abdominal pain. Genitourinary: Negative. Musculoskeletal: Positive for back pain. Psychiatric/Behavioral: The patient is nervous/anxious. Objective BP 88/54 (BP Site: Left Arm, BP Position: Sitting, BP Cuff Size: Regular Adult) Pulse (!) 56 Temp (!) 35.9 ?C (96.7 ?F) (Left Tympanic) Resp 16 Wt 59.9 kg (132 lb) BMI 21.97 kg/m2 Physical Exam Constitutional: No distress. Eyes: Conjunctivae are normal. Cardiovascular: Regular rhythm and normal heart sounds. No murmur heard. Pulmonary/Chest: Effort normal and breath sounds normal. Abdominal: Soft. There is no tenderness. Musculoskeletal: She exhibits no edema. ASSESSMENT/PLAN: 1. Diarrhea, unspecified type - ICD9: 787.91, ICD10: R19.7 (primary diagnosis) GI consult pending. 2. Persistent atrial fibrillation (HCC) - ICD9: 427.31, ICD10: I48.1 Cardioverted [address] Dr[address] Lauren. 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 4. Generalized anxiety disorder - ICD9: 300.02, ICD10: F41.1 Options discussed. I will increase Xanax by 15 tablets and change to BID prn. #45 per month. 5. Hypothyroidism, unspecified type - ICD9: 244.9, ICD10: E03.9 - continue current dose of Synthroid 6. Gastroesophageal reflux disease, esophagitis presence not specified - ICD9: 530.81, ICD10: K21.9 To see GI. - JULIANTA ORAL 7. Encounter for screening for osteoporosis - ICD9: V82.81, ICD10: Z13.820 Patient indicated understanding and willingness to follow recommendations. - DXA-AXIAL SKELETON She declined immunizations at this time due to diarrheal illness. Reginald Rojo MD CNOV Observed: 03/22/2017 Status: COMPLETED Source: [place] 9:20 AM [facility] REPOSITORY Office Visit (INTMWS) BELLA AGN ([id number]) 1945 F Date Time Provider Department 03/22/17 9:20 AM REGINALD ROJO INTMWS During your visit today, we recorded the following information about you: Temperature Pulse Respiration Blood pressure 96.7 degrees 56/minute 16/minute 88/54 Weight 59.9 kg Reginald Rojo MD 03/22/2017 10:40 AM Signed This note was created using Together Mobileriter. Subjective Bella Gan is a 71 year old female was here for follow up. Diarrhea was now intermittent. GI evaluation was postponed due to hospitalization. She was admitted Feb.17 for presumed digoxin toxicity with nausea and vomiting. She was in the ER for rapid atrial fibrillation treated with IV Cardizem. She had cardioversion on Mar.13. She had panic attacks with atrial fibrillation and extra Xanax helped. She was hesitant to start maintenance medications for anxiety. ACTIVE PROBLEM LIST Psvt (Paroxysmal Supraventricular Tachycardia) (Hcc) Rheumatic Mitral Insufficiency Mitral Valve Prolapse History of Mitral Valve Repair Takotsubo Syndrome [facility] Current Use of Anticoagulant Therapy Generalized Anxiety Disorder Hypothyroidism Hearing Loss Routine Medical Exam Anticoagulant-Induced Bleeding (Hcc) Rheumatic Heart Disease Mitral Valve Regurgitation Persistent Atrial Fibrillation (Hcc) Gastroesophageal Reflux Disease Current Outpatient Prescriptions: MAGNESIUM, ALUMINUM HYDROXIDE (MYLANTA ORAL) Take by mouth as needed. amiodarone (PACERONE) 200 mg tablet Take 1 tablet by mouth twice daily. ALPRAZolam (XANAX) 0.5 mg tablet Take 1 tablet by mouth at bedtime as needed for Anxiety for up to 30 days. ondansetron orally disintegrating (ZOFRAN ODT) 4 mg disintegrating tablet Take 4 mg by mouth every 8 hours as needed for Nausea/Vomiting - First Line. famotidine (PEPCID) 20 mg tablet Take 1 tablet by mouth twice daily as needed (acid reflux). carvedilol (COREG) 12.5 mg tablet Take 6.25 mg by mouth twice daily. Per Dr. Lauren mometasone (ELOCON) 0.1 % cream Apply 1 application to affected area once daily as needed (leg eczema). furosemide (LASIX) 20 mg tablet Take 1 tablet by mouth once daily. rivaroxaban (XARELTO) 20 mg tablet Take 1 tablet by mouth daily with dinner. levothyroxine (LEVOXYL) 88 mcg tablet Take 1 tablet by mouth once daily. Take on empty stomach. For Thyroid potassium chloride ER (K-DUR, KLOR-CON) 20 mEq tablet Take 1 tablet by mouth twice daily. No current facility-administered medications for this visit. Review of Systems Constitutional: Positive for unexpected weight change. Negative for fever. Respiratory: Negative. Cardiovascular: Negative. Gastrointestinal: Positive for diarrhea and nausea. Negative for abdominal pain. Genitourinary: Negative. Musculoskeletal: Positive for back pain. Psychiatric/Behavioral: The patient is nervous/anxious. Objective BP 88/54 (BP Site: Left Arm, BP Position: Sitting, BP Cuff Size: Regular Adult) Pulse (!) 56 Temp (!) 35.9 ?C (96.7 ?F) (Left Tympanic) Resp 16 Wt 59.9 kg (132 lb) BMI 21.97 kg/m2 Physical Exam Constitutional: No distress. Eyes: Conjunctivae are normal. Cardiovascular: Regular rhythm and normal heart sounds. No murmur heard. Pulmonary/Chest: Effort normal and breath sounds normal. Abdominal: Soft. There is no tenderness. Musculoskeletal: She exhibits no edema. ASSESSMENT/PLAN: 1. Diarrhea, unspecified type - ICD9: 787.91, ICD10: R19.7 (primary diagnosis) GI consult pending. 2. Persistent atrial fibrillation (HCC) - ICD9: 427.31, ICD10: I48.1 Cardioverted recently [address] Dr[address] Lauren. 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 4. Generalized anxiety disorder - ICD9: 300.02, ICD10: F41.1 Options discussed. I will increase Xanax by 15 tablets and change to BID prn. #45 per month. 5. Hypothyroidism, unspecified type - ICD9: 244.9, ICD10: E03.9 - continue current dose of Synthroid 6. Gastroesophageal reflux disease, esophagitis presence not specified - ICD9: 530.81, ICD10: K21.9 To see GI. - MYLANTA ORAL 7. Encounter for screening for osteoporosis - ICD9: V82.81, ICD10: Z13.820 Patient indicated understanding and willingness to follow recommendations. - DXA-AXIAL SKELETON She declined immunizations at this time due to diarrheal illness. Reginald Rojo MD Referring Provider: REGINALD ROJO [[id number]] Allergies As of Date: 03/22/2017 Noted Allergy Reaction CODEINE 12/21/2015 8 - GI Upset CORTISONE 12/21/2015 7 - Swelling 14 - Other: See Comments Comments: Caused A-fib DARVON (PROPOXYPHENE HCL) 12/21/2015 1 - Mental Status Change DIGOXIN 03/22/2017 5 - Intolerance GUAIFENESIN 12/21/2015 1 - Mental Status Change Comments: hallucinations HONEY 12/21/2015 2 - Rash 9 - Itching PROPRANOLOL 12/21/2015 14 - Other: See Comments Comments: Night terrors VERAPAMIL 12/21/2015 14 - Other: See Comments Comments: Palpitation, diaphoresis Date Reviewed: 03/22/2017 Reviewed by: Fang Layne LPN - Fully Assessed Reason for Visit: F/U 3 Month [443] Primary Visit Diagnosis:Diarrhea, unspecified type [R19.7] Other Visit Diagnoses:Persistent atrial fibrillation (HCC) [I48.1] halfway current use of 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 therapy [Z79.01] Generalized anxiety disorder [F41.1] Hypothyroidism, unspecified type [E03.9] Gastroesophageal reflux disease, esophagitis presence not specified [K21.9] Encounter for screening for osteoporosis [Z13.820] Order(s):DXA-AXIAL SKELETON [[id number]] Order #: [id number] FUTURE Prescriptions as of 03/22/2017 Sig: MYLANTA ORAL Take by mouth as needed. AMIODARONE 200 MG TABLET Take 1 tablet by mouth twice * ALPRAZOLAM 0.5 MG TABLET Take 1 tablet by mouth at bed* ONDANSETRON 4 MG DISINTEGRATI* Take 4 mg by mouth every 8 ho* FAMOTIDINE 20 MG TABLET Take 1 tablet by mouth twice * CARVEDILOL 12.5 MG TABLET Take 6.25 mg by mouth twice d* MOMETASONE 0.1 % TOPICAL CREAM Apply 1 application to affect* FUROSEMIDE 20 MG TABLET Take 1 tablet by mouth once d* RIVAROXABAN 20 MG TABLET Take 1 tablet by mouth daily * LEVOTHYROXINE 88 MCG TABLET Take 1 tablet by mouth once d* POTASSIUM CHLORIDE ER 20 MEQ * Take 1 tablet by mouth twice * Medication notes this encounter DIGOXIN 250 MCG TABLET >> Fang Layne LPN 03/22/2017 9:26 AM >> FANG LAYNE LPN [facility] Mar 22, 2017 9:26 AM Patient not taking. Problem List As Of Date 03/22/2017 Noted Resolved PSVT (paroxysmal supraventricular tachycardia) *INVALID FOR* Rheumatic mitral insufficiency [I05.1] INVALID FOR* Mitral valve prolapse [I34.1] INVALID FOR* Paroxysmal atrial fibrillation (HCC) [I48.0] INVALID FOR*02/14/2017 History of mitral valve repair [Z98.890] INVALID FOR* Takotsubo syndrome [I51.81] INVALID FOR* halfway current use of 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 therapy *INVALID FOR* Generalized anxiety disorder [F41.1] INVALID FOR* Hypothyroidism [E03.9] INVALID FOR* Hearing loss [H91.90] INVALID FOR* Routine medical exam [Z00.00] INVALID FOR* More... Anticoagulant-induced bleeding (HCC) [T45.7X1A,* More... Rheumatic heart disease [I09.9] Mitral valve regurgitation [I34.0] More... Persistent atrial fibrillation (HCC) [I48.1] Tachycardia [R00.0] 02/14/2017 More... Gastroesophageal reflux disease [K21.9] INVALID FOR* Medications Discontinued During This Encounter digoxin (DIGITEK) 250 mcg tablet 0 02/13/2017 03/22/2017 Class: Historical Med Route: ORAL Sig: Take 1 tablet by mouth once daily. Dr. Lauren Disc: Discontinued by another Health Care Provider Disposition: Return in about 3 months (around 06/20/2017), or if symptoms worsen or fail to improve. Follow-up and Disposition History Recorded Encounter Status:Closed by REGINALD ROJO MD on 03/22/17 OBSOLETE Observed: 03/19/2017 Status: COMPLETED Source: [place] 12:00 AM [facility] REPOSITORY Refill (INTMWS) BELLA GAN ([id number]) 1945 F Date Time Provider Department 03/19/17 REGINALD ROJO INTMWS During your visit today, we recorded the following information about you: Danuta Rees Psr 03/19/2017 10:50 AM Signed Patient has been identified by name and date of : Yes Pending Prescriptions Disp Refills ALPRAZOLAM 0.5 MG TABLET 30 tablet 5 Sig: Take 1 tablet by mouth at bedtime as needed for Anxiety. SIXTO Class: C-IV PABLITO: No RX INSTRUCTIONS: Patient aware RX will be sent to pharmacy. No need to notify patient. Danuta Rees Psr Fang Layne LPN 03/19/2017 1:29 PM Signed Patient has been identified by name and date of : Yes Patient phones for refill(s): Pending Prescriptions Disp Refills ALPRAZOLAM 0.5 MG TABLET 30 tablet 5 Sig: Take 1 tablet by mouth at bedtime as needed for Anxiety. SIXTO Class: C-IV PABLITO: No Date of last office visit in primary care: 02/13/2017 Last 2 Encounter Wt Readings: Date: Wt: 02/13/2017 62.1 kg (137 lb) 09/19/2016 66.9 kg (147 lb 6.4 oz) 3 month f/u with PCP scheduled 03/22/2017 Avelina Hendricks CNP 03/19/2017 3:07 PM Signed Patient's request for medication is as follows: Signed Prescriptions Disp Refills ALPRAZolam (XANAX) 0.5 mg tablet 30 tablet 0 Sig: Take 1 tablet by mouth at bedtime as needed for Anxiety for up to 30 days. SIXTO Class: C-IV PABLITO: No Authorizing Provider: AVELINA HENDRICKS) Prescription(s) printed as above. Please process accordingly. [facility] website checked and validated. All prescriptions have been APPROPRIATELY filled. No suspicious activity was identified.- 03/19/2017 by BRAN London Cma 03/19/2017 3:14 PM Signed The following prescriptions have been approved and faxed to [facility]: Signed Prescriptions Disp Refills ALPRAZolam (XANAX) 0.5 mg tablet 30 tablet 0 Sig: Take 1 tablet by mouth at bedtime as needed for Anxiety for up to 30 days. SIXTO Class: C-IV PABLITO: No Authorizing Provider: AVELINA HENDRICKS) Tl Velásquez Cma Allergies As of Date: 03/19/2017 Noted Allergy Reaction CODEINE 12/21/2015 8 - GI Upset CORTISONE 12/21/2015 7 - Swelling 14 - Other: See Comments Comments: Caused A-fib DARVON (PROPOXYPHENE HCL) 12/21/2015 1 - Mental Status Change GUAIFENESIN 12/21/2015 1 - Mental Status Change Comments: hallucinations HONEY 12/21/2015 2 - Rash 9 - Itching PROPRANOLOL 12/21/2015 14 - Other: See Comments Comments: Night terrors VERAPAMIL 12/21/2015 14 - Other: See Comments Comments: Palpitation, diaphoresis Date Reviewed: 02/13/2017 Reviewed by: Tita Zapata LPN - Fully Assessed Reason for Visit: Refill Request [94] Cmt: Xanax Reason For Visit History Recorded Visit Diagnosis:Generalized anxiety disorder [F41.1] Order(s):ALPRAZolam (XANAX) 0.5 mg tabletTake 1 tablet by mouth at bedtime as needed for Anxiety for up to 30 days.Disp: 30 tabletRfl: 0 Prescriptions as of 03/19/2017 Sig: ALPRAZOLAM 0.5 MG TABLET Take 1 tablet by mouth at bed* DIGOXIN 250 MCG TABLET Take 1 tablet by mouth once d* ONDANSETRON 4 MG DISINTEGRATI* Take 4 mg by mouth every 8 ho* FAMOTIDINE 20 MG TABLET Take 1 tablet by mouth twice * CARVEDILOL 12.5 MG TABLET Take 1 tablet by mouth twice * MOMETASONE 0.1 % TOPICAL CREAM Apply 1 application to affect* FUROSEMIDE 20 MG TABLET Take 1 tablet by mouth once d* RIVAROXABAN 20 MG TABLET Take 1 tablet by mouth daily * LEVOTHYROXINE 88 MCG TABLET Take 1 tablet by mouth once d* POTASSIUM CHLORIDE ER 20 MEQ * Take 1 tablet by mouth twice * Problem List As Of Date 03/19/2017 Noted Resolved PSVT (paroxysmal supraventricular tachycardia) *INVALID FOR* 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 Anticoagulant-induced bleeding (HCC) [T45.7X1A,* More... Rheumatic heart disease [I09.9] Mitral valve regurgitation [I34.0] More... Persistent atrial fibrillation (HCC) [I48.1] Tachycardia [R00.0] 02/14/2017 More... Gastroesophageal reflux disease [K21.9] INVALID FOR* Prescriptions ordered this encounter Disp Refills Start End ALPRAZOLAM 0.5 MG TABLET 30 t* 0 03/19/2017 04/18/2017 Class: Print RX Route: ORAL Sig: Take 1 tablet by mouth at bedtime as needed for Anxiety for up to 30 days. Medications Discontinued During This Encounter ALPRAZolam (XANAX) 0.5 mg tablet 30 t* 5 09/18/2016 03/19/2017 Class: Print RX Route: ORAL Sig: Take 1 tablet by mouth at bedtime as needed for Anxiety. Disc: Reason for discontinue is not on file. Encounter Status:Closed by TL VELÁSQUEZ CMA on 03/19/17 CONSULTATION Observed: 03/15/2017 Status: F Source: [place] 10:42 AM [facility] REPOSITORY [facility] Medical Records Department [address] [place] [address] Consultation 03/12/17 1012 MR#: [id number] Acct: [id number] Name: BELLA GAN V Rep #: [id number] : 1945 71 From: Reji Matta MD PCP: Reginald Rojo MD Status: DIS IN Y Location: [place] [address] Reason for Consult Date of Consultation: 03/12/17 Reason for Consultation: Evaluation of irregular heartbeat. History of Present Illness: The patient is a 71 year old F with a history of mitral valve repair in 2001 other [facility], paroxysmal atrial fibrillation and previous history of takutsubo cardiomyopathy. She has had 2 presentations to the emergency room recently for palpitations and irregular heartbeat. You do remember that in January 2016 she underwent a cardiac catheterization which demonstrated essentially normal coronary arteries. In addition her ejection fraction was noted to be normal and this had been corroborated by a previous echocardiogram in November 2016 demonstrated an ejection fraction of 65%. 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 This was after she had been started on digoxin and she was noted to have presented with junctional rhythm when she was on Coreg and digoxin with an elevated digoxin level. The latter was discontinued and it appeared that she improved. She says that last night she started having episodes of palpitations again and so came into the emergency room was evaluated in the emergency room and noted to be in atrial fibrillation with a rate of 117 bpm she was administered intravenous Cardizem with significant slowing of her heart rate. It was felt that she should be admitted and observed for the above. In addition she has had multiple other complaints including her back and abdomen which appeared to be nonspecific. At this particular time she does not really feel her irregular heartbeat and denies any chest pain. She has not had any dizziness or diaphoresis no near syncope or syncope. [] Past Medical History Allergies/Adverse Reactions: Allergies codeine Allergy (Verified 03/12/17 02:40) Other cortisone Allergy (Verified 03/12/17 02:40) Rash guaifenesin Allergy (Verified 03/12/17 02:40) Unknown propoxyphene [From Darvon] Allergy (Verified 03/12/17 02:40) Rash propranolol Allergy (Verified 03/12/17 02:40) Unknown verapamil Allergy (Verified 03/12/17 02:40) Unknown digoxin Adverse Reaction (Verified 03/12/17 02:40) Unknown Home Medications: Ambulatory Orders Medication Instructions Recorded ALPRAZolam [Xanax] 0.5 mg PO QHS 11/17/15 Furosemide [Lasix] 20 mg PO DAILY 11/17/15 Past Medical History (Chronic Problems): Chronic Problems Paroxysmal A-fib (Chronic) Hypothyroidism (Chronic) Anxiety disorder (Chronic) - *Family History Sibling History Items: Heart Disease Smoking Status: Never smoker Alcohol: None Drugs: None Review of Systems - Review of Systems General: Denies: Fever, Night Sweats, Fatigue Cardiovascular: Reports: Palpitations. Denies: Chest Discomfort, Shortness of Breath, Orthopnea, PND, Peripheral Edema, Lightheadedness, Dizziness, Near Syncope, Syncope Respiratory: Denies: Cough, Sputum Production, Hemoptysis Gastrointestinal: Denies: Hematemesis, Hematochezia, Melena Genitourinary: Denies: Dysuria, Hematuria Skin: Denies: Rash Neurological: Denies: Dizziness Subjectve: Anxious lady in no apparent distress Objective: Vital Signs Temp Pulse Resp BP Pulse Ox 98.2 F 84 18 100/40 L 97 03/12/17 09:36 03/12/17 09:36 03/12/17 09:36 03/12/17 09:36 03/12/17 09:36 Oxygen Delivery Method Room Air Weight: 129 lb 6.581 oz Body Mass Index (BMI) 21.5 General: Awake, Alert, Oriented x 3 HEENT: PERRL, EOMI, Sclera Non Icteric Neck: Supple, Good ROM, No Lymph Node Enlargement Lungs: Clear to auscultation Cardiovascular: Irregular Rhythm, Normal S1, Normal S2, No Murmurs, No Rubs, No Gallops Vascular: No Carotid Bruits, Normal Femoral Pulses, Normal Radial Pulses, Normal Dorsalis Pedal Pulse, Normal Posterior Tibial Pulses Abdomen: Bowel Sounds Present, Soft, Non Tender, No HSM, No Organomegaly Extremities: No Cyanosis, No Clubbing, No edema Neurological: No Focal Motor or Sensory Deficit 03/12/17 06:40: Troponin I < 0.02 Rhythm: EKG: Atrial fibrillation with a rate of 117 bpm. ECHO: Preserved ejection fraction November 2016 EF estimated 65% Stress Test: Cardiac Cath: Normal coronary arteries January 2016 Assessment/Plan 1. Paroxysmal atrial fibrillation Patient appears to be anticoagulated at this time. Her ventricular response rate was uncontrolled. My recommendation is for her to continue on her current dose of Coreg. I will suggest the addition of a low dose of amiodarone while she gets her appointment to [facility] brought forward so she can be evaluated for possible ablation plus or minus permanent pacemaker implantation. She has had a previous history of hypothyroidism but this can be controlled in the short-term. Would like to watch her for a day also on the amiodarone and probably discharge her tomorrow with a 24-hour Holter monitor. This will enable us ascertain that she is not getting significantly bradycardic. 2. Mitral valve repair. The patient is status post mitral valve repair was 15 years ago. Most recent echocardiogram demonstrated adequate function of the mitral valve with minimal regurgitation. I do not think this is contributing to her paroxysmal atrial fibrillation. Thank you for allowing me to participate in the care of your patient. Please don't hesitate to call if any issues arise 03/15/17 1042 <Electronically signed by Reji Matta MD> Date Reji Matta MD Cosigner Signature (if applicable): Date CC: Reji Matta MD; Reginald Rojo MD Signed 12 LEAD ELECTROCARDIOGRAM Observed: 03/14/2017 Status: F Source: [place] 2:18 PM [facility] REPOSITORY [facility] Cardiovascular Services [address] [place] [address] 12 Lead EKG 03/12/17 0338 MR#: [id number] Acct: [id number] Name: BELLA GAN V Rep #: [id number] : 1945 71 From: Reji Matta MD Attending Dr: Lamberto De La Garza MD Status: DIS IN Ordering Dr: Reji Matat MD Date: 03/13/17 Location: [facility] Sex: F C Admitted: 03/12/17 Test Reason : Blood Pressure : / mmHG Vent. Rate : 068 BPM Atrial Rate : 187 BPM P-R Int : 000 ms QRS Dur : 086 ms QT Int : 420 ms P-R-T Axes : 000 049 054 degrees QTc Int : 446 ms Atrial fibrillation Abnormal ECG Confirmed by REJI MATTA MD ([id number]), editorial assistant CATHY DE LEON ([id number]) on 03/14/2017 2:17:39 PM Referred By: STEPHANIE Confirmed By:REJI MATTA MD 03/14/17 141 Date Reji Matta MD CC: Reginald Rojo MD Signed 12 LEAD ELECTROCARDIOGRAM Observed: 03/14/2017 Status: F Source: [place] 2:17 PM [facility] REPOSITORY [facility] Cardiovascular Services [address] [place] [id number] 12 Lead EKG 03/12/17 0215 MR#: [id number] Acct: [id number] Name: BELLA GAN V Rep #: [id number] : 1945 71 From: Reji Matta MD Attending Dr: Lamberto De La Garza MD Status: DIS IN Ordering Dr: Jack Gamez MD Date: 03/12/17 Location: [facility] Sex: F C Admitted: 03/12/17 Test Reason : BACK Blood Pressure : / mmHG Vent. Rate : 117 BPM Atrial Rate : 141 BPM P-R Int : 000 ms QRS Dur : 080 ms QT Int : 300 ms P-R-T Axes : 000 060 059 degrees QTc Int : 418 ms Atrial fibrillation Nonspecific ST abnormality Abnormal ECG Confirmed by REJI MATTA MD ([id number]), editorial assistant CATHY DE LEON ([id number]) on 03/14/2017 2:17:22 PM Referred By: STEPHANIE Confirmed By:REJI MATTA MD 03/14/17 1417 Date Reji Matta MD CC: Reginald Rojo MD Signed DISCHARGE SUMMARY Observed: 03/14/2017 Status: F Source: [place] 9:38 AM [facility] REPOSITORY [facility] Medical Records Department [address] [place] [address] Discharge Summary 03/14/17 0936 MR#: [id number] Acct: [id number] Name: BELLA GAN V Rep #: [id number] : 1945 71 From: Lamberto De La Garza MD PCP: Reginald Rojo MD Status: ADM IN Y Location: [place] [address] Discharge Date and Diagnosis - Problem List Patient Problems: Active and Suspected Problems Atrial fibrillation with RVR (Acute) Date of Admission: 03/12/17 Date of Discharge: 03/14/17 - Primary Discharge Diagnosis Active and Suspected Problems Atrial fibrillation with RVR (Acute) - Secondary Discharge Diagnosis Chronic Problems Paroxysmal A-fib (Chronic) Hypothyroidism (Chronic) Anxiety disorder (Chronic) Status post mitral valve repair (Chronic) Hospital Course and Treatment Imaging Results: Clinical Impression(s) from Imaging Studies Chest X-Ray 03/12/17 02:56 IMPRESSION: No acute cardiopulmonary abnormalities or changes. There is stable borderline enlargement of the cardiac silhouette. There is stable COPD. Electronically Signed: Heike Milian MD at 4:06 EST Tel Direct: [phone], Service support , Summary of Care Provided: T Patient is a 71-year-old lady with history of paroxysmal A. fib admitted with rapid ventricular response. Placed on a monitored bed with consultation placed to cardiology 1. Paroxysmal A. fib status post successful DC cardioversion by Dr. Matta on 03/13/17 patient currently on amiodarone as well as metoprolol with systemic anticoagulation with Xarelto 2. History of mitral valve repair 3. Cholelithiasis currently asymptomatic 4. Hypothyroidism-patient is on levothyroxine home dose continued 5. DVT prophylaxis on Xarelto 6. Dyspepsia: Patient is scheduled to follow up with Dr. Almanza on 03/23/17 at 12:30 PM Discharge Diet: No Restrictions Discharge Activity: Return to Normal Activity Home Medications: Medications to take at Discharge ALPRAZolam [Xanax] 0.5 mg PO QHS 11/17/15 Furosemide [Lasix] 20 mg PO DAILY 11/17/15 Levothyroxine Sodium [Levoxyl] 88 mcg PO DAILY 01/18/16 Acetaminophen [Tylenol] 325 mg PO Q4H PRN 02/17/17 Xarelto 20 mg PO DAILY 02/17/17 Carvedilol [Coreg (Beta Marivel)] 6.25 mg PO BID #60 tab 02/19/17 potassium chloride ER 20 mEq tablet,extended release(part/cryst) 20 meq PO BID #180 tab 03/02/17 Amiodarone HCl [Cordarone] 200 mg PO UD #60 tab 03/14/17 Following Prescrptions Were Given to Patient: Amiodarone HCl [Cordarone] 200 mg PO UD #60 tab Primary Care Physician: Reginald Rojo MD [Primary Care Provider] - Please follow up with your Primary Care Physician in: in 1- 2 weeks Please Follow Up With: Reji Matta MD When: in 2-4 weeks Please Follow Up With: Antonio Almanza MD When: on Mar 23 @ 1230 Disposition: Home Minutes spent on discharge:: 35 Patient Condition:: Stable Meaningful Use Info Meaningful Use Diagnoses (Choose all that apply): None applicable Code Visit OBSV E AND M: [id number] Observation care discharge 03/14/17 0938 <Electronically signed by Lamberto De La Garza MD> Date Lamberto De La Garza MD Cosigner Signature (if applicable): Date CC: Lamberto De La Garza MD; Reginald Rojo MD Signed DISCHARGE INSTRUCTION Observed: 03/14/2017 Status: F Source: [place] 9:31 AM [facility] RE[facility]ITORY [facility] Medical Records Department [address] [place] [address] Instructions for Home/Discharge Instructions 03/14/17926 MR#: [id number] Acct: [id number] Name: BELLA GAN V Rep #: [id number] : 1945 71 From: Lamberto De La Garza MD PCP: Reginald Rojo MD Status: ADM IN You will use the following diet at home:: Regular Your food should be the consistency of: Regular Allergies/Adverse Reactions: Allergies codeine Allergy (Verified 03/12/17 02:40) Other cortisone Allergy (Verified 03/12/17 02:40) Rash guaifenesin Allergy (Verified 03/12/17 02:40) Unknown propoxyphene [From Darvon] Allergy (Verified 03/12/17 02:40) Rash propranolol Allergy (Verified 03/12/17 02:40) Unknown verapamil Allergy (Verified 03/12/17 02:40) Unknown digoxin Adverse Reaction (Verified 03/12/17 02:40) Unknown Medications to take at Discharge ALPRAZolam [Xanax] 0.5 mg PO QHS 11/17/15 Furosemide [Lasix] 20 mg PO DAILY 11/17/15 Levothyroxine Sodium [Levoxyl] 88 mcg PO DAILY 01/18/16 Acetaminophen [Tylenol] 325 mg PO Q4H PRN 02/17/17 Xarelto 20 mg PO DAILY 02/17/17 Carvedilol [Coreg (Beta Marivel)] 6.25 mg PO BID #60 tab 02/19/17 potassium chloride ER 20 mEq tablet,extended release(part/cryst) 20 meq PO BID #180 tab 03/02/17 Amiodarone HCl [Cordarone] 200 mg PO UD #60 tab 03/14/17 The following prescriptions were given: Amiodarone HCl [Cordarone] 200 mg PO UD #60 tab Primary Care Physician: Reginald Rojo MD [Primary Care Provider] - Please follow up with your Primary Care Physician in: in 1- 2 weeks Please Follow Up With: Reji Matta MD When: in 2-4 weeks Please Follow Up With: Antonio Almanza MD When: on Mar 23 @ 1230 Proposed Discharge Date: 03/14/17 03/14/17 0931 <Electronically signed by Lamberto De La Garza MD> Date Lamberto De La Garza MD CC: Reji Matta MD; Reginald Rojo MD OPERATIVE REPORT Observed: 03/13/2017 Status: F Source: [place] 1:10 PM [facility] REPOSITORY [facility] Medical Records Department [address] [place] [address] Operative Report 03/13/17 1305 MR#: [id number] Acct: [id number] Name: BELLA GAN V Rep #: [id number] : 1945 71 From: Liam Richard DO PCP: Reginald Rojo MD Status: ADM SUSANNA Y Location: [place] [address] Operative Report Date of Procedure: 03/13/17 CONSCIOUS SEDATION REPORT DATE OF SERVICE: March 13, 2017 BRIEF HISTORY OF PRESENT ILLNESS: The patient is a 71-year-old female who initially presented to the hospital with progressive shortness of breath in the setting of paroxysmal atrial fibrillation with rapid ventricular response. The patient has been medically managed by cardiology. She is currently anticoagulated. She has undergone previous cardioversion in February 2016, during which time she was sedated with 40 mg of propofol. The patient denies any other anesthetic complications. Her most recent surface echocardiogram revealed a preserved ejection fraction of 60%. PHYSICAL EXAMINATION: VITAL SIGNS: Reviewed and were acceptable. GENERAL: The patient is a female, in no apparent distress, speaking in full sentences. HEENT: Normocephalic, atraumatic. Mucous membranes are moist and pink. Good mouth opening noted. Trachea is midline. Good neck mobility. CHEST: S1, S2 irregularly irregular. No murmurs, rubs or gallops were noted. LUNGS: Clear to auscultation bilaterally without appreciable wheezes, rales or rhonchi. ABDOMEN: Soft, nontender, nondistended. Positive bowel sounds. EXTREMITIES: There is no clubbing, cyanosis or edema. ASA Class: II DESCRIPTION OF PROCEDURE: After confirmation of informed consent, the patient's anesthesia plan was reviewed in detail. Propofol was chosen. Risks and benefits were reviewed and the patient agreed to proceed. At 1203, the patient was given 40 mg of propofol. The patient achieved an appropriate level of sedation and was given a 200 joule synchronized cardioversion by Dr. Matta at the bedside. This was successful in achieving normal sinus rhythm. The patient was monitored until 1212, at which time they reached her baseline mental status and function. The patient tolerated the procedure well. COMPLICATIONS: None ESTIMATED BLOOD LOSS: None RECOMMENDATIONS: Okay to recover in usual fashion. Code Visit 9xxxx: Other Procedure See Report 03/13/17 1310 <Electronically signed by Liam Richard DO> Date Liam Richard DO CC: Reji Matta MD; Liam Richard D.O.; Reginald Rojo MD Signed CBC-COMPLETE BLOOD CNT Collected: 03/13/2017 Status: F Source: [place] NO DIFF 5:45 AM [facility] REPOSITORY TYPE CODE TESTS RESULT OUT OF RANGE REFERENCE UNITS LAB L100.1000 4.4-11.0 K/mm3 Normal WBC 8.3 LAB L100.1200 4.2-5.4 M/mm3 Normal RBC 4.85 LAB L100.1300 12.0-15.0 g/dl Normal HGB 14.0 LAB L100.1400 37-47 % Normal HCT 43.4 LAB L100.1500 81-99 fL Normal MCV 89.5 LAB L100.1600 27.0-32.0 pg Normal MCH 28.9 LAB L100.1700 32-36 g/gl Normal MCHC 32.3 LAB L100.1810 11.6-14.6 % Normal RDW CV 13.5 LAB L100.1820 35.1-43.9 fl High RDW SD 44.1 LAB L100.1900 150-450 K/mm3 Normal PLT 213 LAB L100.2000 6.2-12.0 fl Normal MPV 11.1 Performed By: #### L100.0500 #### [facility] [address] [place], [id number] BASIC METABOLIC Collected: 03/13/2017 Status: F Source: [place] PROFILE (BMP) 5:45 AM [facility] REPOSITORY Order Comment: Comments: Fasting Lipid Profile TYPE CODE TESTS RESULT OUT OF RANGE REFERENCE UNITS LAB L501.0100 70-110 mg/dL Normal GLU 101 LAB L501.1000 7-18 mg/dL High BUN 20 LAB L501.1100 0.55-1.02 mg/dL High 1.06 CREAT,SERUM Result Comment: The validity of the calculated GFR AND GFRAA in patients over 70 years has not been determined. Clinical correlation is essential. LAB L501.1110 >60 mL/min Low EST GFR 54 Result Comment: Non- GFR Calc LAB L501.1115 >60 mL/min Normal EST GFR - AA 65 Result Comment: GFR Calc LAB L501.1255 ml/min Normal Estimated CRCL 42.53 LAB L501.1300 10-20 RATIO Normal BUN/CRE 18.9 LAB L501.2200 8.5-10 mg/dL Normal .1 CA 8.9 LAB L501.5300 136-14 mmol/L Normal 5 NA 142 LAB L501.5600 3.5-5. mmol/L Normal 1 K 4.0 LAB L501.5900 98-107 mmol/L Normal CL 107 LAB L501.6100 21.0-3 mmol/L Normal 2.0 CO2 27.0 LAB L501.6200 5-15 Normal GAP 8 Performed By: #### L500.2500, L500.4100 #### [facility] [place], [address] LIPID PROFILE Collected: 03/13/2017 Status: F Source: [place] 5:45 AM [facility] REPOS[facility] Order Comment: Comments: Fasting Lipid Profile TYPE CODE TESTS RESULT OUT OF RANGE REFERENCE UNITS LAB L501.4900 200 mg/dL Normal CHOL 128 Result Comment: <200 mg/dL Desirable 200-240 mg/dL Borderline >240 mg/dL High Risk LAB L501.5000 mg/dL Normal TRIG 91 Result Comment: The drugs N-Acetylcysteine and Metamizole may falsely depress this assay. Serum Triglycerides Reference Interval Normal <150 mg/dL Borderline high 150 - 199 mg/dL High 200 - 499 mg/dL Very High > or = 500 mg/dL LAB L501.6400 mg/dL Normal HDL 51 Result Comment: The drugs N-Acetylcysteine and Metamizole may falsely depress this assay. Reference Range HDL <40 mg/dL Low HDL Cholesterol HDL >or= 60 mg/dL High HDL Cholesterol LAB L501.6500 0-130 mg/dL Normal LDL 59 LAB L501.6600 5-40 mg/dL Normal VLDL 18 Performed By: #### L500.2500, L500.4100 #### [facility] [address] [place], [address] BNP,B-TYPE NATRIURETIC Collected: 03/13/2017 Status: F Source: HAR[place] PEPTIDE 5:45 AM [facility] TYPE CODE TESTS RESULT OUT OF RANGE REFERENCE UNITS LAB L503.6620 0-100 pg/mL High B-TYPE 139.6 BEATRIZ PEP Performed By: #### L503.6620 #### [facility] [address] [place], [address] TROPONIN-I Collected: 03/12/2017 Status: F Source: [place] 5:03 PM [facility] Order Comment: 'TROP' Serial specimen #1, #2, #3, or #4: 4 TYPE CODE TESTS RESULT OUT OF RANGE REFERENCE UNITS LAB L501.4010 <0.06 ng/mL Normal < 0.02 TROPONIN-I Result Comment: TROPONIN-I EXPECTED VALUES <0.05 NEGATIVE 0.06 - 0.59 AT RISK OF PR > OR = 0.60 SUGGEST PR Performed By: #### L501.4010 #### [facility] [address] [place], [address] TROPONIN-I Collected: 03/12/2017 Status: F Source: [place] 10:15 AM [facility] Order Comment: 'TROP' Serial specimen #1, #2, #3, or #4: 3 TYPE CODE TESTS RESULT OUT OF RANGE REFERENCE UNITS LAB L501.4010 <0.06 ng/mL Normal < 0.02 TROPONIN-I Result Comment: TROPONIN-I EXPECTED VALUES <0.05 NEGATIVE 0.06 - 0.59 AT RISK OF PR > OR = 0.60 SUGGEST PR Performed By: #### L501.4010 #### [facility] [address] [place], [address] HISTORY AND PHYSICAL Observed: 03/12/2017 Status: F Source: HAR[place] EXAM 8:09 AM [facility] RE[facility]ITORY [facility] Medical Records Department [address] [place] [address] History and Physical 03/12/17 0549 MR#: [id number] Acct: [id number] Name: BELLA GAN V Rep #: [id number] : 1945 71 From: Rober Schwartz MD PCP: Reginald Rojo MD Status: ADM SUSANNA Y Location: [place] [address] History of Present Illness Date of Admission: 03/12/17 Chief Complaint: Palpitations 71 year old F, history of paroxysmal atrial fibrillation on Xarelto, hypothyroidism, cholelithiasis, presents with complaint of palpitations with slight shortness of breath that has been on and off for the past 2 days. No chest pain, dizziness or lightheadedness. Patient has made about 2 ED visits within the past 2 weeks with similar complaints. He reports intermittent right upper quadrant abdominal pain with nausea. Most recent imaging did not reveal any findings to suggest cholecystitis. No fever. Breath ED evaluation remarkable for heart rate 132, BNP 154.8, BUN 14, creatinine 1.1, total bilirubin 1.6. 12-lead EKG remarkable for atrial fibrillation with rapid ventricular response at 117. Of note following administration of IV Cardizem patients heart rate suddenly dropped to low 60s. Past Medical History Past Medical History (Chronic Problems): Chronic Problems Paroxysmal A-fib (Chronic) Hypothyroidism (Chronic) Anxiety disorder (Chronic) Allergies codeine Allergy (Verified 03/12/17 02:40) Other cortisone Allergy (Verified 03/12/17 02:40) Rash guaifenesin Allergy (Verified 03/12/17 02:40) Unknown propoxyphene [From Darvon] Allergy (Verified 03/12/17 02:40) Rash propranolol Allergy (Verified 03/12/17 02:40) Unknown verapamil Allergy (Verified 03/12/17 02:40) Unknown digoxin Adverse Reaction (Verified 03/12/17 02:40) Unknown Home Medications: Ambulatory Orders Medication Instructions Recorded ALPRAZolam [Xanax] 0.5 mg PO QHS 11/17/15 Furosemide [Lasix] 20 mg PO DAILY 11/17/15 Smoking Status: Never smoker - *Family History Sibling History Items: Heart Disease Review of Systems Constitutional: Reports: Anorexia. Denies: Chills, Fever, Weakness Eyes: Denies: Conjunctivae Inflammation, Drainage, Redness HEENT: Denies: Difficulty Swallowing, Head Aches, Sore Throat Cardiovascular: Reports: Palpitations. Denies: Chest Pain, Chest Tightness, Edema, Orthopnea Respiratory: Reports: Shortness of Breath. Denies: Cough, Pleuritic Pain, Sputum production, Wheezing Gastrointestinal: Reports: Abdominal Pain. Denies: Constipation, Nausea, Vomiting Genitourinary: Denies: Dysuria, Frequency, Retention Gynecological: Denies: Breast symptoms, Vaginal bleeding, Vaginal discharge Musculoskeletal: Reports: Back Pain. Denies: Joint stiffness, Neck Pain Skin: Reports: Dryness. Denies: Jaundice, Rash, Wounds Neurological: Denies: Change in Speech, Difficulty swallowing, Headaches Psychiatric: Denies: Homicidal Ideations, Suicidal Ideations Endocrine: Denies: Change in Body Habitus, Polydipsia, Polyuria Hematologic/ Lymphatic: Denies: Adenopathy, Easy Bruising, Purpura VTE Information - Inpt Only VTE Present on Admission: No VTE Mechan Device Prophylaxis: SCD's VTE Pharm Prophylaxis ordered?: Yes - Physical Exam General: Alert, Oriented x3, Cooperative HEENT: Atraumatic, PERRLA, EOMI Oral: Dry Mucosa Neck: Supple, No JVD, No Nodes Lungs: Clear to auscultation, No rhonchi, No wheeze, No rales Cardiovascular: Regular rate, Normal S1, No murmurs, Irregular Rate Abdomen: Bowel Sounds Present, Soft, Non Tender, Non-Distended Extremities: No clubbing, No cyanosis, No edema Skin: No rashes, No breakdown Musculoskeletal: No Tenderness to Palpation of Joints or Extremities, No Muscle Wasting Lymphatic: No Cervical, Supraclavicular, or Inguinal Adenopathy Neurological: Cranial nerves II-XII grossly intact, Deep Tendon Reflexes 2+/4 and Symmetrical, Motor Exam 5/5 strength throughout Psych/Mental Status: Normal Affect, Appropriate, Alert and oriented to time, place, person, mood and affect Vital Signs Temp Pulse Resp BP Pulse Ox 97.5 F L 63 16 97/58 L 97 03/12/17 02:15 03/12/17 04:10 03/12/17 04:10 03/12/17 04:10 03/12/17 04:10 Oxygen Delivery Method Room Air Weight: 56.699 kg Body Mass Index (BMI) 20.7 Laboratory Tests Past 24 Hrs Assessment/Plan 1. Paroxysmal atrial fibrillation. Presently rate controlled. Resume home regimen including rivaroxaban. Given frequency of ED visit in recent times, will admit patient for observation and consult cardiology for further evaluation. 2 Hypothyroidism. Resume Synthroid. Check TSH, FT4 to eval for possible iatrogenic hyperthyroidism. 3. Cholelithiasis. No evidence of cholecystitis at this time. Monitor closely. Code Visit Inpatient E AND M: 07083 Init Hosp L2 OBSV E AND M: 92854 Initial observation care L3 03/12/17 0809 <Electronically signed by Rober Schwartz MD> Date Rober Schwartz MD Cosigner Signature: Date (if applicable) CC: Rober Schwartz MD; Reginald Rojo MD Signed TROPONIN-I Collected: 03/12/2017 Status: F Source: [place] 6:40 AM [facility] Order Comment: 'TROP' Serial specimen #1, #2, #3, or #4: 2 TYPE CODE TESTS RESULT OUT OF RANGE REFERENCE UNITS LAB L501.4010 <0.06 ng/mL Normal < 0.02 TROPONIN-I Result Comment: TROPONIN-I EXPECTED VALUES <0.05 NEGATIVE 0.06 - 0.59 AT RISK OF PR > OR = 0.60 SUGGEST PR Performed By: #### L501.4010 #### [facility] [address] [place], [address] EMERGENCY DEPARTMENT Observed: 03/12/2017 Status: F Source: [place] SUMMARY 5:28 AM [facility] RE[facility] Medical Records Department [address] [place] [address] Emergency Department Summary 03/12/17 0524 MR#: [id number] Acct: [id number] Name: BELLA GAN V Rep #: [id number] : 1945 71 From: Jack Gamez MD PCP: Reginald Rojo MD Status: REG ER - ER Visit Summary Date of Service: 03/12/17 Chief Complaint: Atrial fibrillation and back pain History of Present Illness: The patient is a 71 F who presents with multiple complaints. She has a history of atrial fibrillation. She states over the last several days she has had increased palpitations and intermittent shortness of breath. She has had 2 prior ER visits for the same symptoms. She also complains of constipation. She states she was treated with magnesium citrate and since that time she has had diarrhea. She complains of subjective fevers. She also complains of chronic back pain for years although it has been worse specifically on the right side in the last few days. She also has a history of gallstones and is complaining of intermittent right upper quadrant abdominal pain. She states that her back pain may be related to this and radiating through but she is uncertain. She denies any vomiting. Physical Examination: Afebrile initial heart rate 132 Moist mucous membranes Heart irregularly irregular and tachycardic Lungs are clear Abdomen soft but she is tender to palpation in the right upper quadrant no guarding no rebound no Kulkarni's sign Test Results: EKG shows A. fib at rate of 117. Repeat EKG shows A. fib at a rate of 68. Two-view chest x-ray shows no acute abnormalities. Laboratory studies notable for creatinine of 1.10, total bilirubin 1.60. Troponin negative. Beta natruretic peptide 154. Emergency Department Course and Treatment: Patient was treated with IV Cardizem. She had a brief period of bradycardia in the 30s. She was also transiently hypotensive. On reevaluation however her blood pressure is stable and her heart rate is in the 60s. I do not believe she has acute cholecystitis. She does not have fever or leukocytosis or vomiting. Her total bilirubin is slightly elevated although this appears similar to recent laboratory studies. Given that the patient has now had 3 visits for Louise. kofi with RVR and she did have transient hypotension and bradycardia with administration of IV Cardizem I felt observation appropriate. I do not believe she needs an emergent ultrasound although this may be indicated for further evaluation during observation or as an outpatient. Patient was discussed with the hospitalist and admitted Treatment Plan: [] Disposition: Admit Impression: Noam kirby with RVR Cholelithiasis This note was generated with AchieveMint dictation software. It may contain incorrect words, spelling, and punctuation that were not noted in review of the chart prior to signing ED Disposition - Plan for ED Patient: Chief Complaint: Palpitations Referrals: Reginald Rojo MD [Primary Care Provider] - What to do if you have Problems For any increased pain, shortness of breath, bleeding, nausea or vomiting, chest pain, or any unexpected problems, contact your Primary Care Provider. Call [facility] ([phone]) or report to the closest Emergency Room. Call 911 if necessary. 03/12/17 0528 <Electronically signed by Jack Gamez MD> Date Jack Gamez MD Cosigner Signature (If Indicated): Date CC: Reginald Rojo MD CHEST PA AND LATERAL Observed: 03/12/2017 Status: F Source: [place] 2:58 AM [facility] RE[facility] Imaging Services [address] [place] [address] Chest PA and Lateral MR#: [id number] Acct: [id number] Name: BELLA GAN V Rep #: [id number] : 1945 F 71 From: Heike Milian MD PCP: Reginald Rojo MD Status: REG ER Study: Chest PA and Lateral Date of Exam: 03/12/17 Exam# [id number] Ordering Dr: Jack Gamez MD STUDY: X-RAY CHEST REASON FOR EXAM: Female, 71 years old. Atrial fibrillation TECHNIQUE: Frontal and lateral views of the chest were obtained. COMPARISON: March 05, 2017 FINDINGS: The lungs are hyperinflated. There are no focal airspace opacities. There is no demonstrated pleural abnormality. There is borderline enlargement of the cardiac silhouette. The mediastinum and hilar regions are unremarkable. Normal visualized pulmonary arteries. There is atherosclerotic calcification of the aortic arch. There are diffuse degenerative changes of the visualized thoracic spine. At least one old rib fracture is present on the left side. There is no demonstrated abnormality of the visualized upper abdomen. RAD/Chest PA and Lateral IMPRESSION: No acute cardiopulmonary abnormalities or changes. There is stable borderline enlargement of the cardiac silhouette. There is stable COPD. Electronically Signed: Heike Milian MD at 4:06 EST Tel Direct: [phone], Service support , CC: Jack Gamez MD; Reginald Rojo MD Playroom Attendant: Signed COMPREHENSIVE METABOLIC Collected: 03/12/2017 Status: F Source: [place] PROFIL 2:36 AM [facility] Order Comment: 'TROP' Serial specimen #1, #2, #3, or #4: 1 TYPE CODE TESTS RESULT OUT OF RANGE REFERENCE UNITS LAB L501.0100 70-110 mg/dL High GLU 115 Result Comment: Fasting Glucose result from 110 to <126 mg/dL suggests IMPAIRED HOMEOSTASIS per A.D.A. criteria. LAB L501.1000 7-18 mg/dL Normal BUN 14 LAB L501.1100 0.55-1.02 mg/dL High CREAT,SERUM 1.10 Result Comment: The validity of the calculated GFR AND GFRAA in patients over 70 years has not been determined. Clinical correlation is essential. LAB L501.1110 >60 mL/min Low EST GFR 52 Result Comment: Non- GFR Calc LAB L501.1115 >60 mL/min Normal EST GFR - AA 63 Result Comment: GFR Calc LAB L501.1255 ml/min Normal Estimated CRCL 40.77 LAB L501.1300 10-20 RATIO Normal BUN/CRE 12.7 LAB L501.1500 6.4-8. g/dL Normal 2 T PROT 7.5 LAB L501.1800 3.4-5. g/dL Normal 0 ALB 4.0 Result Comment: Please note revised Albumin AND Globulin reference range effective 2016. LAB L501.1950 2.2-4.2 g/dL Normal GLOB 3.5 LAB L501.2000 0.9-2.4 RATIO Normal A/G 1.1 LAB L501.2200 8.5-10.1 mg/dL Normal CA 9.1 LAB L501.4100 15-37 U/L Normal AST 20 LAB L501.4305 45-117 U/L Normal ALK P 77 LAB L501.4405 12-78 U/L Normal ALT 25 LAB L501.4600 0.20-1.00 mg/dL High T BILI 1.60 LAB L501.5300 136-145 mmol/L Normal NA 141 LAB L501.5600 3.5-5.1 mmol/L Normal K 3.8 LAB L501.5900 98-107 mmol/L Normal CL 103 LAB L501.6100 21.0-32.0 mmol/L Normal CO2 26.0 LAB L501.6200 5-15 Normal GAP 12 Performed By: #### L500.4050, L501.2450, L501.4010 #### [facility] [address] [place], [place], [address] LIPASE Collected: 03/12/2017 Status: F Source: [place] 2:36 AM [facility] Order Comment: 'TROP' Serial specimen #1, #2, #3, or #4: 1 TYPE CODE TESTS RESULT OUT OF RANGE REFERENCE UNITS LAB L501.2450 73-393 U/L Normal LIPASE 169 Performed By: #### L500.4050, L501.2450, L501.4010 #### [facility] [address] [place], [place], [address] TROPONIN-I Collected: 03/12/2017 Status: F Source: [place] 2:36 AM [facility] Order Comment: 'TROP' Serial specimen #1, #2, #3, or #4: 1 TYPE CODE TESTS RESULT OUT OF RANGE REFERENCE UNITS LAB L501.4010 <0.06 ng/mL Normal < 0.02 TROPONIN-I Result Comment: TROPONIN-I EXPECTED VALUES <0.05 NEGATIVE 0.06 - 0.59 AT RISK OF PR > OR = 0.60 SUGGEST PR Performed By: #### L500.4050, L501.2450, L501.4010 #### [facility] [address] [facility] [place], [address] CBC W/DIFF, AUTOMATED Collected: 03/12/2017 Status: F Source: [place] 2:36 AM [facility] TYPE CODE TESTS RESULT OUT OF RANGE REFERENCE UNITS LAB L100.1000 4.4-11.0 K/mm3 Normal WBC 7.9 LAB L100.1200 4.2-5.4 M/mm3 Normal RBC 4.91 LAB L100.1300 12.0-15.0 g/dl Normal HGB 14.2 LAB L100.1400 37-47 % Normal HCT 43.6 LAB L100.1500 81-99 fL Normal MCV 88.8 LAB L100.1600 27.0-32.0 pg Normal MCH 28.9 LAB L100.1700 32-36 g/gl Normal MCHC 32.6 LAB L100.1810 11.6-14.6 % Normal RDW CV 13.4 LAB L100.1820 35.1-43.9 fl Normal RDW SD 43.5 LAB L100.1900 150-450 K/mm3 Normal PLT 231 LAB L100.2000 6.2-12.0 fl Normal MPV 11.5 LAB L100.2100 47-70 % Normal NEUT% 55.4 LAB L100.2200 19-41 % Normal LY% 30.9 LAB L100.2300 0-10 % High MONO% 11.0 LAB L100.2400 0-5 % Normal EO% 2.3 LAB L100.2500 0-1 % Normal BASO% 0.4 LAB L100.2550 0.0-0.9 % Normal IM GRAN % 0.000 Result Comment: IG% - Immature Granulocytes (promyelocytes, myelocytes and metamyelocytes) > 1% indicates that a LEFT SHIFT is Present. LAB L100.2620 2.0-7.7 X10 3/uL Normal Absolute Neut 4.4 LAB L100.2720 0.83-4.51 X10 3/ul Normal Absolute Lymph 2.44 Performed By: #### L100.0100 #### [facility] [address] [place], [address] BNP,B-TYPE NATRIURETIC Collected: 03/12/2017 Status: F Source: [place] PEPTIDE 2:36 AM [facility] TYPE CODE TESTS RESULT OUT OF RANGE REFERENCE UNITS LAB L503.6620 0-100 pg/mL High B-TYPE 154.8 BEATRIZ PEP Performed By: #### L503.6620 #### [facility] [address] [place], [address] THYROID STIM HORMONE Collected: 03/12/2017 Status: F Source: [place] (TSH) 2:36 AM [facility] Order Comment: ADDED ON TYPE CODE TESTS RESULT OUT OF RANGE REFERENCE UNITS LAB L501.9520 0.358-3.74 uIU/mL Normal TSH 2.16 Performed By: #### L501.9520, L506.0400 #### [facility] [address] [place], [address] T4 FREE DIRECT Collected: 03/12/2017 Status: F Source: [place] 2:36 AM [facility] Order Comment: ADDED ON TYPE CODE TESTS RESULT OUT OF REFERENCE UNITS RANGE LAB L506.0400 0.76-1.46 ng/dL High T4 FREE 1.81 DIRECT Performed By: #### L501.9520, L506.0400 #### [facility] [address] [place], [address] 12 LEAD ELECTROCARDIOGRAM Observed: 03/07/2017 Status: F Source: [place] 8:47 AM [facility] Cardiovascular Services [address] [place] [address] 12 Lead EKG 03/05/17 0226 MR#: [id number] Acct: [id number] Name: BELLA GAN V Rep #: [id number] : 1945 71 From: Reji Matta MD Attending Dr: Status: DEP ER Ordering Dr: Yan Vera DO Date: 03/05/17 Location: ED Sex: F C Admitted: Test Reason : AFIB Blood Pressure : / mmHG Vent. Rate : 124 BPM Atrial Rate : 117 BPM P-R Int : 000 ms QRS Dur : 082 ms QT Int : 324 ms P-R-T Axes : 000 060 097 degrees QTc Int : [address] AND T wave abnormality, consider anterior ischemia Abnormal ECG Confirmed by REJI MATTA MD ([id number]), editorial assistant CATHY DE LEON ([id number]) on 03/07/2017 8:47:04 AM Referred By: DR VERA Confirmed By:REJI MATTA MD 03/07/17 0847 Date Reji Matta MD CC: Reginald Rojo MD Signed EMERGENCY DEPARTMENT Observed: 03/06/2017 Status: F Source: HAR[place] SUMMARY 7:28 AM [facility] Medical Records Department [address] [place] [address] Emergency Department Summary 03/05/17 0251 MR#: [id number] Acct: [id number] Name: BELLA GAN V Rep #: [id number] : 1945 71 From: Yan Vera DO PCP: Reginald Rojo MD Status: DEP ER - ER Visit Summary Date of Service: 03/05/17 Chief Complaint: [] Palpitations History of Present Illness: The patient is a 71 F [] complaining of palpitations consistent with previous atrial fibrillation after straining to have a bowel movement. Patient reports she has not had a bowel movement for 4 days and was straining hard to do so when she felt her atrial fibrillation/palpitations significantly increased. She reports she was diagnosed with digoxin toxicity 2 weeks ago and she reports it messed up my bowels. Denies significant abdominal pain, fevers. Denies chest pain. Denies shortness of breath. No other complaints at this time. Physical Examination: [] Cardiovascular exam is consistent with irregularly irregular rhythm. Lungs were clear to auscultation. Abdomen is soft nontender. No lower extremity edema. Test Results: [] Chest x-ray negative. EKG shows atrial fibrillation with rate in the 120s. CBC, BMP, troponin negative. Emergency Department Course and Treatment: [] Patient reports her symptoms started as a result of straining vigorously to have a bowel movement. She reports she has improved previously with Cardizem injections. She was provided 20 mg IV Cardizem with improvement of symptoms and heart rate down to the 60s. She reports symptomatic improvement. She was given a bottle of mag citrate to help improve her bowel movements. She did not have a bowel movement while the emergency department but she was encouraged to continue to hydrate and eat food with fiber. She was amenable to discharge at this time. Treatment Plan: [] Discharge, follow-up with PCP. Disposition: [] Discharge, stable. Impression: [] Atrial fibrillation Constipation This note was generated with AchieveMint dictation software. It may contain incorrect words, spelling, and punctuation that were not noted in review of the chart prior to signing ED Disposition - Plan for ED Patient: Chief Complaint: Palpitations Referrals: Reginald Rojo MD [Primary Care Provider] - What to do if you have Problems For any increased pain, shortness of breath, bleeding, nausea or vomiting, chest pain, or any unexpected problems, contact your Primary Care Provider. Call [facility] ([phone]) or report to the closest Emergency Room. Call 911 if necessary. 03/06/17 0728 <Electronically signed by Yan Vera DO> Date Yan Vera DO Cosigner Signature (If Indicated): Date CC: Reginald Rojo MD EMERGENCY DEPARTMENT Observed: 03/06/2017 Status: F Source: [place] SUMMARY 7:28 AM [facility] RE[facility]ITORY [facility] Medical Records Department [address] [place] [address] Emergency Department Summary 03/05/17 0634 MR#: [id number] Acct: [id number] Name: BELLA GAN V Rep #: [id number] : 1945 71 From: Yan Vera DO PCP: Reginald Rojo MD Status: DEP ER - ER Visit Summary Date of Service: 03/05/17 Chief Complaint: [] Palpitations History of Present Illness: The patient is a 71 F [] complaining of palpitations consistent with atrial fibrillation after having a bowel movement. Patient was just seen by me approximately 2 hours ago this emergency department for the exact same complaint. She was given intravenous Cardizem and oral magnesium citrate. She did not have a bowel movement in the emergency department however her heart rate did come down into the 60s from the 120s. She felt improved and was amenable to discharge. She went home and had a bowel movement, however her heart rate jumped back into the 120s and she returns now for treatment for the atrial fibrillation. Physical Examination: [] Cardiovascular exam is consistent with atrial fibrillation. Lungs were auscultation. Abdomen is soft nontender. Test Results: [] No further diagnostic laboratory testing was obtained. Chest x-ray, laboratory work from the previous visit 2 hours ago was negative. Emergency Department Course and Treatment: [] Given intravenous Cardizem 20 mg and 60 mg oral Cardizem bolus for a basal dosage of medicine to keep her heart rate under control after discharge. On serial exam her heart rate came back down to the 60s and she was discharged to follow-up with her primary care physician. Treatment Plan: [] Discharge, stable Disposition: [] Discharge, stable Impression: [] Atrial fibrillation, paroxysmal This note was generated with Hello Universeation software. It may contain incorrect words, spelling, and punctuation that were not noted in review of the chart prior to signing ED Disposition - Plan for ED Patient: Chief Complaint: Palpitations Referrals: Reginald Rojo MD [Primary Care Provider] - What to do if you have Problems For any increased pain, shortness of breath, bleeding, nausea or vomiting, chest pain, or any unexpected problems, contact your Primary Care Provider. Call [facility] ([phone]) or report to the closest Emergency Room. Call 911 if necessary. 03/06/17727 <Electronically signed by aYn Vera DO> Date Yan Vera DO Cosigner Signature (If Indicated): Date CC: Reginald Rojo MD DISCHARGE INSTRUCTION Observed: 03/05/2017 Status: F Source: [place] 6:37 AM [facility] REPOSITORY [facility] Medical Records Department [address] [place] [address] Discharge Instruction 03/05/17635 MR#: [id number] Acct: [id number] Name: BELLA GAN V Rep #: [id number] : 1945 71 From: Yan Vera DO PCP: Reginald Rojo MD Status: REG ER ED Disposition - Plan for ED Patient: Disposition: Home or Assisted Living Chief Complaint: Palpitations Diagnosis: Paroxysmal A-fib Instructions: ED Paroxysmal Atrial Flutter Referrals: Reginald Rojo MD [Primary Care Provider] - What to do if you have Problems For any increased pain, shortness of breath, bleeding, nausea or vomiting, chest pain, or any unexpected problems, contact your Primary Care Provider. Call [facility] ([phone]) or report to the closest Emergency Room. Call 911 if necessary. 03/05/1737 <Electronically signed by Yan Vera DO> Date Yan Vera DO Cosigner Signature (If Indicated): Date CC: Reginald Rojo MD DISCHARGE INSTRUCTION Observed: 03/05/2017 Status: F Source: [place] 4:07 AM [facility] REPOSITORY [facility] Medical Records Department [address] [place] [address] Discharge Instruction 03/05/17405 MR#: [id number] Acct: [id number] Name: BELLA GAN V Rep #: [id number] : 1945 71 From: Yan Vera DO PCP: Reginald Rojo MD Status: REG ER ED Disposition - Plan for ED Patient: Disposition: Home or Assisted Living Chief Complaint: Palpitations Instructions: ED Paroxysmal Atrial Flutter, ED Constipation Referrals: Reginald Rojo MD [Primary Care Provider] - What to do if you have Problems For any increased pain, shortness of breath, bleeding, nausea or vomiting, chest pain, or any unexpected problems, contact your Primary Care Provider. Call [facility] ([phone]) or report to the closest Emergency Room. Call 911 if necessary. 03/05/17406 <Electronically signed by Yan Vera DO> Date Yan Vera DO Cosigner Signature (If Indicated): Date CC: Reginald Rojo MD CBC W/DIFF, AUTOMATED Collected: 03/05/2017 Status: F Source: [place] 3:04 AM [facility] REPOSITORY TYPE CODE TESTS RESULT OUT OF RANGE REFERENCE UNITS LAB L100.1000 4.4-11.0 K/mm3 Normal WBC 9.1 LAB L100.1200 4.2-5.4 M/mm3 Normal RBC 4.65 LAB L100.1300 12.0-15.0 g/dl Normal HGB 13.7 LAB L100.1400 37-47 % Normal HCT 40.6 LAB L100.1500 81-99 fL Normal MCV 87.3 LAB L100.1600 27.0-32.0 pg Normal MCH 29.5 LAB L100.1700 32-36 g/gl Normal MCHC 33.7 LAB L100.1810 11.6-14.6 % Normal RDW CV 13.2 LAB L100.1820 35.1-43.9 fl Normal RDW SD 41.0 LAB L100.1900 150-450 K/mm3 Normal PLT 208 LAB L100.2000 6.2-12.0 fl Normal MPV 11.2 LAB L100.2100 47-70 % Normal NEUT% 59.1 LAB L100.2200 19-41 % Normal LY% 27.3 LAB L100.2300 0-10 % Normal MONO% 9.7 LAB L100.2400 0-5 % Normal EO% 3.0 LAB L100.2500 0-1 % Normal BASO% 0.7 LAB L100.2550 0.0-0.9 % Normal IM GRAN % 0.200 Result Comment: IG% - Immature Granulocytes (promyelocytes, myelocytes and metamyelocytes) > 1% indicates that a LEFT SHIFT is Present. LAB L100.2620 2.0-7.7 X10 3/uL Normal Absolute Neut 5.4 LAB L100.2720 0.83-4.51 X10 3/ul Normal Absolute Lymph 2.48 Performed By: #### L100.0100 #### [facility] [address] [place], [place], [id number] BASIC METABOLIC Collected: 03/05/2017 Status: F Source: [place] PROFILE (BMP) 3:04 AM [facility] REPOSITORY Order Comment: 'TROP' Serial specimen #1, #2, #3, or #4: 1 TYPE CODE TESTS RESULT OUT OF RANGE REFERENCE UNITS LAB L501.0100 70-110 mg/dL High GLU 114 Result Comment: Fasting Glucose result from 110 to <126 mg/dL suggests IMPAIRED HOMEOSTASIS per A.D.A. criteria. LAB L501.1000 7-18 mg/dL Normal BUN 13 LAB L501.1100 0.55-1.02 mg/dL Normal CREAT,SERUM 0.85 Result Comment: The validity of the calculated GFR AND GFRAA in patients over 70 years has not been determined. Clinical correlation is essential. LAB L501.1110 >60 mL/min Normal EST GFR 69 Result Comment: Non- GFR Calc LAB L501.1115 >60 mL/min Normal EST GFR - AA 84 Result Comment: GFR Calc LAB L501.1255 ml/min Normal Estimated CRCL 53.04 LAB L501.1300 10-20 RATIO Normal BUN/CRE 15.3 LAB L501.2200 8.5-10 mg/dL Normal .1 CA 9.0 LAB L501.5300 136-14 mmol/L Normal 5 NA 141 LAB L501.5600 3.5-5. mmol/L Normal 1 K 3.8 LAB L501.5900 98-107 mmol/L Normal CL 105 LAB L501.6100 21.0-3 mmol/L Normal 2.0 CO2 27.0 LAB L501.6200 5-15 Normal GAP 9 Performed By: #### L500.2500, L501.4010 #### [facility] [address] [facility] [place], [place], [address] TROPONIN-I Collected: 03/05/2017 Status: F Source: [place] 3:04 AM [facility] REPOSITORY Order Comment: 'TROP' Serial specimen #1, #2, #3, or #4: 1 TYPE CODE TESTS RESULT OUT OF RANGE REFERENCE UNITS LAB L501.4010 <0.06 ng/mL Normal < 0.02 TROPONIN-I Result Comment: TROPONIN-I EXPECTED VALUES <0.05 NEGATIVE 0.06 - 0.59 AT RISK OF PR > OR = 0.60 SUGGEST PR Performed By: #### L500.2500, L501.4010 #### [facility] [address] [facility]. [place], [place], [address] CHEST 1 VIEW Observed: 03/05/2017 Status: F Source: [place] (PORTABLE) 2:51 AM [facility] REPOSITORY [facility] Imaging Services [address] [place] [address] Chest 1 View (Portable) MR#: [id number] Acct: [id number] Name: BELLA GAN V Rep #: [id number] : 1945 F 71 From: José Luis Barker MD PCP: Reginald Rojo MD Status: PRE ER Study: Chest 1 View (Portable) Date of Exam: 03/05/17 Exam# [id number] Ordering Dr: Yan Vera DO STUDY: X-RAY CHEST REASON FOR EXAM: Female, 71 years old. Palpitations and chest pain. TECHNIQUE: Single AP portable view of the chest. COMPARISON: 01/29/2017. FINDINGS: The lungs are somewhat hyperinflated. No focal infiltrate is seen. There is no demonstrated pleural abnormality. There is borderline cardiomegaly. Normal mediastinum and jason. Normal visualized pulmonary arteries. Normal visualized aortic arch and descending thoracic aorta. The thoracic spine is obscured. There again is an old fracture of the posterior left sixth and fifth ribs. There is no demonstrated abnormality of the visualized soft tissue structures of the upper abdomen. RAD/Chest 1 View (Portable) IMPRESSION: No active pulmonary disease. Electronically Signed: José Luis Barker MD at 3:10 EST Tel , Service support , CC: Yan Vera DO; Reginald Rojo MD Playroom Attendant: Signed ALLERGIES ALLERGIES DATE TYPE / NAME / CODE REACTION SEVERITY SOURCE CODE 02/08/2018 Drug digoxin/[id number] Unknown Unknown [place] Allergy/41 (RXNORM) [facility] [id number]([facility]) Repository 02/08/2018 Drug guaifenesin/P58295 Unknown Unknown [place] Allergy/41 0724(RXNORM) [facility] 6078970([facility]) Repository 02/08/2018 Drug codeine/[id number] Other Unknown [place] Allergy/41 (RXNORM) [facility] 1187660([facility]) Repository 02/08/2018 Drug propoxyphene/F0060 Rash Unknown [place] Allergy/41 98878(RXNORM) [facility] 7689337([facility]ME [facility]) Repository 02/08/2018 Drug verapamil/[id number] Unknown Unknown [place] Allergy/41 15(RXNORM) [facility] 9172726([facility] OMED [facility]) Repository 02/08/2018 Drug propranolol/J07790 Unknown Unknown [place] Allergy/41 4740(RXNORM) Community 5000476([facility]) Repository 02/08/2018 Drug cortisone/[id number] Rash Unknown [place] Allergy/41 45(RXNORM) [facility] 03/22/2017 DRUG DIGOXIN INTOLERANCE [facility] [place] 3470975(SN Repository OMED [facility]) 12/21/2015 DRUG CODEINE GI UPSET [facility] [place] 2895561(SN Repository OMED [facility]) 12/21/2015 DRUG CORTISONE SWELLING [facility] [place] 7630424(SN Repository OMED [facility]) 12/21/2015 DRUG PROPOXYPHENE HCL Mental Chg [facility] [place] 2806093(SN Repository OMED [facility]) 12/21/2015 DRUG GUAIFENESIN Mental Chg [facility] [place] 7131081(SN Repository OMED [facility]) 12/21/2015 DRUG HONEY RASH [facility] [place] 7351527(SN Repository OMED [facility]) 12/21/2015 DRUG PROPRANOLOL OTHER: SEE C [facility]/ [place] 8093816(SN Repository OMED CT) 12/21/2015 DRUG VERAPAMIL OTHER: SEE C [facility] [place] 9381251(SN Repository OMED [facility]) NG/1563470 CODEINE [facility] 06([facility]) Repository NG/6522998 CORTISONE [facility] 06([facility]) Repository NG/1713573 PROPOXYPHENE HCL [facility] 06([facility]) Repository NG/4176778 GUAIFENESIN [facility] 06([facility]) Repository NG/0744751 HONEY [facility] 06([facility]) Repository NG/1264082 PROPRANOLOL [facility] 06([facility]) Repository NG/3276987 VERAPAMIL [facility] 06([facility]) Repository NG/3411408 DIGOXIN [facility] 06([facility]) Repository ENCOUNTERS ENCOUNTERS ADMIT/DISCHARGE ACCOUNT NUMBER ADMITTING ENCOUNTER LOCATION SOURCE CLASS 02/08/2018/02/09/20 [id number] Emergency [place] 18 [facility] ding:ED Repository 12/28/2017/12/29/19 [id number] Ambulatory BMSBuilding: [place] 18 [facility] Repository 12/06/2017/12/07/19 [id number] Ambulatory [address] [place] Repository 12/06/2017/12/07/19 [id number] Ambulatory [place] [address] MEDICAL Repository REMUSBuildi ng:AGCARDPHR A 12/06/2017 [id number] Ambulatory [facility] Repository 12/06/2017/12/07/19 [id number] Ambulatory [place] [address] MEDICAL Repository REMUSBuildi ng:AKECHO 12/06/2017 [id number] Ambulatory [facility] [place] Repository 12/06/2017/12/07/19 [id number] Ambulatory [place] [address] MEDICAL Repository REMUSBuildi ng:AKECHO 12/06/2017 [id number] Ambulatory [facility] Repository 12/06/2017/12/07/19 [id number] Ambulatory [place] [address] MEDICAL Repository REMUSBuildi ng:AKXRCT 10/24/2017 [id number] Ambulatory [place] [facility] MEDICAL Repository REMUSBuildi ng:AGCARDPHR A 10/17/2017/10/19/19 [id number] Ambulatory [address] Main [place] Repository 10/02/2017/10/03/19 [id number] [place], Ambulatory [address] Other [place] Repository 10/02/2017 [id number] [place], Inpatient [place] [facility] MEDICAL Repository REMUSBuildi ng:CCLERoom: POOLBed: 04 08/29/2017/08/30/19 [id number] Ambulatory [address] Other [place] Repository 08/29/2017/08/30/19 [id number] Ambulatory [place] [address] MEDICAL Repository CENTERBuildi ng:AGCARDPOB 08/23/2017/08/25/19 [id number] SANDR[place], Ambulatory [address] Repository 08/23/2017/08/25/19 [id number] [facility] [place] [address] Repository CENTERBuildi ng:CVICRoom: 3239Bed: 08/10/2017/08/11/19 [id number] Ambulatory [address] Repository 08/10/2017/08/11/19 [id number] Ambulatory [address] Repository CENTERBuildi ng:AGCARDPHR A 08/08/2017 [id number] Ambulatory [facility] ding:CVS Repository 08/08/2017 [id number] Ambulatory BMSBuilding: [facility] Repository 07/27/2017/07/28/19 [id number] Ambulatory BMSBuilding: [place] 18 BMS.[facility] Repository 06/23/2017 [id number] Ambulatory BMSBuilding: [place] BMS.[facility] Repository 06/11/2017/06/13/19 [id number] Ambulatory [address] Repository 05/23/2017/05/24/19 [id number] Ambulatory [address] Repository 05/23/2017/05/24/19 [id number] Ambulatory [address] MEDICAL Repository CENTERBuildi ng:AGCARDPHR A 05/16/2017/05/22/19 [id number] Ambulatory [address] Repository 04/16/2017/04/18/19 [id number] Ambulatory [address] Repository 04/03/2017/04/03/19 [id number] Ambulatory [address] Repository 03/30/2017/03/30/19 [id number] Ambulatory BMSBuilding: [place] 18 BMS.[facility] Repository 03/22/2017/03/22/19 [id number] Ambulatory [address] Repository 03/12/2017/03/14/19 [id number] Lana, Inpatient [place] 18 Rober Encounter [facility] ding:PCURoom Repository : IAU611Lbn: 1 03/12/2017 [id number] Ambulatory BMSBuilding: [place] BMS.[facility] Repository 03/12/2017 [id number] Ambulatory BMSBuilding: [place] [facility] Repository 03/12/2017 [id number] Ambulatory BMSBuilding: [place] BMS.[facility] Repository 03/12/2017 [id number] Ambulatory BMSBuilding: [place] [facility] Repository 03/12/2017 [id number] Ambulatory BMSBuilding: [place] BMS.[facility] Repository 03/12/2017/03/14/19 [id number] Ambulatory BMSBuilding: [place] 18 [facility] Repository 03/05/2017/03/05/20 [id number] Emergency [place] ding:ED Repository 03/05/2017/03/05/20 [id number] Emergency [place] ding:ED Repository PAYERS PAYERS ENCOUNTER GUARANTOR PAYER SUBSCRIBER SOURCE 02/08/2018 BELLA V [id number] Primary BELLA V [place] [address] Insurance:HUMANA LADRACHDOB: [place] MEDICARE PPOPolicy [id number] [facility] [address]Awq: (803) Number: Repository [phone] () [id number] Date:6999-33-40AG [address] [place] [address]ZI: 02/08/2018 Secondary NOT GIVENUNK [place] Insurance:SELF PAY [facility] Number: Effective Repository Date:2018-02-08 12/28/2017 BELLA V [id number] Primary BELLA V [place] [address], Insurance:HUMANA LADRACHDOB: [facility] [address]Muc: MEDICARE PPOPolicy [id number] Hospital Number: Repository () [id number] Date:7532-12-48ZJ [place] [address]12[address]WP: 12/28/2017 Secondary NOT GIVENUNK [place] Insurance:SELF PAY [facility] Number: Effective Repository Date:2017-09-11 12/06/2017 BELLA LADRACH Primary BELLA LADRACH [facility] VDOB: Insurance:HUMANA VDOB: Health System CHOICE PPOPolicy [id number] Repository [address] Number: [address] [id number]: (803) Date: [address] (HP) 12/06/2017 BELLA LADRACH Primary BELLA LADRACH [facility] VDOB: Insurance:HUMANA VDOB: [facility] CHOICE PPOPolicy [id number] Repository [address] Number: [place] [id number] [address]Eql: (803) Date: (HP) 12/06/2017 BELLA LADRACH Primary BELLA LADRACH [facility] VDOB: Insurance:HUMANA VDOB: [facility] CHOICE PPOPolicy [id number] Repository [address] Number: [place] [id number] [address]Xtc: (803) Date: 17 (HP) 12/06/2017 BELLA LADRACH Primary BELLA LADRACH [facility] VDOB: Insurance:HUMANA VDOB: [facility] CHOICE PPOPolicy [id number] Repository [address] Number: [place] [id number]: (803) Date: (HP) 10/24/2017 BELLA LADRACHDOB: Primary BELLA LADRACHDOB: [facility] Insurance:HUMANA [id number] [facility] KERRI TRACEY CHOICE PPOPolicy Repository [place], [place] Number: [id number]: (803) [id number] (HP) Date: 10/02/2017 BELLA LADRACH Primary BELLA LADRACH [facility] VDOB: Insurance:HUMANA VDOB: Health System CHOICE [facility] [id number] Repository [address] Number: [place] [id number]: (803) Date: 8253 () 08/29/2017 BELLA LADRACH Primary BELLA LADRACH [facility] VDOB: Insurance:HUMANA VDOB: Health System CHOICE [facility] [id number] Repository [address] Number: [address] [id number]: (803) Date: () 08/23/2017 BELLA LADRACH Primary BELLA LADRACH [facility] VDOB: Insurance:HUMANA VDOB: Health System CHOICE [facility] [id number] Repository [address] Number: [address] [id number]: (803) Date: 9044 () 08/10/2017 BELLA LADRACH Primary BELLA LADRACH [facility] VDOB: Insurance:HUMANA VDOB: Health System CHOICE [facility] [id number] Repository [address] Number: [address] [id number]: (803) Date: () 08/08/2017 BELLA V [id number] Primary BELLA V [place] RUTHIE JAFFE, Insurance:HUMANA LADRACHDOB: [place] [address]Drc: MEDICARE PPOPolicy [id number] Hospital Number: Repository () [id number] Date:5586-95-92VK[address] [address]PV: 08/08/2017 Secondary NOT GIVENUNK [place] Insurance:SELF PAY [facility] Number: Effective Repository Date:2017-07-27 08/08/2017 BELLA V [id number] Primary BELLA V [place] [address], Insurance:HUMANA LADRACHDOB: [place] [address]Xqq: MEDICARE PPOPolicy [id number] Hospital Number: Repository () [id number] Date:4734-04-34OA[address] [address]CM: 08/08/2017 Secondary NOT GIVENUNK [place] Insurance:SELF PAY [facility] Number: Effective Repository Date:2017-08-08 07/27/2017 BELLA V [id number] Primary BELLA V [place] [address], Insurance:HUMANA LADRACHDOB: [facility] [place] [address]Tgj: MEDICARE PPOPolicy [id number] Hospital Number: Repository () [id number] Date:9334-25-68AQ [address] [address]QR: 07/27/2017 Secondary NOT GIVENUNK [place] Insurance:SELF PAY [facility] Number: Effective Repository Date:2017-07-27 06/23/2017 BELLA V [id number] Primary BELLA V [place] [address], Insurance:HUMANA LADRACHDOB: [facility] [place] [address]Lcy: MEDICARE PPOPolicy [id number] Hospital Number: Repository () [id number] Date:5920-46-85SZ[address] [address]QA: 06/23/2017 Secondary NOT GIVENUNK [place] Insurance:SELF PAY [facility] Number: Effective Repository Date:2017-06-23 05/23/2017 BELLA LADRACHDOB: Primary BELLA LADRACHDOB: [facility] Insurance:HUMANA [id number] [place], [place] Number: [id number]: (004) [id number] [phone] () Date: 03/30/2017 BELLA V [id number] Primary BELLA V [place] [address], Insurance:HUMANA LADRACHDOB: [facility] [address]Ebt: MEDICARE PPOPolicy [id number] [place] [address] Number: Repository () [id number] Date:9819-88-33HR [address] [address]LB: 03/30/2017 Secondary BELLA V [place] Insurance:MEDICAIDPol LADRACHDOB: [facility] icy Number: [id number] Hospital [id number] Repository Date:2017-03-29 03/30/2017 Tertiary NOT GIVENUNK [place] Insurance:SELF PAY [facility] Number: Effective Repository Date:2017-03-30 03/12/2017 BELLA V [id number] Primary BELLA V [place] [address], Insurance:HUMANA LADRACHDOB: [facility] [address]Vkq: MEDICARE PPOPolicy [id number] Number: Repository () [id number] Date:1568-60-00MI [address] [address]WE: 03/12/2017 Secondary BELLA V [place] Insurance:MEDICAIDPol LADRACHDOB: [facility] ic Number: [id number] [place] [address] [id number] Repository Date:2017-03-12 03/12/2017 Tertiary NOT GIVENUNK [place] Insurance:SELF PAY [facility] Number: Effective Repository Date:2017-03-12 03/12/2017 BELLA V [id number] Primary BELLA V [place] KERRI JOSEPH Insurance:HUMANA LADRACHDOB: [place] PPOPolicy [id number] [address]Gnx: (223) Number: Repository [phone] () [id number] Date:9673-86-07KJ [address] [address]LR: 03/12/2017 Secondary NOT GIVENUNK [place] Insurance:SELF PAY [facility] Number: Effective Repository Date:2017-03-12 03/12/2017 BELLA V [id number] Primary BELLA V [place] [address] Insurance:HUMANA LADRACHDOB: [place] MED[place] PPOPolicy [id number] [id number]: ([phone]) Number: Repository [phone] () [id number] Date:2613-34-27AW [address]WP: 03/12/2017 Secondary NOT GIVENUNK [place] Insurance:SELF PAY [facility] Number: Effective Repository Date:2017-03-12 03/12/2017 BELLA V [id number] Primary BELLA [place] [address] Insurance:HUMANA LADRACHDOB: [place] MED[place] PPOPolicy [id number] [address]Tel: (803) Number: Repository [phone] () [id number] Date:3679-21-02DA [place] [address]WP: 03/12/2017 Secondary NOT GIVENUNK [place] Insurance:SELF PAY [facility] Number: Effective Repository Date:2017-03-12 03/12/2017 BELLA V [id number] Primary BELLA V [place] [address] Insurance:HUMANA LADRACHDOB: [place] PPOPolicy [id number] [place] [id number]: (803) Number: Repository [phone] () [id number] Date:5488-44-60WF [address] [address]WT: 03/12/2017 Secondary NOT GIVENUNK [place] Insurance:SELF PAY [facility] Number: Effective Repository Date:2017-03-12 03/12/2017 BELLA V [id number] Primary BELLA V [place] [address] Insurance:HUMANA LADRACHDOB: [place] MED[place] PPOPolicy [id number] [place] [address]Tel: (803) Number: Repository [phone] () [id number] Date:3306-45-74GK [address] [address]MD: 03/12/2017 Secondary NOT GIVENUNK [place] Insurance:SELF PAY [facility] Number: Effective Repository Date:2017-03-12 03/12/2017 BELLA V [id number] Primary BELLA [place] [address] Insurance:HUMANA LADRACHDOB: [place] PPOPolicy [id number] Hospital [address]Ukt: (803) Number: Repository [phone] () [id number] Date:7009-73-44YL [address] [address]QE: 03/12/2017 Secondary NOT GIVENUNK [place] Insurance:SELF PAY [facility] Number: Effective Repository Date:2017-03-12 03/05/2017 BELLA V [id number] Primary BELLA V [place] [address] Insurance:HUMANA LADRACHDOB: [place] PPOPolicy [id number] Hospital [address]Nax: (803) Number: Repository [phone] () [id number] Date:1515-72-51SC [address] [address]SY: 03/05/2017 Secondary NOT GIVENUNK [place] Insurance:SELF PAY [facility] Number: Effective Repository Date:2017-03-05 03/05/2017 BELLA V [id number] Primary BELLA V Chauncey HENDRICKS ALANNAH, Insurance:HUMANA LADRACHDOB[facility] [address]Fcg: MEDICARE PPOPolicy [id number] Number: Repository () [id number] Date:0206-09-47SI [address] [id number]: 03/05/2017 Secondary BELLA V Chauncey Insurance:MEDICAIDPol LADRACHDOB: [facility] icy Number: [id number] [id number] Repository Date:2017-03-05 03/05/2017 Tertiary NOT GIVENUNK [place] Insurance:SELF PAY [facility] Effective Repository Date:2017-03-05
== END 2018-02-08 17:16 | disposition home or self-care (01) ==
LOC: ED 16:17
PROVIDERS: Emergency Provider Emergency Medicine; Family Provider Internal Medicine; PCP Internal Medicine
DX: J45.909 Unspecified asthma, uncomplicated (principal); J44.9 Chronic obstructive pulmonary disease, unspecified; J84.10 Pulmonary fibrosis, unspecified; I48.91 Unspecified atrial fibrillation; Z79.899 Other long term (current) drug therapy
CPT/HCPCS: 71046; 94640; 94664; 99282; A4216

== ENCOUNTER 2018-08-22 01:08 | Emergency (ER) | payer MEDICARE, SELFPAY ==
[2018-08-22] VITALS (7 sets, daily range): BP systolic 124–151; BP diastolic 67–110; PULSE 86–119; RESP 13–17; TEMP 36.6; O2SAT 96–100; BMI 24.3
--- NOTE | 2018-08-22 01:20 | EKG12_ITS ---
Test Reason : CP Blood Pressure : / mmHG Vent. Rate : 115 BPM Atrial Rate : 078 BPM P-R Int : 000 ms QRS Dur : 162 ms QT Int : 394 ms P-R-T Axes : 000 002 132 degrees QTc Int : 545 ms Atrial fibrillation with rapid ventricular response Left bundle branch block Abnormal ECG Confirmed by BRAD TROTTER ([id number]), editorial intern FANNIE TOMAS ([id number]) on 08/26/2018 1:16:34 PM Referred By: CHRISTOPHER Confirmed By:HIEN TROTTER
--- NOTE | 2018-08-22 01:21 | ED.VIS.GEN ---
History of Present Illness Chief Complaint: Palpitations Informant: Patient Narrative: Presents with atrial fibrillation. She felt herself going to it 2 hours ago. She is having palpitations only. No shortness of breath or other symptoms. No chest pain. She has A. fib for the last 17 years. She had an ablation 1 year ago. She did have to be cardioverted 3 days later but has had no problems since. She takes amiodarone 100 mg daily. 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 She took the second 100 mg prior to coming in. She is on no other rate control medications. Patient is on Xarelto. - Past Medical History (1) History of cardiac radiofrequency ablation Status: Chronic Comment: Per Dr. Rodriguez @ [facility] 08/23/2017 (2) History of mitral valve repair Status: Chronic (3) Paroxysmal A-fib Status: Chronic (4) Paroxysmal supraventricular tachycardia Status: Chronic (5) Rheumatic mitral insufficiency Status: Chronic (6) Rheumatic mitral valve prolapse Status: Chronic (7) Atrial fibrillation with RVR Status: Resolved Past Medical History - Allergies and Home Meds Allergies/Adverse Reactions: Allergies codeine Allergy (Verified 02/08/18 15:27) Other cortisone Allergy (Verified 02/08/18 15:27) Rash guaifenesin Allergy (Verified 02/08/18 15:27) Unknown propoxyphene [From Darvon] Allergy (Verified 02/08/18 15:27) Rash propranolol Allergy (Verified 02/08/18 15:27) Unknown verapamil Allergy (Verified 02/08/18 15:27) Unknown digoxin Adverse Reaction (Verified 02/08/18 15:27) Unknown honey Adverse Reaction (Verified 08/22/18 01:16) Rash Primary Care Physician: Reginald Rojo MD [Primary Care Provider] - Prior records reviewed: Yes Surgical History: - - Viewed Smoking Status: Former smoker Alcohol: None Drugs: None - Family History Sibling Family History: Reports: Heart Disease Review of Systems General: Denies: Chills, Fever, Sweats Eyes: Denies: Visual changes - bilaterally, Diplopia ENT: Denies: Rhinorrhea, Sore throat Cardiovascular: Reports: Palpitations, Heart racing. Denies: Chest pain Respiratory: Denies: Dyspnea, Cough, Dyspnea on exertion Gastrointestinal: Denies: Abdominal pain, Nausea, Vomiting, Diarrhea, Melena, Hematochezia Genitourinary: Denies: Dysuria, Hematuria, Frequency Musculoskeletal: Denies: Back pain, Extremity Pain Skin: Denies: Rash, Wounds Neurological: Denies: Headache, Weakness, Numbness Physical Exam Vital Signs/Narrative: Vital Signs Temp Pulse Resp BP Pulse Ox 08/22/18 01:16 99 13 151/79 H 99 08/22/18 01:09 97.8 F 119 H 14 148/110 H 98 General: Well nourished, Well developed, No Acute Distress Head: Normocephalic, Atraumatic Eyes: Perrl, EOMI ENT: Moist mucous membranes, No rhinorrhea Neck: Supple, Nontender Cardiovascular: No murmurs, Irregular, Tachycardia. Negative for: Regular rate, Regular rhythm Respiratory: No distress, CTA bilaterally, Chest nontender Abdomen: Soft, Nontender, Nondistended, Normal bowel sounds Back: Nontender, Normal Inspection Extremities: Nontender, No edema Skin: Normal color, No rash Neurological: Alert, Oriented x3, Cranial nerves II-XII grossly intact, Normal Strength, Normal Sensation Psychological: Normal affect, Normal Mood Diagnostic/Tx/Re-eval - Medical Decision Making EKG shows atrial fibrillation at a rate of 115 with a left bundle branch block. Patient given a dose of Cardizem. Lab work obtained. Cardizem brought her heart rate down in the 80s to 90s. Lab work shows no acute major abnormalities. Troponin negative. Resting comfortably. Given a second dose of Cardizem as the patient wanted to see if she would spontaneously convert. She remains in A. fib but her heart rate is under control. She has amiodarone and a beta-chris to take at home. 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 I do not think she needs an acute cardioversion. We will see if she converts. She is already on a blood thinner. I do not think she needs to be admitted as this is a chronic problem for the patient. ED Disposition - Plan for ED Patient: Disposition: [facility] Diagnosis: Atrial fibrillation Instructions: ED Afib Referrals: Reginald Rojo MD [Primary Care Provider] -
[2018-08-22] MEDS: dilTIAZem 25 MG/5 ML Vial 10 MG IV BOLUS ×2 (01:40→02:32)
[2018-08-22 01:44] LABS: Absolute Neutrophil Count 6.4 X10^3/uL (2.0-7.7); Basophil# 0.05 X10^3/uL; Basophil% 0.5 % (0-1); Eosinophil# 0.21 X10^3/uL; Eosinophils% 2.2 % (0-5); Hematocrit 43.2 % (37-47); Hemoglobin 14.4 g/dl (12.0-15.0); Lymphocyte % 20.8 % (19-41); Mean Corp Hgb Conc 33.3 g/gl (32-36); Mean Corpuscular Hgb 29.2 pg (27.0-32.0); Mean Corpuscular Volume 87.6 fL (81-99); Mean Platelet Vol. 10.8 fl (6.2-12.0); Monocyte# 0.98 X10^3/uL; Monocyte% 10.2 % (0-10); Neutrophil # 6.36 X10^3/uL (2.7-7.7); Neutrophil % 66.1 % (47-70); Platelet Count 215 K/mm3 (150-450); RBC Distribution Width CV 13.2 % (11.6-14.6); Red Blood Count 4.93 M/mm3 (4.2-5.4); White Blood Count 9.6 K/mm3 (4.4-11.0)
[2018-08-22 01:48] LABS: POSITIVE COUNT NO; POSITIVE DIFFERENTIAL NO; POSITIVE MORPHOLOGY NO
[2018-08-22 01:52] LABS: Anion Gap 4 (5-15); BUN 12 mg/dL (7-18); BUN/Creat Ratio 12.3 RATIO (10-20); Calcium,Total 8.8 mg/dL (8.5-10.1); Chloride 105 mmol/L (98-107); Creatinine, Serum 0.97 mg/dL (0.55-1.02); EST Glomerular Filtration Rate 59 mL/min (>60); Est Glom Filt Rate - Afr Amer 72 mL/min (>60); Estimated Creatinine Clearance 45.09 ml/min; Glucose 134 mg/dL (74-106); Potassium 3.3 mmol/L (3.5-5.1); Sodium Level 140 mmol/L (136-145)
== END 2018-08-22 03:59 | disposition home or self-care (01) ==
PROVIDERS: Emergency Provider Emergency Medicine; Family Provider Internal Medicine; PCP Internal Medicine
DX: I48.0 Paroxysmal atrial fibrillation (principal); I47.1 Supraventricular tachycardia; I34.1 Nonrheumatic mitral (valve) prolapse; I44.7 Left bundle-branch block, unspecified; Z79.01 Long term (current) use of 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s; Z79.899 Other long term (current) drug therapy; Z87.891 Personal history of nicotine dependence
CPT/HCPCS: 80048; 84484; 85025; 93005; 96374; 96376; 99285; A4216

== ENCOUNTER → 2018-11-25 07:55 | Outpatient (CLI) | payer MEDICARE, SELFPAY ==
[2018-09-06 14:37] VITALS: BMI 23.6
--- NOTE | 2018-11-25 08:53 | ECHOD_ITS ---
Reason For Study: MV REPLACEMENT Procedure This was a 2D Doppler, Color Flow transthoracic echocardiogram. Exam performed in department. Left Ventricle Normal size and thickness. The estimated ejection fraction is 65 %. No regional wall motion abnormalities noted. Right Ventricle Mildly dilated right ventricle. Normal systolic function. Atria The left atrium is severely enlarged. Normal right atrium. Normal atrial septum. Mitral Valve The mitral valve is structurally normal. No prolapse or stenosis seen. Mild (1+) mitral valve insufficiency. Status post mitral valve repair with annuloplasty ring. Tricuspid Valve Normal tricuspid valve. Mild (1+) tricuspid valve insufficiency. Right ventricular systolic pressure estimated to be 35 mmHg. Aortic Valve Trisinus/trileaflet aortic valve. Mild diffuse aortic valve thickening. There is no aortic stenosis. Pulmonic Valve The pulmonic valve is not well visualized. Great Vessels Normal aortic root. Normal arch. Normal inferior vena cava. Inferior vena cava collapse with sniff. Pericardium/Pleural No pericardial effusion. MMode/2D Measurements & Calculations LVIDd: 4.7 cm IVSd: 0.85 cm Ao root diam: 3.2 cm LVIDs: 3.0 cm LVPWd: 0.83 cm RVDd: 3.8 cm FS: 36.0 % LAV(MOD-bp): 73.0 ml LVAd ap4: 34.8 cm2 SV(MOD-sp4): 74.6 ml LAV(MOD-bp) Indexed: 42.9 ml/m2 EDV(MOD-sp4): 125.8 ml LAV(MOD-sp2): 68.5 ml EDV(sp4-el): 130.7 ml LAV(MOD-sp4): 74.1 ml LVAs ap4: 19.5 cm2 ESV(MOD-sp4): 51.2 ml ESV(sp4-el): 51.9 ml EF(MOD-sp4): 59.3 % EF(sp4-el): 60.3 % SV(sp4-el): 78.8 ml LA A4 area: 23.4 cm2 LA dimension(2D): 5.1 cm RA A4 area: 17.9 cm2 Doppler Measurements & Calculations MV V2 max: 150.0 cm/sec Ao V2 max: 157.6 cm/sec LV V1 max: 98.9 cm/sec MV max P.0 mmHg Ao max P.9 mmHg LV V1 max P.9 mmHg MV V2 mean: 60.6 cm/sec LV V1 mean P.1 mmHg MV mean P.2 mmHg LV V1 mean: 67.3 cm/sec MV V2 VTI: 40.1 cm LV V1 VTI: 23.1 cm TR max starr: 267.8 cm/sec MV P1/2t-pr_phl: 110.0 msec TR max P.7 mmHg Interpretation Summary The estimated ejection fraction is 65 %. Mildly dilated right ventricle. The left atrium is severely enlarged. Status post mitral valve repair with annuloplasty ring. Mild (1+) mitral valve insufficiency. Mild (1+) tricuspid valve insufficiency. Right ventricular systolic pressure estimated to be 35 mmHg. Compared to echo report dated 08/08/2017, no appreciable changes noted. Ordering Physician: Ronald Lauren Referring Physician: Reginald Rojo M.D. Performed By: Violet Moore RDCS, RVT
--- NOTE | 2018-11-25 14:24 | PFTCOMP ---
COMPLETE PULMONARY FUNCTION TEST INTERPRETATION Brief HPI: Patient is a 73 year old female, currently under the care of Dr. Lauren, who presents to [facility] for complete pulmonary function tests secondary to diagnosis of amiodarone therapy. Respiratory therapist reports good effort and reproducible results. Interpretation: Forced expiration spirometry shows no large airways obstructive ventilatory defect with an FEV1 of 93% predicted. There is no significant bronchodilator response by strict ATS criteria. Spirograms are of good quality and plateau normally. The respiratory flow volume loop shows a normal pattern. Lung volumes by body plethysmography show a normal total lung capacity at 5.55 L, 112% predicted. All other lung volumes are within normal limits. Diffusion capacity by carbon monoxide is normal at 90% predicted. The airway resistance is normal. No previous pulmonary function tests were available for review. Impression: These pulmonary function tests are within normal limits
== END ==
LOC: PSN 07:56
PROVIDERS: Family Provider Internal Medicine; PCP Internal Medicine; Referring Provider Internal Medicine Cardiovascular Disease; Visit Provider Internal Medicine Cardiovascular Disease
DX: I47.1 Supraventricular tachycardia (principal); I48.91 Unspecified atrial fibrillation; Z98.890 Other specified postprocedural states
CPT/HCPCS: 93306; 94060; 94726; 94729

== ENCOUNTER 2018-12-28 05:57 | Emergency (ER) | payer MEDICARE, SELFPAY ==
[2018-12-19 15:14] VITALS: BMI 24.1
[2018-12-28] VITALS (9 sets, daily range): BP systolic 123–145; BP diastolic 51–96; PULSE 50–125; RESP 12–32; TEMP 36.7; O2SAT 96–100; BMI 24.7
--- NOTE | 2018-12-28 06:18 | EKG12_ITS ---
Test Reason : REPEAT Blood Pressure : / mmHG Vent. Rate : 052 BPM Atrial Rate : 052 BPM P-R Int : 184 ms QRS Dur : 096 ms QT Int : 510 ms P-R-T Axes : 083 061 067 degrees QTc Int : 474 ms Sinus bradycardia T wave abnormality, consider anterior ischemia Abnormal ECG Confirmed by ELSA BAIRES, SARINA ([id number]), editor index TULIO DE LEON ([id number]) on 01/03/2019 10:07:34 AM Referred By: JOSÉ MANUEL Confirmed By:SARINA HUNTER MD
--- NOTE | 2018-12-28 06:18 | RAD_ITS ---
STUDY: X-RAY CHEST REASON FOR EXAM: Female, 73 years old. Chest pain TECHNIQUE: AP portable upright COMPARISON: 02/08/2018 FINDINGS: The lungs are clear and expanded. There is no demonstrated pleural abnormality. Stable COPD changes. Normal size heart. Normal mediastinum and jason. Normal visualized pulmonary arteries. Normal visualized aortic arch and descending thoracic aorta. There are diffuse degenerative changes of the visualized thoracic spine. The are old left rib fractures. There is no demonstrated abnormality of the visualized soft tissue structures of the upper abdomen. RAD/Chest 1 View (Portable) IMPRESSION: Negative x-ray examination of the chest. Electronically Signed: Dharmesh Lara, at 6:41 EDT Tel , Service support ,
[2018-12-28 06:28] LABS: Absolute Lymphocyte Count 2.03 X10^3/uL (0.83-4.51); Absolute Neutrophil Count 5.4 X10^3/uL (2.0-7.7); Basophil# 0.08 X10^3/uL; Basophil% 0.9 % (0-1); Eosinophil# 0.26 X10^3/uL; Eosinophils% 3.1 % (0-5); Hemoglobin 13.4 g/dL (12.0-15.0); Lymphocyte # 2.03 X10^3/ul (4.0); Lymphocyte % 23.9 % (19-41); Mean Corp Hgb Conc 32.7 g/dL (32-36); Mean Corpuscular Hgb 29.1 pg (27.0-32.0); Mean Corpuscular Volume 89.1 fL (81-99); Mean Platelet Vol. 11.7 fl (6.2-12.0); Monocyte# 0.73 X10^3/uL; Monocyte% 8.6 % (0-10); NRBC Flagged by Analyzer 0 % (0-5); Neutrophil # 5.38 X10^3/uL (2.7-7.7); Neutrophil % 63.3 % (47-70); Platelet Count 199 K/mm3 (150-450); RBC Distribution Width SD 42.2 fl (35.1-43.9); White Blood Count 8.5 K/mm3 (4.4-11.0)
[2018-12-28 06:45] LABS: Anion Gap 6 (5-15); BUN 14 mg/dL (7-18); BUN/Creat Ratio 13.3 RATIO (10-20); Calcium,Total 8.7 mg/dL (8.5-10.1); Chloride 107 mmol/L (98-107); Creatinine, Serum 1.05 mg/dL (0.55-1.02); EST Glomerular Filtration Rate 54 mL/min (>60); Est Glom Filt Rate - Afr Amer 66 mL/min (>60); Estimated Creatinine Clearance 41.66 ml/min; Glucose 109 mg/dL (74-106); Magnesium 1.9 mg/dL (1.6-2.6); Potassium 3.5 mmol/L (3.5-5.1); Sodium Level 144 mmol/L (136-145)
--- NOTE | 2018-12-28 07:07 | ED.DCSUM_ITS ---
- ER Visit Summary Date of Service: 12/28/18 Chief Complaint: Atrial fibrillation History of Present Illness: The patient is a 73 F who presents today for the evaluation of atrial fibrillation. The patient reports that she has had a mitral valve repair in the past. 2018 she had cardiac ablation. She is on amiodarone Xarelto and Coreg. She sees Dr. Lauren's cardiology group. She states that tonight at around 2 in the morning she felt herself going to atrial fibrillation. She waited several hours and it did not convert. She noticed that her blood pressure was higher than normal. Squad was called and she came in. She denies missing any recent doses of medications specifically denies missing any Xarelto doses in the past 2 months. He states in the past couple months she has now had 3 episodes of A. fib which is atypical for her. The patient has a left bundle branch block when she is in A. fib but when she is in a sinus rhythm no bundle branch block. Physical Examination: Afebrile vital signs are stable noted heart rate of 110 Gen: Well-nourished well-developed Head: Normocephalic atraumatic Eyes: Perrl EOMI ENT: TMs clear no rhinorrhea moist mucous membranes Neck: Supple no lymphadenopathy no JVD nontender CVS: Irregularly irregular tachycardic rhythm no murmurs normal S1-S2 Respiratory: No distress clear to auscultation bilaterally chest nontender Abdomen: Soft nontender nondistended normal bowel sounds no masses Back: Nontender Extremity: Nontender no edema Skin: Normal color no rash Neuro: alert orientated ?3 CN II-XII intact normal strength sensation reflexes gait cerebellar Psych: Normal affect normal mood Test Results: EKG shows atrial fibrillation with a left bundle branch block at a rate of 92. Prehospital EKG showed the same but with a rate of 122 CBC is normal. Magnesium potassium normal. TSH is elevated at 4. Troponin negative. Emergency Department Course and Treatment: After period of observation the patient did not self convert. She has requested a electrical cardioversion which I think would be appropriate given that she has not missed doses of her medication and she has had this several times in the past with success. Patient provided informed consent for the use of procedural sedation. She received 25 mcg of fentanyl as well as 10 mg of etomidate IV. A 200 J synchronized shock was delivered resulting in conversion to a sinus rhythm. Repeat EKG de monstrated a sinus bradycardia rate of 52 with no significant changes compared to prior. She was allowed to recover but did note some nausea. She received Zofran. She did not have periods of apnea hypotension hypoxia or aspiration. Patient will be discharged home with instructions to follow-up with her nascar driver return if worsening or concerns Impression: 1. Paroxysmal atrial fibrillation 2. Electrical cardioversion by physician 3. Procedural sedation by physician This note was generated with [employer] dictation software. It may contain incorrect words, spelling, and punctuation that were not noted in review of the chart prior to signing ED Disposition - Plan for ED Patient: Disposition: Home or Assisted Living Instructions: Atrial Fibrillation Referrals: Ronald Lauren MD [STAFF PHYSICIAN] - As soon as possible
[2018-12-28] MEDS: fentaNYL 100 MCG/2 ML Ampul 25 MCG IV (07:24)
--- NOTE | 2018-12-28 07:29 | EKG12_ITS ---
Test Reason : Blood Pressure : / mmHG Vent. Rate : 092 BPM Atrial Rate : 141 BPM P-R Int : 000 ms QRS Dur : 156 ms QT Int : 438 ms P-R-T Axes : 000 -12 121 degrees QTc Int : 541 ms Atrial fibrillation Left bundle branch block Abnormal ECG Confirmed by SARINA HUNTER MD ([id number]), videotape editor TULIO DE LEON ([id number]) on 01/03/2019 10:41:29 AM Referred By: Confirmed By:SARINA HUNTER MD
[2018-12-28] MEDS: Ondansetron 4 MG/2 ML Vial IV (07:36)
== END 2018-12-28 08:19 | disposition home or self-care (01) ==
PROVIDERS: Emergency Provider Emergency Medicine; Family Provider Internal Medicine; PCP Internal Medicine
DX: I48.0 Paroxysmal atrial fibrillation (principal); M31.4 Aortic arch syndrome [Takayasu]; Z79.01 Long term (current) use of 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s; Z87.891 Personal history of nicotine dependence
CPT/HCPCS: 71045; 80048; 83735; 84443; 84484; 85025; 92960; 93005; 96374; 99285; J7030; A4216; J2405

== ENCOUNTER 2019-01-25 20:36 | Emergency (ER) | payer MEDICARE, SELFPAY ==
[2018-12-28 05:58] VITALS: BMI 24.7
[2019-01-25 20:44] VITALS: BP 161/62; PULSE 65; RESP 17; TEMP 36.4; O2SAT 96; BMI 23.3
--- NOTE | 2019-01-25 21:15 | ED.DCSUM_ITS ---
History of Present Illness Chief Complaint: Complaint Detail of Chief Complaint: dysuria Informant: Patient Associated Symptoms: Dysuria, Frequency, Urgency, Hematuria - pink, no clots Narrative: Patient has had these urinary symptoms for 4 hours or so tonight. She is on Xarelto for paroxysmal atrial fibrillation that is much improved after having a cardiac ablation. She denies any fevers, abdominal pain, back pain, nausea, vomiting. Prior similar symptoms: Yes - UTIs - Past Medical History (1) History of cardiac radiofrequency ablation Status: Chronic Comment: Per Dr. Rodriguez @ [facility] 08/23/2017 (2) History of mitral valve repair Status: Chronic (3) Paroxysmal A-fib Status: Chronic (4) Paroxysmal supraventricular tachycardia Status: Chronic (5) Rheumatic mitral insufficiency Status: Chronic (6) Rheumatic mitral valve prolapse Status: Chronic Past Medical History - Allergies and Home Meds Allergies/Adverse Reactions: Allergies codeine Allergy (Verified 01/25/19 20:39) Other cortisone Allergy (Verified 01/25/19 20:39) Rash propoxyphene [From Darvon] Allergy (Verified 01/25/19 20:39) Rash propranolol Allergy (Verified 01/25/19 20:39) Unknown verapamil Allergy (Verified 01/25/19 20:39) Unknown digoxin Adverse Reaction (Verified 01/25/19 20:39) Unknown honey Adverse Reaction (Verified 01/25/19 20:39) Rash Primary Care Physician: Reginald Rojo MD [Primary Care Provider] - Surgical History: - - Viewed Lives: Alone Smoking Status: Former smoker Drugs: None - Family History Sibling Family History: Reports: Heart Disease Review of Systems General: Denies: Chills, Fever, Sweats Eyes: Denies: Visual changes - bilaterally, Diplopia ENT: Denies: Rhinorrhea, Sore throat Cardiovascular: Denies: Chest pain, Palpitations Respiratory: Denies: Dyspnea, Cough, Dyspnea on exertion Gastrointestinal: Denies: Abdominal pain, Nausea, Vomiting, Diarrhea, Melena, Hematochezia Genitourinary: Reports: Dysuria, Hematuria - Mild, no clots, Frequency, - - Urgency Musculoskeletal: Denies: Back pain, Extremity Pain Skin: Denies: Rash, Wounds Neurological: Denies: Headache, Weakness, Numbness Physical Exam Vital Signs/Narrative: Vital Signs Temp Pulse Resp BP Pulse Ox 01/25/19 20:44 97.6 F L 65 17 161/62 H 96 Inital Vital Signs reviewed: Yes General: Well nourished, Well developed Head: Normocephalic, Atraumatic Eyes: Perrl, EOMI ENT: Moist mucous membranes, No rhinorrhea Neck: Supple, Nontender Respiratory: No distress, CTA bilaterally, Chest nontender Abdomen: Soft, Nontender, Nondistended, Normal bowel sounds Back: Nontender, Normal Inspection. Negative for: CVA tenderness Extremities: Nontender, No edema Skin: Normal color, No rash, No Trauma Neurological: Alert, Oriented x3, Cranial nerves II-XII grossly intact, Normal Strength, Normal Sensation, Normal Gait Psychological: Normal affect, Normal Mood Diagnostic/Tx/Re-eval Laboratory Results 01/25/19 20:55 Urine Color Straw Urine Clarity Cloudy Urine pH 6.0 Ur Specific [place] 1.015 Urine Protein 30 H Urine Glucose (UA) Normal Urine Ketones Negative Urine Occult Blood 250 H Urine Nitrite Negative Urine Bilirubin Negative Urine Urobilinogen Normal Ur Leukocyte Esterase 500 H Urine RBC > 100 SEEN Urine WBC >100 SEEN Ur Squamous Epith Cells 0 SEEN Urine Bacteria RARE Urine Mucus 0 SEEN - Medical Decision/Diagnostic Studies Urine consistent with infection. She was started on Bactrim and given a dose of Pyridium and discharged with prescriptions for both. We discussed irrigating her bladder with a Rodriguez catheter, she declines that at this time and I think that is reasonable given that she has only had pink urine. If she develops worsening bleeding, clots, and/or retention, she is advised to return to the ER in the meantime. She is comfortable with this overall plan. ED Disposition - Plan for ED Patient: Disposition: Home or Assisted Living Diagnosis: Acute hemorrhagic cystitis Instructions: Urinary Tract Infections in Women, Hematuria Prescriptions: Sulfamethoxazole/Trimethoprim [Bactrim Ds Tablet] 1 ea PO BID 5 Days #10 tab Transmission Status: Pending to [id number] Phenazopyridine HCl [Pyridium] 100 mg PO TID PRN #6 tab PRN Reason: dysuria Transmission Status: Pending to [id number] Referrals: Reginald Rojo MD [Primary Care Provider] - 3-5 Days if not improving
[2019-01-25 21:27] LABS: Mucous, Urine 0 SEEN /hpf (<or=2+); Squamous Epithelial Cells - UA 0 SEEN /hpf (5-10)
[2019-01-25] MEDS: Smz/Tmp Ds Tablet 1 TABLET PO (21:27)
[2019-01-25] MEDS: Phenazopyridine 95 MG Tablet 190 MG PO (21:27)
[2019-01-25 21:36] LABS: Color, Urine Straw (Yellow); Glucose, Dipstick Normal (Normal); Ketone-Dipstick Negative (Negative); Leukocyte Esterase-Dipstick 500 /ul (Negative); Nitrite-Dipstick Negative (Negative); Occult Blood-Urine 250 /ul (Negative); Protein-Dipstick 30 mg/dl (Negative); Specific Gravity, Urine 1.015 (1.002-1.030); Urine Bilirubin Dipstick Negative (Negative); Urine Clarity Cloudy (Clear); Urine Urobilinogen Normal (Normal)
[2019-01-25 21:43] LABS: Red Blood Cells-Urine > 100 SEEN /hpf (0-5); White Blood Cells >100 SEEN /hpf (0-5)
[2019-01-25 21:44] LABS: Bacteria RARE /hpf (None Seen)
[2019-01-25 22:16] VITALS: BP 136/58; PULSE 63
== END 2019-01-25 22:17 | disposition home or self-care (01) ==
PROVIDERS: Emergency Provider Emergency Medicine; Family Provider Internal Medicine; PCP Internal Medicine
DX: N30.01 Acute cystitis with hematuria (principal); I48.0 Paroxysmal atrial fibrillation; I47.1 Supraventricular tachycardia; I05.1 Rheumatic mitral insufficiency; Z79.01 Long term (current) use of 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s; Z79.899 Other long term (current) drug therapy; Z87.891 Personal history of nicotine dependence
CPT/HCPCS: 81001; 87086; 87088; 87186; 99285

== ENCOUNTER → 2019-02-24 12:41 | Outpatient (CLI) | payer MEDICARE, SELFPAY ==
[2019-01-25 20:44] VITALS: BMI 23.3
[2019-02-24 14:17] LABS: AST(SGOT) 22 U/L (15-37); Alanine Aminotransfer ALT/SGPT 20 U/L (13-56); Albumin, Serum 3.9 g/dL (3.2-5.0); Alkaline Phosphatase 97 U/L (45-117); Bilirubin, Direct 0.25 mg/dL (0.00-0.30); Globulin 3.7 g/dL (2.2-4.2); Protein, Total 7.6 g/dL (6.4-8.2); T4 Free Direct 1.95 ng/dL (0.76-1.46); Thyroid Stim Hormone (TSH) 1.67 uIU/mL (0.358-3.74)
== END ==
LOC: PSN 12:41
PROVIDERS: Family Provider Internal Medicine; PCP Internal Medicine; Referring Provider Nurse Practitioner Family; Visit Provider Nurse Practitioner Family
DX: I47.1 Supraventricular tachycardia (principal); R00.1 Bradycardia, unspecified; Z79.899 Other long term (current) drug therapy
CPT/HCPCS: 36415; 80076; 84439; 84443; 93225; 93226

== ENCOUNTER 2019-03-03 10:45 | Emergency (ER) | payer MEDICARE, SELFPAY ==
[2019-02-28 11:09] VITALS: BMI 23.8
[2019-03-03 10:47] VITALS: BP 147/82; PULSE 86; RESP 18; TEMP 36.5; O2SAT 97; BMI 24.8
[2019-03-03 10:55] VITALS: O2SAT 97
--- NOTE | 2019-03-03 11:03 | EKG12_ITS ---
Test Reason : SOB Blood Pressure : / mmHG Vent. Rate : 082 BPM Atrial Rate : 241 BPM P-R Int : 000 ms QRS Dur : 166 ms QT Int : 470 ms P-R-T Axes : 000 -29 111 degrees QTc Int : 549 ms Atrial fibrillation Left bundle branch block Abnormal ECG Confirmed by ELSA BAIRES, SARINA ([id number]), legal editor TULIO DE LEON ([id number]) on 03/06/2019 9:26:00 AM Referred By: NINA Confirmed By:SARINA HUNTER MD
[2019-03-03 11:27] LABS: Hematocrit 44.7 % (37-47); Hemoglobin 14.2 g/dL (12.0-15.0); Mean Corp Hgb Conc 31.8 g/dL (32-36); Mean Corpuscular Hgb 28.9 pg (27.0-32.0); Mean Platelet Vol. 11.1 fl (6.2-12.0); Platelet Count 214 K/mm3 (150-450); RBC Distribution Width SD 43.2 fl (35.1-43.9); Red Blood Count 4.91 M/mm3 (4.2-5.4); White Blood Count 5.9 K/mm3 (4.4-11.0)
[2019-03-03 11:34] LABS: Anion Gap 5 (5-15); BUN 15 mg/dL (7-18); Calcium,Total 8.9 mg/dL (8.5-10.1); Chloride 109 mmol/L (98-107); Creatinine, Serum 1.15 mg/dL (0.55-1.02); EST Glomerular Filtration Rate 49 mL/min (>60); Est Glom Filt Rate - Afr Amer 59 mL/min (>60); Estimated Creatinine Clearance 38.03 ml/min; Glucose 122 mg/dL (74-106); Potassium 3.5 mmol/L (3.5-5.1); Sodium Level 143 mmol/L (136-145)
--- NOTE | 2019-03-03 12:04 | ED.DCSUM_ITS ---
History of Present Illness Chief Complaint: Shortness of Breath Detail of Chief Complaint: And irregular heartbeat Informant: Patient Onset: Today Context: Sudden Onset Timing: Continuous Quality: Irregular heartbeat with shortness of breath Location: Cardiovascular Current Severity: Mild Maximum Severity: Moderate Worsened by: Nothing Relieved by: Nothing Associated Symptoms: No associated symptoms Narrative: Patient is a 73-year-old woman with history of paroxysmal atrial fibrillation status post ablation therapy last year on an 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 who presents with shortness of breath and irregular heartbeat that started this morning. She states she is compliant with her medication. She denies fever, chills or night sweats. She denies malaise. She denies weight gain or weight loss. She denies ocular, visual auditory symptoms. She denies leg pain, swelling discoloration. She denies orthopnea or PND. She denies maroon or black-colored stool. She denies nausea or vomiting. Prior similar symptoms: Yes Recent Illness/Hospitalization: No - Past Medical History (1) History of cardiac radiofrequency ablation Status: Chronic Comment: Per Dr. Rodriguez @ [facility] 08/23/2017 (2) History of mitral valve repair Status: Chronic (3) Paroxysmal A-fib Status: Chronic (4) Paroxysmal supraventricular tachycardia Status: Chronic (5) Rheumatic mitral valve prolapse Status: Chronic Past Medical History - Allergies and Home Meds Allergies/Adverse Reactions: Allergies codeine Allergy (Verified 03/03/19 10:46) Other cortisone Allergy (Verified 03/03/19 10:46) Rash propoxyphene [From Darvon] Allergy (Verified 03/03/19 10:46) Rash propranolol Allergy (Verified 03/03/19 10:46) Unknown verapamil Allergy (Verified 03/03/19 10:46) Unknown digoxin Adverse Reaction (Verified 03/03/19 10:46) Unknown honey Adverse Reaction (Verified 03/03/19 10:46) Rash Primary Care Physician: Reginald Rojo MD [Primary Care Provider] - Prior records reviewed: Yes Surgical History: - - Viewed Lives: Alone Smoking Status: Former smoker Alcohol: None Drugs: None - Family History Sibling Family History: Reports: Heart Disease Review of Systems General: Denies: Chills, Fever, Sweats Eyes: Denies: Visual changes - bilaterally, Blurred Vision - bilaterally, Diplopia ENT: Denies: Rhinorrhea, Sore throat Cardiovascular: Reports: Palpitations. Denies: Chest pain, Heart racing, -, - Respiratory: Reports: Dyspnea. Denies: Cough, Sputum, Dyspnea on exertion, Orthopnea, Paroxysmal nocturnal dyspnea, -, - Gastrointestinal: Denies: Abdominal pain, Nausea, Vomiting, Diarrhea, Melena, Hematochezia Genitourinary: Denies: Dysuria, Hematuria, Frequency Musculoskeletal: Denies: Myalgias, Arthralgias, Neck pain, Back pain, Swelling, Extremity Pain Skin: Denies: Rash, Wounds Neurological: Denies: Headache, Weakness, Numbness Psych: Denies: Depression, Anxiety Hematologic: Denies: Easy bruising, Easy bleeding Physical Exam Vital Signs/Narrative: Vital Signs Temp Pulse Resp BP Pulse Ox 03/03/19 10:47 97.7 F L 86 18 147/82 H 97 Inital Vital Signs reviewed: Yes General: Well nourished, Well developed, No Acute Distress Head: Normocephalic, Atraumatic Eyes: Perrl, EOMI ENT: Moist mucous membranes, No rhinorrhea Neck: Supple, Nontender, No lymphadenopathy, No JVD Cardiovascular: Regular rate, No murmurs, Normal S1, Normal S2, Irregular Respiratory: No distress, CTA bilaterally, Chest nontender Abdomen: Soft, Nontender, Nondistended, Normal bowel sounds Back: Nontender, Normal Inspection Extremities: Nontender, No edema. Negative for: Calf Tenderness Skin: Normal color, No rash, No Trauma. Negative for: Cyanosis, Diaphoresis, Jaundice Neurological: Alert, Oriented x3, Cranial nerves II-XII grossly intact, Normal Strength, Normal Sensation Psychological: Normal affect, Normal Mood Diagnostic/Tx/Re-eval Chest X-Ray - ED: 1 View, Normal, Heart, Lungs, Mediastinum, Bony Structures, No Acute Disease Laboratory Results 03/03/19 03/03/19 10:52 10:52 WBC 5.9 RBC 4.91 Hgb 14.2 Hct 44.7 MCV 91.0 MCH 28.9 MCHC 31.8 L RDW Std Deviation 43.2 RDW Coeff of Gagandeep 13.0 Plt Count 214 MPV 11.1 Sodium 143 Potassium 3.5 Chloride 109 H Carbon Dioxide 29.0 Anion Gap 5 BUN 15 Creatinine 1.15 H Estim Creat Clear Calc 38.03 Est GFR (MDRD) Af Amer 59 L Est GFR (MDRD) Non-Af 49 L BUN/Creatinine Ratio 13.0 Glucose 122 H Calcium 8.9 Basic metabolic panel both slight elevation in glucose, 122. There is no evidence of anemia. Creatinine is 1.15 with a GFR of 49. - Rhythm Strip Rhythm Strip: A-fib Rate: 87 Ectopy: PVC(s) - EKG Initial EKG Interpretation: Atrial Fibrillation - Atrial fibrillation with a ventricular rate of 82. There is evidence of left bundle branch block. QRS duration 106 6 ms. QT duration 470 ms. Norman to left. Prior: Unchanged - Medical Decision Making EKG was obtained to evaluate for ischemia. Blood work was obtained to evaluate for anemia, electrolyte abnormality etc. Patient was informed that she is now in a sinus rhythm with a rate of 67 on the monitor. Plan is discharge to home and follow-up with Dr. Laruen in the next 5 to 7 days. ED Disposition - Plan for ED Patient: Disposition: Home or Assisted Living Diagnosis: Paroxysmal atrial fibrillation Instructions: Atrial Fibrillation Referrals: Reginald Rojo MD [Primary Care Provider] - Ronald Lauren MD [STAFF PHYSICIAN] - 5-7 Days
[2019-03-03 12:44] VITALS: BP 141/80; PULSE 68
== END 2019-03-03 13:22 | disposition home or self-care (01) ==
PROVIDERS: Emergency Provider Emergency Medicine; Family Provider Internal Medicine; PCP Internal Medicine
DX: I48.0 Paroxysmal atrial fibrillation (principal); I05.8 Other rheumatic mitral valve diseases; Z79.02 Long term (current) use of antithrombotics/antiplatelets; Z79.899 Other long term (current) drug therapy; Z87.891 Personal history of nicotine dependence
CPT/HCPCS: 80048; 85027; 93005; 99285

== ENCOUNTER 2019-05-04 22:47 | Emergency (ER) | payer MEDICARE, SELFPAY ==
[2019-05-04 22:48] VITALS: BP 153/97; PULSE 123; RESP 16; TEMP 36.6; O2SAT 97; BMI 24.5
--- NOTE | 2019-05-04 22:54 | EKG12_ITS ---
Test Reason : RHYTHM CHANGE Blood Pressure : / mmHG Vent. Rate : 061 BPM Atrial Rate : 202 BPM P-R Int : 000 ms QRS Dur : 162 ms QT Int : 534 ms P-R-T Axes : 000 -15 111 degrees QTc Int : 537 ms Normal Sinus Rhythm Left bundle branch block Abnormal ECG Confirmed by AURORA MCELROY ([id number]), newspaper photo editor FANNIE TOMAS ([id number]) on 05/07/2019 2:50:33 PM Referred By: EFFIE Confirmed By:AURORA MCELROY
--- NOTE | 2019-05-04 23:50 | ED.VIS.GEN ---
History of Present Illness Chief Complaint: Palpitations Informant: Patient Onset: Hours - 2 Context: Sudden Onset - resting Timing: Continuous Quality: racing/skipping Location: chest Current Severity: Moderate Maximum Severity: Moderate Worsened by: nothing Relieved by: nothing Associated Symptoms: none Narrative: Patient states couple hours ago she felt like she went into A. fib. She always feels when she goes into A. fib. She had an ablation 1-2 years ago for this, however this is the third or fourth episode she has had since then. She was cardioverted in the past, but not since the ablation. She is on amiodarone once daily and has not missed any doses or had any changes in her medications lately. She last took it this morning. She denies any recent illnesses, injury, she denies associated chest pain/shortness of breath/lightheadedness or near syncope. No recent swelling in her legs. No history of congestive heart failure. She had a mitral valve repair and that seem to be associated with the beginning of her atrial fibrillation. - Past Medical History (1) History of cardiac radiofrequency ablation Status: Chronic Comment: Per Dr. Rodriguez @ [facility] 08/23/2017 (2) History of mitral valve repair Status: Chronic (3) Paroxysmal A-fib Status: Chronic (4) Paroxysmal supraventricular tachycardia Status: Chronic (5) Rheumatic mitral insufficiency Status: Chronic (6) Rheumatic mitral valve prolapse Status: Chronic Past Medical History - Allergies and Home Meds Allergies/Adverse Reactions: Allergies codeine Allergy (Verified 05/04/19 22:51) Other cortisone Allergy (Verified 05/04/19 22:51) Rash propoxyphene [From Darvon] Allergy (Verified 05/04/19 22:51) Rash propranolol Allergy (Verified 05/04/19 22:51) Unknown verapamil Allergy (Verified 05/04/19 22:51) Unknown digoxin Adverse Reaction (Verified 05/04/19 22:51) Unknown honey Adverse Reaction (Verified 05/04/19 22:51) Rash Primary Care Physician: Reginald Rojo MD [Primary Care Provider] - Doctors: Dr. Lauren Surgical History: - - Cardiac ablation. Mitral valve repair. Lives: Spouse/ Significant Other Smoking Status: Former smoker - Family History Sibling Family History: Reports: Heart Disease Review of Systems General: Denies: Chills, Fever, Sweats Eyes: Denies: Visual changes - bilaterally, Diplopia ENT: Denies: Rhinorrhea, Sore throat Cardiovascular: Reports: Palpitations, Heart racing. Denies: Chest pain Respiratory: Denies: Dyspnea, Cough, Dyspnea on exertion Gastrointestinal: Denies: Abdominal pain, Nausea, Vomiting, Diarrhea, Melena, Hematochezia Genitourinary: Denies: Dysuria, Hematuria, Frequency Musculoskeletal: Denies: Back pain, Extremity Pain Skin: Denies: Rash, Wounds Neurological: Denies: Headache, Weakness, Numbness Physical Exam Vital Signs/Narrative: Vital Signs Temp Pulse Resp BP Pulse Ox 05/04/19 22:48 97.9 F 123 H 16 153/97 H 97 Inital Vital Signs reviewed: Yes General: Well nourished, Well developed, No Acute Distress - Appearing. Conversive in full sentences. No diaphoresis. Head: Normocephalic, Atraumatic Eyes: Perrl, EOMI ENT: Moist mucous membranes, No rhinorrhea Neck: Supple, Nontender, No JVD Cardiovascular: No murmurs, Irregular, Tachycardia Respiratory: No distress, CTA bilaterally, Chest nontender Abdomen: Soft, Nontender, Nondistended, Normal bowel sounds Back: Nontender, Normal Inspection Extremities: Nontender, No edema. Negative for: Calf Tenderness Skin: Normal color, No rash Neurological: Alert, Oriented x3, Cranial nerves II-XII grossly intact, Normal Strength, Normal Sensation Psychological: Normal affect, Normal Mood Diagnostic/Tx/Re-eval Laboratory Results 05/04/19 05/04/19 23:30 23:30 WBC 7.6 RBC 4.78 Hgb 13.8 Hct 43.5 MCV 91.0 MCH 28.9 MCHC 31.7 L RDW Std Deviation 42.1 RDW Coeff of Gagandeep 12.9 Plt Count 228 MPV 11.2 Immature Gran % (Auto) 0.400 Neut % (Auto) 68.8 Lymph % (Auto) 17.7 L [place] % (Auto) 9.2 Eos % (Auto) 2.9 Baso % (Auto) 1.0 Absolute Neuts (auto) 5.3 Absolute Lymphs (auto) 1.35 Nucleated RBC % 0 Sodium 144 Potassium 3.7 Chloride 109 H Carbon Dioxide 30.0 Anion Gap 5 BUN 13 Creatinine 1.39 H Estim Creat Clear Calc 30.98 Est GFR (MDRD) Af Amer 47 L Est GFR (MDRD) Non-Af 39 L BUN/Creatinine Ratio 9.4 L Glucose 111 H Calcium 8.8 Troponin I < 0.015 - Rhythm Strip Rhythm Strip: A-fib Rate: 95 Ectopy: None - EKG Initial EKG Interpretation: No Acute Injury Pattern, Atrial Fibrillation, LBBB Prior: Unchanged Follow-up EKG Interpretation: Sinus Rhythm, No Acute Injury Pattern, LBBB - Medical Decision Making Electrolytes are unremarkable. EKG confirms patient's feeling of being in A. fib. She was given Cardizem 20 mg and on reevaluation she slowed down and converted to a sinus rhythm at 61, repeat EKG confirms persistent left bundle branch block and no acute injury. Patient feels better. Will be discharged home to follow-up with cardiology. ED Disposition - Plan for ED Patient: Disposition: Home or Assisted Living Diagnosis: Renal insufficiency, Paroxysmal A-fib Instructions: Atrial Fibrillation Referrals: Ronald Lauren MD [STAFF PHYSICIAN] - 5-7 Days
[2019-05-05 00:05] LABS: Absolute Lymphocyte Count 1.35 X10^3/uL (0.83-4.51); Absolute Neutrophil Count 5.3 X10^3/uL (2.0-7.7); Basophil# 0.08 X10^3/uL; Eosinophil# 0.22 X10^3/uL; Eosinophils% 2.9 % (0-5); Hematocrit 43.5 % (37-47); Hemoglobin 13.8 g/dL (12.0-15.0); Lymphocyte # 1.35 X10^3/ul (4.0); Lymphocyte % 17.7 % (19-41); Mean Corp Hgb Conc 31.7 g/dL (32-36); Mean Corpuscular Hgb 28.9 pg (27.0-32.0); Mean Platelet Vol. 11.2 fl (6.2-12.0); Monocyte% 9.2 % (0-10); NRBC Flagged by Analyzer 0 % (0-5); Neutrophil # 5.26 X10^3/uL (2.7-7.7); Neutrophil % 68.8 % (47-70); Platelet Count 228 K/mm3 (150-450); RBC Distribution Width CV 12.9 % (11.6-14.6); RBC Distribution Width SD 42.1 fl (35.1-43.9); Red Blood Count 4.78 M/mm3 (4.2-5.4); White Blood Count 7.6 K/mm3 (4.4-11.0)
[2019-05-05] MEDS: dilTIAZem 25 MG/5 ML Vial 20 MG IV BOLUS (00:16)
[2019-05-05 00:19] LABS: Anion Gap 5 (5-15); BUN 13 mg/dL (7-18); BUN/Creat Ratio 9.4 RATIO (10-20); Calcium,Total 8.8 mg/dL (8.5-10.1); Chloride 109 mmol/L (98-107); Creatinine, Serum 1.39 mg/dL (0.55-1.02); EST Glomerular Filtration Rate 39 mL/min (>60); Est Glom Filt Rate - Afr Amer 47 mL/min (>60); Estimated Creatinine Clearance 30.98 ml/min; Glucose 111 mg/dL (74-106); Potassium 3.7 mmol/L (3.5-5.1); Sodium Level 144 mmol/L (136-145)
[2019-05-05 01:34] VITALS: BP 125/80; PULSE 63; RESP 14; O2SAT 97
== END 2019-05-05 01:35 | disposition home or self-care (01) ==
PROVIDERS: Emergency Provider Emergency Medicine; PCP Internal Medicine
DX: N28.9 Disorder of kidney and ureter, unspecified (principal); I48.0 Paroxysmal atrial fibrillation; I47.1 Supraventricular tachycardia; I34.1 Nonrheumatic mitral (valve) prolapse; Z87.891 Personal history of nicotine dependence; Z79.899 Other long term (current) drug therapy
CPT/HCPCS: 80048; 84484; 85025; 93005; 96361; 96374; 99283; J7040; A4216

== ENCOUNTER 2019-05-07 08:57 | Emergency (ER) | payer MEDICARE, SELFPAY ==
--- NOTE | 2019-05-05 00:49 | EKG12_ITS ---
Test Reason : RHYTHM CHANGE Blood Pressure : / mmHG Vent. Rate : 061 BPM Atrial Rate : 202 BPM P-R Int : 000 ms QRS Dur : 162 ms QT Int : 534 ms P-R-T Axes : 000 -15 111 degrees QTc Int : 537 ms Normal Sinus Rhythm Left bundle branch block Abnormal ECG Confirmed by AURORA MCELROY ([id number]), manager editorial TULIO DE LEON ([id number]) on 05/21/2019 10:46:30 AM Referred By: EFFIE Confirmed By:AURORA MCELROY
[2019-05-07 08:58] VITALS: BP 133/79; BP 158/85; PULSE 97; RESP 16; TEMP 36.4; TEMP 36.7; O2SAT 98; BMI 24.1
--- NOTE | 2019-05-07 09:24 | EKG12_ITS ---
Test Reason : PALPITATIONS Blood Pressure : / mmHG Vent. Rate : 095 BPM Atrial Rate : 081 BPM P-R Int : 000 ms QRS Dur : 156 ms QT Int : 420 ms P-R-T Axes : 000 002 116 degrees QTc Int : 527 ms Atrial fibrillation Left bundle branch block Abnormal ECG Confirmed by AURORA MCELROY ([id number]), editor in chief newspaper FANNIE TOMAS ([id number]) on 05/07/2019 2:50:48 PM Referred By: MG Confirmed By:AURORA MCELROY
--- NOTE | 2019-05-07 09:27 | ED.DCSUM_ITS ---
History of Present Illness Chief Complaint: Shortness of Breath Informant: Patient Onset: Days Context: Gradual Onset Timing: Continuous Narrative: Patient is a 74-year-old female with history of anxiety, hypothyroid, proximal atrial fibrillation and tokotsubo cardiomyopathy presenting with shortness of breath and palpitations. Patient states since Sunday, 3 nights ago she has felt palpitations and mildly short of breath. She states a faster heart rate is more short of breath she feels. States it feels like she is back in A. fib. She was actually seen in the ER on Sunday and told that she was in A. fib. She followed up with her air brake operator, Dr. Lauren's office, the following Sunday. She was switched from labetalol to Cardizem 120 mg. She continues to be on Xarelto. She is also on amiodarone. She states she has not missed any doses. She has a follow-up appointment on Sunday for recheck. Patient states she is concerned because there is a snowstorm coming and does not want to miss her appointment. He states she did not sleep well last night because of her palpitations. She states when she woke up this morning her heart rate was 110. She denies any other complaints at this time. Past Medical History - Allergies and Home Meds Allergies/Adverse Reactions: Allergies codeine Allergy (Verified 05/07/19 08:58) Other cortisone Allergy (Verified 05/07/19 08:58) Rash propoxyphene [From Darvon] Allergy (Verified 05/07/19 08:58) Rash propranolol Allergy (Verified 05/07/19 08:58) Unknown verapamil Allergy (Verified 05/07/19 08:58) Unknown digoxin Adverse Reaction (Verified 05/07/19 08:58) Unknown honey Adverse Reaction (Verified 05/07/19 08:58) Rash Primary Care Physician: Reginald Rojo MD [Primary Care Provider] - Past Medical History: - - anxiety, hypothyroid, proximal atrial fibrillation and tokotsubo cardiomyopathy Surgical History: - - Cardiac ablation. Mitral valve repair. Smoking Status: Unknown if ever smoked - Family History Sibling Family History: Reports: Heart Disease Review of Systems General: Reports: Malaise. Denies: Chills, Fever, Sweats Eyes: Denies: Visual changes - bilaterally, Diplopia ENT: Denies: Rhinorrhea, Sore throat Cardiovascular: Reports: Palpitations. Denies: Chest pain Respiratory: Reports: Dyspnea. Denies: Cough, Sputum, Dyspnea on exertion Gastrointestinal: Reports: Nausea. Denies: Abdominal pain, Vomiting, Diarrhea, Melena, Hematochezia Genitourinary: Denies: Dysuria, Hematuria, Frequency Musculoskeletal: Denies: Back pain, Extremity Pain Skin: Denies: Rash, Wounds Neurological: Denies: Headache, Weakness, Numbness Physical Exam Vital Signs/Narrative: Vital Signs Temp Pulse Resp BP Pulse Ox 05/07/19 08:58 97.6 F L 97 16 158/85 H 98 Inital Vital Signs reviewed: Yes General: Well nourished, Well developed, No Acute Distress Head: Normocephalic, Atraumatic Eyes: Perrl, EOMI ENT: Moist mucous membranes, No rhinorrhea Neck: Supple, Nontender Cardiovascular: Regular rate, No murmurs, Irregular Respiratory: No distress, CTA bilaterally, Chest nontender Abdomen: Soft, Nontender, Nondistended, Normal bowel sounds Back: Nontender, Normal Inspection Extremities: Nontender, No edema Skin: Normal color, No rash Neurological: Alert, Oriented x3, Cranial nerves II-XII grossly intact, Normal Strength, Normal Sensation Psychological: Normal affect, Normal Mood, - - anxious Diagnostic/Tx/Re-eval - Rhythm Strip Rhythm Strip: A-fib Rate: 71 Ectopy: None - EKG Initial EKG Interpretation: Atrial Fibrillation, - - Atrial fibrillation at a rate of 92 Left bundle branch block Nonspecific ST segment changes - Medical Decision Making Patient is evaluated for palpitations with associated shortness of breath. This comes consistent with her multiple prior ER visits. Patient seems to be very sensitive to feeling when she goes into atrial fibrillation and then comes to the emergency room. Patient is rate controlled with a normal blood pressure. She is on Xarelto. She is already on Cardizem as well as amiodarone. Discussed with her air brake operator, Dr. Lauren, who recommended increasing her amiodarone to twice a day over cardioversion. I think this is reasonable. Patient is counseled extensively that just because she feels her arrhythmia does not mean that she is unstable. Patient's troponin is normal as well as her other lab work. She is protected from stroke because she has been compliant with her Xarelto. She is not in RVR. While patient is in the ER she does convert back to sinus rhythm. Patient discharged home. She has a follow-up appoint with her air brake operator in 2 days. She is encouraged to keep this. Patient is counseled on signs and symptoms requiring return to the emergency room. Patient verbalizes agreement and understand this plan. Patient discharged home in stable and improved condition. ED Disposition - Plan for ED Patient: Disposition: Home or Assisted Living Diagnosis: Paroxysmal A-fib Instructions: Atrial Fibrillation Referrals: Reginald Rojo MD [Primary Care Provider] - Additional Instructions: Please make sure you follow-up with the cardiology office on Sunday as scheduled. It appears that you are taking 200 mg of amiodarone every day. Please increase that to 200 mg twice a day, once in the morning and once in the evening. This should help keep you in sinus rhythm. As long as your heart rate is not going above 115-120 continuously, you are not having chest pain and your blood pressure is normal you may just follow-up with your air brake operator. Please continue to take all other medications including your blood thinner.
[2019-05-07 09:37] LABS: Absolute Lymphocyte Count 2.59 X10^3/uL (0.83-4.51); Absolute Neutrophil Count 5.1 X10^3/uL (2.0-7.7); Basophil# 0.13 X10^3/uL; Basophil% 1.4 % (0-1); Eosinophil# 0.29 X10^3/uL; Eosinophils% 3.2 % (0-5); Hematocrit 44.9 % (37-47); Hemoglobin 14.4 g/dL (12.0-15.0); Lymphocyte # 2.59 X10^3/ul (4.0); Lymphocyte % 28.7 % (19-41); Mean Corp Hgb Conc 32.1 g/dL (32-36); Mean Corpuscular Volume 90.5 fL (81-99); Monocyte# 0.89 X10^3/uL; Monocyte% 9.9 % (0-10); NRBC Flagged by Analyzer 0 % (0-5); Neutrophil # 5.09 X10^3/uL (2.7-7.7); Neutrophil % 56.5 % (47-70); Platelet Count 245 K/mm3 (150-450); RBC Distribution Width SD 42.3 fl (35.1-43.9); Red Blood Count 4.96 M/mm3 (4.2-5.4)
--- NOTE | 2019-05-07 09:40 | RAD_ITS ---
EXAM DESCRIPTION: PA and lateral chest CLINICAL HISTORY: 74 years Female, A FIB, SOB A FIB, SOB COMPARISON: Previous AP portable chest obtained on 12/28/2018 FINDINGS: The thorax is intact. The heart and mediastinum appear to be within normal limits. The lungs appear to be well areated without evidence of pneumonic consolidation or pleural effusion. RAD/Chest PA and Lateral IMPRESSION: Normal PA and lateral chest Electronically Signed: Gil Marley, at 10:01 EST Tel , Service support ,
[2019-05-07 09:57] LABS: Anion Gap 2 (5-15); BUN 11 mg/dL (7-18); BUN/Creat Ratio 9.7 RATIO (10-20); Calcium,Total 8.9 mg/dL (8.5-10.1); Chloride 107 mmol/L (98-107); Creatinine, Serum 1.13 mg/dL (0.55-1.02); EST Glomerular Filtration Rate 50 mL/min (>60); Est Glom Filt Rate - Afr Amer 60 mL/min (>60); Estimated Creatinine Clearance 38.11 ml/min; Glucose 91 mg/dL (74-106); Potassium 3.6 mmol/L (3.5-5.1); Sodium Level 142 mmol/L (136-145); T4 Free Direct 1.84 ng/dL (0.76-1.46); Thyroid Stim Hormone (TSH) 6.29 uIU/mL (0.358-3.74)
[2019-05-07 11:54] VITALS: BP 116/64; PULSE 85; RESP 17; O2SAT 96
== END 2019-05-07 11:56 | disposition home or self-care (01) ==
PROVIDERS: Emergency Provider Emergency Medicine; PCP Internal Medicine
DX: I48.0 Paroxysmal atrial fibrillation (principal); Z79.01 Long term (current) use of 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s
CPT/HCPCS: 71046; 80048; 84439; 84443; 84484; 85025; 93005; 99284; A4216

== ENCOUNTER 2019-10-31 14:38 | Emergency (ER) | payer MEDICARE, SELFPAY ==
[2019-05-09 14:15] VITALS: BMI 24.4
[2019-10-31 14:38] VITALS: BP 154/96; PULSE 125; RESP 20; TEMP 36.3; O2SAT 98; BMI 25.0
--- NOTE | 2019-10-31 14:54 | EKG12_ITS ---
Test Reason : REPEAT Blood Pressure : / mmHG Vent. Rate : 062 BPM Atrial Rate : 062 BPM P-R Int : 144 ms QRS Dur : 162 ms QT Int : 492 ms P-R-T Axes : 000 -12 125 degrees QTc Int : 499 ms Normal sinus rhythm Left bundle branch block Abnormal ECG Confirmed by SERGO BAIRES, BRAD ([id number]), visual effects editor JESSICA CH ([id number]) on 11/07/2019 11:23:29 A M Referred By: VIDAL Confirmed By:HIEN TROTTER MD
--- NOTE | 2019-10-31 15:03 | ED.DCSUM_ITS ---
- ER Visit Summary Date of Service: 10/31/19 Chief Complaint: [Palpitations] History of Present Illness: The patient is a 74 F [ presents the emergency department with of palpitations and feeling like she is in A. fib. Patient believes she went into A. fib last evening after going to sleep. Patient states that she took her amiodarone today and also her Cardizem which has not resolved her A. fib. She does have history of prior ablation about 4 5 years ago. Her back feeder plywood layup line is Dr. Lauren. She denies any chest pain. She is currently on Xarelto. Patient feels somewhat more short of breath than usual.] Physical Examination: [HEENT-PERRLA, EOMI. Cranial nerves II through XII grossly intact. TMs clear. Mucous membranes moist. No adenopathy. Cardiovascular-regular and tachycardic. No murmurs auscultated. Lungs-clear to auscultation, chest wall stable without crepitus or subcu emphysema Abdomen-normoactive bowel sounds, soft, nontender, no rebound or rigidity, no peritoneal signs. Extremities-intact ?4, normal range of motion, normal pulses, atraumatic] Test Results: [EKG obtained on arrival showed a wide-complex tachycardia with a ventricular rate of 124 with a left bundle branch block morphology.] CBC with differential is normal. Chemistries unremarkable. Troponin less than 0.015. Chest ray obtained showed nothing acute. Emergency Department Course and Treatment: [IV line established. Patient placed on township clerk. Patient was given Cardizem 20 mg IV bolus and she converted to a sinus rhythm with a left bundle branch block.] Treatment Plan: [Case will be discussed with back feeder plywood layup line information security risk analyst. I feel patient can be discharged to home.] Disposition: [Discharged home in stable condition] Impression: [Atrial fibrillation with rapid ventricular response-resolved] This note was generated with [employer] dictation software. It may contain incorrect words, spelling, and punctuation that were not noted in review of the chart prior to signing After discharge the patient was leaving and checked her pulse and she thought it felt somewhat irregular so she presented back to the emergency department. She denies any chest pain. She denies shortness of breath or feeling presyncopal. A repeat EKG obtained showed patient was still in sinus rhythm with a ventricular rate of 65 bpm with a left bundle branch block which is unchanged from her last EKG. At this point I do not feel any further work-up is indicated patient will follow-up as instructed. Diagnoses A. fib RVR-resolved ED Disposition - Plan for ED Patient: Disposition: Home or Assisted Living Instructions: ED AFIB Referrals: Ronald Lauren MD [STAFF PHYSICIAN] - 3-5 Days Reginald Rojo MD [Primary Care Provider] -
[2019-10-31] MEDS: 0.9% Normal Saline 1,000 ML 150 ML IV (15:14)
[2019-10-31] MEDS: dilTIAZem 25 MG/5 ML Vial IV BOLUS (15:15)
[2019-10-31 15:16] LABS: Absolute Lymphocyte Count 1.58 X10^3/uL (0.83-4.51); Absolute Neutrophil Count 5.5 X10^3/uL (2.0-7.7); Basophil# 0.09 X10^3/uL; Basophil% 1.1 % (0-1); Eosinophil# 0.14 X10^3/uL; Eosinophils% 1.7 % (0-5); Hematocrit 46.5 % (37-47); Hemoglobin 15.2 g/dL (12.0-15.0); Lymphocyte # 1.58 X10^3/ul (4.0); Lymphocyte % 19.7 % (19-41); Mean Corp Hgb Conc 32.7 g/dL (32-36); Mean Corpuscular Hgb 29.5 pg (27.0-32.0); Mean Corpuscular Volume 90.1 fL (81-99); Mean Platelet Vol. 11.6 fl (6.2-12.0); Monocyte# 0.69 X10^3/uL; Monocyte% 8.6 % (0-10); NRBC Flagged by Analyzer 0 % (0-5); Neutrophil # 5.48 X10^3/uL (2.7-7.7); Neutrophil % 68.5 % (47-70); Platelet Count 250 K/mm3 (150-450); RBC Distribution Width CV 13.2 % (11.6-14.6); RBC Distribution Width SD 43.6 fl (35.1-43.9); Red Blood Count 5.16 M/mm3 (4.2-5.4)
--- NOTE | 2019-10-31 15:30 | RAD_ITS ---
STUDY: X-RAY CHEST REASON FOR EXAM: Female, 74 years old. palpitations TECHNIQUE: Single AP portable view of the chest. COMPARISON: 05/07/2019 FINDINGS: There is hyperinflation of the lungs consistent with chronic obstructive lung disease (COPD). There is no demonstrated pleural abnormality. There is moderate cardiac enlargement. Normal mediastinum and jason. Normal visualized pulmonary arteries. Normal visualized aortic arch and descending thoracic aorta. Normal visualized thoracic spine. Normal visualized ribs, clavicles, and shoulders. There is no demonstrated abnormality of the visualized soft tissue structures of the upper abdomen. RAD/Chest 1 View (Portable) IMPRESSION: Emphysema without pneumonia or atelectasis Pending Final Proof Editing
--- NOTE | 2019-10-31 15:31 | EKG12_ITS ---
Test Reason : PALPS Blood Pressure : / mmHG Vent. Rate : 124 BPM Atrial Rate : 052 BPM P-R Int : 000 ms QRS Dur : 156 ms QT Int : 388 ms P-R-T Axes : 000 -07 129 degrees QTc Int : 557 ms Sinus tachycardia Left bundle branch block Abnormal ECG Confirmed by SERGO BAIRES, BRAD ([id number]), sound editor JESSICA CH ([id number]) on 11/07/2019 11:23:57 A M Referred By: VIDAL Confirmed By:HIEN TROTTER MD
[2019-10-31 15:38] LABS: Anion Gap 4 (5-15); BUN 12 mg/dL (7-18); BUN/Creat Ratio 10.9 RATIO (10-20); Calcium,Total 8.9 mg/dL (8.5-10.1); Chloride 110 mmol/L (98-107); EST Glomerular Filtration Rate 51 mL/min (>60); Est Glom Filt Rate - Afr Amer 62 mL/min (>60); Estimated Creatinine Clearance 39.15 ml/min; Glucose 101 mg/dL (74-106); Potassium 3.7 mmol/L (3.5-5.1); Sodium Level 143 mmol/L (136-145)
--- NOTE | 2019-10-31 15:47 | ED.DEP ---
ED Disposition - Plan for ED Patient: Instructions: ED AFIB Referrals: Reginald Rojo MD [Primary Care Provider] - Ronald Lauren MD [STAFF PHYSICIAN] - 3-5 Days
[2019-10-31 16:01] VITALS: BP 127/61; PULSE 63; PULSE 632; RESP 17; O2SAT 96
--- NOTE | 2019-10-31 16:16 | ED.RN ---
pt left department on dc. walked to [facility] and felt like she went back into a-fib. return to ed
--- NOTE | 2019-10-31 16:18 | EKG12_ITS ---
Test Reason : AFIB Blood Pressure : / mmHG Vent. Rate : 065 BPM Atrial Rate : 065 BPM P-R Int : 144 ms QRS Dur : 162 ms QT Int : 494 ms P-R-T Axes : 000 -24 126 degrees QTc Int : 513 ms Normal sinus rhythm Left bundle branch block Abnormal ECG Confirmed by SERGO BAIRES, BRAD ([id number]), film and video editor TULIO DE LEON ([id number]) on 11/12/2019 8:51:40 AM Referred By: VIDAL Confirmed By:HIEN TROTTER MD
--- NOTE | 2019-10-31 16:38 | ED.RN ---
ekg completed. dr zarco in to see pt. pt to be dc
== END 2019-10-31 16:47 | disposition home or self-care (01) ==
LOC: ED 15:09
PROVIDERS: Emergency Provider Emergency Medicine; PCP Internal Medicine
DX: I48.91 Unspecified atrial fibrillation (principal); E03.9 Hypothyroidism, unspecified; Z79.02 Long term (current) use of antithrombotics/antiplatelets
CPT/HCPCS: 71045; 80048; 84484; 85025; 93005; 96374; 99284; J7030; A4216

== ENCOUNTER 2020-02-15 12:40 | Emergency (ER) | payer MEDICARE, SELFPAY ==
[2020-02-15 12:41] VITALS: BP 154/53; PULSE 46; RESP 14; TEMP 36.9; O2SAT 94; BMI 25.7
--- NOTE | 2020-02-15 13:17 | EKG12_ITS ---
Test Reason : GENERAL ILLNESS Blood Pressure : / mmHG Vent. Rate : 044 BPM Atrial Rate : 044 BPM P-R Int : 224 ms QRS Dur : 158 ms QT Int : 600 ms P-R-T Axes : 097 -07 125 degrees QTc Int : 513 ms Marked sinus bradycardia with 1st degree A-V block Left bundle branch block Abnormal ECG Confirmed by ROBINSON BAIRES, GABRIELLE ([id number]), business editor JESSICA CH ([id number]) on 02/17/2020 8:44:24 AM Referred By: Confirmed By:GABRIELLE BOWERS MD
--- NOTE | 2020-02-15 13:21 | ED.VISSUMM ---
- ER Visit Summary Date of Service: 02/15/20 Chief Complaint: Vomiting and diarrhea History of Present Illness: The patient is a 74 F presenting with vomiting and diarrhea. She states she started not feeling well approximately 8 days ago. She has subjective fever and chills. She has myalgias. She has had a mild cough. She states she has had diarrhea for the past several days. She states the diarrhea is now improving. Today she had one episode of vomiting. She has a mild headache. She denies chest pain or shortness of breath. Denies lightheadedness or syncope. She states 2 of her nieces have been tested for Covid and are positive. Physical Examination: Vitals are stable. Patient is afebrile. Alert no acute distress. HEENT exam dry mucous membranes Neck is supple. Lungs are clear and equal bilaterally. Heart is regular bradycardic Abdomen is soft nontender nondistended. No guarding or rebound Extremities are unremarkable. Skin is warm and dry. No focal neurologic deficit. Remainder of exam is unremarkable. Emergency Department Course and Treatment: Patient was given IV fluids, Zofran. Chest xray shows cardiac enlargement. No focal infiltrate. EKG is sinus bradycardia with left bundle branch block, rate of 44. Patient states her heart rate runs in the 50s. While in the ED her heart rate is now in the low 50s. She denies lightheadedness or syncope. CBC shows white count 3.5, platelet 112, 18% lymphocytes. Creatinine 1.13. Total bili 1.1, ALT 58, AST 60, lipase is normal. Troponin is negative. Covid is positive. Patient has improvement of her nausea after IV fluids and medications. She is able to tolerate p.o. in the emergency department. Her pulse ox with ambulation is 97% on room air. She will be given a prescription for Zofran. She is comfortable with discharge home. She is advised to follow-up with her primary care physician. Advised return to the ED for worsening complaints. Disposition: Discharge home Impression: COVID-19 illness, vomiting, diarrhea This note was generated with [employer] dictation software. It may contain incorrect words, spelling, and punctuation that were not noted in review of the chart prior to signing ED Disposition - Plan for ED Patient: Instructions: Coronavirus Disease 2019 (COVID-19): Overview Prescriptions: Ondansetron [Zofran Odt] 4 mg PO Q8H PRN PRN #10 tab PRN Reason: Nausea Prescription Printed Referrals: Reginald Rojo MD [Primary Care Provider] -
[2020-02-15 13:23] VITALS: BP 148/53; PULSE 44; RESP 13; TEMP 36.9; O2SAT 95
[2020-02-15 13:23] LABS: Absolute Lymphocyte Count 0.65 X10^3/uL (0.83-4.51); Absolute Neutrophil Count 2.4 X10^3/uL (2.0-7.7); Basophil# 0.01 X10^3/uL; Basophil% 0.3 % (0-1); Eosinophil# 0.01 X10^3/uL; Eosinophils% 0.3 % (0-5); Hematocrit 41.3 % (37-47); Hemoglobin 13.5 g/dL (12.0-15.0); Lymphocyte # 0.65 X10^3/ul (4.0); Lymphocyte % 18.8 % (19-41); Mean Corp Hgb Conc 32.7 g/dL (32-36); Mean Corpuscular Hgb 29.3 pg (27.0-32.0); Mean Corpuscular Volume 89.6 fL (81-99); Mean Platelet Vol. 12.7 fl (6.2-12.0); Monocyte# 0.37 X10^3/uL; Monocyte% 10.7 % (0-10); NRBC Flagged by Analyzer 0 % (0-5); Neutrophil % 69.6 % (47-70); Platelet Count 112 K/mm3 (150-450); RBC Distribution Width SD 42.5 fl (35.1-43.9); Red Blood Count 4.61 M/mm3 (4.2-5.4); White Blood Count 3.5 K/mm3 (4.4-11.0)
[2020-02-15] MEDS: 0.9% Normal Saline 1,000 ML 1000 ML IV (13:24)
[2020-02-15] MEDS: Ondansetron 4 MG/2 ML Vial IV (13:27)
--- NOTE | 2020-02-15 13:45 | RAD_ITS ---
STUDY: X-RAY CHEST REASON FOR EXAM: Female, 74 years old. Pt with n/v/d; not able to keep down any fluids. Also c/o gee, body aches and chills. Pt ill x 1 week TECHNIQUE: Single AP portable view of the chest. COMPARISON: October 31, 2019 FINDINGS: There are monitoring devices. There is hyperinflation of the lungs consistent with chronic obstructive lung disease (COPD). There are mild fibrotic densities of the lung bases. There is no demonstrated pleural abnormality. There is moderate cardiac enlargement. Normal mediastinum and jason. Normal visualized pulmonary arteries. Normal visualized aortic arch and descending thoracic aorta. There is demineralization of the osseous structures. There are healed left rib fractures. There is no demonstrated abnormality of the visualized soft tissue structures of the upper abdomen. RAD/Chest 1 View (Portable) IMPRESSION: Cardiac enlargement. No focal infiltrate. Electronically Signed: Tyrese Vera MD at 14:39 EST , Service support ,
[2020-02-15 13:46] LABS: AST(SGOT) 60 U/L (15-37); Alanine Aminotransfer ALT/SGPT 58 U/L (13-56); Albumin, Serum 3.4 g/dL (3.2-5.0); Alkaline Phosphatase 81 U/L (45-117); Anion Gap 7 (5-15); BUN 9 mg/dL (7-18); Calcium,Total 8.1 mg/dL (8.5-10.1); Chloride 110 mmol/L (98-107); Creatinine, Serum 1.13 mg/dL (0.55-1.02); EST Glomerular Filtration Rate 50 mL/min (>60); Est Glom Filt Rate - Afr Amer 60 mL/min (>60); Estimated Creatinine Clearance 38.11 ml/min; Globulin 3.4 g/dL (2.2-4.2); Glucose 106 mg/dL (74-106); Lipase 39 U/L (73-393); Potassium 3.6 mmol/L (3.5-5.1); Protein, Total 6.8 g/dL (6.4-8.2); Sodium Level 144 mmol/L (136-145)
[2020-02-15 14:15] VITALS: BP 113/94; PULSE 48; RESP 16; O2SAT 96
[2020-02-15 14:20] VITALS: O2SAT 97
--- NOTE | 2020-02-15 15:01 | ED.DEP ---
ED Disposition - Plan for ED Patient: Instructions: Coronavirus Disease 2019 (COVID-19): Overview Prescriptions: Ondansetron [Zofran Odt] 4 mg PO Q8H PRN PRN #10 tab PRN Reason: Nausea Prescription Printed Referrals: Reginald Rojo MD [Primary Care Provider] -
[2020-02-15 15:24] VITALS: BP 124/56; PULSE 52; RESP 18; O2SAT 97
== END 2020-02-15 15:35 | disposition home or self-care (01) ==
PROVIDERS: Emergency Provider Emergency Medicine; PCP Internal Medicine
DX: U07.1 COVID-19 (principal); R11.10 Vomiting, unspecified; R19.7 Diarrhea, unspecified
CPT/HCPCS: 71045; 80053; 83690; 84484; 85025; 87426; 93005; 96361; 96374; 99285; A4216; J2405

== ENCOUNTER 2020-05-26 17:10 | Emergency (ER) | payer MEDICARE, SELFPAY ==
[2020-05-26 17:11] VITALS: BP 138/49; PULSE 75; RESP 16; TEMP 36.1; O2SAT 97; BMI 23.3
--- NOTE | 2020-05-26 18:30 | EKG12_ITS ---
Test Reason : PALPS Blood Pressure : / mmHG Vent. Rate : 082 BPM Atrial Rate : 288 BPM P-R Int : 000 ms QRS Dur : 168 ms QT Int : 468 ms P-R-T Axes : 000 -15 172 degrees QTc Int : 546 ms Atrial fibrillation Left bundle branch block Abnormal ECG Confirmed by ELSA BAIRES, SARINA ([id number]), market editor JESSICA CH ([id number]) on 05/27/2020 12:49:55 PM Referred By: VIDAL/SHAILA Confirmed By:SARINA HUNTER MD
--- NOTE | 2020-05-26 18:32 | ED.DCSUM_ITS ---
History of Present Illness Chief Complaint: Palpitations Informant: Patient Onset: Today Narrative: Patient is a 75-year-old female with history of atrial fibrillation presenting after what felt like an episode of atrial fibrillation. Patient states she was running errands rounds 2 to 2:30 PM when all of a sudden she started to feel off. She felt she was in A. fib. She states her heart was racing and felt irregular. She went home and took her Cardizem which she was due for. Her symptoms resolved around the time she got to the ER. She denies associated chest pain or dizziness. Patient was seen at [facility] last week where she was brought in for observation and cardioverted the following day. She states she was started on Cardizem. She states she takes it 4 times a day and is found that if she takes it late her A. fib symptoms will start. Her process safety manager Dr. Fajardo at [facility]. Patient is on Xarelto and states she has been compliant with it. Currently denies any symptoms. Past Medical History - Allergies and Home Meds Allergies/Adverse Reactions: Allergies codeine Allergy (Verified 02/15/20 12:41) Other cortisone Allergy (Verified 02/15/20 12:41) Rash propoxyphene [From Darvon] Allergy (Verified 02/15/20 12:41) Rash propranolol Allergy (Verified 02/15/20 12:41) Unknown verapamil Allergy (Verified 02/15/20 12:41) Unknown digoxin Adverse Reaction (Verified 02/15/20 12:41) Unknown honey Adverse Reaction (Verified 02/15/20 12:41) Rash Primary Care Physician: Reginald Rojo MD [Primary Care Provider] - Surgical History: - - Cardiac ablation. Mitral valve repair. Smoking Status: Former smoker - Family History Sibling Family History: Reports: Heart Disease Review of Systems General: Denies: Chills, Fever, Sweats Eyes: Denies: Visual changes - bilaterally, Diplopia ENT: Denies: Rhinorrhea, Sore throat Cardiovascular: Reports: Palpitations, Heart racing. Denies: Chest pain Respiratory: Denies: Dyspnea, Cough, Dyspnea on exertion Gastrointestinal: Denies: Abdominal pain, Nausea, Vomiting, Diarrhea, Melena, Hematochezia Genitourinary: Denies: Dysuria, Hematuria, Frequency Musculoskeletal: Denies: Back pain, Extremity Pain Skin: Denies: Rash, Wounds Neurological: Denies: Headache, Weakness, Numbness Physical Exam Vital Signs/Narrative: Vital Signs Temp Pulse Resp BP Pulse Ox 05/26/20 17:11 96.9 F L 75 16 138/49 H 97 Inital Vital Signs reviewed: Yes General: Well nourished, Well developed, No Acute Distress Head: Normocephalic, Atraumatic Eyes: Perrl, EOMI ENT: Moist mucous membranes, No rhinorrhea Neck: Supple, Nontender Cardiovascular: Regular rate, No murmurs, Irregular Respiratory: No distress, CTA bilaterally, Chest nontender Abdomen: Soft, Nontender, Nondistended, Normal bowel sounds Back: Nontender, Normal Inspection Extremities: Nontender, No edema Skin: Normal color, No rash Neurological: Alert, Oriented x3, Cranial nerves II-XII grossly intact, Normal Strength, Normal Sensation Psychological: Normal affect, Normal Mood Diagnostic/Tx/Re-eval Chest X-Ray - ED: 1 View, Read by ED Physician, Read by Radiologist, No Acute Disease Clinical Impression(s) from Imaging Studies Chest X-Ray 05/26/20 18:50 IMPRESSION: No acute cardiopulmonary pathology Electronically Signed: Damon Hastings MD at 20:00 EDT , Service support , Laboratory Data 05/26/20 05/26/20 05/26/20 18:10 18:10 18:10 WBC 6.0 RBC 5.00 Hgb 14.4 Hct 44.8 MCV 89.6 MCH 28.8 MCHC 32.1 RDW Std Deviation 44.8 H RDW Coeff of Gagandeep 13.6 Plt Count 240 MPV 12.1 H Immature Gran % (Auto) 0.300 Neut % (Auto) 66.3 Lymph % (Auto) 20.4 [place] % (Auto) 10.0 Eos % (Auto) 1.5 Baso % (Auto) 1.5 H Absolute Neuts (auto) 4.0 Absolute Lymphs (auto) 1.23 Nucleated RBC % 0 Sodium 141 Potassium 4.1 Chloride 107 Carbon Dioxide 26.0 Anion Gap 8 BUN 15 Creatinine 1.36 H Estim Creat Clear Calc 31.17 Est GFR (MDRD) Af Amer 49 L Est GFR (MDRD) Non-Af 40 L BUN/Creatinine Ratio 11.0 Glucose 108 H Calcium 9.1 Troponin I 0.033 B-Natriuretic Peptide 286.0 H - Rhythm Strip Rhythm Strip: A-fib Rate: 82 Ectopy: None - EKG Initial EKG Interpretation: Atrial Fibrillation, LBBB, - - For ablation at a rate of 82 Normal axis Left bundle branch block Normal ST segments To prior EKG on 02/15/2020 patient is no longer bradycardic and currently in atrial fibrillation - Medical Decision Making Patient is evaluated for palpitations and concerned that she is back in atrial fibrillation. She has a history of this. Patient is appropriately an ticoagulated. She was late in taking her Cardizem today. Currently she is rate controlled. She is hemodynamically stable. Troponin is normal. X-ray does not show any acute process. Her proBNP is mildly elevated but I suspect this is her baseline. She clinically does not appear fluid overloaded. Given she is been compliant with her oral anticoagulation I do not suspect a PE as a cause of her symptoms. Patient is counseled that since she is on appropriate anticoagulation it is okay if she is actually in A. fib as long as she is rate controlled. Patient will follow up with her process safety manager. She is counseled on return precautions. She verbalizes agreement and understanding with this plan. ED Disposition - Plan for ED Patient: Disposition: Home or Assisted Living Diagnosis: Palpitations, Atrial fibrillation Referrals: Reginald Rojo MD [Primary Care Provider] - Additional Instructions: Continue taking your medications as prescribed. Please call your process safety manager office tomorrow to arrange follow-up.
--- NOTE | 2020-05-26 18:50 | RAD_ITS ---
STUDY: X-RAY CHEST REASON FOR EXAM: Female, 75 years old. chest pain TECHNIQUE: AP portable COMPARISON: 02/15/2020 FINDINGS: The lungs are clear and expanded. There is no demonstrated pleural abnormality. The heart is enlarged. Normal mediastinum and jason. Normal visualized pulmonary arteries. Normal visualized aortic arch and descending thoracic aorta. Dorsal spine and shoulders demonstrate degenerative change.. Normal visualized ribs, and clavicles.. There is no demonstrated abnormality of the visualized soft tissue structures of the upper abdomen. No significant change since prior exam RAD/Chest 1 View (Portable) IMPRESSION: No acute cardiopulmonary pathology Electronically Signed: Damon Hastings MD at 20:00 EDT , Service support ,
[2020-05-26 19:10] VITALS: BP 121/56; PULSE 58; RESP 18; O2SAT 97
[2020-05-26 19:24] LABS: Absolute Lymphocyte Count 1.23 X10^3/uL (0.83-4.51); Basophil# 0.09 X10^3/uL; Basophil% 1.5 % (0-1); Eosinophil# 0.09 X10^3/uL; Eosinophils% 1.5 % (0-5); Hematocrit 44.8 % (37-47); Hemoglobin 14.4 g/dL (12.0-15.0); Lymphocyte # 1.23 X10^3/ul (4.0); Lymphocyte % 20.4 % (19-41); Mean Corp Hgb Conc 32.1 g/dL (32-36); Mean Corpuscular Hgb 28.8 pg (27.0-32.0); Mean Corpuscular Volume 89.6 fL (81-99); Mean Platelet Vol. 12.1 fl (6.2-12.0); NRBC Flagged by Analyzer 0 % (0-5); Neutrophil % 66.3 % (47-70); Platelet Count 240 K/mm3 (150-450); RBC Distribution Width CV 13.6 % (11.6-14.6); RBC Distribution Width SD 44.8 fl (35.1-43.9)
[2020-05-26] MEDS: dilTIAZem 30 MG Tablet PO (20:01)
[2020-05-26 20:06] LABS: Anion Gap 8 (5-15); BUN 15 mg/dL (7-18); Calcium,Total 9.1 mg/dL (8.5-10.1); Chloride 107 mmol/L (98-107); Creatinine, Serum 1.36 mg/dL (0.55-1.02); EST Glomerular Filtration Rate 40 mL/min (>60); Est Glom Filt Rate - Afr Amer 49 mL/min (>60); Estimated Creatinine Clearance 31.17 ml/min; Glucose 108 mg/dL (74-106); Potassium 4.1 mmol/L (3.5-5.1); Sodium Level 141 mmol/L (136-145)
[2020-05-26 20:35] VITALS: BP 119/59; PULSE 69; RESP 15; O2SAT 97
== END 2020-05-26 20:36 | disposition home or self-care (01) ==
PROVIDERS: Emergency Provider Emergency Medicine; PCP Internal Medicine
DX: R00.2 Palpitations (principal); I48.91 Unspecified atrial fibrillation; Z79.02 Long term (current) use of antithrombotics/antiplatelets; Z87.891 Personal history of nicotine dependence
CPT/HCPCS: 71045; 80048; 83880; 84484; 85025; 93005; 99285; A4216

== ENCOUNTER 2020-10-31 18:50 | Observation (INO) | payer MEDICARE, SELFPAY ==
[2020-10-31 18:51] VITALS: BP 146/95; PULSE 105; RESP 18; TEMP 36.6; O2SAT 99; BMI 55.3
--- NOTE | 2020-10-31 19:11 | EKG12_ITS ---
Test Reason : CHEST PAIN Blood Pressure : / mmHG Vent. Rate : 106 BPM Atrial Rate : 053 BPM P-R Int : 000 ms QRS Dur : 164 ms QT Int : 416 ms P-R-T Axes : 000 -06 138 degrees QTc Int : 552 ms Atrial fibrillation Left bundle branch block Abnormal ECG Confirmed by ELSA BAIRES, SARINA ([id number]), writer editor JESSICA CH ([id number]) on 11/04/2020 10:54:58 AM Referred By: NELL DEY Confirmed By:SARINA HUNTER MD
--- NOTE | 2020-10-31 19:11 | RAD_ITS ---
STUDY: X-RAY CHEST REASON FOR EXAM: Female, 75 years old. pt has had intermittent CP since 929. states it fernandez. also states she has some abd pain with nausea TECHNIQUE: PA and lateral views of the chest. May 26, 2020 COMPARISON: None. FINDINGS: Reidentification of coarsened interstitium of both lungs and hyperinflation. No focal consolidation is present. Cystic emphysematous changes are also present. There is no demonstrated pleural abnormality. Normal size heart. Normal mediastinum and jason. Normal visualized pulmonary arteries. There is atherosclerotic calcification of the aortic arch with tortuosity. There are diffuse degenerative changes of the visualized thoracic spine. Normal visualized ribs, clavicles, and shoulders. There is no demonstrated abnormality of the visualized soft tissue structures of the upper abdomen. RAD/Chest PA and Lateral IMPRESSION: 1. Reidentification of coarsened interstitium of both lungs and hyperinflation. No focal consolidation is present. Cystic emphysematous changes are also present. Electronically Signed: Faisal Smith MD at 20:06 EDT , Service support ,
[2020-10-31 19:26] LABS: Absolute Lymphocyte Count 1.45 X10^3/uL (0.83-4.51); Absolute Neutrophil Count 7.4 X10^3/uL (2.0-7.7); Basophil# 0.09 X10^3/uL; Basophil% 0.9 % (0-1); Eosinophil# 0.25 X10^3/uL; Eosinophils% 2.5 % (0-5); Lymphocyte # 1.45 X10^3/ul (0.83-4.51); Lymphocyte % 14.5 % (19-41); Mean Corp Hgb Conc 31.7 g/dL (32-36); Mean Corpuscular Hgb 28.5 pg (27.0-32.0); Mean Corpuscular Volume 89.9 fL (81-99); Mean Platelet Vol. 11.7 fl (6.2-12.0); Monocyte# 0.78 X10^3/uL; Monocyte% 7.8 % (0-10); NRBC Flagged by Analyzer 0 % (0-5); Neutrophil # 7.42 X10^3/uL (2.7-7.7); Neutrophil % 74.1 % (47-70); Platelet Count 240 K/mm3 (150-450); RBC Distribution Width CV 13.3 % (11.6-14.6); Red Blood Count 4.56 M/mm3 (4.2-5.4)
[2020-10-31 19:39] LABS: Anion Gap 5 (5-15); BUN 10 mg/dL (7-18); BUN/Creat Ratio 9.7 RATIO (10-20); Calcium,Total 8.6 mg/dL (8.5-10.1); Chloride 107 mmol/L (98-107); Creatinine, Serum 1.03 mg/dL (0.55-1.02); EST Glomerular Filtration Rate 55 mL/min (>60); Est Glom Filt Rate - Afr Amer 67 mL/min (>60); Glucose 102 mg/dL (74-106); Potassium 4.1 mmol/L (3.5-5.1); Sodium Level 139 mmol/L (136-145); Troponin-I HS 8 pg/mL (3.0-54.0)
[2020-10-31 19:50] VITALS: BP 129/74; PULSE 86; RESP 17; O2SAT 97
--- NOTE | 2020-10-31 20:12 | EDS_ITS ---
HPI History of Present Illness Chief Complaint: Chest Pain Narrative Narrative: Patient presenting for evaluation secondary to chest pain. Patient states that she has been dealing with a burning type chest pain over the course of approximately last day. States that it will come and go, its not necessarily associated with exertion but when she gets that she does feel short of breath. Patient states that she has an underlying history of atrial fibrillation, and she has been having changes with her antiarrhythmics recently. She is to be on amiodarone, and then she was changed over ultimately to Coreg and had her dose increased to 12-1/2 within the last week. She was seen in an outside facility emergency department on Sunday secondary to feelings of dizziness. She did describe this as a vertiginous type feeling, states she had laboratory work-up and head CT there were negative. Patient states that her symptoms from that aspect of since improved but now she has this burning chest pain and shortness of breath. She denies any recent infectious signs or symptoms. Review of systems otherwise negative. [facility] Medical History (Updated 10/31/20 @ 20:[address] 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 Takotsubo cardiomyopathy Home Medications alprazolam 0.5 mg tablet 0.5 mg PO BID PRN tab 07/15/18 [History Last Taken Unknown] levothyroxine 88 mcg tablet 88 mcg PO DAILY tab 05/09/19 [History Last Taken Unknown] potassium chloride 20 mEq tablet,extended release(part/cryst) 20 meq PO BID #180 tab 04/14/20 [Rx Last Taken Unknown] rivaroxaban 20 mg tablet 20 mg PO QDAY #90 tab 07/12/20 [Rx Last Taken Unknown] carvedilol 12.5 mg PO BID 10/31/20 [History Last Taken Unknown] furosemide 20 mg PO DAILY 10/31/20 [History Last Taken Unknown] Allergy/AdvReac Type Severity Reaction Status Date / Time codeine Allergy Other Verified 10/31/20 18:56 cortisone Allergy Rash Verified 10/31/20 18:56 propoxyphene [From Darvon] Allergy Rash Verified 10/31/20 18:56 propranolol Allergy Unknown Verified 10/31/20 18:56 verapamil Allergy Unknown Verified 10/31/20 18:56 digoxin AdvReac Unknown Verified 10/31/20 18:56 honey AdvReac Rash Verified 10/31/20 18:56 Surgical History History of cardiac radiofrequency ablation (08/23/17) History of cardioversion (~03/13/17) History of cataract surgery History of left heart catheterization (~01/19/16) History of mitral valve repair (~09/18/01) History of total abdominal hysterectomy Social History Smoking Status: Former smoker ROS ROS ED Constitutional Constitutional ED: Denies fever(s) Eyes Eyes: Denies change in vision ENT ENT ED: Denies rhinorrhea or sore throat Cardiovascular Cardiovascular: Reports as per HPI Respiratory/Chest Respiratory/Chest: Reports dyspnea Gastrointestinal Gastrointestinal: Denies abdominal pain, nausea or vomiting Genitourinary Genitourinary ED: Denies dysuria Musculoskeletal Musculoskeletal: Denies myalgias or neck pain Integumentary Denies rash Neurologic Neurologic: Denies headache(s), paresthesias or weakness Psychiatric Psychiatric: Denies depression Endocrine Endocrinology: Denies polydipsia or polyuria Hematologic/Lymphatic Hematologic/Lymphatic: Denies easy bleeding or easy bruising Allergic/Immunologic Allergic/Immunologic ED: Denies urticaria EXAM Physical Exam Const Vital Signs: 10/31/20 18:51 10/31/20 19:00 10/31/20 19:50 Temperature 97.9 F Temperature Source Oral Pulse Rate 105 H 86 Respiratory Rate 18 17 Respiratory Effort Normal Non-Labored Blood Pressure 146/95 H 129/74 H Blood Pressure Mean 112 92 Pulse Ox 99 97 Oxygen Delivery Method Room Air Room Air Positive well nourished and well developed General Appearance ED: well developed and NAD HEENT Reports moist mucous membranes normocephalic and atraumatic Eyes EOMs intact bilaterally Neck no lymphadenopathy, supple and no JVD Chest Wall inspection of chest normal and palpation of chest normal Chest Narrative: No evidence of vesicular rash Resp normal respiratory effort and clear to auscultation bilaterally Auscultation: Negative for rales, rhonchi or wheezes Cardio regular rate, S1 normal heart sound, S2 normal heart sound and no murmurs Rate: other Other Details: Irregular rhythm is noted Peripheral Pulses: radial pulses present and posterior tibial pulses present GI normal to inspection, nondistended, normoactive bowel sounds, soft to palpation and non-tender Extremity normal to inspection Extremity Narrative: Calves are supple no palpable cord Trace bilateral lower extremity peripheral edema General Extremety ED: Yes edema; Negative for tenderness General Extremity: edema Neuro oriented x3 and no sensory deficits noted Sensorium / Orientation: awake and alert Psych mental status grossly normal Skin no rashes or lesions noted MDM MDM MDM Narrative Medical decision making narrative: Patient presenting secondary to chest pain. EKG was unchanged from prior. CBC chemistry and troponin were found to be unremarkable high-sensitivity was 8. Patient's chest x-ray by my personal review as well as radiology demonstrates chronic interstitial changes no acute pathology. Patient got up in the emergency department and walked to the bathroom and had reproduction of her symptoms including chest pain and shortness of breath. Patient tells me that she had a echocardiogram done 2 weeks ago that showed a decrease in her ejection fraction from 65 to 45%. Patient has exertional chest pain, left bundle branch block with A. fib, and has a heart score of 7. Patient will be admitted for cardiac observation and cardiac rule out. Lab Data Labs: Laboratory Results - last 24 hr 10/31/20 10/31/20 18:50 18:50 WBC 10.0 RBC 4.56 Hgb 13.0 Hct 41.0 MCV 89.9 MCH 28.5 MCHC 31.7 L RDW Std Deviation 44.0 H RDW Coeff of Gagandeep 13.3 Plt Count 240 MPV 11.7 Immature Gran % (Auto) 0.200 Neut % (Auto) 74.1 H Lymph % (Auto) 14.5 L [place] % (Auto) 7.8 Eos % (Auto) 2.5 Baso % (Auto) 0.9 Absolute Neuts (auto) 7.4 Absolute Lymphs (auto) 1.45 Nucleated RBC % 0 Sodium 139 Potassium 4.1 Chloride 107 Carbon Dioxide 27.0 Anion Gap 5 BUN 10 Creatinine 1.03 H Estim Creat Clear Calc 39.50 Est GFR (MDRD) Af Amer 67 Est GFR (MDRD) Non-Af 55 L BUN/Creatinine Ratio 9.7 L Glucose 102 Calcium 8.6 Troponin I High Sens 8 Radiography Chest X-Ray - ED: 2 View, Read by ED Physician and Chronic Changes Diagnostic Testing: Radiology Impression Chest X-Ray 10/31/20 19:11 IMPRESSION: 1. Reidentification of coarsened interstitium of both lungs and hyperinflation. No focal consolidation is present. Cystic emphysematous changes are also present. Electronically Signed: Faisal Smith MD at 20:06 EDT , Service support , EKG Initial EKG: Attestation: I personally reviewed and interpreted this EKG as follows: (Atrial fibrillation with a reasonably controlled ventricular rate 106, left bundle branch block morphology is noted. No gross changes from May of this year.) Discharge Plan Triage Chief Complaint: Chest Pain ED Provider: Karsten Browne Dx/Rx/DC Orders Clinical Impression: Chest pain Prescriptions: No Action levothyroxine 88 mcg tablet 88 mcg PO DAILY RF: 0 carvedilol 12.5 mg Tablet 12.5 mg PO BID RF: 0 furosemide 20 mg tablet 20 mg PO DAILY RF: 0 alprazolam 0.5 mg tablet 0.5 mg PO BID PRN (Reason: anxiety) RF: 0 potassium chloride 20 mEq tablet,ER particles/crystals 20 meq PO BID Qty: 180 RF: 3 Xarelto 20 mg tablet 20 mg PO QDAY Qty: 90 RF: 3 Primary Care Provider: Reginald Rojo Referrals: Reginald Rojo MD [Primary Care Provider] - Disposition Disposition: Acute Care Hospital [facility]
--- NOTE | 2020-10-31 20:49 | PCM.HP.STD ---
[facility] - [facility] General Date of Admission: 10/31/20 HPI Narrative BELLA MELVIN, is a 75 F with a significant history of hypothyroidism and paroxysmal A. fib s/p ablation; rheumatic valve disease with mitral valve placement who presents with 1 day history of episodic but persistent chest pain. She describes her chest pain as burning. She denies any ameliorating or aggravating factors to the chest pain. Her chest pain is nonradiating. Associated with symptoms is nausea. At the emergency department when she sat on the bed her chest pain reoccurred. She reported that about 3 weeks ago she had an echocardiogram with the [facility]. Reportedly the echocardiogram showed an ejection fraction which had dropped from 65% to 45%. In regards to her Afib outpatient she was transition from amiodarone to Cardizem. With Cardizem because she had edema it was discontinued. She was then started on a lower dose of Coreg with subsequent escalated dose. 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 Takotsubo cardiomyopathy Home Medications alprazolam 0.5 mg tablet 0.5 mg PO BID PRN tab 07/15/18 [History Last Taken 10/31/20 17:00] levothyroxine 88 mcg tablet 88 mcg PO DAILY tab 05/09/19 [History Last Taken 10/31/20 10:00] potassium chloride 20 mEq tablet,extended release(part/cryst) 20 meq PO BID #180 tab 04/14/20 [Rx Last Taken 10/31/20 10:00] rivaroxaban 20 mg tablet 20 mg PO QDAY #90 tab 07/12/20 [Rx Last Taken 10/30/20 22:00] carvedilol 12.5 mg PO BID 10/31/20 [History Last Taken 10/31/20 10:00] furosemide 20 mg PO DAILY 10/31/20 [History Last Taken 10/31/20 10:00] Allergy/AdvReac Type Severity Reaction Status Date / Time codeine Allergy Other Verified 10/31/20 18:56 cortisone Allergy Rash Verified 10/31/20 18:56 propoxyphene [From Darvon] Allergy Rash Verified 10/31/20 18:56 propranolol Allergy Unknown Verified 10/31/20 18:56 verapamil Allergy Unknown Verified 10/31/20 18:56 digoxin AdvReac Unknown Verified 10/31/20 18:56 honey AdvReac Rash Verified 10/31/20 18:56 Surgical History History of cardiac radiofrequency ablation (08/23/17) History of cardioversion (~03/13/17) History of cataract surgery History of left heart catheterization (~01/19/16) History of mitral valve repair (~09/18/01) History of total abdominal hysterectomy Social History Smoking Status: Former smoker ROS ROS Narrative Constitutional: Denies anorexia and change in weight Eyes: Denies blurry vision, change in eye color, change in vision, discharge from eye(s), double vision, erythema, eye pain, loss of vision or other HEENT: Denies abnormal hearing, dysphagia, ear pain, epistaxis, headache(s), hearing loss, nasal congestion, nasal discharge, post nasal drip, sinus pressure, sore throat or other Cardiovascular: Reports chest pain. Denies dyspnea on exertion, orthopnea and paroxysmal nocturnal dyspnea Respiratory/Chest: Denies cough, excessive phlegm production, shortness of breath with exertion and wheezing Gastrointestinal: Reports abdominal pain and nausea. Denies coffee ground emesis, constipation, diarrhea, dyspepsia, hematemesis, hematochezia, loose stools, melena, vomiting or other Genitourinary: Denies burning urination, difficulty urinating, dysuria, hematuria, nocturia, urinary frequency, urinary hesitancy, urinary incontinence, urinary urgency or other Musculoskeletal: Denies arthralgias, back pain, joint pain, joint stiffness, joint swelling, myalgias, neck pain or other Neurologic: Denies abnormal gait, abnormal speech, confusion, disequilibrium, dizziness, focal weakness, headache(s), numbness, paresthesias, seizure-like activity, seizures, syncope, tingling, tremor(s) or other Psychiatric: Denies anxiety, depression, homicidal ideation, suicidal ideation or other Endocrinology: Denies change in body appearance, cold intolerance, excessive sweating, heat intolerance, polydipsia, polyuria or other Hematologic/Lymphatic: Denies anemia, easy bleeding, easy bruising, lymphadenopathy or other Integumentary: Denies ulcer on buttocks. Allergic/Immunologic: Denies rhinitis, hives, eczema, asthma or other Vital Signs Vital Signs Vital Signs: 10/31/20 18:51 10/31/20 19:00 10/31/20 19:50 Temperature 97.9 F Temperature Source Oral Pulse Rate 105 H 86 Respiratory Rate 18 17 Respiratory Effort Normal Non-Labored Blood Pressure 146/95 H 129/74 H Blood Pressure Mean 112 92 Pulse Ox 99 97 Oxygen Delivery Method Room Air Room Air Weight Weight: 146.3 kg Body Mass Index (BMI) 55.3 Physical Exam Narrative Physical exam: General: Well-nourished, well-developed, no acute distress Head: Normocephalic, atraumatic, no tenderness Eyes: PERRLA, EOMI ENT, no trauma, moist mucous membranes, no rhinorrhea Neck: Nontender, full range of motion, no spinal tenderness, deformities, step-off CVS: Regular rate and rhythm Respiratory no acute distress, clear to auscultation bilaterally, chest wall nontender, no wheezing Abdomen: Soft, nontender, nondistended, normal bowel sounds, no masses : Deferred Back: Nontender, no CVA tenderness, no midline spinal tenderness, deformities, step-offs Extremities: Nontender full range of motion, no trauma Skin: Normal color, no trauma, abrasions Neuro: Alert, oriented, cranial nerves II through XII grossly intact. Psychiatry: Normal mood. Normal affect. Not depressed. Not anxious. Results Lab / Micro Data Result Diagrams: 10/31/20 18:50 10/31/20 18:50 Labs: Laboratory Results - last 24 hr 10/31/20 18:50: WBC 10.0, RBC 4.56, Hgb 13.0, Hct 41.0, MCV 89.9, MCH 28.5, MCHC 31.7 L, RDW Std Deviation 44.0 H, RDW Coeff of Gagandeep 13.3, Plt Count 240, MPV 11.7, Immature Gran % (Auto) 0.200, Neut % (Auto) 74.1 H, Lymph % (Auto) 14.5 L, [place] % (Auto) 7.8, Eos % (Auto) 2.5, Baso % (Auto) 0.9, Absolute Neuts (auto) 7.4, Absolute Lymphs (auto) 1.45, Nucleated RBC % 0 10/31/20 18:50: Sodium 139, Potassium 4.1, Chloride 107, Carbon Dioxide 27.0, Anion Gap 5, BUN 10, Creatinine 1.03 H, Estim Creat Clear Calc 39.50, Est GFR (MDRD) Af Amer 67, Est GFR (MDRD) Non-Af 55 L, BUN/Creatinine Ratio 9.7 L, Glucose 102, Calcium 8.6, Troponin I High Sens 8 Radiology Impression Chest X-Ray 10/31/20 19:11 IMPRESSION: 1. Reidentification of coarsened interstitium of both lungs and hyperinflation. No focal consolidation is present. Cystic emphysematous changes are also present. Electronically Signed: Faisal Smith MD at 20:06 EDT , Service support , Assessment & Plan Assessment/Plan (1) Chest pain: QUALIFIERS: Chest pain type: unspecified Qualified Code(s): R07.9 - Chest pain, unspecified PLAN: chest Pain Place on a monitored bed at progressive care unit Actual CXR image was independently visualized. No acute cardiopulmonary process was noted. Actual EKG tracing was independently visualized. EKG tracing showed A. fib with a left bundle branch block which is unchanged from previous. Received aspirin 324 mg in the emergency department. ASA 81 mg p.o. daily ordered SL NTG 0.4 mg prn as needed for chest pain ordered We will check lipid panel. Xarelto continued Initial high sensitive troponin is negative. Serial cardiac enzymes ordered Stat EKG as needed for chest pain Treadmill stress test in the AM if the cardiac enzymes are negative. Obtain echocardiogram from outside hospital. Hypertension Blood pressure is not within goal Carvedilol and Lasix continued. Trend blood pressure and adjust blood pressure medications. Atrial fibrillation A mild rapid ventricular response. Carvedilol continued. Xarelto continued. Anxiety disorder Xanax as needed continued. DVT prophylaxis: Xarelto for Afib continued.
--- NOTE | 2020-10-31 20:50 | NURSING ---
PCU CHEST PAIN AGYEPONG
[2020-10-31] MEDS: Aspirin 81 MG TAB.CHEW 324 MG PO (21:30)
[2020-10-31 21:37] VITALS: BP 133/99; PULSE 91; RESP 15; TEMP 36.6; O2SAT 99
--- NOTE | 2020-10-31 21:41 | EKG12_ITS ---
Test Reason : CP A.M. EKG Blood Pressure : / mmHG Vent. Rate : 073 BPM Atrial Rate : 066 BPM P-R Int : 000 ms QRS Dur : 160 ms QT Int : 472 ms P-R-T Axes : 000 -05 142 degrees QTc Int : 519 ms Atrial fibrillation with premature ventricular or aberrantly conducted complexes Left bundle branch block Abnormal ECG When compared with ECG of 31-OCT-2020 22:32, MANUAL COMPARISON REQUIRED, DATA IS UNCONFIRMED Confirmed by ELSA BAIRES, SARINA ([id number]), editor news JESSICA CH ([id number]) on 11/02/2020 8:00:09 AM Referred By: LANI Confirmed By:SARINA HUNTER MD
[2020-10-31 21:50] VITALS: BP 128/99; PULSE 108; RESP 18; TEMP 36.6; O2SAT 99
[2020-10-31 21:53] LABS: Troponin-I HS 10 pg/mL (3.0-54.0)
[2020-10-31 21:54] VITALS: PULSE 100; BMI 24.0
[2020-10-31] MEDS: ALPRAZolam 0.5 MG Tablet PO (22:11)
[2020-10-31] MEDS: Rivaroxaban 20 MG Tablet PO (22:11)
[2020-10-31] MEDS: Potassium Chloride Oral Tablet 20 MEQ PO (22:11)
[2020-10-31] MEDS: Carvedilol 12.5 MG Tablet PO (22:11)
[2020-10-31 22:15] VITALS: O2SAT 99
--- NOTE | 2020-10-31 22:20 | PCS.PANDOC ---
PANDEMIC DOCUMENTATION INITIATED: Date: 10/31/2020 Time: 2141
[2020-11-01] VITALS (8 sets, daily range): BP systolic 112–139; BP diastolic 68–97; PULSE 58–91; RESP 12–16; TEMP 36.4–36.7; O2SAT 94–100
[2020-11-01 01:41] LABS: Troponin-I HS 9 pg/mL (3.0-54.0)
[2020-11-01 05:54] LABS: Absolute Lymphocyte Count 2.39 X10^3/uL (0.83-4.51); Absolute Neutrophil Count 3.7 X10^3/uL (2.0-7.7); Basophil# 0.07 X10^3/uL; Eosinophil# 0.28 X10^3/uL; Hematocrit 41.9 % (37-47); Lymphocyte # 2.39 X10^3/ul (0.83-4.51); Lymphocyte % 33.8 % (19-41); Mean Corpuscular Hgb 28.2 pg (27.0-32.0); Mean Corpuscular Volume 90.9 fL (81-99); Monocyte# 0.64 X10^3/uL; NRBC Flagged by Analyzer 0 % (0-5); Neutrophil # 3.67 X10^3/uL (2.7-7.7); Neutrophil % 51.8 % (47-70); Platelet Count 217 K/mm3 (150-450); RBC Distribution Width CV 13.2 % (11.6-14.6); RBC Distribution Width SD 43.7 fl (35.1-43.9); Red Blood Count 4.61 M/mm3 (4.2-5.4); White Blood Count 7.1 K/mm3 (4.4-11.0)
--- NOTE | 2020-11-01 05:55 | EKG12_ITS ---
Test Reason : CP ADMIT Blood Pressure : / mmHG Vent. Rate : 099 BPM Atrial Rate : 062 BPM P-R Int : 000 ms QRS Dur : 162 ms QT Int : 420 ms P-R-T Axes : 000 -08 143 degrees QTc Int : 539 ms Atrial fibrillation Left bundle branch block Abnormal ECG When compared with ECG of 26-MAY-2020 17:19, No significant change was found Confirmed by ELSA BAIRES, SARINA ([id number]), editor managing newspaper JESSICA CH ([id number]) on 11/02/2020 8:00:49 AM Referred By: DR GARCIA Confirmed By:SARINA HUNTER MD
[2020-11-01] MEDS: Aspirin 81 MG TAB.CHEW PO (06:20)
[2020-11-01] MEDS: Levothyroxine 88 MCG Tablet PO (06:20)
[2020-11-01 06:36] LABS: Anion Gap 6 (5-15); BUN 9 mg/dL (7-18); BUN/Creat Ratio 9.5 RATIO (10-20); Calcium,Total 8.5 mg/dL (8.5-10.1); Chloride 111 mmol/L (98-107); Cholesterol 175 mg/dL (200); Creatinine, Serum 0.94 mg/dL (0.55-1.02); EST Glomerular Filtration Rate 61 mL/min (>60); Est Glom Filt Rate - Afr Amer 74 mL/min (>60); Estimated Creatinine Clearance 43.28 ml/min; Glucose 78 mg/dL (74-106); High Density Lipoprotein 54 mg/dL; Potassium 3.8 mmol/L (3.5-5.1); Sodium Level 142 mmol/L (136-145); Triglycerides 108 mg/dL; Very Low Density Lipoprotein 22 mg/dL (5-40)
--- NOTE | 2020-11-01 11:19 | PCM.PN.HOSP ---
Subjective Subjective Patient is a 75-year-old lady who presented with chest pain Objective Data Objective Data Vital Signs: Vital Signs Temp Pulse Resp BP Pulse Ox 97.9 F 91 12 120/77 100 11/01/20 10:45 11/01/20 10:45 11/01/20 10:45 11/01/20 10:45 11/01/20 10:45 Oxygen Delivery Method Room Air Weight: 63.7 kg Body Mass Index (BMI) 24.0 Intake & Output: Intake and Output for Last 24 Hours 10/30/20 10/31/20 11/01/20 23:59 23:59 23:59 Intake Total 240 / 240 Balance 240 / 240 Lab / Micro Data Result Diagrams: 11/01/20 05:08 11/01/20 05:08 Labs: Laboratory Results - last 24 hr 10/31/20 18:50: WBC 10.0, RBC 4.56, Hgb 13.0, Hct 41.0, MCV 89.9, MCH 28.5, MCHC 31.7 L, RDW Std Deviation 44.0 H, RDW Coeff of Gagandeep 13.3, Plt Count 240, MPV 11.7, Immature Gran % (Auto) 0.200, Neut % (Auto) 74.1 H, Lymph % (Auto) 14.5 L, [place] % (Auto) 7.8, Eos % (Auto) 2.5, Baso % (Auto) 0.9, Absolute Neuts (auto) 7.4, Absolute Lymphs (auto) 1.45, Nucleated RBC % 0 10/31/20 18:50: Sodium 139, Potassium 4.1, Chloride 107, Carbon Dioxide 27.0, Anion Gap 5, BUN 10, Creatinine 1.03 H, Estim Creat Clear Calc 39.50, Est GFR (MDRD) Af Amer 67, Est GFR (MDRD) Non-Af 55 L, BUN/Creatinine Ratio 9.7 L, Glucose 102, Calcium 8.6, Troponin I High Sens 8 10/31/20 21:25: Troponin I High Sens 10 11/01/20 01:04: Troponin I High Sens 9 11/01/20 05:08: WBC 7.1, RBC 4.61, Hgb 13.0, Hct 41.9, MCV 90.9, MCH 28.2, MCHC 31.0 L, RDW Std Deviation 43.7, RDW Coeff of Gagandeep 13.2, Plt Count 217, MPV 12.0, Immature Gran % (Auto) 0.400, Neut % (Auto) 51.8, Lymph % (Auto) 33.8, [place] % (Auto) 9.0, Eos % (Auto) 4.0, Baso % (Auto) 1.0, Absolute Neuts (auto) 3.7, Absolute Lymphs (auto) 2.39, Nucleated RBC % 0 11/01/20 05:08: Sodium 142, Potassium 3.8, Chloride 111 H, Carbon Dioxide 25.0, Anion Gap 6, BUN 9, Creatinine 0.94, Estim Creat Clear Calc 43.28, Est GFR (MDRD) Af Amer 74, Est GFR (MDRD) Non-Af 61, BUN/Creatinine Ratio 9.5 L, Glucose 78, Calcium 8.5, Triglycerides 108, Cholesterol 175, LDL Cholesterol 99, VLDL Cholesterol 22, HDL Cholesterol 54 Micro: Microbiology 10/31/20 21:30 Mucosa - Nose SARS-CoV-2 Antigen (Rapid) - Final Radiography Diagnostic Testing: Radiology Impression Chest X-Ray 10/31/20 19:11 IMPRESSION: 1. Reidentification of coarsened interstitium of both lungs and hyperinflation. No focal consolidation is present. Cystic emphysematous changes are also present. Electronically Signed: Faisal Smith MD at 20:06 EDT , Service support , Physical Exam Narrative GENERAL: cooperative HEENT: Atraumatic; EYES; Anicteric, Normal Conjunctiva NECK; supple, normal thyroid, RESPIRATORY: Diminished to auscultation CARDIOVASCULAR: Regular S1-S2 GI: soft, normoactive bowel sounds, : No Renal angle tenderness; EXTREMITIES: No edema, no clubbing, MUSCULOSKELETAL: no muscle waisting NEURO: Awake; no lateralizing signs. SKIN: No Rash PSYCH; Flat affect Assessment & Plan Assessment/Plan (1) Chest pain: QUALIFIERS: Chest pain type: unspecified Qualified Code(s): R07.9 - Chest pain, unspecified PLAN: Patient is a 75-year-old lady who presented with chest pain 1. Chest pain. Patient has been admitted to monitored bed [place] has been ruled out with serial cardiac enzymes. EKG on admission demonstrated left bundle branch block which is unchanged from previous. Patient underwent a nuclear stress test awaiting results 2. Essential hypertension ?Patient blood pressure was not well controlled on admission did continue with home meds with plans to adjust doses as needed 3. Paroxysmal A. fib -patient was found to be in mild RVR on carvedilol did continue also on systemic anticoagulation with Xarelto 4. Anxiety disorder ?Patient is on Xanax as needed 5. Hypothyroidism - Patient is on levothyroxine home dose continued 6. DVT prophylaxis ?Patient is on rivaroxaban DVT prophylaxis: Xarelto for Afib continued. Charges/Coding Visit Charges OBSV E&M: 71658 Subsequent observation care L3
--- NOTE | 2020-11-01 13:58 | CHAPLAIN ---
Type of Pastoral Visit _x__ Initial Visit ___ Follow-up Visit ___ On-call Visit ___ General Patient Visit ___ Spiritual Assessment ___ Family Conference ___ Bereavement ___ Rapid Response ___ Code Blue ___ Other (describe below) Pastoral Care Referral From _x__ Patient ___ Family ___ Nurse ___ Physician ___ Aluminizer ___ Fountain Worker ___ Other (describe below) Sacrament/Intervention _x__ Active listening ___ Anointing ___ Yazdanism ___ Bereavement ___ Communion _x__ Tere exploration ___ ___ Life review _x__ Prayer ___ Reconciliation ___ Sacrament of Sick _x__ Supportive presence ___ Wedding ___ Other (describe below) Pastoral Comments patient is frustrated due to waiting for report of testing done; pt says they are 90 minutes overdue; listening and presence given; pt used to live in [place] but has family in this area; pt lives alone; pt stated that she is still looking for a [facility] to go to; pt welcomed prayer
--- NOTE | 2020-11-01 14:13 | STRESSREP ---
Stress Test Report Pharmacologic myocardial perfusion stress test. 75-year-old lady with a history of chest pain. Stress protocol: Resting EKG demonstrates atrial fibrillation with a rate of 85 bpm and left bundle branch block. Resting blood pressure is 138/70 mmHg. 0.4 mg of regadenoson was infused per usual protocol followed by rapid intravenous saline flush injection continuous EKG monitoring was performed. The maximum heart rate attained was 90 bpm which was 62% of max infected heart rate the maximum workload was 1 metabolic equivalent. At rest there were no ST or T wave changes noted to suggest abnormal flow reserve and at peak infusion nonspecific ST changes were noted with did not meet the criteria for ischemia. No clinical angina was noted. Myocardial perfusion protocol. 11.7 mCi of technetium 99m sestamibi was injected at rest. 0.4 mg of regadenoson was infused per usual protocol. At peak infusion 35.0 mCi of technetium 99m sestamibi was injected stress images were obtained stress and rest images were reconstructed in comparing the short axis vertical long horizontal long axis. Gated images were also obtained per Perfusion SPECT analysis: Review of the stress images demonstrate normal perfusion noted in all areas of the myocardium except for small portion of the mid to distal anterior wall. The rest of the smith appear to be well perfused. The resting images demonstrate a similar pattern. No areas of reversibility are noted to suggest ischemia and a previous infarct cannot be completely excluded. Gated SPECT analysis: The gated ejection fraction is noted to be 39%. Conclusion: Mild cardiomyopathy. Pharmacologic stress test with no obvious ischemia noted.
--- NOTE | 2020-11-01 14:17 | DS.PCM_ITS ---
Providers Date of Admission: 10/31/20 Primary Care Physician: Dr. Reginald Rojo MD Reason For Visit: CHEST PAIN Diagnosis Discharge Diagnosis (1) Chest pain: Status: Acute Code(s): R07.9 - Chest pain, unspecified Qualifiers: Chest pain type: unspecified Qualified Code(s): R07.9 - Chest pain, unspecified Medications at Discharge Home Medications alprazolam 0.5 mg tablet 0.5 mg PO BID PRN tab 07/15/18 levothyroxine 88 mcg tablet 88 mcg PO DAILY tab 05/09/19 potassium chloride 20 mEq tablet,extended release(part/cryst) 20 meq PO BID #180 tab 04/14/20 rivaroxaban 20 mg tablet 20 mg PO QDAY #90 tab 07/12/20 carvedilol 12.5 mg PO BID 10/31/20 furosemide 20 mg PO DAILY 10/31/20 Hospital Course Summary of Care Provided Minutes Spent on Discharge: 45 Hospital Course: Patient is a 75-year-old lady who presented with chest pain 1. Chest pain. Patient has been admitted to monitored bed [place] has been ruled out with serial cardiac enzymes. EKG on admission demonstrated left bundle branch block which is unchanged from previous. -Patient underwent a nuclear stress test which was negative for stress induced ischemia 2. Essential hypertension ?Patient blood pressure was not well controlled on admission did continue with home meds with plans to adjust doses as needed 3. Paroxysmal A. fib -patient was found to be in mild RVR on carvedilol did continue also on systemic anticoagulation with Xarelto 4. Anxiety disorder ?Patient is on Xanax as needed 5. Hypothyroidism - Patient is on levothyroxine home dose continued 6. DVT prophylaxis ?Patient is on rivaroxaban Physical Exam Narrative GENERAL: cooperative HEENT: Atraumatic; EYES; Anicteric, Normal Conjunctiva NECK; supple, normal thyroid, RESPIRATORY: Diminished to auscultation CARDIOVASCULAR: Regular S1-S2 GI: soft, normoactive bowel sounds, : No Renal angle tenderness; EXTREMITIES: No edema, no clubbing, MUSCULOSKELETAL: no muscle waisting NEURO: Awake; no lateralizing signs. SKIN: No Rash PSYCH; Flat affect Weight / BMI Weight Weight: 63.7 kg Body Mass Index (BMI) 24.0 ABG / Lab / Microbiology Data Result Diagrams: 11/01/20 05:08 11/01/20 05:08 Laboratory: Laboratory Results - last 24 hr 10/31/20 18:50: WBC 10.0, RBC 4.56, Hgb 13.0, Hct 41.0, MCV 89.9, MCH 28.5, MCHC 31.7 L, RDW Std Deviation 44.0 H, RDW Coeff of Gagandeep 13.3, Plt Count 240, MPV 11.7, Immature Gran % (Auto) 0.200, Neut % (Auto) 74.1 H, Lymph % (Auto) 14.5 L, [place] % (Auto) 7.8, Eos % (Auto) 2.5, Baso % (Auto) 0.9, Absolute Neuts (auto) 7.4, Absolute Lymphs (auto) 1.45, Nucleated RBC % 0 10/31/20 18:50: Sodium 139, Potassium 4.1, Chloride 107, Carbon Dioxide 27.0, Anion Gap 5, BUN 10, Creatinine 1.03 H, Estim Creat Clear Calc 39.50, Est GFR (MDRD) Af Amer 67, Est GFR (MDRD) Non-Af 55 L, BUN/Creatinine Ratio 9.7 L, Glucose 102, Calcium 8.6, Troponin I High Sens 8 10/31/20 21:25: Troponin I High Sens 10 11/01/20 01:04: Troponin I High Sens 9 11/01/20 05:08: WBC 7.1, RBC 4.61, Hgb 13.0, Hct 41.9, MCV 90.9, MCH 28.2, MCHC 31.0 L, RDW Std Deviation 43.7, RDW Coeff of Gagandeep 13.2, Plt Count 217, MPV 12.0, Immature Gran % (Auto) 0.400, Neut % (Auto) 51.8, Lymph % (Auto) 33.8, [place] % (Auto) 9.0, Eos % (Auto) 4.0, Baso % (Auto) 1.0, Absolute Neuts (auto) 3.7, Abso lute Lymphs (auto) 2.39, Nucleated RBC % 0 11/01/20 05:08: Sodium 142, Potassium 3.8, Chloride 111 H, Carbon Dioxide 25.0, Anion Gap 6, BUN 9, Creatinine 0.94, Estim Creat Clear Calc 43.28, Est GFR (MDRD) Af Amer 74, Est GFR (MDRD) Non-Af 61, BUN/Creatinine Ratio 9.5 L, Glucose 78, Calcium 8.5, Triglycerides 108, Cholesterol 175, LDL Cholesterol 99, VLDL Cholesterol 22, HDL Cholesterol 54 Microbiology: Microbiology 10/31/20 21:30 Mucosa - Nose SARS-CoV-2 Antigen (Rapid) - Final Radiography Diagnostic Testing: Radiology Impression Chest X-Ray 10/31/20 19:11 IMPRESSION: 1. Reidentification of coarsened interstitium of both lungs and hyperinflation. No focal consolidation is present. Cystic emphysematous changes are also present. Electronically Signed: Faisal Smith MD at 20:06 EDT , Service support , D/C Instructions Discharge Diet: No restrictions Discharge Activity: Return to Normal Activity Call your doctor if you observe: Fever of 101 or Higher, Shortness of breath, Fainting spells and Chest pain Meaningful Use Info Meaningful Use Diagnoses (Choose all that apply): None applicable Discharge Plan Admission Admit Date/Time: 10/31/20 20:49 Primary Reason for Your Visit: Chest Pain Attending Provider: Lamberto De La Garza Primary Care Provider: Reginald Rojo Instructions Patient Instructions: ED Chest Pain, Noncardiac Discharge Orders/Prescriptions Prescriptions: Continued levothyroxine 88 mcg tablet 88 mcg PO DAILY RF: 0 carvedilol 12.5 mg Tablet 12.5 mg PO BID RF: 0 furosemide 20 mg tablet 20 mg PO DAILY RF: 0 alprazolam 0.5 mg tablet 0.5 mg PO BID PRN (Reason: anxiety) RF: 0 potassium chloride 20 mEq tablet,ER particles/crystals 20 meq PO BID Qty: 180 RF: 3 Xarelto 20 mg tablet 20 mg PO QDAY Qty: 90 RF: 3 Referrals / Follow Up: Reginald Rojo MD [Primary Care Provider] - Within 2 Weeks Disposition Disposition (needs filled in before D/C Order can be placed): Home, Self Care Charges/Coding Visit Charges OBSV E&M: 89114 Observation care discharge
--- NOTE | 2020-11-01 14:25 | CASEMGMT ---
Pt up independent in room and therapy did not even see as pt declined. SStaten RN CM
[2020-11-01] MEDS: Potassium Chloride Oral Tablet 20 MEQ PO (15:13)
[2020-11-01] MEDS: Carvedilol 12.5 MG Tablet PO (15:13)
--- NOTE | 2020-11-01 15:36 | PHA.DC.MR ---
Pharmacy Service has performed discharge medication reconciliation for this patient. The patient's discharge medication list was reviewed for discrepancies and discrepancies were resolved. Home Medications alprazolam 0.5 mg tablet 0.5 mg PO BID PRN tab 07/15/18 levothyroxine 88 mcg tablet 88 mcg PO DAILY tab 05/09/19 potassium chloride 20 mEq tablet,extended release(part/cryst) 20 meq PO BID #180 tab 04/14/20 rivaroxaban 20 mg tablet 20 mg PO QDAY #90 tab 07/12/20 carvedilol 12.5 mg PO BID 10/31/20 furosemide 20 mg PO DAILY 10/31/20
== END 2020-11-01 14:21 | disposition home or self-care (01) ==
LOC: ED 20:46 → PCU 21:04
PROVIDERS: Admitting Provider Hospitalist; Emergency Provider Emergency Medicine; PCP Internal Medicine; Visit Provider Internal Medicine
DX: R07.89 Other chest pain (principal); R06.02 Shortness of breath; I48.0 Paroxysmal atrial fibrillation; I47.1 Supraventricular tachycardia; E03.9 Hypothyroidism, unspecified; F41.9 Anxiety disorder, unspecified; I51.81 Takotsubo syndrome; I10 Essential (primary) hypertension; Z79.899 Other long term (current) drug therapy; Z79.01 Long term (current) use of 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s; Z87.891 Personal history of nicotine dependence
CPT/HCPCS: 36415; 71046; 78452; 80048; 80061; 84484; 85025; 87426; 93005; 93017; 99218; 99285; A9500; A4216; G0378; J2785

== ENCOUNTER 2021-01-30 06:32 | Emergency (ER) | payer MEDICARE, SELFPAY ==
[2021-01-30 06:33] VITALS: TEMP 36.5; BMI 23.8
[2021-01-30 06:43] VITALS: BP 136/81; PULSE 96; RESP 24; O2SAT 95
--- NOTE | 2021-01-30 06:44 | EKG12_ITS ---
Test Reason : PALPS Blood Pressure : / mmHG Vent. Rate : 098 BPM Atrial Rate : 127 BPM P-R Int : 000 ms QRS Dur : 166 ms QT Int : 368 ms P-R-T Axes : 000 029 188 degrees QTc Int : 469 ms Atrial fibrillation Left bundle branch block Abnormal ECG Confirmed by ELSA BAIRES, SARINA ([id number]), slot editor JESSICA CH ([id number]) on 01/31/2021 1:42:03 PM Referred By: CLEMENTE Confirmed By:SARINA HUNTER MD
[2021-01-30 06:48] VITALS: O2SAT 95
[2021-01-30 06:51] LABS: Absolute Lymphocyte Count 1.96 X10^3/uL (0.83-4.51); Basophil# 0.08 X10^3/uL; Eosinophil# 0.37 X10^3/uL; Eosinophils% 4.5 % (0-5); Hematocrit 41.5 % (37-47); Hemoglobin 13.4 g/dL (12.0-15.0); Lymphocyte # 1.96 X10^3/ul (0.83-4.51); Lymphocyte % 23.8 % (19-41); Mean Corp Hgb Conc 32.3 g/dL (32-36); Mean Corpuscular Volume 86.8 fL (81-99); Mean Platelet Vol. 11.3 fl (6.2-12.0); Monocyte# 0.79 X10^3/uL; Monocyte% 9.6 % (0-10); NRBC Flagged by Analyzer 0 % (0-5); Neutrophil # 5.02 X10^3/uL (2.7-7.7); Platelet Count 229 K/mm3 (150-450); RBC Distribution Width CV 13.2 % (11.6-14.6); RBC Distribution Width SD 41.4 fl (35.1-43.9); Red Blood Count 4.78 M/mm3 (4.2-5.4); White Blood Count 8.2 K/mm3 (4.4-11.0)
--- NOTE | 2021-01-30 06:52 | ED.VIS.CHEST ---
HPI History of Present Illness Chief Complaint: Palpitations Detail of Chief Complaint: History of chronic A. fib Informant: patient Onset/Context/Timing Onset: Today Activity at onset: sudden Timing: Intermittent Current Severity: Gone Maximum Severity: Mild Worsened By: Nothing Relieved By: Nothing Associated Symptoms: Negative for Nausea, Vomiting, Diaphoresis, Dyspnea, Cough, Fever, Lightheadedness, Acid Reflux and Palpitations Narrative Narrative: 75-year-old female history of chronic A. fib, hypothyroidism and prior cardiac valve repair in 2001. She has had a prior cardiac ablation around 5 years ago. Patient states she woke from sleep around 430 this morning with her heart racing. Denies any chest pain. Mild dyspnea. She is on Xarelto for A. fib. She took her carvedilol and also took a Cardizem which he only takes occasionally when her heart rate is elevated. She denies any recent illness. She denies any chest pain. Currently she states she feels better her heart seems to be back in a normal rate. 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 Home Medications alprazolam 0.5 mg tablet 0.5 mg PO BID PRN tab 07/15/18 [History Last Taken 10/31/20 17:00] levothyroxine 88 mcg tablet 88 mcg PO DAILY tab 05/09/19 [History Last Taken 10/31/20 10:00] rivaroxaban 20 mg tablet 20 mg PO QDAY #90 tab 07/12/20 [Rx Last Taken 10/30/20 22:00] carvedilol 12.5 mg PO BID 10/31/20 [History Last Taken 10/31/20 10:00] losartan 25 mg DAILY 01/30/21 [History Last Taken Unknown] Allergy/AdvReac Type Severity Reaction Status Date / Time codeine Allergy Other Verified 01/30/21 06:37 cortisone Allergy Rash Verified 01/30/21 06:37 propoxyphene [From Darvon] Allergy Rash Verified 01/30/21 06:37 propranolol Allergy Unknown Verified 01/30/21 06:37 verapamil Allergy Unknown Verified 01/30/21 06:37 digoxin AdvReac Unknown Verified 01/30/21 06:37 honey AdvReac Rash Verified 01/30/21 06:37 Surgical History History of cardiac radiofrequency ablation (08/23/17) History of cardioversion (03/13/17) History of cataract surgery History of left heart catheterization (01/19/16) History of mitral valve repair (09/18/01) History of total abdominal hysterectomy Social History Smoking Status: Former smoker ROS ROS ED ROS Narrative Denies. Review of Systems ROS Unobtainable: Denies due to encephalopathy Constitutional Constitutional ED: Denies fever(s) Eyes Eyes: Denies none ENT ENT ED: Denies ear pain Cardiovascular Cardiovascular: Reports as per HPI and palpitations; Denies chest pain Respiratory/Chest Respiratory/Chest: Reports dyspnea Gastrointestinal Gastrointestinal: Denies abdominal pain, diarrhea, nausea or vomiting Genitourinary Genitourinary ED: Denies dysuria or hematuria Musculoskeletal Musculoskeletal: Denies myalgias Integumentary Denies rash Neurologic Neurologic: Denies headache(s) Psychiatric Psychiatric: Denies depression Endocrine Endocrinology: Denies polyuria Hematologic/Lymphatic Hematologic/Lymphatic: Denies easy bruising Allergic/Immunologic Allergic/Immunologic ED: Denies urticaria EXAM Physical Exam Narrative Exam Narrative: 75-year-old female vital signs are stable. She is afebrile. Heart rate is 96. A. fib on monitor. HEENT exam unremarkable. Neck nontender no lymphadenopathy. Lungs clear to auscultation bilaterally. Heart irregularly irregular rate in the 90s. Consistent with A. fib. Abdomen soft nontender. Moving all 4 extremities. Calves are nontender without edema. Neurologically she is awake and alert with no focal motor deficits. Const Vital Signs: 01/30/21 06:33 01/30/21 06:41 01/30/21 06:43 Temperature 97.7 F L Temperature Source Oral Pulse Rate 96 Respiratory Rate 24 H Respiratory Effort Short of Breath Blood Pressure 136/81 H Blood Pressure Mean 99 Pulse Ox 95 Oxygen Delivery Method Room Air 01/30/21 06:48 Temperature Temperature Source Pulse Rate Respiratory Rate Respiratory Effort Blood Pressure Blood Pressure Mean Pulse Ox 95 Oxygen Delivery Method Room Air Positive well nourished and well developed; Negative for cachectic, contractures or unkempt General Appearance ED: well developed and NAD; Negative for unkempt, cachectic, contractures or pallor Nutritional Appearance: Negative for cachectic HEENT Reports moist mucous membranes normocephalic; Negative for trauma or tenderness Eyes PERRL and EOMs intact bilaterally General Eye ED: Negative for pale conjunctiva Neck no lymphadenopathy, supple and no JVD General: Negative for tenderness Chest Wall inspection of chest normal and palpation of chest normal Chest: Negative for tenderness Resp normal respiratory effort and clear to auscultation bilaterally Effort and Inspection: respiratory distress Auscultation: Negative for rales, rhonchi or wheezes Cardio regular rate, S1 normal heart sound, S2 normal heart sound and no murmurs; Negative for regular rhythm GI normal to inspection, nondistended, normoactive bowel sounds, soft to palpation, non-tender, non-distended and no masses Back/Spine no CVA tenderness Extremity normal to inspection General Extremety ED: Negative for edema or tenderness General Extremity: Negative for edema Neuro oriented x3 Sensorium / Orientation: awake, alert, oriented to person, oriented to place and oriented to time Motor Exam: strength 5/5 throughout Psych mental status grossly normal Appearance: Negative for unkempt Mood & Affect: Negative for depressed or tearful Skin no rashes or lesions noted and no wounds General Skin Exam: Negative for jaundice or pallor MDM MDM MDM Narrative Medical decision making narrative: 75-year-old female acute on chronic A. fib on Xarelto. And palpitations accelerated heart rate. No chest pain. Will undergo cardiac work-up. She took her heart rate medications prior to arrival and her rate is now controlled. She remains in A. fib. Exam is benign. Repeat exam patient is doing well at 7:35 AM. Heart rate is 85-90. She denies since her test results. 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 Lab Data Attestation: I reviewed the patient's lab results. Lab results narrative: CBC White count 8. Hemoglobin 13. Chemistries potassium 3.2 gap 4 creatinine 1.1. Glucose 108 troponin XIII. Labs: Laboratory Results - last 24 hr 01/30/21 01/30/21 06:45 06:45 WBC 8.2 RBC 4.78 Hgb 13.4 Hct 41.5 MCV 86.8 MCH 28.0 MCHC 32.3 RDW Std Deviation 41.4 RDW Coeff of Gagandeep 13.2 Plt Count 229 MPV 11.3 Immature Gran % (Auto) 0.100 Neut % (Auto) 61.0 Lymph % (Auto) 23.8 [place] % (Auto) 9.6 Eos % (Auto) 4.5 Baso % (Auto) 1.0 Absolute Neuts (auto) 5.0 Absolute Lymphs (auto) 1.96 Nucleated RBC % 0 Sodium 142 Potassium 3.2 L Chloride 111 H Carbon Dioxide 27.0 Anion Gap 4 L BUN 10 Creatinine 1.12 H Estim Creat Clear Calc 36.32 Est GFR (MDRD) Af Amer 61 Est GFR (MDRD) Non-Af 50 L BUN/Creatinine Ratio 8.9 L Glucose 108 H Calcium 8.7 Troponin I High Sens 13 Radiography Chest X-Ray - ED: 1 View, Heart, Mediastinum, Bony Structures, Chronic Changes, Right Effusion and Left Effusion Diagnostic Testing: Clinical Impression(s) from Imaging Studies Chest X-Ray 01/30/21 06:54 IMPRESSION: 1. Findings suggest possible congestive heart failure. 2. Cannot exclude bilateral basilar pneumonia. Electronically Signed: Petrona Camara MD at 7:18 EST , Service support , Chest x-ray portable, 1 view interpreted by myself shows chronic changes. Bilateral pleural effusions. Mild CHF. Also read by the radiologist. Rhythm Strip Rhythm Strip: A-fib Rate: 98 EKG Initial EKG: Attestation: I personally reviewed and interpreted this EKG as follows: Interpretation: No Acute Injury Pattern and Atrial Fibrillation Comments: Atrial fibrillation rate of 98. Known left bundle branch block no acute signs of AL or ischemia. Prior EKG tracings: not available for review Discharge Plan Triage Chief Complaint: Palpitations ED Provider: Damien Grider Dx/Rx/DC Orders Clinical Impression: Paroxysmal A-fib, History of mitral valve repair Instructions: ED AFIB Prescriptions: No Action levothyroxine 88 mcg tablet 88 mcg PO DAILY RF: 0 carvedilol 12.5 mg Tablet 12.5 mg PO BID RF: 0 losartan 25 mg tablet 25 mg DAILY RF: 0 alprazolam 0.5 mg tablet 0.5 mg PO BID PRN (Reason: anxiety) RF: 0 Xarelto 20 mg tablet 20 mg PO QDAY Qty: 90 RF: 3 Primary Care Provider: Reginald Rojo Referrals: Reginald Rojo MD [Primary Care Provider] - As soon as possible Activity Restrictions/Additional Instructions: Continue your blood pressure and heart rate medications. Follow-up with your research professor. Return if feeling worse. Disposition Disposition: Home, Self Care
--- NOTE | 2021-01-30 06:53 | ED.RN ---
Patient was not able to leave a urine before CT. Had him stand and try after the CT since he has been medicated and had IVF x 1L but he was still not able to go.
--- NOTE | 2021-01-30 06:54 | RAD_ITS ---
STUDY: X-RAY CHEST REASON FOR EXAM: Female, 75 years old patient with chest pain. TECHNIQUE: Single AP portable view of the chest. COMPARISON: Prior comparison studies are not available for review at this time. FINDINGS: Cardiac monitoring leads are present. The lungs are expanded. There are bilateral basilar airspace consolidations and atelectasis. There are bilateral pleural effusions. There is mild prominence of the bronchovascular markings. There is mild cardiac enlargement. Normal mediastinum and jason. Normal visualized pulmonary arteries. Normal visualized aortic arch and descending thoracic aorta. There is demineralization of the osseous structures. There is deformity of several left-sided ribs consistent with old rib fractures. There is no demonstrated abnormality of the visualized soft tissue structures of the upper abdomen. RAD/Chest 1 View (Portable) IMPRESSION: 1. Findings suggest possible congestive heart failure. 2. Cannot exclude bilateral basilar pneumonia. Electronically Signed: Petrona Camara MD at 7:18 EST , Service support ,
[2021-01-30 07:09] LABS: Anion Gap 4 (5-15); BUN 10 mg/dL (7-18); BUN/Creat Ratio 8.9 RATIO (10-20); Calcium,Total 8.7 mg/dL (8.5-10.1); Chloride 111 mmol/L (98-107); Creatinine, Serum 1.12 mg/dL (0.55-1.02); EST Glomerular Filtration Rate 50 mL/min (>60); Est Glom Filt Rate - Afr Amer 61 mL/min (>60); Estimated Creatinine Clearance 36.32 ml/min; Glucose 108 mg/dL (74-106); Potassium 3.2 mmol/L (3.5-5.1); Sodium Level 142 mmol/L (136-145); Troponin-I HS 13 pg/mL (3.0-54.0)
[2021-01-30 07:48] VITALS: BP 142/90; PULSE 91; RESP 27; O2SAT 91
== END 2021-01-30 07:49 | disposition home or self-care (01) ==
LOC: ED 07:13
PROVIDERS: Emergency Provider Emergency Medicine; PCP Internal Medicine
DX: I48.0 Paroxysmal atrial fibrillation (principal); F41.9 Anxiety disorder, unspecified; E03.9 Hypothyroidism, unspecified; Z79.01 Long term (current) use of 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s; Z79.899 Other long term (current) drug therapy; Z87.891 Personal history of nicotine dependence
CPT/HCPCS: 71045; 80048; 84484; 85025; 93005; 99285; A4216